=== PATIENT | female | born 1965 | race Caucasian/White ===

== ENCOUNTER 2019-09-07 15:30 | Outpatient (RCR) | payer BC, SELFPAY ==
--- NOTE | 2019-07-28 11:54 | PTOPEVAL ---
PHYSICAL THERAPY EVALUATION AND PLAN OF CARE Thank you for referring Bessie Snider to [facility]. I recommend Bessie participate in physical therapy 2x/week for 3-4 weeks. Please review, sign, date and return this plan of care RUY. I agree with and certify that the following plan of care is medically necessary. Referring Physician Date Attending Provider: Kalli Montana, MD Evaluation Outpatient Past Medical History Musculoskeletal History Hx Fibromyalgia Yes: diagnosed 1999 Hx Orthopedic Surgery Yes: cervical fusion C3-6 Evaluation Information Diagnosis right shoulder/neck pain Onset 6months Cause insidious Subjective Information Rand is here with chronic Query Text:As Reported By Patient/ right neck and shoulder pain Family that causes chronic right sided neck pain. Normally gets massages but is unable due to shutdown/stay at home. Reports numbness in 2nd and 3rd finger tips of right hand. has been trying to stretch without relief. Takes pain medication and muscle relaxor to 'get any relief to go to bed.' Right Shoulder Reported Pain Level 8/10 Pain Radiation Right Arm Pain Frequency Chronic,Continuous Lowest Pain Intensity 5 Greatest Pain Intensity 8 Other Pain Aggravating Factors working on computer Pain Behaviors Irritable Cervical ROM Cervical Flexion (0-60) 40 Query Text:Active in Degrees Cervical Extension (0-70) 15 Query Text:Active in Degrees Cervical Rotation Right (0-90) 35 Query Text:Active in Degrees Cervical Rotation Left (0-90) 40 Query Text:Active in Degrees Upper Extremity Range of Motion Scapular/ Shoulder Range of Motion Bilateral Shoulder Flexion - Active 140 Shoulder Abduction - Active 140 Shoulder Medial Rotation - Active T12 Query Text:Reach Behind the Back Shoulder Lateral Rotation - Active C7 Query Text:Reach Behind the Head Upper Extremity Muscle Strength Testing Scapular/Shoulder Bilateral Scapular Retraction - Middle Trapezius 3+ Fair + Scapular Retraction - Lower Trapezius 3+ Fair + Shoulder Flexion Strength 4 Good Shoulder Abduction Strength 4 Good Shoulder Medial Rotation Strength 4+ Good + Shoulder Lateral Rotation Strength 4+ Good + Muscle Length Testing Scalene Group Muscle Length (L) Moderate Tightness,(R) Query Text: Severe Tightness Scalenes Posterior Muscle Length (R) Moderate Tightness,(L) Query T
--- NOTE | 2019-08-04 10:49 | PCPTNOTE ---
Patient called & cancelled scheduled appointment this date due to having to work.
--- NOTE | 2019-08-12 08:07 | PCPTNOTE ---
Patient called & cancelled scheduled appointment this date due to being sick.
--- NOTE | 2019-08-17 08:21 | PCPTNOTE ---
Patient called & cancelled scheduled appointment this date due to no transportation.
--- NOTE | 2019-09-07 16:17 | PTOPEVAL ---
PHYSICAL THERAPY DISCHARGE NOTE Thank you for referring Bessie Snider to [facility]. Rand is confident and capable of HEP. I recommend discharge with follow-up with MD. I recommend further investigation of symptoms, possibly including and MRI of Cervical spine including at least T1-2. Please review, sign, date and return this plan of care RUY. I agree with and certify that the following plan of care is medically necessary. Referring Physician Date : Attending Provider: Kalli Montana, MD Discharge Outpatient Past Medical History Musculoskeletal History Hx Fibromyalgia Yes: diagnosed 1999 Hx Orthopedic Surgery Yes: cervical fusion C3-6 Diagnosis right shoulder/neck pain Onset 6months Cause insidious Subjective Information Rand reports that she Query Text:As Reported By Patient/ continues to have pain at base Family of right neck. She is not sure it will ever go away. She continues to have headaches regularly. She sleeps with the assist of Topamax, flexeril, tramadol, trazadone, but states that if she does not take one of them she does not sleep well. Rand continues to report pain starting at top of shoulder and running down middle deltoid with occasional symptoms down to middle finger Right Shoulder(s) Reported Pain Level 4 Pain Description Aching,Burning Pain Frequency Chronic,Continuous Other Pain Aggravating Factors working on computer Pain Behaviors Irritable Pain Score Pain Score 4: Self Report Additional Pain Score Comments massage scheduled on Saturday, headache ususally every night Cervical and Lumbar ROM Cervical ROM Cervical Flexion (0-60) 40 Query Text:Active in Degrees Cervical Extension (0-70) 20 Query Text:Active in Degrees Cervical Rotation Right (0-90) 45 Query Text:Active in Degrees Cervical Rotation Left (0-90) 45 Query Text:Active in Degrees Upper Extremity Range of Motion Scapular/ Shoulder Range of Motion Bilateral Shoulder Flexion - Active 145 Shoulder Abduction - Active 145 Shoulder Medial Rotation - Active T12 Query Text:Reach Behind the Back Shoulder Lateral Rotation - Active C7 Query Text:Reach Behind the Head Upper Extremity Muscle Strength Testing Scapular/Shoulder Bilateral Scapular Retraction - Middle Trapezius 4- Good - Scapular Retraction - Lower Trapezius
== END 2019-10-20 12:48 | disposition home or self-care (01) ==
LOC: ANHPT 15:30
PROVIDERS: PCP Family Medicine; Visit Provider Family Medicine
DX: M25.511 Pain in right shoulder (principal)
CPT/HCPCS: 97014; 97110; 97140; 97162; G0283

== ENCOUNTER 2019-12-16 22:22 | Emergency (ER) | payer BC, SELFPAY ==
[2019-12-16 22:23] VITALS: BP 153/91; PULSE 77; RESP 16; TEMP 36.2; O2SAT 100
[2019-12-16] MEDS: KETOROLAC 30 MG/ML VIAL (*BKC) IV PUSH (22:47)
[2019-12-16] MEDS: SODIUM CHLORIDE 0.9% IV 1,000 ML 1000 ML (22:47)
[2019-12-16] MEDS: fentaNYL CITRATE INJ (*CRX) 100 MCG/2 ML VIAL 50 MCG IV PUSH (23:56)
--- NOTE | 2019-12-17 00:19 | ED.HA ---
HPI - Headache General Chief Complaint: Headache Stated Complaint: Migraine Time Seen by Provider: 12/16/19 22:29 History of Present Illness HPI Narrative: Patient is a 54-year-old female who presents the ER with headache. Reports as a migraine. No relief with tramadol or Flexeril. Started in the posterior aspect of her head radiated forward on the right side. Worse with noise and lights. Endorses nausea and vomiting. No fevers or chills or sweats. Reports she is been under stress at work and this may have triggered it. Related Data Home Medications Medication Instructions Recorded Confirmed hydrochlorothiazide 12/16/19 lisinopril 12/16/19 Allergies Allergy/AdvReac Type Severity Reaction Status Date / Time prochlorperazine Allergy Severe ANAPHALAXIS Verified 12/16/19 22:37 HYDROMORPHONE HCL Allergy Severe Hives / Uncoded 12/16/19 22:37 Red Face IVP dye Allergy Unknown Unknown Uncoded 12/16/19 22:37 strawberries Allergy Unknown Unknown Uncoded 12/16/19 22:37 Contrast Media AdvReac Intermediate RASH Uncoded 12/16/19 22:37 Review of Systems Review of Systems: All systems reviewed & are unremarkable except as noted in HPI and below Eyes: Eyes: Denies change in vision and Reports photophobia ENT: Denies nasal congestion and Denies sore throat Neurologic: Denies dizziness, Reports headache(s), Denies focal weakness and Denies numbness PMFSH Past Medical History Medical History (Updated 12/17/19 @ 00:24 by Timothy Hsu MD) DVT (deep vein thrombosis) in Fibromyalgia Migraine Surgical History Surgical History (Updated 12/17/19 @ 00:22 by Timothy Hsu MD) H/O neck surgery History of appendectomy History of cholecystectomy History of hysterectomy Plate from C3-C6 Social History Social History Smoking status: Never smoker Alcohol intake: current Exam Narrative: Exam Narrative: GENERAL: Well-appearing, well-nourished, and in no acute distress. HEAD: Normocephalic, atraumatic. CHEST: Clear to auscultation. No respiratory distress. HEART: Regular rate and rhythm. Normal peripheral pulses. EXTREMITIES: Normal range of motion. No edema. SKIN: Warm, dry, no rash. NEURO: Alert and oriented x3. PSYCH: Normal mood and affect. Course Course Emergency Course: Headache resolved after IV fentanyl/Reglan/Toradol/Benadryl Vital Signs Vital signs: Vital Signs Temperature 97.2 F L 12/16/19 22:23 Pulse Rate 77 12/16/19 22:23 Respiratory Rate 16 12/16/19 22:23 Blood Pressure 153/91 H 12/16/19 22:23 Pulse Oximetry 100 12/16/19 22:23 Temperature 97.2 F L 12/16/19 22:23 Pulse Rate 77 12/16/19 22:23 Respiratory Rate 16 12/16/19 22:23 Blood Pressure 153/91 H 12/16/19 22:23 Pulse Oximetry 100 12/16/19 22:23 Discharge Plan Discharge Clinical Impression: Migraine Patient Disposition: Home, Self-Care Condition: Stable Instructions: Migraine Headache (ED) Additional Instructions: Return the ER if you have fever over 100.4 ?F, you have chest pain or shortness of breath, you lose consciousness, you have additional concerns. Prescriptions: No Action lisinopril 10 mg tablet RF: 0 hydrochlorothiazide 25 mg tablet RF: 0 Follow-up/Referrals: Rubén,Kalli Mack MD [Primary Care Provider] - 1 Week
[2019-12-17 00:34] VITALS: BP 136/86; PULSE 74; RESP 18; O2SAT 98
== END 2019-12-17 00:35 | disposition home or self-care (01) ==
PROVIDERS: Emergency Provider Emergency Medicine; PCP Family Medicine
DX: G43.909 Migraine, unspecified, not intractable, without status migrainosus (principal); Z86.718 Personal history of other venous thrombosis and embolism; M79.7 Fibromyalgia
CPT/HCPCS: 96361; 96374; 96375; 99284; J1885; J3010; J7030

== ENCOUNTER 2020-06-29 15:50 | Outpatient (CLI) | payer BC, SELFPAY | END 2020-06-29 15:51 | disposition home or self-care (01) | LOC: ANHCOVIDVC 15:50 | PROVIDERS: PCP Family Medicine | DX: Z23 Encounter for immunization (principal) | CPT/HCPCS: 0001A; 91300 ==

== ENCOUNTER 2020-07-20 16:01 | Outpatient (CLI) | payer BC, SELFPAY | END 2020-07-20 16:02 | disposition home or self-care (01) | LOC: ANHCOVIDVC 16:02 | DX: Z23 Encounter for immunization (principal) | CPT/HCPCS: 0002A; 91300 ==

== ENCOUNTER → 2020-08-12 15:25 | Outpatient (CLI) | payer BC, SELFPAY ==
--- NOTE | ~2020-08-12 | US_ITS ---
EXAMINATION: US thyroid DATE: 08/12/2020 16:15 INDICATION: Left neck mass, or loss and fatigue TECHNIQUE: Multiple ultrasound images of the thyroid were obtained. COMPARISON: None. FINDINGS: The right thyroid lobe measures 4.2 x 1.5 x 1.2 cm. The left thyroid lobe measures 4.5 x 1.0 x 1.1 c m. 9 mm wider than tall hypoechoic solid nodule with ill-defined margins and without echogenic foci (TI-RADS 4, moderately suspicious , FNA if >=1.5 cm, annual followup is >=1 cm). There is normal echo texture, echogenicity and vascular flow throughout the thyroid gland. At the region of the palpable a bnormality is a normal-sized left jugular chain lymph node measuring 1.8 x 0.8 x 1.2 cm with central echogenic fatty hilum. IMPRESSION: 1. 9 mm TI RADS 4 right thyroid nodule which does not meet size threshold for recommendation of eithe r biopsy or continued follow-up. Recommend clinical followup with repeat imaging if there are changes on physical exam. 2. Couple abnormality at the left side the neck corresponds to a normal-sized jugular chain lymph nod e measuring 8 mm in maximal short axis diameter. Reviewed, dictated and finalized at location A. IMPRESSION: 1. 9 mm TI RADS 4 right thyroid nodule which does not meet size threshold for r ecommendation of either biopsy or continued follow-up. Recommend clinical follo wup with repeat imaging if there are changes on physical exam. 2. Couple abnormality at the left side the neck corresponds to a normal-sized j ugular chain lymph node measuring 8 mm in maximal short axis diameter.
== END ==
PROVIDERS: PCP Family Medicine; Visit Provider Family Medicine
DX: R22.1 Localized swelling, mass and lump, neck (principal)
CPT/HCPCS: 76536

== ENCOUNTER → 2020-09-26 17:26 | Outpatient (CLI) | payer BC, SELFPAY ==
--- NOTE | ~2020-09-26 | MM_ITS ---
EXAMINATION: MM screening [facility] BI w jonathan HISTORY: Screening mammogram TECHNIQUE: Craniocaudal and mediolateral oblique 3-D tomosynthesis images were obtained and synthetic 2-D images were generated. CAD analysis was submitted and interpreted. COMPARISON: 09/26/2018, 09/24/2016, 05/19/2015 BREAST PARENCHYMAL COMPOSITION: There are scattered areas of fibroglandular density. FINDINGS: There is no evidence of suspicious mass, calcification, or architectural distortion to sugg est malignancy in either breast. There has been no suspicious interval change. IMPRESSION: 1. No mammographic evidence of malignancy. 2. Recommend routine screening mammography in one year. BI-RADS Category 1: Negative Reviewed, dictated and finalized at location A.
== END ==
PROVIDERS: PCP Family Medicine; Visit Provider Family Medicine
DX: Z12.31 Encounter for screening mammogram for malignant neoplasm of breast (principal)
CPT/HCPCS: 77063; 77067

== ENCOUNTER 2020-10-13 14:32 | Emergency (ER) | payer BC, SELFPAY ==
--- NOTE | ~2020-10-13 | CT_ITS ---
EXAMINATION: CT cervical spine wo con DATE: 10/13/2020 17:56 INDICATION: Neck pain TECHNIQUE: Computed tomography (CT) of the cervical spine was performed without intravenous contrast. The dose-length product (DLP) was 432.20 mGy-cm. Automated exposure control and iterative reconstruc tion technique were employed. COMPARISON: 02/14/2017 FINDINGS: There are changes of anterior fusion procedure from C3 through C6 with anterior plate and s crews and interbody bone graft. There is no fracture, dislocation, or subluxation. The odontoid is in tact. There is severe loss of intervertebral disc space height at C6-7. The prevertebral soft tissues are normal. IMPRESSION: 1. Unchanged severe loss of intervertebral disc space height at C6-7. 2. Changes of anterior fusion procedure from C3 through C6. Reviewed, dictated and finalized at location A.
--- NOTE | ~2020-10-13 | XR_ITS ---
EXAMINATION: XR chest 2V DATE: 10/13/2020 18:04 INDICATION: Left arm pain TECHNIQUE: AP and lateral views of the chest are obtained. COMPARISON: 12/08/2018 FINDINGS: There is mild atelectasis of the lung bases. There is no pleural effusion or pneumothorax. The cardiomediastinal silhouette is normal. There is moderate thoracic spondylosis. IMPRESSION: 1. No acute cardiopulmonary abnormality. Reviewed, dictated and finalized at location A.
--- NOTE | ~2020-10-13 | CT_ITS ---
EXAMINATION: CT brain wo con INDICATION: Headache and left arm weakness COMPARISON: 07/25/2018 TECHNIQUE: Standard unenhanced head CT. The dose-length product (DLP) was 605.33 mGy-cm. The mA was a djusted according to patient size. Iterative reconstruction technique was employed. FINDINGS: There is no intracranial hemorrhage, acute infarction, or abnormal mass lesion. The ventric les are normal. There is no abnormal mass effect or midline shift. The valiente-white matter differentiat ion is normal. The basal cisterns are patent. The orbits are normal. The paranasal sinuses, mastoids and calvarium are normal. IMPRESSION: 1. No acute intracranial abnormality. Reviewed, dictated and finalized at location A.
[2020-10-13 14:36] VITALS: BP 159/86; PULSE 99; RESP 16; TEMP 37.1; O2SAT 98
--- NOTE | 2020-10-13 17:35 | ECG_ITS ---
Measurements Intervals [place] Rate: 77 P: 42 PA: 180 QRS: 1 QRSD: 94 T: 30 QT: 396 QTc: 450 Interpretive Statements SINUS RHYTHM DELAYED PRECORDIAL R/S TRANSITION VOLTAGE CRITERIA FOR LVH BORDERLINE ECG Electronically Signed On 10-14-2020 6:45:38 CDT by Pete Sesay D.O.
--- NOTE | 2020-10-13 17:38 | ED.HA ---
HPI - Headache General Chief Complaint: Headache Stated Complaint: MARTÍNEZ, visual changes, L arm weakness x 2hours Time Seen by Provider: 10/13/20 17:22 Source: patient Mode of arrival: ambulatory Limitations: no limitations History of Present Illness HPI Narrative: This is a 55 year old female that presents to the ER for migraine headache today. Reports around 1pm she started to note some blurry vision. Reports soon after she noted a left sided headache that is stabbing in nature. Associated with nausea. Reports the pain radiates into her left arm. Also reports pain in her neck. She took her Imitrex and a dose of Ibuprofen without relief which prompted her to be seen. Associated with nausea and photophobia. Denies fever, stiff neck, vomiting, numbness or weakness. Related Data Home Medications Medication Instructions Recorded Confirmed hydrochlorothiazide 12/16/19 02/26/20 lisinopril 12/16/19 02/26/20 baclofen 10 mg tablet 10 mg PO DAILY 04/04/20 bupropion HCl 300 mg 24 hr tablet, 300 mg PO QAM 04/04/20 extended release fluoxetine 20 mg capsule 20 mg PO DAILY 04/04/20 sumatriptan succinate 100 mg tablet 100 mg PO ONCE 04/04/20 tramadol 50 mg tablet 50 mg PO Q6H PRN 04/04/20 trazodone 150 mg tablet 150 mg PO BID 04/04/20 Allergies Allergy/AdvReac Type Severity Reaction Status Date / Time prochlorperazine Allergy Severe ANAPHALAXIS Verified 10/13/20 17:38 HYDROMORPHONE HCL Allergy Severe Hives / Uncoded 10/13/20 17:38 Red Face IVP dye Allergy Unknown Unknown Uncoded 10/13/20 17:38 strawberries Allergy Unknown Unknown Uncoded 10/13/20 17:38 Contrast Media AdvReac Intermediate RASH Uncoded 10/13/20 17:38 Review of Systems Review of Systems: CONSTITUTIONAL: Denies fever EYES: Reports visual changes CARDIOVASCULAR: Denies chest pain RESPIRATORY: Denies dyspnea. GASTROINTESTINAL: Reports nausea. Denies vomiting MUSCULOSKELETAL: Reports joint pain, and myalgia. NEUROLOGIC: Reports headache. Denies numbness, or weakness. All systems reviewed & are unremarkable except as noted in HPI and below PMFSH Past Medical History Medical History (Updated 05/09/20 @ 09:50 by Suraj Nieves MD) DVT (deep vein thrombosis) in Fibromyalgia Left knee pain Migraine Right knee pain Surgical History Surgical History H/O neck surgery History of appendectomy History of cholecystectomy History of hysterectomy Plate from C3-C6 Family History Family History Father Family history of kidney disease Family history of heart disease in male family member before age 55 Mother Family history of chronic obstructive pulmonary disease Other Diabetes mellitus Family history of cardiovascular disease Family history of lung disease Family history of osteoarthritis Hypertension Social History Social History Smoking status: Never smoker Alcohol intake: current Exam Narrative: GENERAL: Well-appearing, well-nourished, and in no acute distress. HEAD: Normocephalic, atraumatic. EYES: PERRLA and EOMI. ENT: Nares clear, no rhinorrhea or epistaxis. Mucous membranes moist. Oropharynx without tonsillar hypertrophy exudate or other lesions. Bilateral TMs pearly valiente non-bulging NECK: Supple. No adenopathy or masses. No carotid bruits or JVD. Tender to palpation of the left trapezius musculature CHEST: Clear to auscultation. No respiratory distress. No wheezes rales or rhonchi HEART: Regular rate and rhythm. No murmur heard. Normal peripheral pulses. EXTREMITIES: Normal range of motion, except decreased active range of motion in left shoulder due to pain. No edema. Strength equal in bilateral upper and lower extremities (5/5) SKIN: Warm, dry, no rash. NEURO: No focal deficits. Alert and oriented x3. Cranial nerves II through XII grossly intact PSY
[2020-10-13] MEDS: SODIUM CHLORIDE 0.9% IV 1,000 ML 999 ML IV CONT (18:17)
--- NOTE | 2020-10-13 18:18 | ED.HA ---
HPI - Headache General Chief Complaint: Headache Stated Complaint: MARTÍNEZ, visual changes, L arm weakness x 2hours Time Seen by Provider: 10/13/20 17:22 Source: patient Mode of arrival: ambulatory Limitations: no limitations History of Present Illness HPI Narrative: This is a 55-year-old female that presents the emergency department for migraine headache present since this afternoon. Reports she first noted blurry vision. This was followed by a left-sided stabbing headache. Reports since she is started having pain in the left arm. Also reports neck pain. Reports history of migraines and fibromyalgia. She took a dose of Imitrex and ibuprofen with little relief. Denies fever, stiff neck, vomiting, numbness, or weakness. Related Data Home Medications Medication Instructions Recorded Confirmed hydrochlorothiazide 12/16/19 02/26/20 lisinopril 12/16/19 02/26/20 baclofen 10 mg tablet 10 mg PO DAILY 04/04/20 bupropion HCl 300 mg 24 hr tablet, 300 mg PO QAM 04/04/20 extended release fluoxetine 20 mg capsule 20 mg PO DAILY 04/04/20 sumatriptan succinate 100 mg tablet 100 mg PO ONCE 04/04/20 tramadol 50 mg tablet 50 mg PO Q6H PRN 04/04/20 trazodone 150 mg tablet 150 mg PO BID 04/04/20 Allergies Allergy/AdvReac Type Severity Reaction Status Date / Time prochlorperazine Allergy Severe ANAPHALAXIS Verified 10/13/20 17:38 HYDROMORPHONE HCL Allergy Severe Hives / Uncoded 10/13/20 17:38 Red Face IVP dye Allergy Unknown Unknown Uncoded 10/13/20 17:38 strawberries Allergy Unknown Unknown Uncoded 10/13/20 17:38 Contrast Media AdvReac Intermediate RASH Uncoded 10/13/20 17:38 Review of Systems Review of Systems: CONSTITUTIONAL: Denies fever EYES: Reports visual changes CARDIOVASCULAR: Denies chest pain RESPIRATORY: Denies dyspnea. GASTROINTESTINAL: Reports nausea. Denies vomiting MUSCULOSKELETAL: Reports joint pain, and myalgia. NEUROLOGIC: Reports headache. Denies numbness, or weakness. All systems reviewed & are unremarkable except as noted in HPI and below PMFSH Past Medical History Medical History (Updated 10/13/20 @ 20:42 by Juliana Wright PA-C) DVT (deep vein thrombosis) in Fibromyalgia Left knee pain Migraine Right knee pain Surgical History Surgical History H/O neck surgery History of appendectomy History of cholecystectomy History of hysterectomy Plate from C3-C6 Family History Family History Father Family history of kidney disease Family history of heart disease in male family member before age 55 Mother Family history of chronic obstructive pulmonary disease Other Diabetes mellitus Family history of cardiovascular disease Family history of lung disease Family history of osteoarthritis Hypertension Social History Social History Smoking status: Never smoker Alcohol intake: current Exam Narrative: GENERAL: Well-appearing, well-nourished, and in no acute distress. HEAD: Normocephalic, atraumatic. EYES: PERRLA and EOMI. ENT: Nares clear, no rhinorrhea or epistaxis. Mucous membranes moist. Oropharynx without tonsillar hypertrophy exudate or other lesions. Bilateral TMs pearly valiente non-bulging NECK: Supple. No adenopathy or masses. No carotid bruits or JVD. Tender to palpation of left trapezius musculature CHEST: Clear to auscultation. No respiratory distress. No wheezes rales or rhonchi HEART: Regular rate and rhythm. No murmur heard. Normal peripheral pulses. EXTREMITIES: Normal range of motion. No edema. Strength equal in bilateral upper and lower extremities (5/5) SKIN: Warm, dry, no rash. NEURO: No focal deficits. Alert and oriented x3. Cranial nerves II through XII grossly intact PSYCH: Normal mood and affect Course Vital Signs Vital signs: Vital Signs Temperature 98.8 F 10/13/20 14:36
[2020-10-13] MEDS: diphenhydrAMINE HCl INJ 50 MG/ML VIAL 25 MG IV PUSH (18:19)
[2020-10-13] MEDS: METOCLOPRAMIDE HCL INJ 10 MG/2 ML VIAL IV PUSH (18:21)
[2020-10-13 18:37] LABS: Basophils Percent Auto 0.5 % (0.2-1.2); Eosinophils Absolute Auto 0.1 K/mm3 (0-0.3); Eosinophils Percent Auto 1.7 % (0-4.4); Hematocrit 43.4 % (37.0-47.0); Hemoglobin 13.8 g/dL (12.0-15.0); Immature Granulocyte Absolute 0.02 K/mm3 (0.00-0.031); Immature Granulocyte Percent A 0.3 % (0-0.5); Lymphocytes Absolute Auto 2.64 K/mm3 (0.9-3.2); Lymphocytes Percent Auto 34.6 % (18.3-44.2); Mean Corpuscular HGB Conc 31.8 g/dl (32-36); Mean Corpuscular Hemoglobin 30.1 pg (26-34); Mean Corpuscular Volume 94.8 fl (80-100); Mean Platelet Volume 11.3 fl (7.4-10.4); Monocytes Absolute Auto 0.6 K/mm3 (0.1-0.6); Monocytes Percent Auto 8.4 % (2.6-8.5); Neutrophils Absolute Auto 4.2 K/mm3 (1.3-6.7); Neutrophils Percent Auto 54.5 % (45.5-73.1); Nucleated Red Blood Cells Perc 0.3 % (0.0-0.2); Platelet Count Result 278 k/mm3 (150-375); Red Blood Count 4.58 M/mm3 (4.2-5.4); Red Cell Distribution Width 14.6 % (11.5-14.5); White Blood Count 7.6 K/mm3 (4.5-10.0)
[2020-10-13 18:43] LABS: Anion Gap 11 mmol/L (8-16); Blood Urea Nitrogen 15 mg/dL (7-17); Carbon Dioxide 28 mmol/L (22-30); Chloride 105 mmol/L (98-107); Estimated CRCL calculation 94 ml/min; Estimated Glomerular Filt Rate > 60; Glucose 78 mg/dL (65-110); Potassium 4.4 mmol/L (3.4-5.0); Sodium 144 mmol/L (137-145)
[2020-10-13 18:48] LABS: INR 0.8
[2020-10-13] MEDS: KETOROLAC 30 MG/ML VIAL (*BKC) IV PUSH (20:22)
[2020-10-13 21:38] VITALS: BP 122/73; PULSE 82; RESP 20; O2SAT 98
== END 2020-10-13 21:40 | disposition home or self-care (01) ==
PROVIDERS: Physician Assistant; Emergency Provider Emergency Medicine; PCP Family Medicine
DX: G43.909 Migraine, unspecified, not intractable, without status migrainosus (principal); M54.2 Cervicalgia; R94.31 Abnormal electrocardiogram [ECG] [EKG]
CPT/HCPCS: 36415; 70450; 71046; 72125; 80048; 85025; 85610; 85730; 93005; 96361; 96374; 96375; 99284; J0131; J1200; J1885; J2765; J7030

== ENCOUNTER 2020-12-19 16:47 | Emergency (ER) | payer BC, SELFPAY ==
--- NOTE | ~2020-12-19 | XR_ITS ---
EXAMINATION: XR shoulder LT min 2V EXAM DATE: 12/19/2020 18:36 INDICATION: Pain, decreased range of motion. TECHNIQUE: The following left shoulder projections obtained: frontal projection with internal rotatio n, frontal projection with external rotation, Grashey, and scapular Y view (4+ views). There is no p rior study for comparison. FINDINGS: No evidence of left shoulder rotator cuff calcific tendinosis. There is mild to moderate glenohumeral joint, mild acromioclavicular joint primary osteoarthritis. Cervical fusion hardware. T here are no acute fractures or dislocations identified. There is no subcutaneous gas. The soft tiss ue is unremarkable. There are no radiopaque foreign bodies. IMPRESSION: Mild to moderate left glenohumeral, mild acromioclavicular osteoarthritis. Reviewed, dictated and finalized at location A. IMPRESSION: Mild to moderate left glenohumeral, mild acromioclavicular osteoart hritis.
--- NOTE | ~2020-12-19 | XR_ITS ---
EXAMINATION: XR chest 2V DATE: 12/19/2020 17:10 INDICATION: Left chest pain. Left arm pain. TECHNIQUE: Frontal and lateral views of the chest were obtained. COMPARISON: Chest 2 views 10/13/2020 FINDINGS: The chest demonstrates clear lungs without pneumonia, pleural effusion, or pneumothorax. Th e heart size is normal. There are changes of anterior fusion procedure in cervical spine. Surgical cl ips in the right upper quadrant are likely from cholecystectomy. IMPRESSION: 1. No acute cardiopulmonary disease. Reviewed, dictated and finalized at location A.
[2020-12-19 16:55] VITALS: BP 144/77; PULSE 77; RESP 16; TEMP 36.8; O2SAT 96
--- NOTE | 2020-12-19 16:55 | ECG_ITS ---
Measurements Intervals [place] Rate: 87 P: 39 [place]: 141 QRS: 15 QRSD: 79 T: 24 QT: 347 QTc: 419 Interpretive Statements SINUS RHYTHM VENTRICULAR PREMATURE COMPLEXES NONSPECIFIC ST & T-WAVE ABNORMALITY- INF/LAT LEADS BASELINE ARTIFACT- I, II, III, AVR, AVL, AVF BORDERLINE ECG Electronically Signed On 12-19-2020 19:14:14 CDT by Pete Sesay D.O.
[2020-12-19 17:09] LABS: Basophils Percent Auto 0.5 % (0.2-1.2); Eosinophils Absolute Auto 0.1 K/mm3 (0-0.3); Eosinophils Percent Auto 1.1 % (0-4.4); Hematocrit 40.4 % (37.0-47.0); Hemoglobin 13.3 g/dL (12.0-15.0); Immature Granulocyte Absolute 0.02 K/mm3 (0.00-0.031); Immature Granulocyte Percent A 0.3 % (0-0.5); Lymphocytes Percent Auto 27.9 % (18.3-44.2); Mean Corpuscular HGB Conc 32.9 g/dl (32-36); Mean Corpuscular Hemoglobin 30.4 pg (26-34); Mean Corpuscular Volume 92.2 fl (80-100); Monocytes Absolute Auto 0.5 K/mm3 (0.1-0.6); Neutrophils Absolute Auto 5.1 K/mm3 (1.3-6.7); Neutrophils Percent Auto 64.2 % (45.5-73.1); Platelet Count Result 293 k/mm3 (150-375); Red Blood Count 4.38 M/mm3 (4.2-5.4); Red Cell Distribution Width 13.7 % (11.5-14.5); White Blood Count 7.9 K/mm3 (4.5-10.0)
[2020-12-19 17:19] LABS: Anion Gap 10 mmol/L (8-16); Blood Urea Nitrogen 17 mg/dL (7-17); Calcium 9.4 mg/dL (8.4-10.2); Carbon Dioxide 22 mmol/L (22-30); Chloride 111 mmol/L (98-107); Estimated CRCL calculation 89 ml/min; Estimated Glomerular Filt Rate > 60; Glucose 112 mg/dL (65-110); Potassium 3.6 mmol/L (3.4-5.0); Sodium 143 mmol/L (137-145)
[2020-12-19 17:20] LABS: INR 0.9
[2020-12-19 17:21] LABS: Partial Thromboplastin Time 25.2 SECONDS (22.3-36.8)
[2020-12-19 17:32] LABS: Troponin I < 0.012 ng/mL (0.000-0.034)
[2020-12-19] MEDS: ASPIRIN 81 MG CHEWABLE TABLET 324 MG PO (17:51)
--- NOTE | 2020-12-19 18:59 | ED.EXTPRO ---
HPI - Extremity Problem General Chief complaint: Chest Pain Stated complaint: left chest pain 2 weeks Time Seen by Provider: 12/19/20 17:37 History of Present Illness HPI Narrative: Patient complains of 2 weeks of left anterior pectoral pain rating to left acromioclavicular joint. Pain is worse with shoulder abduction as well as extension. Pain is constant worse with movement improves somewhat with rest described as sharp. No known injury. No chest pain no shortness of breath no focal weakness, no neck pain currently. Has taken NSAIDS without relief. No other complaints. Related Data Home Medications Medication Instructions Recorded Confirmed baclofen 10 mg tablet 10 mg PO DAILY 04/04/20 11/14/20 bupropion HCl 300 mg 24 hr tablet, 300 mg PO QAM 04/04/20 11/14/20 extended release fluoxetine 20 mg capsule 20 mg PO DAILY 04/04/20 11/14/20 sumatriptan succinate 100 mg tablet 100 mg PO ONCE 04/04/20 11/14/20 tramadol 50 mg tablet 50 mg PO Q6H PRN 04/04/20 11/14/20 trazodone 150 mg tablet 150 mg PO BID 04/04/20 11/14/20 duloxetine [Cymbalta] 60 mg PO DAILY 12/19/20 Allergies Allergy/AdvReac Type Severity Reaction Status Date / Time prochlorperazine Allergy Severe ANAPHALAXIS Verified 12/19/20 17:47 HYDROMORPHONE HCL Allergy Severe Hives / Uncoded 11/14/20 11:44 Red Face IVP dye Allergy Unknown Unknown Uncoded 11/14/20 11:44 strawberries Allergy Unknown Unknown Uncoded 11/14/20 11:44 Contrast Media AdvReac Intermediate RASH Uncoded 11/14/20 11:44 Review of Systems Review of Systems: CONSTITUTIONAL: no fever, no weight loss, no confusion EYES: no vision changes, no eye pain ENT: no rhinorrhea, no sore throat, no difficulty swallowing CARDIOVASCULAR: no chest pain, no leg edema, no palpitations RESPIRATORY: no cough, no shortness of breath, no hemoptysis GASTROINTESTINAL: no abdominal pain, no nausea, no vomiting, no diarrhea GENITOURINARY: no flank pain, no dysuria, no hematuria SKIN: no rash, no jaundice MUSCULOSKELETAL: no back pain, no trauma, L shoulder pain NEUROLOGIC: No headache, no dizziness, no focal weakness, no paresthesia PSYCHIATRIC: No hallucinations, no suicidal ideation [facility] Past Medical History Medical History (Updated 12/19/20 @ 19:18 by Amy Dumont MD) DVT (deep vein thrombosis) in Fibromyalgia Left knee pain Migraine Right knee pain Surgical History Surgical History H/O neck surgery History of appendectomy History of cholecystectomy History of hysterectomy Plate from C3-C6 Family History Family History Father Family history of kidney disease Family history of heart disease in male family member before age 55 Mother Family history of chronic obstructive pulmonary disease Other Diabetes mellitus Family history of cardiovascular disease Family history of lung disease Family history of osteoarthritis Hypertension Social History Social History Alcohol intake: current Exam Narrative: General: alert, afebrile, answering all questions appropriately Head: normocephalic, atraumatic Eyes: EOMI bilaterally, anicteric, no injection ENT: moist mucous membranes, oropharynx patent, no rhinorrhea Neck: supple, trachea midline, no JVD Chest: equal chest rise bilaterally, no chest wall trauma noted CV: regular rate, no NANNETTE B, calf size equal bilaterally Back: no lumbar bony tenderness. paraspinal muscles without spasm EXT: L shoulder: skin intact, no deformity noted radial 2+ ulnar 2+ pain with abduction and extention; tender at acromioclavicular joint. No biceps tendon tenderness of deformity Skin: warm, dry, no pallor Neuro: alert, oriented x 3; CN 2-12 grossly intact, no dysarthria Psych: affect appropriate, though content normal Course Course Emergency Course: Patient with history of C3-C6 laminectomy in th
[2020-12-19] MEDS: KETOROLAC 30 MG/ML VIAL (*BKC) 15 MG IM (19:17)
[2020-12-19 20:04] VITALS: BP 142/73; PULSE 78; RESP 20
== END 2020-12-19 20:07 | disposition home or self-care (01) ==
PROVIDERS: Family Medicine; Emergency Provider Emergency Medicine; PCP Family Medicine
DX: M25.512 Pain in left shoulder (principal); M79.7 Fibromyalgia; Z86.718 Personal history of other venous thrombosis and embolism; M19.012 Primary osteoarthritis, left shoulder; I49.3 Ventricular premature depolarization
CPT/HCPCS: 36415; 71046; 73030; 80048; 84484; 85025; 85610; 85730; 93005; 96372; 99284; A9270; J1885

== ENCOUNTER 2021-10-26 08:12 | Emergency (ER) | payer BC, SELFPAY ==
--- NOTE | 2021-10-26 08:13 | ED.ABDPAIN ---
HPI - Abdominal Pain General Chief Complaint: Abdominal Pain Stated Complaint: Abdominal Pain Time Seen by Provider: 10/26/21 08:13 Source: patient Mode of arrival: ambulatory Limitations: no limitations History of Present Illness HPI narrative: Ms. Snider is a 56-year-old female patient presenting to the clinic today with complaints of abdominal pain. She reports she is being bullied at work and this has caused her to have generalized abdominal pain, nausea, and diarrhea. She reports that this is been going on for couple weeks. She denies any fever or chills. She denies any urinary symptoms. She reports that she has had 5 diarrheal stools this morning. Denies any blood in her stool. Reports that she has a history of the disease of Oddi so she has some sharp right upper quadrant pain. She has been taking Bentyl and Imodium with little relief. Related Data Home Medications Medication Instructions Recorded Confirmed bupropion HCl 300 mg 24 hr tablet, 300 mg PO QAM 04/04/20 10/05/21 extended release trazodone 150 mg tablet 150 mg PO BID 04/04/20 10/05/21 Allergies Allergy/AdvReac Type Severity Reaction Status Date / Time prochlorperazine Allergy Severe ANAPHALAXIS Verified 10/26/21 08:19 HYDROMORPHONE HCL Allergy Severe Hives / Uncoded 10/26/21 08:19 Red Face IVP dye Allergy Unknown Unknown Uncoded 10/26/21 08:19 strawberries Allergy Unknown Unknown Uncoded 10/26/21 08:19 Contrast Media AdvReac Intermediate RASH Uncoded 10/26/21 08:19 Review of Systems Review of Systems: Pertinent positives per HPI. Patient denies any fever, chills, rash, headache, visual changes, dizziness, cough, runny nose, sore throat, shortness of breath, chest pain, palpitations, vomiting, constipation, or any urinary issues. [facility] Past Medical History Medical History Acute recurrent maxillary sinusitis Aftercare following right knee joint replacement surgery Allergic reaction to food Arthralgia of temporomandibular joint, unspecified side Body mass index [BMI] 31.0-31.9, adult (12/30/17) Body mass index [BMI] 32.0-32.9, adult (02/17/15) Body mass index [BMI] 33.0-33.9, adult (07/09/16) Body mass index [BMI] 34.0-34.9, adult (01/26/15) Body mass index [BMI] 40.0-44.9, adult (06/09/15) Chronic fatigue and malaise Chronic pain of right knee Complex tear of medial meniscus of left knee DVT (deep vein thrombosis) in Fibromyalgia Fibromyalgia Left knee pain Left shoulder pain Major depressive disorder, single episode Migraine Moderate episode of recurrent major depressive disorder Obesity, unspecified (07/09/16) Occult blood in stools Other chronic pain Pes anserine bursitis Poison caro dermatitis Right knee pain Skin excoriation Sleep apnea in adult Traumatic gamekeeper's thumb of right hand Unilateral primary osteoarthritis, right knee Surgical History Surgical History H/O neck surgery History of appendectomy History of cholecystectomy History of hysterectomy Plate from C3-C6 Presence of right artificial knee joint Family History Family History Father Family history of kidney disease Family history of heart disease in male family member before age 55 Mother Family history of chronic obstructive pulmonary disease Other Diabetes mellitus Family history of cardiovascular disease Family history of lung disease Family history of osteoarthritis Hypertension Social History Social History Smoking status: Never smoker Alcohol intake: current Drinks per week: 3 Alcohol use details: wine Substance use: never 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
[2021-10-26 08:19] VITALS: BP 149/91; PULSE 93; RESP 18; TEMP 36.4; O2SAT 100
[2021-10-26 08:27] VITALS: BP 149/91; PULSE 93; RESP 18; TEMP 36.4; O2SAT 100
== END 2021-10-26 08:35 | disposition home or self-care (01) ==
PROVIDERS: Emergency Provider Nurse Practitioner Family; PCP Family Medicine
DX: R11.0 Nausea (principal); R10.84 Generalized abdominal pain; F41.9 Anxiety disorder, unspecified; F43.0 Acute stress reaction; R19.7 Diarrhea, unspecified; Z86.718 Personal history of other venous thrombosis and embolism; M79.7 Fibromyalgia; G47.30 Sleep apnea, unspecified; Z96.651 Presence of right artificial knee joint; F32.9 Major depressive disorder, single episode, unspecified
CPT/HCPCS: 99213; G0463

== ENCOUNTER → 2021-11-14 08:53 | Outpatient (CLI) | payer BC, SELFPAY ==
--- NOTE | ~2021-11-14 | US_ITS ---
EXAMINATION: US abdomen limited DATE: 11/14/2021 09:19 INDICATION: Right upper quadrant abdominal pain. TECHNIQUE: Multiple grayscale and Doppler ultrasound images of the abdomen were obtained. COMPARISON: CT abdomen and pelvis 12/26/2018 FINDINGS: The visualized portions of the head, body, and tail of the pancreas are normal. There is di ffuse hepatic steatosis. There is normal flow in main portal vein. There are changes of cholecystecto my. There is a 1.7 cm cyst in the gallbladder fossa correlating with residual gallbladder neck by CT. The common duct is normal and measures 6 mm. IMPRESSION: 1. Diffuse hepatic steatosis. Reviewed, dictated and finalized at location A.
== END ==
PROVIDERS: PCP Family Medicine; Visit Provider Family Medicine
DX: R10.11 Right upper quadrant pain (principal); K76.0 Fatty (change of) liver, not elsewhere classified
CPT/HCPCS: 76705

== ENCOUNTER 2021-11-16 10:01 | Outpatient (CLI) | payer BC, SELFPAY ==
--- NOTE | ~2021-11-16 | MR_ITS ---
EXAMINATION: MR orbits face neck wo/w con DATE: 11/16/2021 10:59 INDICATION: Headache. Right eye twitching. TECHNIQUE: Magnetic resonance imaging (MRI) of the orbits was performed without and with 20 mL MultiH ance intravenous contrast. COMPARISON: Head CT 10/13/2020 FINDINGS: There is no intracranial hemorrhage, acute infarction, or abnormal intracranial mass lesion . The ventricles are normal in size. The paranasal sinuses are clear. The mastoid air cells are benjamin l. The ocular globes are normal. The optic nerves and extraocular muscles are normal. IMPRESSION: 1. Normal orbits. Reviewed, dictated and finalized at location A. IMPRESSION: 1. Normal orbits.
== END 2021-11-16 10:02 ==
PROVIDERS: PCP Family Medicine; Visit Provider Psychiatry & Neurology Neurology
DX: R51.9 Headache, unspecified (principal)
CPT/HCPCS: 70543; A9577

== ENCOUNTER 2021-11-22 00:32 | Day surgery (SDC) | payer BC, SELFPAY ==
[2021-11-08 13:15] VITALS: BMI 32.5
--- NOTE | 2021-11-21 16:08 | PM.HPGS ---
History of Present Illness History of Present Illness Consent: Risks, benefits, and alternatives have been discussed and questions answered. Patient agrees to proceed with procedure. Chief complaint: diarrhea, RUQP, GERD, nausea Narrative: Bessie Snider is a 56 year old female who was seen in our office for c/o RUQ pain, nausea, vomiting, and diarrhea. reports symptoms have been going for the past 4 months or so. Reports RUQ pain is constant. She had cholecystectomy in 2008 for biliary dyskinesia, but no stones. She continued to have intermittent RUQ pain post cholecystectomy but not to this degree. She reports daily nausea with bouts of vomiting which is also worse after. At one pt, was told she SOD. This was at the [facility]. We do not know if they did a manometry. She she apparently did not have a sphincterotomy and has not been placed on any particular diet.She has 4-5 loose to watery stools daily with urgency but no night time symptoms or accidents. She also occasional very dark to black stools.She was started on omeprazole 20 mg daily, Zofran 4 mg PRN,? Dicyclomine 10 mg BID, and Imodium as needed with no relief in symptoms Review of Systems Review of Systems: All systems reviewed & are unremarkable except as noted in HPI and below PMFSH Past Medical History Medical History Acute recurrent maxillary sinusitis Aftercare following right knee joint replacement surgery Allergic reaction to food Arthralgia of temporomandibular joint, unspecified side Body mass index [BMI] 31.0-31.9, adult (12/30/17) Body mass index [BMI] 32.0-32.9, adult (02/17/15) Body mass index [BMI] 33.0-33.9, adult (07/09/16) Body mass index [BMI] 34.0-34.9, adult (01/26/15) Body mass index [BMI] 40.0-44.9, adult (06/09/15) Chronic fatigue and malaise Chronic pain of right knee Complex tear of medial meniscus of left knee Diarrhea DVT (deep vein thrombosis) in Fibromyalgia Fibromyalgia Left knee pain Left shoulder pain Major depressive disorder, single episode Migraine Moderate episode of recurrent major depressive disorder Nausea Obesity, unspecified (07/09/16) Occult blood in stools Other chronic pain Pes anserine bursitis Poison caro dermatitis Right knee pain Right upper quadrant abdominal pain Skin excoriation Sleep apnea in adult Traumatic gamekeeper's thumb of right hand Unilateral primary osteoarthritis, right knee Surgical History Surgical History H/O neck surgery History of appendectomy History of cholecystectomy History of hysterectomy Plate from C3-C6 Presence of right artificial knee joint Family History Family History Father Family history of kidney disease Family history of heart disease in male family member before age 55 Mother Family history of chronic obstructive pulmonary disease Other Diabetes mellitus Family history of cardiovascular disease Family history of lung disease Family history of osteoarthritis Hypertension Social History Social History Smoking status: Never smoker Alcohol intake: current Drinks per week: 3 Alcohol use details: on occasion Substance use: never Substance use type: does not use Living arrangements: with family 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
[2021-11-22 10:09] VITALS: BP 144/98; PULSE 80; RESP 18; TEMP 36.1; O2SAT 100; BMI 34.1
[2021-11-22] MEDS: LACTATED RINGERS 1,000 ML 150 ML IV CONT (10:18)
--- NOTE | 2021-11-22 10:48 | WPDANESEPPF ---
Anes - Initial Pre Proc Eval Procedure: Operation Date: 11/22/21 12:30 Proposed Procedures p Esophagogastroduodenoscopy & Colonoscopy - Vinicius Paniagua MD Date/Time: 11/22/21 10:48 Surgeon: Vinicius Paniagua MD Pre Op Diagnosis: diarrhea, RUQP, GERD, nausea Patient Data Age: 56 Gender: F Height: 1.75 m Weight: 104.9 kg Last Vital Signs Temp 97 F L 11/22/21 10:09 Pulse 80 11/22/21 10:09 Resp 18 11/22/21 10:09 BP 144/98 H 11/22/21 10:09 Pulse Ox 100 11/22/21 10:09 O2 Del Method Room Air 11/22/21 10:09 Allergies Allergy/AdvReac Type Severity Reaction Status Date / Time prochlorperazine Allergy Severe ANAPHALAXIS Verified 11/22/21 10:08 HYDROMORPHONE HCL Allergy Severe Hives / Uncoded 11/08/21 13:13 Red Face IVP dye Allergy Unknown Unknown Uncoded 11/08/21 13:13 strawberries Allergy Unknown Unknown Uncoded 11/08/21 13:13 Contrast Media AdvReac Intermediate RASH Uncoded 11/08/21 13:13 Home Medications Medication Instructions Recorded Confirmed Type trazodone 150 mg tablet 150 mg PO BID 04/04/20 11/08/21 History topiramate 50 mg tablet 50 mg PO BID #180 tabs 07/12/21 11/08/21 Rx baclofen 5 mg tablet 5 mg PO TID PRN muscle spasm #90 09/01/21 11/08/21 Rx tabs losartan 50 mg tablet 50 mg PO DAILY #90 tabs 09/14/21 11/08/21 Rx duloxetine 60 mg capsule,delayed 60 mg PO DAILY #30 caps 10/06/21 11/08/21 Rx release (Cymbalta) solifenacin 10 mg tablet 10 mg PO DAILY #30 tabs 10/06/21 11/08/21 Rx meloxicam 7.5 mg tablet 7.5 mg PO DAILY PRN pain 30 days 10/23/21 11/08/21 Rx #30 tabs ondansetron 4 mg disintegrating 4 mg PO Q6H PRN nausea and 08/11/22 08/24/22 Rx tablet vomiting 3 days #12 tabs lorazepam 0.5 mg tablet 0.5 mg PO DAILY PRN anxiety #20 10/27/21 11/08/21 Rx tabs cholestyramine (with sugar) 4 gram 4 g PO DAILY diarrhea #378 grams 11/02/21 11/08/21 Rx oral powder dicyclomine 20 mg tablet 20 mg PO TID 1 month #90 tabs 11/02/21 11/08/21 Rx omeprazole 40 mg capsule,delayed 40 mg PO DAILY 1 month #30 caps 11/02/21 11/08/21 Rx release omeprazole 20 mg capsule,delayed 20 mg PO DAILY #90 caps 11/14/21 11/22/21 Rx release Patient hx anesthesia problems: none Family hx anesthesia problems: none Results Review: All pre-operative results and documents have been reviewed as part of the pre-operative evaluation. [facility] Past Medical History Medical History (Updated 11/02/21 @ 16:10 by Tonie Rivera, RENU-C) Acute recurrent maxillary sinusitis Aftercare following right knee joint replacement surgery Allergic reaction to food Arthralgia of temporomandibular joint, unspecified side Body mass index [BMI] 31.0-31.9, adult (12/30/17) Body mass index [BMI] 32.0-32.9, adult (02/17/15) Body mass index [BMI] 33.0-33.9, adult (07/09/16) Body mass index [BMI] 34.0-34.9, adult (01/26/15) Body mass index [BMI] 40.0-44.9, adult (06/09/15) Chronic fatigue and malaise Chronic pain of right knee Complex tear of medial meniscus of left knee Diarrhea DVT (deep vein thrombosis) in Fibromyalgia Fibromyalgia Left knee pain Left shoulder pain Major depressive disorder, single episode Migraine Moderate episode of recurrent major depressive disorder Nausea Obesity, unspecified (07/09/16) Occult blood in stools Other chronic pain Pes anserine bursitis Poison caro dermatitis Right knee pain Right upper quadrant abdominal pain Skin excoriation Sleep apnea in adult Traumatic gamekeeper's thumb of right hand Unilateral primary osteoarthritis, right knee Surgical History Surgical History H/O neck surgery History of appendectomy History of cholecystectomy History of hysterectomy Plate from C3-C6 Presence of right artificial knee joint Family History Family History Father Family history of kidney disease Family history of heart disease in male family member befor
--- NOTE | 2021-11-22 11:35 | SUR.OPER ---
EGD END: 1130 COLONOSCOPY START 1137
[2021-11-22 11:53] VITALS: BP 118/67; PULSE 82; RESP 22; O2SAT 100
[2021-11-22 12:03] VITALS: BP 125/76; PULSE 81; RESP 24; O2SAT 100
[2021-11-22 12:13] VITALS: BP 140/79; PULSE 78; RESP 17; O2SAT 100
== END 2021-11-22 12:30 | disposition home or self-care (01) ==
PROVIDERS: PCP Family Medicine; Visit Provider Internal Medicine Gastroenterology
PROC: 0DJ08ZZ Inspection of Upper Intestinal Tract, Via Natural or Artificial Opening Endoscopic (ICD-10-PCS; CPT 43235; principal; 2021-11-22 12:30)
DX: K52.9 Noninfective gastroenteritis and colitis, unspecified (principal); K57.30 Diverticulosis of large intestine without perforation or abscess without bleeding; K21.9 Gastro-esophageal reflux disease without esophagitis; M79.7 Fibromyalgia; G47.30 Sleep apnea, unspecified; Z86.718 Personal history of other venous thrombosis and embolism; F32.9 Major depressive disorder, single episode, unspecified; Z90.49 Acquired absence of other specified parts of digestive tract; Z96.651 Presence of right artificial knee joint
CPT/HCPCS: 45380; 43239; 87081; 88305; J2704; J7120

== ENCOUNTER → 2022-01-13 11:14 | Outpatient (CLI) | payer BC, SELFPAY ==
--- NOTE | ~2022-01-13 | MM_ITS ---
EXAMINATION: MM screening joey BI w jonathan HISTORY: Screening TECHNIQUE: Craniocaudal and mediolateral oblique 3-D tomosynthesis images were obtained and synthetic 2-D images were generated. CAD analysis was submitted and interpreted. COMPARISON: Comparison to multiple prior studies sequentially, with oldest reviewed study dated 05/2015. BREAST PARENCHYMAL COMPOSITION: The breasts are almost entirely fatty. FINDINGS: There is no evidence of suspicious mass, calcification, or architectural distortion to sugg est malignancy in either breast. There has been no suspicious interval change. IMPRESSION: 1. No mammographic evidence of malignancy. 2. Recommend routine screening mammography in one year. BI-RADS Category 1: Negative Reviewed, dictated and finalized at location A.
== END ==
PROVIDERS: PCP Family Medicine; Visit Provider Family Medicine
DX: Z12.31 Encounter for screening mammogram for malignant neoplasm of breast (principal)
CPT/HCPCS: 77063; 77067

== ENCOUNTER 2022-01-15 07:45 | Outpatient (CLI) | payer BC, SELFPAY ==
--- NOTE | ~2022-01-15 | MR_ITS ---
EXAMINATION: MR MRCP wo/w con/w 3D wo ind DATE: 01/15/2022 09:12 INDICATION: Right upper quadrant abdominal pain. TECHNIQUE: Magnetic resonance imaging (MRI) of the abdomen was performed without and with 20 mL Multi Shad intravenous contrast. Sequences included coronal T2-weighted FS FSE, coronal T2-weighted FSE, a xial T1-weighted LAVA, coronal FS FIESTA, axial dual-echo T1-weighted SPGR, coronal lava-FLEX, sagitt al T2-weighted FSE, axial T2-weighted FSE, and axial DWI. Thick-slab T2-weighted FSE images were obta ined for magnetic resonance cholangiopancreatography (MRCP). Maximum intensity projection 3-D reconst ructions of the volumetric data were created by the technologist. Postcontrast sequences included cor onal LAVA-flex and time course of axial T1-weighted LAVA. COMPARISON: Abdomen ultrasound 11/14/2021, CT abdomen and pelvis 12/26/2018 FINDINGS: ABDOMEN MRI: There is diffuse hepatic steatosis. There are changes of cholecystectomy with residual g allbladder neck noted. The spleen, pancreas, adrenal glands, and left kidney are normal. There is a 7 mm cyst in right kidney. There are no dilated loops of bowel. There are no pathologically enlarged l ymph nodes. There is no free intraperitoneal fluid. ABDOMEN MRCP: The common duct is normal and measures 4 mm. No choledocholithiasis. IMPRESSION: 1. Diffuse hepatic steatosis. Reviewed, dictated and finalized at location A.
== END 2022-01-15 07:46 | disposition home or self-care (01) ==
PROVIDERS: PCP Family Medicine; Visit Provider Nurse Practitioner Family
DX: R93.89 Abnormal findings on diagnostic imaging of other specified body structures (principal); R10.11 Right upper quadrant pain; R11.0 Nausea; K76.0 Fatty (change of) liver, not elsewhere classified
CPT/HCPCS: 74183; 76376; A9577

== ENCOUNTER 2022-02-17 19:48 | Emergency (ER) | payer SELFPAY ==
[2022-02-17 19:54] VITALS: BP 146/94; PULSE 89; RESP 16; TEMP 36.6; O2SAT 98
--- NOTE | 2022-02-17 19:57 | ED.SKABFB ---
HPI - Skin/Abscess/Foreign Bdy General Chief complaint: Skin/Abscess/Foreign Body Stated complaint: rash Time Seen by Provider: 02/17/22 19:55 Source: patient and RN notes reviewed Mode of arrival: ambulatory Limitations: no limitations History of Present Illness HPI narrative: 56-year-old female presents to concern for shingles. She reports she noticed the pain on her abdomen this evening. Reports she just finished a round of the acyclovir for shingles several days ago. She denies any general malaise. MD complaint: rash Related Data Home Medications Medication Instructions Recorded Confirmed omeprazole 20 mg capsule,delayed 20 mg PO DAILY 02/17/22 02/17/22 release Allergies Allergy/AdvReac Type Severity Reaction Status Date / Time prochlorperazine Allergy Severe ANAPHALAXIS Verified 02/17/22 19:50 HYDROMORPHONE HCL Allergy Severe Hives / Uncoded 02/17/22 19:50 Red Face IVP dye Allergy Unknown Unknown Uncoded 02/17/22 19:50 strawberries Allergy Unknown Unknown Uncoded 02/17/22 19:50 Contrast Media AdvReac Intermediate RASH Uncoded 02/17/22 19:50 Review of Systems Review of Systems: CONSTITUTIONAL: Denies malaise, chills, sweats, or fever. EYES: Denies redness, or discharge. ENT: Denies rhinorrhea, congestion, swollen lips, swollen tongue CARDIOVASCULAR: Denies chest pain, palpitations, or edema. RESPIRATORY: Denies cough or dyspnea. GASTROINTESTINAL: Denies abdominal pain, nausea, vomiting SKIN: Reports rash on her abdomen MUSCULOSKELETAL: Denies joint pain or myalgia. NEUROLOGIC: Denies headache. All systems reviewed & are unremarkable except as noted in HPI and below PMFSH Past Medical History Medical History Abnormal finding on imaging Acute recurrent maxillary sinusitis Aftercare following right knee joint replacement surgery Allergic reaction to food Arthralgia of temporomandibular joint, unspecified side Body mass index [BMI] 31.0-31.9, adult (12/30/17) Body mass index [BMI] 32.0-32.9, adult (02/17/15) Body mass index [BMI] 33.0-33.9, adult (07/09/16) Body mass index [BMI] 34.0-34.9, adult (01/26/15) Body mass index [BMI] 40.0-44.9, adult (06/09/15) Chronic fatigue and malaise Chronic pain of right knee Complex tear of medial meniscus of left knee Diarrhea DVT (deep vein thrombosis) in Fibromyalgia Fibromyalgia Left knee pain Left shoulder pain Major depressive disorder, single episode Migraine Moderate episode of recurrent major depressive disorder Nausea Obesity, unspecified (07/09/16) Occult blood in stools Other chronic pain Pes anserine bursitis Poison caro dermatitis Right knee pain Right upper quadrant abdominal pain Skin excoriation Sleep apnea in adult Traumatic gamekeeper's thumb of right hand Unilateral primary osteoarthritis, right knee Surgical History Surgical History H/O neck surgery History of appendectomy History of cholecystectomy History of hysterectomy Plate from C3-C6 Presence of right artificial knee joint Family History Family History Father Family history of kidney disease Family history of heart disease in male family member before age 55 Mother Family history of chronic obstructive pulmonary disease Other Diabetes mellitus Family history of cardiovascular disease Family history of lung disease Family history of osteoarthritis Hypertension Social History Social History Smoking status: Never smoker Alcohol intake: current Drinks per week: 3 Alcohol use details: on occasion Substance use: never Substance use type: does not use 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
== END 2022-02-17 20:10 | disposition home or self-care (01) ==
PROVIDERS: Emergency Provider Nurse Practitioner; PCP Family Medicine
DX: R21 Rash and other nonspecific skin eruption (principal); M79.7 Fibromyalgia; E66.9 Obesity, unspecified; Z68.32 Body mass index [BMI] 32.0-32.9, adult; G47.30 Sleep apnea, unspecified; Z86.718 Personal history of other venous thrombosis and embolism; M17.11 Unilateral primary osteoarthritis, right knee; Z96.651 Presence of right artificial knee joint
CPT/HCPCS: 99213; G0463

== ENCOUNTER 2022-06-08 08:39 | Outpatient (CLI) | payer BC, SELFPAY ==
--- NOTE | 2022-06-08 09:09 | ECHO_ITS ---
Patient Info Name: Bessie Snider Age: 57 years : 1965 Gender: Female Ht: 69 in Wt: 220 lbs BSA: 2.24 m2 HR: 78 bpm BP: 142 / 95 mmHg Heart Rhythm: Sinus Rhythm Exam Date: 06/08/2022 9:17 AM Exam Location: [facility] Patient Status: Outpatient Admit Date: 06/08/2022 Staff Ordering Physician: Soren Wynne DO [employer] Person: Soren Davalos, NAYELI, RT Attending Provider: Soern Wynne DO Referring Physician: Ricci HEARD; Exam Type: CA echo doppler color flow Study Info Indications R07.9 - Chest pain, unspecified Complete two-dimensional, color flow and Doppler transthoracic echocardiogram is performed. Strain analysis performed. Summary 1. Complete two-dimensional, color flow and Doppler transthoracic echocardiogram is performed. 2. Small amount of mitral valve regurgitation. 3. Normal left ventricular systolic function with grade 1 diastolic noncompliance. Left Ventricle Left ventricular chamber dimension is normal. Left ventricular systolic function is normal, estimated at 50-55%. The left ventricular diastolic function is grade I diastolic dysfunction. Right Ventricle Right ventricular chamber dimension is normal. Left Atria Left atrial chamber dimension is normal. Right Atria Right atrial chamber dimension is normal. Aortic Valve The aortic valve is normal. Pulmonic Valve The pulmonic valve is normal. Mitral Valve The mitral valve has normal leaflets. There is trace mitral valve regurgitation. Tricuspid Valve The tricuspid valve leaflets are normal. Pericardium/Pleural The pericardium appears normal. Aorta The aortic root size at the sinus of Valsalva is normal. Left Ventricular Outflow Tract Name Value Normal LVOT 2D LVOT Diameter 2.1 cm LVOT Doppler LVOT Peak Gradient 3 mmHg LVOT Mean Gradient 2 mmHg LVOT VTI 18 cm LVOT VTI/AV VTI Ratio 0.8 LVOT Stroke Volume 64 ml LVOT CO 4.8 l/min LVOT CI 2.2 l/min/m2 Mitral Valve Name Value Normal MV Doppler MV Peak Gradient 1 mmHg MV Mean Gradient 0 mmHg MV Decel Yolo 408 cm/s2 MV PHT 54 ms MV Area (PHT) 4.1 cm2 4.0-5.0 MV Area (Cont Eq VTI) 7.0 cm2 MV Regurgitation Doppler MR Volume (Cont Eq) 3 ml MR Fraction (Cont Eq) 4 % MV Diastolic Function MV
--- NOTE | 2022-06-08 09:09 | EST_ITS ---
Patient Info Name: Bessie Snider Age: 57 years : 1965 Gender: Female Ht: 69 in Wt: 220 lbs BSA: 2.24 m2 HR: 76 bpm BP: 142 / 93 mmHg Heart Rhythm: Sinus Rhythm Exam Date: 06/08/2022 10:04 AM Exam Location: [facility] Patient Status: Outpatient Admit Date: 06/08/2022 Staff Ordering Physician: Soren Wynne DO Attending Provider: Soren Wynne DO Exercise Technologist: Ana M Pope CT Exercise Physician: Pete Sesay DO Exam Type: CA stress test treadmill Study Info Indications R07.9 - Chest pain, unspecified A treadmill exercise stress test was performed. Summary 1. 1. Abnormal Shree exercise stress test for ischemic ST changes by ECG criteria. 2. 2. Reduced functional capacity, achieving 7 METs of workload. 3. 3. Baseline hypertension with hypertensive response to exercise. 4. 4. Appropriate HR response to exercise. 5. 5. Appropriate HR recovery at 1 minute post exercise. 6. 6. No imaging with stress testing. 7. 7. Patient informed of the above results. Protocol: [facility] ECG Details Stage: REST Duration (min): 1 min : 6 sec Speed (mph): 0.0 Grade (%): 0 HR (bpm): 80 SBP (mmHg): 142 DBP (mmHg): 93 METS: --- Stage: REST Duration (min): 11 min : 2 sec Speed (mph): 0.0 Grade (%): 0 HR (bpm): 80 SBP (mmHg): 142 DBP (mmHg): 93 METS: --- Stage: STAGE 1 Duration (min): 1 min : 0 sec Speed (mph): 1.7 Grade (%): 10 HR (bpm): 107 SBP (mmHg): 142 DBP (mmHg): 93 METS: --- Stage: STAGE 1 Duration (min): 2 min : 0 sec Speed (mph): 1.7 Grade (%): 10 HR (bpm): 112 SBP (mmHg): 142 DBP (mmHg): 93 METS: --- Stage: STAGE 1 Duration (min): 3 min : 0 sec Speed (mph): 1.7 Grade (%): 10 HR (bpm): 116 SBP (mmHg): 168 DBP (mmHg): 82 METS: --- Stage: STAGE 2 Duration (min): 1 min : 0 sec Speed (mph): 2.5 Grade (%): 12 HR (bpm): 125 SBP (mmHg): 168 DBP (mmHg): 82 METS: --- Stage: STAGE 2 Duration (min): 2 min : 0 sec Speed (mph): 2.5 Grade (%): 12 HR (bpm): 135 SBP (mmHg): 185 DBP (mmHg): 83 METS: --- Stage: STAGE 2 Duration (min): 2 min : 59 sec Speed (mph): 3.4 Grade (%): 14 HR (bpm): 145 SBP (mmHg): 185 DBP (mmHg): 83 METS: --- Stage: RECOVERY Duration (min): 1 min : 0 sec Speed (mph): 0.0 Grade (%): 0 HR (bpm): 122 SBP (mmHg): 199 DBP (mmHg): 79 METS: --- Stage: RECOVERY Duration (min): 2 min : 0 sec Speed (mph): 0.0 Grade (%): 0 HR (bpm): 103 SBP (mmHg): 199 DBP (mmHg): 79 METS: --- Stage: RECOVERY Duration (min): 3 min : 0 sec Speed (mph): 0.0 Grade (%): 0 HR (bpm): 97 SBP (mmHg): 247 DBP (mmHg): 82 METS: --- Stage: RECOVERY Duration (min): 4 min : 0 sec Speed (mph): 0.0 Grade (%): 0 HR (bpm): 91 SBP (mmHg): 2
[2022-06-08 09:47] LABS: Basophils Absolute Auto 0.1 K/mm3 (0.0-0.1); Basophils Percent Auto 0.8 % (0.2-1.2); Eosinophils Absolute Auto 0.1 K/mm3 (0-0.3); Eosinophils Percent Auto 1.7 % (0-4.4); Hematocrit 40.3 % (37.0-47.0); Hemoglobin 13.1 g/dL (12.0-15.0); Immature Granulocyte Absolute 0.05 K/mm3 (0.00-0.031); Immature Granulocyte Percent A 0.8 % (0-0.5); Lymphocytes Absolute Auto 2.03 K/mm3 (0.9-3.2); Lymphocytes Percent Auto 31.3 % (18.3-44.2); Mean Corpuscular HGB Conc 32.5 g/dl (32-36); Mean Corpuscular Hemoglobin 30.1 pg (26-34); Mean Corpuscular Volume 92.6 fl (80-100); Mean Platelet Volume 11.6 fl (7.4-10.4); Monocytes Absolute Auto 0.6 K/mm3 (0.1-0.6); Monocytes Percent Auto 8.5 % (2.6-8.5); Neutrophils Absolute Auto 3.7 K/mm3 (1.3-6.7); Neutrophils Percent Auto 56.9 % (45.5-73.1); Platelet Count Result 309 k/mm3 (150-375); Red Blood Count 4.35 M/mm3 (4.2-5.4); Red Cell Distribution Width 14.5 % (11.5-14.5); White Blood Count 6.5 K/mm3 (4.5-10.0)
[2022-06-08 09:52] LABS: Alanine Aminotransferase 38 U/L (6-35); Albumin Level 4.5 g/dL (3.5-5.1); Alkaline Phosphatase 61 U/L (38-126); Anion Gap 9 mmol/L (8-16); Aspartate Amino Transferase 29 U/L (14-36); Bilirubin,Total 0.7 mg/dL (0.2-1.3); Blood Urea Nitrogen 14 mg/dL (7-17); Calcium 9.2 mg/dL (8.4-10.2); Carbon Dioxide 24 mmol/L (22-30); Chloride 110 mmol/L (98-107); Cholesterol 199 mg/dL (0-200); Estimated Glomerular Filt Rate 57; Glucose 96 mg/dL (65-110); HDL Direct 49 mg/dL; Potassium 3.9 mmol/L (3.4-5.0); Sodium 143 mmol/L (137-145); Triglycerides 106 mg/dL (<150)
[2022-06-08 10:03] LABS: LDL Cholesterol Direct 105 mg/dL
== END 2022-06-08 08:40 | disposition home or self-care (01) ==
LOC: ANHCARD 08:41
PROVIDERS: PCP Family Medicine; Visit Provider Family Medicine
DX: Z13.220 Encounter for screening for lipoid disorders (principal); I10 Essential (primary) hypertension; R53.83 Other fatigue; Z13.29 Encounter for screening for other suspected endocrine disorder; R07.9 Chest pain, unspecified
CPT/HCPCS: 36415; 80053; 80061; 84443; 85025; 93017; 93306

== ENCOUNTER 2022-08-01 00:36 | Day surgery (SDC) | payer BC, SELFPAY ==
[2022-07-31 15:29] VITALS: BMI 32.5
[2022-08-01] VITALS (9 sets, daily range): BP systolic 134–148; BP diastolic 79–95; PULSE 87–105; RESP 15–28; TEMP 36.9; O2SAT 92–97; BMI 31.6
[2022-08-01 10:14] LABS: Anion Gap 11 mmol/L (8-16); Basophils Percent Auto 0.1 % (0.2-1.2); Blood Urea Nitrogen 14 mg/dL (7-17); Carbon Dioxide 21 mmol/L (22-30); Chloride 108 mmol/L (98-107); Estimated CRCL calculation 95 ml/min; Estimated Glomerular Filt Rate > 60; Glucose 150 mg/dL (65-110); Hematocrit 43.7 % (37.0-47.0); Hemoglobin 14.2 g/dL (12.0-15.0); Immature Granulocyte Absolute 0.02 K/mm3 (0.00-0.031); Immature Granulocyte Percent A 0.3 % (0-0.5); Lymphocytes Absolute Auto 0.63 K/mm3 (0.9-3.2); Mean Corpuscular HGB Conc 32.5 g/dl (32-36); Mean Corpuscular Hemoglobin 30.1 pg (26-34); Mean Corpuscular Volume 92.8 fl (80-100); Mean Platelet Volume 12.3 fl (7.4-10.4); Monocytes Absolute Auto 0.1 K/mm3 (0.1-0.6); Monocytes Percent Auto 0.9 % (2.6-8.5); Neutrophils Absolute Auto 7.1 K/mm3 (1.3-6.7); Neutrophils Percent Auto 90.7 % (45.5-73.1); Platelet Count Result 205 k/mm3 (150-375); Potassium 3.9 mmol/L (3.4-5.0); Red Blood Count 4.71 M/mm3 (4.2-5.4); Red Cell Distribution Width 13.9 % (11.5-14.5); Sodium 140 mmol/L (137-145); White Blood Count 7.8 K/mm3 (4.5-10.0)
--- NOTE | 2022-08-01 13:17 | WPDHPUPDATE1 ---
History and Physical Update Update Date/Time: 08/01/22 13:17 History and Physical has been reviewed, including an updated exam of the patient. There are NO changes in the patient's condition. Risks, benefits, and alternatives have been discussed and questions answered. Patient agrees to proceed with procedure.
--- NOTE | 2022-08-01 13:17 | WPDMODSED ---
Moderate Sedation Note-Pt Data Patient Data Diagnosis: Abnormal stress test Present Complaint: Abnormal stress test Procedure to be performed/Plan: Coronary angiography, LHC, +/- PCI Allergies Allergy/AdvReac Type Severity Reaction Status Date / Time hydromorphone Allergy Severe Hives,Red Verified 08/01/22 09:46 Face prochlorperazine Allergy Severe ANAPHALAXIS Verified 08/01/22 09:46 IVP dye Allergy Severe Hives Uncoded 08/01/22 09:46 strawberries Allergy Severe Anaphylaxis Uncoded 08/01/22 09:46 Contrast Media Allergy Intermediate RASH Uncoded 08/01/22 09:46 Home Medications Medication Instructions Recorded Confirmed Type losartan 50 mg tablet 50 mg PO DAILY #90 tabs 09/14/21 08/01/22 Rx duloxetine 60 mg capsule,delayed 60 mg PO DAILY #30 caps 10/06/21 07/31/22 Rx release (Cymbalta) ondansetron 4 mg disintegrating 4 mg PO Q6H PRN nausea and 12/27/21 07/31/22 Rx tablet vomiting #30 tabs baclofen 5 mg tablet 5 mg PO TID PRN muscle spasm #90 02/02/22 07/31/22 Rx tabs lidocaine 5 % topical cream 1 applic topical TID PRN pain #30 02/17/22 07/31/22 Rx grams omeprazole 20 mg capsule,delayed 20 mg PO DAILY 02/17/22 07/31/22 History release solifenacin 10 mg tablet 10 mg PO DAILY #30 tabs 03/05/22 07/31/22 Rx cetirizine 10 mg tablet (Zyrtec) 10 mg PO DAILY #30 tabs 03/27/22 07/31/22 Rx topiramate 50 mg tablet 50 mg PO BID 03/27/22 07/31/22 History triamcinolone acetonide 0.1 % 1 applic topical BID #30 grams 03/27/22 07/31/22 Rx topical cream azelastine 137 mcg (0.1 %) nasal 1 spray intranasal Q12H #30 mL 06/07/22 07/31/22 Rx spray aerosol mupirocin 2 % topical ointment 1 applic topical BID #22 grams 06/07/22 07/31/22 Rx tramadol 50 mg tablet 25 mg PO Q6H PRN pain #30 tabs 07/02/22 07/31/22 Rx nystatin 100,000 unit/gram topical 1 applic topical BID #30 grams 07/10/22 07/31/22 Rx powder tirzepatide 10 mg/0.5 mL 10 mg (0.5 mL) subcut WEEKLY #2 mL 07/19/22 07/31/22 Rx subcutaneous pen injector aspirin 81 mg tablet 81 mg PO DAILY 07/31/22 08/01/22 History dicyclomine 10 mg capsule 10 mg PO BID PRN Abdominal 07/31/22 07/31/22 History Discomfort diphenhydramine HCl 50 mg capsule 50 mg PO ONCE 07/31/22 07/31/22 History (Banophen) melatonin 1 mg PO DAILY 07/31/22 07/31/22 History metoprolol tartrate 25 mg tablet 12.5 mg PO DAILY 07/31/22 07/31/22 History prednisone 50 mg tablet 50 mg PO ONCE 07/31/22 07/31/22 History sennosides 8.6 mg capsule (senna) 8.6 mg PO DAILY 07/31/22 07/31/22 History Current Medications: Active Medications Sodium Chloride (Normal Saline Iv) 500 mls @ 100 mls/hr IV CONT .Q5H GEMA Sodium Chloride (Normal Saline Iv) 1,000 mls @ 125 mls/hr IV CONT .Q8H ONE Stop: 08/01/22 21:15 Sedation/Anesthesia: No previous sedation/anesthesia problems (including family history). [facility] Past Medical History Medical History Abnormal finding on imaging Acute recurrent maxillary sinusitis Allergic reaction to food Arthralgia of temporomandibular joint, unspecified side Chronic fatigue and malaise Chronic pain of right knee Complex tear of medial meniscus of left knee DVT (deep vein thrombosis) in Fibromyalgia Left knee pain Left shoulder pain Migraine Moderate episode of recurrent major depressive disorder Occult blood in stools Other chronic pain Pes anserine bursitis Sleep apnea in adult Traumatic gamekeeper's thumb of right hand Unilateral primary osteoarthritis, right knee Surgical History Surgical History H/O neck surgery History of appendectomy History of cholecystectomy History of hysterectomy Plate from C3-C6 Presence of right artificial knee joint Family History Family History Father Family history of kidney disease Family history of heart disease in male family member before age 55 Mother
--- NOTE | 2022-08-01 13:19 | WPDCARDPROC ---
Cardiac Cath Procedure Note Date of procedure:: 08/01/22 Performing physician:: CATHETERIZATION LABORATORY REPORT Procedure Date: 08/01/2022 Family Law Attorney: Reynold Lovett M.D., [facility]? Referring Physician: Dr. Tahir Morgan M.D. ? Anesthesia: Versed and Fentanyl were ordered and given in my presence at 12:48, procedure ended at 13:08. Supervision of nurse monitored moderate sedation with Versed and Fentanyl was provided for 20 minutes. Total of Versed 3mg and Fentanyl 75mcg were administered by the [employer] Technical Architect RN Shreya Munoz. Pre-op Diagnosis: Coronary artery disease Post-op Diagnosis: Non-obstructive coronary arteries Elevated left ventricular end-diastolic pressure of 27mmHg Procedure(s): 1. Moderate sedation 2. Ultrasound-guided access of the right radial artery 3. Coronary angiography 4. Left heart cath Access Site: Right radial artery Brief History and Clinical Indications: Patient is a 57-year-old female who is referred for [facility] for abnormal stress test in the setting of anginal symptoms. All risks, benefits and alternatives to left heart catheterization with or without percutaneous coronary intervention was discussed at length with the patient. Risk of complications including but not limited to bleeding, infection, arrhythmia, stroke, worsening kidney function, blood loss, groin hematoma, limb loss, emergency coronary artery bypass grafting, and even were discussed with the patient and all questions were answered. The patient understood and wished to proceed. Time out called, patient name, date of , medical record number, allergies, procedure performed, identify Family Law Attorney, patient and staff member concurred with accurate data, procedure carried on. Findings: LEFT HEART CATHETERIZATION FINDINGS: 1. Left main: Large caliber vessel. The left main coronary artery is widely patent without any significant obstructive disease. 2. Left anterior descending: Large caliber vessel. The LAD and the diagonal branches have mild luminal irregularities without any significant obstructive angiographic disease. 3. Left circumflex: Large caliber vessel. The left circumflex artery and the main marginal branches have mild luminal irregularities without any significant obstructive angiographic disease. 4. Right coronary artery: Large caliber vessel. The RCA has mild luminal irregularities without any significant obstructive angiographic disease. The RCA is the dominant vessel. 5. Left ventricle: A. End-diastolic pressure 27mmHg. B. LV gram deferred. C. No significant gradient across aortic valve on catheter pullback. Description of Procedure: Informed consent signed and placed in the chart. Patient transferred to laboratory animal facility supervisor room. Prepped and draped in usual sterile fashion. 2% lidocaine injected subcutaneously in right wrist area. 22-gauge venipuncture catheter used to access the right radial artery with the Seldinger technique. 6-FR slender sheath placed in right radial artery. Nitroglycerine and Verapamil were given intraarterial through the sheath. Versacore wire advanced under fluoroscopy 5F Tig 4 diagnostic catheter engaged Left Main Coronary Artery. 5F Tig 4 diagnostic catheter engaged Right Coronary Artery Multiple orthogonal angiogram obtained and reviewed 5F Pigtail diagnostic catheter crossed aortic valve to obtain LVEDP, LV angiogram deferred. Hemostasis was achieved by application of TR band. ? Assessment: Non-obstructive coronary arteries Elevated left ventricular end-diastolic pressure of 27mmHg Post Operative Condition: Stable No significant blood loss Disposition: Home Plan: The patient will be monitored in the recovery area. The above findings were discussed with the referring physician. Continue aggressive medical therapy and risk factor modification. ? Reynold Lovett M.D. Interventional Cardiology
[2022-08-01] MEDS: traMADol HCL (*CRX) 25 MG TABLET PO (14:00)
[2022-08-01] MEDS: TOPIRAMATE 25 MG TABLET 50 MG PO (14:01)
[2022-08-01] MEDS: BACLOFEN 5 MG TABLET PO (14:01)
== END 2022-08-01 15:25 | disposition home or self-care (01) ==
PROVIDERS: PCP Family Medicine; Visit Provider Internal Medicine
PROC: 4A023N7 Measurement of Cardiac Sampling and Pressure, Left Heart, Percutaneous Approach (ICD-10-PCS; CPT 93452; principal; 2022-08-01 11:30)
DX: I25.10 Atherosclerotic heart disease of native coronary artery without angina pectoris (principal); R94.39 Abnormal result of other cardiovascular function study; R07.9 Chest pain, unspecified; I10 Essential (primary) hypertension; R06.09 Other forms of dyspnea
CPT/HCPCS: 36415; 80048; 85025; 93458; A9270; C1769; C1887; C1894; J1644; J2250; J3010; J7040

== ENCOUNTER 2022-08-05 13:59 | Emergency (ER) | payer BC, SELFPAY ==
--- NOTE | 2022-08-05 14:05 | ED.CHESTPAIN ---
HPI - Chest Pain General Chief Complaint: Chest Pain Stated Complaint: SOB/Chest Pain Time Seen by Provider: 08/05/22 14:03 Source: patient Mode of arrival: ambulatory Limitations: no limitations History of Present Illness HPI narrative: Ms. Snider is a 57-year-old female patient presenting to the clinic today with complaints of chest pain and shortness of breath x1 day. She just had a cardiac catheterization on August 01 that showed hypertrophy of the left ventricle but no sign of any coronary blockages. History of chest pain, shortness of breath, and fatigue with an abnormal stress test that prompted the cardiac catheterization. States she fell yesterday-unknown how she fell- and hit the right-sided of her head. Left sided chest pain developed after the fall. Denies any headache or neck pain currently. No known loss of consciousness after fall. States the pain is on the left side of her chest-constant ache/sharp with movement of the left arm. Pain score is 8/10 currently and is worse with moving. Related Data Home Medications Medication Instructions Recorded Confirmed omeprazole 20 mg capsule,delayed 20 mg PO DAILY 02/17/22 07/31/22 release topiramate 50 mg tablet 50 mg PO BID 03/27/22 07/31/22 aspirin 81 mg tablet 81 mg PO DAILY 07/31/22 08/01/22 dicyclomine 10 mg capsule 10 mg PO BID PRN Abdominal 07/31/22 07/31/22 Discomfort diphenhydramine HCl 50 mg capsule 50 mg PO ONCE 07/31/22 07/31/22 (Banophen) metoprolol tartrate 25 mg tablet 12.5 mg PO DAILY 07/31/22 07/31/22 sennosides 8.6 mg capsule (senna) 8.6 mg PO DAILY 07/31/22 07/31/22 Allergies Allergy/AdvReac Type Severity Reaction Status Date / Time hydromorphone Allergy Severe Hives,Red Verified 08/05/22 14:03 Face prochlorperazine Allergy Severe ANAPHALAXIS Verified 08/05/22 14:03 IVP dye Allergy Severe Hives Uncoded 08/05/22 14:03 strawberries Allergy Severe Anaphylaxis Uncoded 08/05/22 14:03 Contrast Media Allergy Intermediate RASH Uncoded 08/05/22 14:03 Review of Systems Review of Systems: Pertinent positives per HPI. Patient denies any fever, chills, rash, headache, visual changes, dizziness, cough, runny nose, sore throat, palpitations, nausea, vomiting, diarrhea, constipation, abdominal pain, or any urinary issues. [facility] Past Medical History Medical History Abnormal finding on imaging Acute recurrent maxillary sinusitis Allergic reaction to food Arthralgia of temporomandibular joint, unspecified side Chronic fatigue and malaise Chronic pain of right knee Complex tear of medial meniscus of left knee DVT (deep vein thrombosis) in Fibromyalgia Left knee pain Left shoulder pain Migraine Moderate episode of recurrent major depressive disorder Occult blood in stools Other chronic pain Pes anserine bursitis Sleep apnea in adult Traumatic gamekeeper's thumb of right hand Unilateral primary osteoarthritis, right knee Surgical History Surgical History H/O neck surgery History of appendectomy History of cholecystectomy History of hysterectomy Plate from C3-C6 Presence of right artificial knee joint Family History Family History Father Family history of kidney disease Family history of heart disease in male family member before age 55 Mother Family history of chronic obstructive pulmonary disease Other Diabetes mellitus Family history of cardiovascular disease Family history of lung disease Family history of osteoarthritis Hypertension Social History Social History Smoking status: Never smoker Alcohol intake: current Drinks per week: 3 Alcohol use details: chato Substance use: never Substance use type: does not use Lack of Transportation: No Lack of Food: Never True Current Housing: [place]
--- NOTE | 2022-08-05 14:12 | ECG_ITS ---
Measurements Intervals [place] Rate: 79 P: 22 [place]: 180 QRS: 12 QRSD: 74 T: 26 QT: 365 QTc: 419 Interpretive Statements SINUS RHYTHM VOLTAGE CRITERIA FOR LVH CANNOT RULE OUT SEPTAL INFARCT, AGE INDETERMINATE BASELINE ARTIFACT- I, II, III, AVR, AVL, AVF ABNORMAL ECG COMPARED TO ECG 12/19/2020 16:52:47 NO SIGNIFICANT CHANGES Electronically Signed On 08-05-2022 21:56:20 CDT by Pete Sesay D.O.
[2022-08-05 14:15] VITALS: BP 153/96; PULSE 96; RESP 20; TEMP 37.2; O2SAT 98
[2022-08-05 14:18] VITALS: BP 153/96; PULSE 96; RESP 20; TEMP 37.2; O2SAT 98
--- NOTE | 2022-08-05 14:27 | PC.NURSE ---
1427 provider to provider report given. 1423 corrugated sheet material sheeter went to pt car to get cell phone to call her son. 1424 corrugated sheet material sheeter spoke with pt and requested further eval. in erie er. currently calling son to decide if going by ems or private vehicle.
--- NOTE | 2022-08-05 14:30 | PC.NURSE ---
[facility] called for transport
== END 2022-08-05 14:40 | disposition short-term general hospital (02) ==
PROVIDERS: Emergency Provider Nurse Practitioner Family; PCP Family Medicine
DX: R07.89 Other chest pain (principal); W19.XXXA Unspecified fall, initial encounter; R06.02 Shortness of breath; Z79.82 Long term (current) use of aspirin; M79.7 Fibromyalgia; Z86.718 Personal history of other venous thrombosis and embolism; Z96.651 Presence of right artificial knee joint; R94.31 Abnormal electrocardiogram [ECG] [EKG]
CPT/HCPCS: 93005; 99215; G0463

== ENCOUNTER 2022-08-05 15:05 | Emergency (ER) | payer BC, SELFPAY ==
[2022-08-05] VITALS (35 sets, daily range): BP systolic 113–155; BP diastolic 66–89; PULSE 78–100; RESP 13–25; TEMP 36.2; O2SAT 91–100
--- NOTE | ~2022-08-05 | CT_ITS ---
EXAMINATION: CT diagnostic chest wo con DATE: 08/05/2022 17:20 INDICATION: chest trauma, pain TECHNIQUE: Computed tomography (CT) of the chest was performed with 100 mL Omnipaque-350 intravenous contrast. Automated exposure control and iterative reconstruction technique were employed. The dose-l ength product was 266.34 mGy-cm. COMPARISON: None. FINDINGS: CHEST: Thoracic aorta: No significant dilation or calcification. Lung parenchyma and airways: Calcified right lower lobe granuloma. Dependent atelectasis/scar.. Thoracic inlet, axillae and chest wall: No thyroid or soft tissue mass. No axillary lymphadenopathy. Partially visualized ACDF hardware. Mediastinum: No mass or lymphadenopathy. Heart and pericardium: Normal heart size. No pericardial effusion. Coronary artery calcifications: . Pleura: No effusion or mass. Upper abdomen: No significant finding. Cholecystomy clips. Thoracic bones: No acute osseous finding in the chest. IMPRESSION: No acute thoracic process detected. Reviewed, dictated and finalized at location K.
--- NOTE | ~2022-08-05 | XR_ITS ---
EXAMINATION: XR chest 2V Exam Date/Time: 08/05/2022 16:20 CDT HISTORY: chest pain RECENT CARDIAC CATH HERE Comparison: 12/19/2020. RESULT: Lines, tubes, and devices: ACDF hardware. Cholecystectomy clips.. Lungs and pleura: Clear. Cardiomediastinal silhouette: Stable. Other: No acute osseous or upper abdominal finding. IMPRESSION: No acute cardiopulmonary process. Reviewed, dictated and finalized at location K.
--- NOTE | 2022-08-05 15:13 | ECG_ITS ---
Measurements Intervals [place] Rate: 80 P: 18 [place]: 158 QRS: 8 QRSD: 84 T: 25 QT: 369 QTc: 427 Interpretive Statements SINUS RHYTHM VENTRICULAR PREMATURE COMPLEXES VOLTAGE CRITERIA FOR LVH CANNOT RULE OUT SEPTAL INFARCT, AGE INDETERMINATE BASELINE ARTIFACT- II, III, AVF ABNORMAL ECG COMPARED TO ECG 08/05/2022 14:15:49 NO SIGNIFICANT CHANGES Electronically Signed On 08-05-2022 21:58:16 CDT by Pete Sesay D.O.
[2022-08-05] MEDS: ASPIRIN 81 MG CHEWABLE TABLET 324 MG PO (15:22)
[2022-08-05 15:34] LABS: Basophils Absolute Auto 0.1 K/mm3 (0.0-0.1); Basophils Percent Auto 0.5 % (0.2-1.2); Eosinophils Absolute Auto 0.1 K/mm3 (0-0.3); Hematocrit 42.1 % (37.0-47.0); Hemoglobin 13.8 g/dL (12.0-15.0); Immature Granulocyte Absolute 0.03 K/mm3 (0.00-0.031); Immature Granulocyte Percent A 0.3 % (0-0.5); Lymphocytes Absolute Auto 2.47 K/mm3 (0.9-3.2); Lymphocytes Percent Auto 26.4 % (18.3-44.2); Mean Corpuscular HGB Conc 32.8 g/dl (32-36); Mean Corpuscular Hemoglobin 30.2 pg (26-34); Mean Corpuscular Volume 92.1 fl (80-100); Mean Platelet Volume 10.8 fl (7.4-10.4); Monocytes Absolute Auto 0.7 K/mm3 (0.1-0.6); Monocytes Percent Auto 7.1 % (2.6-8.5); Neutrophils Absolute Auto 6.1 K/mm3 (1.3-6.7); Neutrophils Percent Auto 64.7 % (45.5-73.1); Platelet Count Result 291 k/mm3 (150-375); Red Blood Count 4.57 M/mm3 (4.2-5.4); Red Cell Distribution Width 14.3 % (11.5-14.5); White Blood Count 9.4 K/mm3 (4.5-10.0)
[2022-08-05 15:45] LABS: Prothrombin Time 13.2 Seconds (11.1-14.7)
[2022-08-05 15:46] LABS: Partial Thromboplastin Time 26.6 SECONDS (22.3-36.8)
[2022-08-05 15:47] LABS: Alanine Aminotransferase 30 U/L (6-35); Albumin Level 4.4 g/dL (3.5-5.1); Alkaline Phosphatase 55 U/L (38-126); Anion Gap 6 mmol/L (8-16); Aspartate Amino Transferase 25 U/L (14-36); Bilirubin,Total 0.6 mg/dL (0.2-1.3); Blood Urea Nitrogen 15 mg/dL (7-17); Calcium 8.9 mg/dL (8.4-10.2); Carbon Dioxide 29 mmol/L (22-30); Chloride 105 mmol/L (98-107); Estimated CRCL calculation 83 ml/min; Estimated Glomerular Filt Rate > 60; Glucose 96 mg/dL (65-110); Lipase 178 U/L (23-300); Potassium 4.1 mmol/L (3.4-5.0); Sodium 140 mmol/L (137-145)
[2022-08-05 15:57] LABS: Troponin I < 0.012 ng/mL (0.000-0.034)
--- NOTE | 2022-08-05 17:06 | ED.CHESTPAIN ---
HPI - Chest Pain General Chief Complaint: Chest Pain <Migdalia Stone MD - Last Filed: 08/05/22 21:41> Stated Complaint: chest pain <Migdalia Stone MD - Last Filed: 08/05/22 21:41> Time Seen by Provider: 08/05/22 15:29 <Migdalia Stone MD - Last Filed: 08/05/22 21:41> Source: patient, EMS, RN notes reviewed and old records reviewed <Migdalia Stone MD - Last Filed: 08/05/22 21:41> Mode of arrival: EMS <Migdalia Stone MD - Last Filed: 08/05/22 21:41> Limitations: no limitations <Migdalia Stone MD - Last Filed: 08/05/22 21:41> History of Present Illness HPI narrative: This is a 57 year old female with history of chronic chest pain who presents for evaluation of chest pain. Patient states that she had cardiac catheterization on Saturday and she was told it was negative for disease. Patient states yesterday she fell onto her left chest. She has been having chest pain constantly since that fall. Her pain is worse with palpation and movement. She reports shortness of breath when she has sharp pain. She has been taking muscle relaxer and tramadol for her pain. She states her pain was not improving so [facility] She states she hit her head but denies LOC. She has not been having vomiting. <Migdalia Stone MD - Last Filed: 08/05/22 21:41> Related Data Home Medications: Home Medications Medication Instructions Recorded Confirmed omeprazole 20 mg capsule,delayed 20 mg PO DAILY 02/17/22 07/31/22 release topiramate 50 mg tablet 50 mg PO BID 03/27/22 07/31/22 aspirin 81 mg tablet 81 mg PO DAILY 07/31/22 08/01/22 dicyclomine 10 mg capsule 10 mg PO BID PRN Abdominal 07/31/22 07/31/22 Discomfort diphenhydramine HCl 50 mg capsule 50 mg PO ONCE 07/31/22 07/31/22 (Banophen) metoprolol tartrate 25 mg tablet 12.5 mg PO DAILY 07/31/22 07/31/22 sennosides 8.6 mg capsule (senna) 8.6 mg PO DAILY 07/31/22 07/31/22 <Migdalia Stone MD - Last Filed: 08/05/22 21:41> Allergies/Adverse Reactions: Allergies Allergy/AdvReac Type Severity Reaction Status Date / Time hydromorphone Allergy Severe Hives,Red Verified 08/05/22 14:03 Face prochlorperazine Allergy Severe ANAPHALAXIS Verified 08/05/22 14:03 IVP dye Allergy Severe Hives Uncoded 08/05/22 14:03 strawberries Allergy Severe Anaphylaxis Uncoded 08/05/22 14:03 Contrast Media Allergy Intermediate RASH Uncoded 08/05/22 14:03 <Migdalia Stone MD - Last Filed: 08/05/22 21:41> Review of Systems Constitutional: Constitutional: Denies weakness <Migdalia Stone MD - Last Filed: 08/05/22 21:41> Cardiovascular: Cardiovascular: Reports chest pain, Denies syncope, Denies rapid heart rate, Denies irregular heart rhythm, Denies leg edema and Reports dyspnea <Migdalia Stone MD - Last Filed: 08/05/22 21:41> Respiratory: Respiratory: Denies chest congestion, Denies hemoptysis, Denies excessive phlegm production and Reports dyspnea <Migdalia Stone MD - Last Filed: 08/05/22 21:41> Gastrointestinal: Gastrointestinal: Denies abdominal pain, Denies hematochezia, Denies diarrhea and Denies vomiting <Migdalia Stone MD - Last Filed: 08/05/22 21:41> Genitourinary: Genitourinary: Denies hematuria and Denies dysuria <Migdalia Stone MD - Last Filed: 08/05/22 21:41> Musculoskeletal: Musculoskeletal: Denies joint swelling, Denies loss of height and Denies muscle weakness <Migdalia Stone MD - Last Filed: 08/05/22 21:41> Neurologic: Denies syncope, Denies focal weakness and Denies weakness <Migdalia Stone MD - Last Filed: 08/05/22 21:41> PMFSH Past Medical History Medical History: Medical History Abnormal finding on imaging Acute recurrent maxillary sinusitis Allergic reaction to food Arthralgia of temporomandibular joint, unspecified side Chronic fatigue and malaise Chronic pain of right knee Complex tear of medial me
[2022-08-05] MEDS: MORPHINE SULFATE (*CRX) 4 MG/ML INJ 6 MG IV PUSH (18:45)
[2022-08-05] MEDS: ONDANSETRON INJ 4 MG/2 ML VIAL IV PUSH (18:45)
[2022-08-05 19:54] LABS: Troponin I < 0.012 ng/mL (0.000-0.034)
== END 2022-08-05 21:10 | disposition home or self-care (01) ==
PROVIDERS: Emergency Medicine; Emergency Provider General Practice; PCP Family Medicine
DX: S20.212A Contusion of left front wall of thorax, initial encounter (principal); M79.7 Fibromyalgia; G47.30 Sleep apnea, unspecified; M17.11 Unilateral primary osteoarthritis, right knee; Z96.651 Presence of right artificial knee joint; Z90.49 Acquired absence of other specified parts of digestive tract; Z90.710 Acquired absence of both cervix and uterus; Z86.718 Personal history of other venous thrombosis and embolism; Z79.82 Long term (current) use of aspirin; W19.XXXA Unspecified fall, initial encounter
CPT/HCPCS: 36415; 71046; 71250; 80053; 83690; 84484; 85025; 85610; 85730; 93005; 96374; 96375; 99284; A9270; J2270; J2405

== ENCOUNTER 2023-02-25 11:48 | Emergency (ER) | payer BC, SELFPAY ==
--- NOTE | ~2023-02-25 | XR_ITS ---
EXAMINATION: XR chest 2V DATE: 02/25/2023 13:02 INDICATION: Productive cough TECHNIQUE: PA and lateral views of the chest are obtained. COMPARISON: 08/05/2022 FINDINGS: The lungs are free of acute opacities. No pleural effusion or pneumothorax. The cardiomedia stinal silhouette is normal. There is moderate thoracic spondylosis. A calcified nodule of the right lower lobe is consistent with old granulomatous disease. There are partially imaged changes of anteri or fusion procedure in the lower cervical spine. IMPRESSION: 1. No acute cardiopulmonary abnormality. Reviewed, dictated and finalized at location B. CIPAL DEVELOPER
--- NOTE | 2023-02-25 11:57 | ED.URI ---
HPI - URI/Sore Throat General Chief Complaint: Upper Respiratory Infection Stated Complaint: COVID EXPOSURE,cough,brething difficult Time Seen by Provider: 02/25/23 12:38 Source: patient and RN notes reviewed Mode of arrival: ambulatory Limitations: no limitations History of Present Illness HPI Narrative: 57-year-old female presents concern for exposure to COVID, cough that is worsening, it is situational dyspnea. Reports she has taken [id number] cough medicine without relief. MD elicited complaint: cough Related Data Home Medications Medication Instructions Recorded Confirmed omeprazole 20 mg capsule,delayed 20 mg PO DAILY 02/17/22 02/25/23 release topiramate 50 mg tablet 50 mg PO BID 03/27/22 02/25/23 aspirin 81 mg tablet 81 mg PO DAILY 07/31/22 02/25/23 dicyclomine 10 mg capsule 10 mg PO BID PRN Abdominal 07/31/22 02/25/23 Discomfort diphenhydramine HCl 50 mg capsule 50 mg PO ONCE 07/31/22 02/25/23 (Banophen) metoprolol tartrate 25 mg tablet 12.5 mg PO DAILY 07/31/22 02/25/23 sennosides 8.6 mg capsule (senna) 8.6 mg PO DAILY 07/31/22 02/25/23 Allergies Allergy/AdvReac Type Severity Reaction Status Date / Time hydromorphone Allergy Severe Hives,Red Verified 02/25/23 12:39 Face prochlorperazine Allergy Severe ANAPHALAXIS Verified 02/25/23 12:39 IVP dye Allergy Severe Hives Uncoded 02/25/23 12:39 strawberries Allergy Severe Anaphylaxis Uncoded 02/25/23 12:39 Contrast Media Allergy Intermediate RASH Uncoded 02/25/23 12:39 Review of Systems Review of Systems: CONSTITUTIONAL: Reports malaise EYES: Denies visual changes, redness, or discharge. ENT: Reports rhinorrhea, congestion. Denies sinus pain, otalgia and sore throat. CARDIOVASCULAR: Denies chest pain, palpitations, or edema. RESPIRATORY: Reports cough, dyspnea. GASTROINTESTINAL: Denies abdominal pain, nausea, vomiting, diarrhea SKIN: Denies rash or itching. MUSCULOSKELETAL: Reports myalgia. NEUROLOGIC: Denies headache. All systems reviewed & are unremarkable except as noted in HPI and below PMFSH Past Medical History Medical History Abnormal finding on imaging Acute recurrent maxillary sinusitis Allergic reaction to food Arthralgia of temporomandibular joint, unspecified side Chronic fatigue and malaise Chronic pain of right knee Complex tear of medial meniscus of left knee DVT (deep vein thrombosis) in Fibromyalgia Left knee pain Left shoulder pain Migraine Moderate episode of recurrent major depressive disorder Occult blood in stools Other chronic pain Pes anserine bursitis Sleep apnea in adult Traumatic gamekeeper's thumb of right hand Unilateral primary osteoarthritis, right knee Surgical History Surgical History H/O neck surgery History of appendectomy History of cholecystectomy History of hysterectomy Plate from C3-C6 Presence of right artificial knee joint Family History Family History Father Family history of kidney disease Family history of heart disease in male family member before age 55 Mother Family history of chronic obstructive pulmonary disease Other Diabetes mellitus Family history of cardiovascular disease Family history of lung disease Family history of osteoarthritis Hypertension Social History Social History Smoking status: Never smoker Alcohol intake: current Drinks per week: 3 Alcohol use details: chato Substance use: never Substance use type: does not use Lack of Transportation: No Lack of Food: Never True Current Housing: I Have Housing Concerned About Future Housing: No Difficulty Paying Gas/Electric Bills: No Difficulty Paying for Meds: No Currently Unemployed: No Education: Master's Degree or Higher Difficulty w/ Childcare or F
[2023-02-25 12:01] VITALS: BP 161/81; PULSE 95; RESP 16; TEMP 37.2; O2SAT 99
== END 2023-02-25 13:31 | disposition home or self-care (01) ==
PROVIDERS: Emergency Provider Nurse Practitioner; PCP Family Medicine
DX: U07.1 COVID-19 (principal); M79.7 Fibromyalgia; Z96.651 Presence of right artificial knee joint; Z86.718 Personal history of other venous thrombosis and embolism; Z79.82 Long term (current) use of aspirin
CPT/HCPCS: 71046; 87081; 87426; 87804; 87880; 99213; C9803; G0463

== ENCOUNTER 2023-05-10 13:30 | Outpatient (RCR) | payer BC, SELFPAY ==
--- NOTE | 2023-04-19 13:36 | OTOPEVAL1 ---
Assessment and note entered by Vel Jordan, JESSICA/Bridgett, CHT Evaluation Information Diagnosis Pain in right arm Subjective Information Patient reports about 5 weeks ago she was picking up her dog when she felt a sudden pain in her right shoulder. The pain has not let up. Reports pain with all shoulder motion and even with just sitting at a computer to type. She is right handed. Reported Pain Level Pain Score (R) shoulder 8/10 Assessment OT Clinical Summary Patient referred to OT with dx of right arm pain x5 weeks. She presents with proximal arm pain that is exacerbated with shoulder internal rotation, abduction, and flexion. This has been restricting her ability to complete ADLs and work tasks without pain. Skilled OT indicated for HEP instruction, therapeutic exercises, modalities, and manual therapy to restore functional kinematics of the shoulder and rotator cuff to facilitate pain-free function. Plan of Care Interventions Therapeutic Exercise,Manual Therapy,Neuro Re- education,Therapeutic Activities,Hot Pack/Cold Pack,Electrical Stimulation OT Services Indicated Yes Treatment Frequency and 1x/week for 5 visits Duration These treatments will address the objective and functional deficits as defined above. The patient will be advanced safely and appropriately in order for the patient to progress towards his/her prior level of function. Additional exercises will be introduced and as well as a comprehensive home exercise program upon discharge, if needed, ?to ensure carryover of functional gains achieved in the clinic. This treatment plan has been reviewed and agreement upon by the patient.
--- NOTE | 2023-05-28 11:36 | OTOPDC ---
Assessment and note entered by Vel Jordan, OTR/L, CHT OT D/C Notification OT Clinical Summary Patient called to cancel remaining appointments due to being referred to orthopedics for her shoulder for a possible rotator cuff tear. Discharging OT at this time.
== END 2023-05-28 16:19 | disposition home or self-care (01) ==
LOC: ANHOT 13:30
PROVIDERS: PCP Family Medicine; Visit Provider Family Medicine
DX: M79.601 Pain in right arm (principal)
CPT/HCPCS: 97110; 97165

== ENCOUNTER 2023-05-24 14:45 | Outpatient (CLI) | payer BC, SELFPAY ==
--- NOTE | ~2023-05-24 | MM_ITS ---
EXAMINATION: MM screening joey BI w jonathan HISTORY: Screening mammogram TECHNIQUE: Craniocaudal and mediolateral oblique 3-D tomosynthesis images were obtained and synthetic 2-D images were generated. CAD analysis was submitted and interpreted. COMPARISON: 01/13/2022, 09/26/2020 bilateral screening mammogram examinations BREAST PARENCHYMAL COMPOSITION: The breasts are almost entirely fatty. FINDINGS: There is no evidence of suspicious mass, calcification, or architectural distortion to sugg est malignancy in either breast. There has been no suspicious interval change. IMPRESSION: 1. No mammographic evidence of malignancy. 2. Recommend routine screening mammography in one year. BI-RADS Category 1: Negative Reviewed, dictated and finalized at location A. RAM ATTENDANT
== END 2023-05-24 14:46 ==
PROVIDERS: PCP Family Medicine; Visit Provider Family Medicine
DX: Z12.31 Encounter for screening mammogram for malignant neoplasm of breast (principal)
CPT/HCPCS: 77063; 77067

== ENCOUNTER 2023-05-27 14:26 | Outpatient (CLI) | payer BC, SELFPAY ==
--- NOTE | ~2023-05-27 | XR_ITS ---
EXAMINATION: XR shoulder RT min 2V DATE: 05/27/2023 14:37 INDICATION: Right shoulder pain. TECHNIQUE: 4 views of right shoulder were obtained. COMPARISON: None. FINDINGS: Bone alignment is normal. No fracture. There is mild osteoarthritis of glenohumeral joint a nd acromioclavicular joint. There are changes of anterior fusion procedure in cervical spine. IMPRESSION: 1. Mild polyarticular osteoarthritis. Reviewed, dictated and finalized at location A.
== END 2023-05-27 14:27 ==
PROVIDERS: PCP Orthopaedic Surgery; Visit Provider Family Medicine
DX: M19.011 Primary osteoarthritis, right shoulder (principal); W19.XXXD Unspecified fall, subsequent encounter
CPT/HCPCS: 73030

== ENCOUNTER 2023-06-01 13:28 | Outpatient (CLI) | payer BC, SELFPAY ==
--- NOTE | ~2023-06-01 | MR_ITS ---
MRI of the right shoulder Technique: Axial proton-density fat-sat images, coronal proton density fat-sat and T2 fat-sat images, and sagittal T1-weighted and T2 fat-sat images were acquired. Clinical History: Joint derangement Findings: There is mild AC joint degenerative change with mild bony productive change about the joint , projecting superiorly. Coracoclavicular, coracoacromial, and coracohumeral ligaments are probably i ntact. There is mild tendinosis of the supraspinatus and infraspinatus tendons, without partial or full-thic kness tear. Subscapularis tendon is intact, with moderate tendinosis. Tendon of the long head of the biceps is intact. No labral tear identified. Inferior glenohumeral ligament is intact. There is moderate glenohumeral joint effusion. There is mil d to moderate chondral malacia the humeral head, with minimal inferior medial humeral head osteophyte . There is mild fluid distention of the subacromial/subdeltoid bursa. No muscle atrophy or edema evid ent. Impression: [id number] glenohumeral joint degenerative change with moderate glenohumeral joint effusion. Subacromial/subdeltoid bursitis. Mild rotator cuff tendinosis. No rotator cuff tear or labral tear seen. Reviewed, dictated and finalized at [facility]. Impression: [id number] glenohumeral joint degenerative change with moderate glenohume ral joint effusion. Subacromial/subdeltoid bursitis. Mild rotator cuff tendinosis. No rotator cuff tear or labral tear seen.
== END 2023-06-01 13:29 | disposition home or self-care (01) ==
LOC: ANHIMG 13:36
PROVIDERS: PCP Family Medicine; Visit Provider Family Medicine
DX: M19.011 Primary osteoarthritis, right shoulder (principal); M25.411 Effusion, right shoulder; M75.51 Bursitis of right shoulder; M75.31 Calcific tendinitis of right shoulder; M24.811 Other specific joint derangements of right shoulder, not elsewhere classified
CPT/HCPCS: 73221

== ENCOUNTER 2023-08-30 09:31 | Emergency (ER) | payer BC, SELFPAY ==
[2023-08-30 09:43] VITALS: BP 142/108; PULSE 111; RESP 20; TEMP 37; O2SAT 97
--- NOTE | 2023-08-30 10:25 | ED.NAVMDI ---
HPI - Nausea/Vomiting/Diarrhea General Chief complaint: Nausea/Vomiting/Diarrhea Stated complaint: severe stomach cramps,chills,diarrhea Time Seen by Provider: 08/30/23 10:17 Source: patient and RN notes reviewed Mode of arrival: ambulatory Limitations: no limitations History of Present Illness HPI Narrative: Patient presents today complaining of severe abdominal cramping and diarrhea that started at 1:00 a.m. this morning, followed by a 3 episodes of vomiting and chills that started at 3:00 a.m. this morning. Patient states she has had numerous episodes of diarrhea, too many to count. She took some Zofran she had at home, 3 doses so far. They did marginally help with her vomiting and she has been able to keep down small amounts of fluid. She took 1 dose of dicyclomine, which did help with her abdominal cramping, but she is out and is requesting a refill. She chews has taken 3 doses of Imodium for her diarrhea, which has helped slightly. She rates her abdominal cramping 8/10. Denies fever. 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 Denies suspicious food intake or recent travel. Related Data Home Medications Medication Instructions Recorded Confirmed omeprazole 20 mg capsule,delayed 20 mg PO DAILY 02/17/22 08/30/23 release topiramate 50 mg tablet 50 mg PO BID 03/27/22 08/30/23 aspirin 81 mg tablet 81 mg PO DAILY 07/31/22 08/30/23 dicyclomine 10 mg capsule 10 mg PO BID PRN Abdominal 07/31/22 08/30/23 Discomfort diphenhydramine HCl 50 mg capsule 50 mg PO ONCE 07/31/22 08/30/23 (Banophen) metoprolol tartrate 25 mg tablet 12.5 mg PO DAILY 07/31/22 08/30/23 sennosides 8.6 mg capsule (senna) 8.6 mg PO DAILY 07/31/22 08/30/23 Allergies Allergy/AdvReac Type Severity Reaction Status Date / Time hydromorphone Allergy Severe Hives,Red Verified 08/30/23 09:57 Face prochlorperazine Allergy Severe ANAPHALAXIS Verified 08/30/23 09:57 IVP dye Allergy Severe Hives Uncoded 08/30/23 09:57 strawberries Allergy Severe Anaphylaxis Uncoded 08/30/23 09:57 Contrast Media Allergy Intermediate RASH Uncoded 08/30/23 09:57 Review of Systems Review of Systems: CONSTITUTIONAL: Denies body aches, fever, or sweats.+ chills EYES: Denies visual changes, redness, or discharge. ENT: Denies rhinorrhea, congestion, sore throat, or otalgia. CARDIOVASCULAR: Denies chest pain, palpitations, or edema. RESPIRATORY: Denies cough or dyspnea. GASTROINTESTINAL: + abdominal cramping, nausea, vomiting, diarrhea GENITOURINARY: Denies dysuria or hematuria. SKIN: Denies rash, itching, or wounds. MUSCULOSKELETAL: Denies back pain, joint pain, or myalgia. NEUROLOGIC: Denies headache, numbness, tingling, or weakness. PSYCH: Denies depression or anxiety. [facility] Past Medical History Medical History Abnormal finding on imaging Acute recurrent maxillary sinusitis Allergic reaction to food Arthralgia of temporomandibular joint, unspecified side Chronic fatigue and malaise Chronic pain of right knee Complex tear of medial meniscus of left knee DVT (deep vein thrombosis) in Fibromyalgia Left knee pain Left shoulder pain Migraine Moderate episode of recurrent major depressive disorder Occult blood in stools Other chronic pain Pes anserine bursitis Sleep apnea in adult Traumatic gamekeeper's thumb of right hand Unilateral primary osteoarthritis, right knee Surgical History Surgical History H/O neck surgery History of appendectomy History of cholecystectomy History of hysterectomy Plate from C3-C6 Presence of right artificial knee joint Family History Family History Father Family history of kidney disease Family history of heart disease in male family member before age 55 Mother Family history of chronic obstructive pulmonary disease Other Diabetes mellitus Family history
== END 2023-08-30 10:38 | disposition home or self-care (01) ==
PROVIDERS: Emergency Provider Nurse Practitioner; PCP Family Medicine
DX: R10.9 Unspecified abdominal pain (principal); R11.2 Nausea with vomiting, unspecified; R19.7 Diarrhea, unspecified; M79.7 Fibromyalgia; Z86.718 Personal history of other venous thrombosis and embolism; Z96.651 Presence of right artificial knee joint; Z79.82 Long term (current) use of aspirin
CPT/HCPCS: 99213; G0463

== ENCOUNTER 2023-12-17 09:10 | Outpatient (CLI) | payer BC, SELFPAY ==
[2023-12-17 14:39] LABS: Alanine Aminotransferase 27 U/L (6-35); Albumin Level 4.3 g/dL (3.5-5.1); Alkaline Phosphatase 67 U/L (38-126); Anion Gap 10 mmol/L (4-12); Aspartate Amino Transferase 39 U/L (14-36); Bilirubin,Total 0.5 mg/dL (0.2-1.3); Blood Urea Nitrogen 8 mg/dL (7-17); Calcium 9.1 mg/dL (8.4-10.2); Carbon Dioxide 27 mmol/L (22-30); Chloride 103 mmol/L (98-107); Cholesterol 202 mg/dL (0-200); Estimated Glomerular Filt Rate > 60; Glucose 81 mg/dL (65-110); HDL Direct 56 mg/dL; Potassium 3.7 mmol/L (3.4-5.0); Sodium 140 mmol/L (137-145); Triglycerides 148 mg/dL (<150)
[2023-12-17 14:51] LABS: LDL Cholesterol Direct 100 mg/dL
== END 2023-12-17 09:11 | disposition home or self-care (01) ==
LOC: ANHGOSHLAB 09:11
PROVIDERS: PCP Family Medicine; Visit Provider Family Medicine
DX: Z13.220 Encounter for screening for lipoid disorders (principal); Z13.228 Encounter for screening for other metabolic disorders
CPT/HCPCS: 36415; 80053; 80061

== ENCOUNTER 2024-02-03 14:49 | Emergency (ER) | payer BC, SELFPAY ==
[2024-02-03 14:59] VITALS: BP 138/81; PULSE 108; RESP 16; TEMP 37.4; O2SAT 98
--- NOTE | 2024-02-03 15:35 | ED_ITS ---
HPI - General Adult General Chief complaint: Skin/Abscess/Foreign Body Stated complaint: Nose Irritation Time Seen by Provider: 02/03/24 15:37 Source: patient, RN notes reviewed and old records reviewed Mode of arrival: ambulatory Limitations: no limitations History of Present Illness HPI narrative: 58-year-old female presents to the [facility] with complaints of a sore to the right nostril. Patient reports a get swollen, drains purulent drainage, gets better for couple of days and then returns. Redness, inflammation noted. Areas scabbed over. Scant amount of purulent drainage is noted. Collected and sent for culture Related Data Home Medications Medication Instructions Recorded Confirmed omeprazole 20 mg capsule,delayed 20 mg PO DAILY 02/17/22 02/03/24 release Allergies Allergy/AdvReac Type Severity Reaction Status Date / Time hydromorphone Allergy Severe Hives,Red Verified 02/03/24 13:40 Face prochlorperazine Allergy Severe ANAPHALAXIS Verified 02/03/24 13:40 IVP dye Allergy Severe Hives Uncoded 02/03/24 13:40 strawberries Allergy Severe Anaphylaxis Uncoded 02/03/24 13:40 Contrast Media Allergy Intermediate RASH Uncoded 02/03/24 13:40 Review of Systems Review of Systems: All systems reviewed & are unremarkable except as noted in HPI and below Constitutional: Constitutional: Reports no additional constitutional complaints ENT: Reports as per HPI Cardiovascular: Cardiovascular: Reports no additional cardiovascular complaints, Denies chest pain and Denies dyspnea Respiratory: Respiratory: Reports no additional respiratory complaints, Denies chest congestion, Denies cough and Denies dyspnea Gastrointestinal: Gastrointestinal: Reports no additional gastrointestinal complaints, Denies abdominal pain, Denies nausea and Denies vomiting Musculoskeletal: Musculoskeletal: Reports no additional musculoskeletal complaints Integumentary/Breasts: Skin/Breast: Reports system reviewed and no additional complaints, except as docu PMFSH Past Medical History Medical History Abnormal finding on imaging Acute recurrent maxillary sinusitis Allergic reaction to food Arthralgia of temporomandibular joint, unspecified side Chronic fatigue and malaise Chronic pain of right knee Complex tear of medial meniscus of left knee DVT (deep vein thrombosis) in Fibromyalgia Left knee pain Left shoulder pain Migraine Moderate episode of recurrent major depressive disorder Occult blood in stools Other chronic pain Pes anserine bursitis Pes anserinus bursitis of right knee Sleep apnea in adult Traumatic gamekeeper's thumb of right hand Unilateral primary osteoarthritis, right knee Surgical History Surgical History H/O neck surgery History of appendectomy History of cholecystectomy History of hysterectomy Plate from C3-C6 Presence of right artificial knee joint Family History Family History Father Family history of kidney disease Family history of heart disease in male family member before age 55 Mother Family history of chronic obstructive pulmonary disease Other Diabetes mellitus Family history of cardiovascular disease Family history of lung disease Family history of osteoarthritis Hypertension Social History Social History Smoking status: Never smoker Alcohol intake: current Drinks per week: 3 Alcohol use details: chato Substance use: never Substance use type: does not use Lack of Transportation: No Lack of Food: Never True Current Housing: I Have Housing Concerned About Future Housing: No Difficulty Paying Gas/Electric Bills: No Difficulty Paying for Meds: No Currently Unemployed: No Education: Master's Degree or Higher Difficulty w/ Childcare or Family Care: No Living arrangements: with family Occupation/Education: occupation 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 There is no relevant family history pertinent to the patient complaint. Exam Const: General: cooperative, healthy appearing, comfortable, no acute distress, well developed, alert and well nourished Nutritional Appearance: well nourished Orientation/consciousness: patient oriented x3 Limitations: no limitations HENMT: Head: normal to inspection Ears: hearing grossly normal bilaterally and external ears normal Face/Nose/Sinus: Normal external nose present, normal facial exam, face symmetric, erythema (Outer right Villatoro, scabbed over. Scant amount of purulent drainage. ) and No laceration Face and sinus: normal facial exam and face symmetric Mouth: Yes Normal oral and palatal mucosa present, Yes lip normal and Yes tongue normal Eyes: General: appearance normal, both eyes and all related structures Alignment and Position: alignment normal Periorbital: periorbital findings normal Neck: Neck: normal visual inspection, full ROM, no lymphadenopathy and no meningeal signs Chest: Chest palpation & inspection: normal inspection of the chest Resp: Effort & Inspection: normal respiratory effort and able to speak in complete sentences Cardio: Rate: regular rate Skin: General skin exam: normal color and no rashes or lesions noted Lesions: no lesions Rashes: no rashes Wounds: no wounds Neuro: General: patient oriented x3, gait normal, tone normal, moves all extremities and no meningeal signs Cognition (Neuro): normal cognition Speech: normal speech Gait exam (Neuro): Normal gait present Extrem: General: normal to inspection, full ROM, capillary refill normal and normal gait Psych: Appearance: grossly normal and well kempt Mental Status: mental status grossly normal Speech and movement: Normal speech and movement present and Clear speech present Affect: normal affect Attitude: cooperative Course Course Level of Care: Express Care Visit Vital Signs Vital signs: Vital Signs Temperature 99.3 F 02/03/24 14:59 Pulse Rate 108 H 02/03/24 14:59 Respiratory Rate 16 02/03/24 14:59 Blood Pressure 138/81 02/03/24 14:59 Pulse Oximetry 98 02/03/24 14:59 Oxygen Delivery Room Air 02/03/24 14:59 Temperature 99.3 F 02/03/24 14:59 Pulse Rate 108 H 02/03/24 14:59 Respiratory Rate 16 02/03/24 14:59 Blood Pressure 138/81 02/03/24 14:59 Pulse Oximetry 98 02/03/24 14:59 Oxygen Delivery Room Air 02/03/24 14:59 Reviewed Medical Decision Making MDM Narrative Medical decision making narrative: Patient sitting comfortably in exam room. Nontoxic, vitals stable. Patient in no acute distress Patient presents for and nonhealing wound, concern for abscess to the area at the outside of the Villatoro right nostril. Wound 1 by 0.5 cm. Scabbed area. Culture sent for evaluation Patient appropriate for outpatient treatment with antibiotics both topical and oral Discharge instructions reviewed with patient, as well as provided in writing per nursing staff. The instructions also include specific and strict return/GO TO THE ER as well as f/u information. All questions have been answered, and the patient deny any further questions with discharge and discharge plan. Some parts of this dictation were generated by voice recognition software and may contain typographical and/or grammatical inaccuracies. Differential Diagnosis Differential Diagnosis: Impetigo, abscess Medical Records Medical records reviewed: Yes I reviewed the external patient's medical records. Vital Signs Vital Signs: Vital Signs Temperature 99.3 F 02/03/24 14:59 Pulse Rate 108 H 02/03/24 14:59 Respiratory Rate 16 02/03/24 14:59 Blood Pressure 138/81 02/03/24 14:59 Pulse Oximetry 98 02/03/24 14:59 Oxygen Delivery Room Air 02/03/24 14:59 Temperature 99.3 F 02/03/24 14:59 Pulse Rate 108 H 02/03/24 14:59 Respiratory Rate 16 02/03/24 14:59 Blood Pressure 138/81 02/03/24 14:59 Pulse Oximetry 98 02/03/24 14:59 Oxygen Delivery Room Air 02/03/24 14:59 Reviewed Lab Data Lab results reviewed: Yes I reviewed the patient's lab results. Labs: Reviewed Critical Care Time Critical Care Time Critical Care Time: No Discharge Plan Discharge Clinical Impression: Lesion of nostril Patient Disposition: Home, Self-Care Condition: Stable Instructions: Antibiotic Form, Impetigo (ED) Additional Instructions: Take antibiotic as prescribed Apply Bactroban with a clean Q-tip 3 times a day for 7 days Follow-up with primary care provider If symptoms get worse please go directly to the emergency room Patient Language: Welsh Prescriptions: New sulfamethoxazole-trimethoprim [Bactrim DS] 800-160 mg tablet 1 tablet PO Q12H Qty: 14 0RF mupirocin 2 % ointment 1 applic topical TID Qty: 15 0RF No Action omeprazole 20 mg capsule,delayed release(DR/EC) 20 mg PO DAILY ondansetron 8 mg tablet,disintegrating 8 mg PO Q4-6H PRN (Reason: nausea and vomiting) Qty: 20 0RF tramadol 50 mg tablet 25 mg PO Q6H PRN (Reason: pain) Qty: 30 0RF cyclobenzaprine 10 mg tablet 10 mg PO TID PRN (Reason: muscle spasm) Qty: 30 0RF Qulipta 60 mg tablet 60 mg PO DAILY Qty: 30 3RF losartan 50 mg tablet 50 mg PO DAILY Qty: 90 2RF dicyclomine 20 mg tablet 20 mg PO QID PRN (Reason: abdominal pain) 30 Days Qty: 120 5RF colestipol 1 gram tablet 1 g PO BID 30 Days Qty: 60 5RF cetirizine [Zyrtec] 10 mg tablet 10 mg PO DAILY Qty: 30 0RF triamcinolone acetonide 0.1 % cream 1 applic topical BID Qty: 30 0RF nystatin 100,000 unit/gram powder 1 applic topical BID Qty: 30 0RF meloxicam 7.5 mg tablet 7.5 mg PO DAILY PRN (Reason: pain) 30 Days Qty: 30 1RF semaglutide (weight loss) 1 mg/0.5 mL pen injector 1 mg subcut Q7D Qty: 2 0RF losartan-hydrochlorothiazide 50-12.5 mg tablet 1 tablet PO DAILY Qty: 30 1RF Wegovy 1.7 mg/0.75 mL pen injector 1.7 mg subcut WEEKLY Qty: 3 0RF Rx Instructions: administer weeks 13 through 16 of therapy Follow-up/Referrals: Soren Wynne DO [Primary Care Provider] - 1 Week (EXPRESSCARE FOLLOW-UP, LESION RIGHT NOSTRIL) Time of Disposition: 15:53
== END 2024-02-03 16:01 | disposition home or self-care (01) ==
PROVIDERS: Emergency Provider Nurse Practitioner; PCP Family Medicine
DX: J34.89 Other specified disorders of nose and nasal sinuses (principal); M79.7 Fibromyalgia; M17.11 Unilateral primary osteoarthritis, right knee; Z86.718 Personal history of other venous thrombosis and embolism
CPT/HCPCS: 87070; 87075; 87205; 99213; G0463

== ENCOUNTER 2024-06-10 09:39 | Outpatient (CLI) | payer BC, SELFPAY ==
--- OUTSIDE RECORDS SUMMARY | 2024-06-10 10:33 | XMS_ITS | Clinical Summary ---
Author Organization [facility] Address [address] [place] [address] Care Team Providers Care Full Stack Web Developer Name Role Phone Aideeerik Soren WATKINS Primary Care Provider [phone] Source Comments [facility],non-owned Affiliates and Associated Physician Practices is amultiple site organization consisting of ambulatory clinics and hospital sitesin [place], [place], [place] and [place]. This disclosure is being madepursuant to the Care Everywhere program and may not contain all information available regarding this patient. Last updated 17.[facility] [employer] Social History Tobacco Use Types Packs/Day Years Used Date Smoking Tobacco: Never Assessed Sex and Gender Information Value Date Recorded Sex Assigned at Not on file Gender Identity Not on file Sexual Orientation Not on file Plan of Treatment Health Maintenance Due Date Last Done Comments COLOGUARD (AGES 45-75) - COL ON CA SCREENING 1965 COLON MONITORING 1965 COLONOSCOPY - COLON CA SCREENING 1965 CT COLONOGRAPHY - COLON CA SCREENING 1965 Colorectal Cancer Screening 1965 FIT - COLON CA SCREENING 1965 FLEX SIG - COLON CA SCREENING 1965 LIPID TESTING 1965 MAMMOGRAM 1965 PAP SMEAR 1965 HIV SCREENING 1980 HEPATITIS C SCREENING 04/16/1983 DTAP/TDAP/TD VACCINES (1 - Tdap) 1984 HEPATITIS B VACCINE (1 of 3 - 19+ 3-dose series) 1984 PNEUMOCOCCAL VACCINE 50+ (1 of 1 - PCV) 2015 ZOSTER VACCINE (1 of 2) 2015 COVID-19 VACCINE (2023-2 5 season) 2023 INFLUENZA VACCINE (#1) 2023 DEPRESSION SCREENING 03/18/2024 HIB VACCINE Aged Out No longer eligi ble based on patient's age to complete this topic HPV VACCINE Aged Out No longer eligi ble based on patient's age to complete this topic MENINGOCOCCAL (Group B) VACC INE SHARED DECISION-MAKING Aged Out No longer eligibl e based on patient's age to complete this topic MENINGOCOCCAL GROUPS A/C/Y/W VACCINE Aged Out No longer eligible b ased on patient's age to complete this topic PNEUMOCOCCAL VACCINE Aged Out No long er eligible based on patient's age to complete this topic Care Teams Full Stack Web Developer Relationship Specialty Start Date End Date Soren Wynne DO [address] [place] [id number] PCP - General 11/23/21
--- OUTSIDE RECORDS SUMMARY | 2024-06-10 10:33 | XMS_ITS | Data Portability ---
Author Organization [facility] CHADAlexa Storm Ronnie Address [address] [facility] [place] [address] Care Team Providers [employer] Name Role Phone KALLI AMK Primary Care Provider [phone] ANUP KERN Urologist Assessment Encounter Date Assessment Date Assessment LastModified by Organization Details LastModified Time 06/12/2019 06/12/2019 nonproductive cough, myalgias, tired but can't sleep Flu test negative. No conjunctivitis or vomiting. no measured fever. Has been isolating and working from home; her mother is in isolation and will stay there. Patient may have mild coronavirus or another viral respiratory infection. Sick for 6 days. 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 [email or web address] Not available 06/12/2019 10:36:35 Plan of Treatment Reminders Order Date Submit Date Provider Last Modified By Organization Details Last Modified Time Details Appointments None recorded. Lab rapid flu (A+B) 2019 020 [facility] In-Office Order, Internal Use Only DO Not Attach Compendium DO Not Attach Compendium, Do Not Delete/merge, [id number] 0 10:23:58 Referral urologist referral 2019 020 [email or web address] [facility], [address] [place], [address], 0 12:31:36 electromyo gram/nerve conduction referral 2019 [email or web address] [place] [address] (Cardiology & Emg), [address] [facility] [address], [place], [address], 0 23:25:52 Procedures None recorded. Surgeries None recorded. Imaging CT, sinuses, w/o contrast 2020 021 [email or web address] [facility], [address], [place], [address], 1 11:33:59 CT, cervical spine, w/o contrast 2019 020 [facility] (Imaging), [address] [facility] [address], [place], [address], 0 16:05:44 XR, cervical spine, 2 or 3 view 2019 [facility] (Imaging), [facility] [address], [place], [address], 0 16:00:27 Medication Orders cefuroxime axetil 250 mg tablet 2020 021 [facility] [address], [address] [facility], [place], [address], 1 11:01:34 baclofen 10 mg tablet 2019 [email or web address] [place] [address] 2425, [address] [facility], [place], [address], 0 18:38:25 sumatripta n 100 mg tablet 2019 020 INTERFACE [facility] 2425, [address] [facility], [place], [address], 0 13:13:38 bupropion HCl XL 300 mg 24 hr tablet, extended release [address] [facility] 24[address], [address] [facility], [place], [address], 0 16:23:56 fluoxetine 20 mg capsule 2019 020 INTERFACE [facility] [address], [address] , [place], [address], 0 16:23:55 trazodone 150 mg tablet 2019 020 INTERFACE [facility] [address], [address] , [place], [address], 0 16:23:54 thiamine HCl (vitamin B1) 250 mg tablet 2019 020 INTERFACE [facility] [address], [address] , [place], [address], 0 16:23:53 Patient TargetsNo targets recorded. Patient Instructions Encounter Date Encounter Id Patient Instructions Last Modified By Organization Details Last Modified Time 06/12/2019 [id number] carpal tunnel syndrome: care instructions [email or web address] Not available 06/13/2019 19:06:54 carpal tunnel syndrome: exercises [email or web address] Not available 06/13/2019 19:06:54 12/22/2019 [id number] due to insurance limitations, baclofen was decreased to three times rather than 4 times a day. Not available 12/27/2019 18:46:48 02/12/2020 [id number] Stress Incontinence: Care Instructions [email or web address] Not available 02/12/2020 14:40:10 Reason for Referral Electromyogram/nerve Conduct ion Referral for Carpal tunnel syndrome Referring Physician: Kalli Mak, Family Medicine, Encounter Date: 06/12/2019 Urologist Referral for Urina ry incontinence constant wetness post repair Referring Physician: Jose Juan Richardson, Urology, Encounter Date: 02/12/2020 Results Created Date Observation Date Name Description Value Unit Range Abnormal Flag Note LastModifiedBy Organization Detail LastModifiedTime 06/12/19 20 06/12/2019 rapid flu (A+B) Flu A negati ve Not Available In-Office Order Internal Use Only DO Not Attach Compendium DO Not Attach Compendium, Do Not Delete/merge, [id number] 06/12/2019 10:04:40 06/12/19 20 06/12/2019 rapid flu (A+B) Flu B negati ve Not Available In-Office Order Internal Use Only DO Not Attach Compendium DO Not Attach Compendium, Do Not Delete/merge, [id number] 06/12/2019 10:04:40 09/11/19 21 09/11/2020 TSH+T 4F+T3 FREE+ TPO TSH 2.210 uIU/m L 0.450- 4.500 Not Available [facility] ([facility]) [address] [facility], [place], [address], 09/11/2020 06:40:52 09/11/1909/11/2020 TSH+T 4F+T3 FREE+ TPO triiodothyro nine (T3), free 2.9 pg/mL 2.0-4. 4 Not Available [facility] ([facility]) [address] [place], [address], 09/11/2020 06:40:52 09/11/19 21 09/11/2020 TSH+T 4F+T3 FREE+ TPO T4,free(dire ct) 1.24 NG/dL 0.82-1 .77 Not Available [facility] ([facility]) [address] [facility], [place], [address], 09/11/2020 06:40:52 09/11/1909/11/2020 TSH+T 4F+T3 FREE+ TPO thyroid peroxidase (tpo) Ab <9 IU/mL 0-34 Not Available [facility] ([facility]) [address] [place], [address], 09/11/2020 06:40:52 08/13/1908/12/2020 US, thyro id No observ ation record ed. [email or web address] [facility] [address], [place], [address], 08/30/2020 10:02:16 09/28/19 21 09/26/2020 MAMMO , scree shana, bilat eral No observ ation record ed. [facility] [address], [place], [address], 10/06/2020 16:46:46 10/14/19 21 10/13/2020 CT, head, w/o contr ast No observ ation record ed. [address], [place], [address], 10/25/2020 16:36:17 10/14/19 21 10/13/2020 CT, neck, soft tissu e, w/ contr ast No observ ation record ed. [address], [place], [address], 10/25/2020 16:36:18 10/14/19 21 10/13/2020 XR, chest No observ ation record ed. [address], [place], [address], 11/29/2020 14:46:49 12/20/1912/19/2020 XR, chest No observ ation record ed. [address], [place], [address], 12/22/2020 12:48:28 12/20/1912/19/2020 XR, shoul curly No observ ation record ed. [address], [place], [address], 12/22/2020 12:49:03 Result Notes None recorded. Problems Name Problem SNOMED Code Status Onset Date Resolution Date Notes Provider Name and Address Organization Details Recorded Time Fibromyalgia 651331380 Active 2018 SKYE BARAJAS Attn: Martha g,[address] [facility], [place], [address], [facility] 9 16:17:41 Osteoarthritis 343280622 Active 2018 SKYE BARAJAS Attn: Martha back,[address] [facility], [place], [address], [facility] 9 16:17:51 Loss of hair 612982262 Active 2018 SKYE BARAJAS Attn: Martha back,[address] [facility], [place], [address], [facility] 9 16:18:20 Bladder muscle dysfunction - overactive Active 2018 SKYE BARAJAS Attn: Martha g,[address] [facility], [place], [address], [facility] 9 16:25:54 Headache 20084961 Active 2019 Shanell Black MA null, [place] - [facility] 0 10:14:10 Problem Notes None recorded. Procedures Surgical History Date Name Laterality Status Provider Name and Address Organization Details Recorded Time 03/18/18 92 Total hysterectomy completed Shanell Black MA [facility] 06/12/2019 10:15:27 Back Surgery completed Lynn Cisse MA [facility] 04/03/2017 10:18:15 Knee Surgery completed Lynn Cisse MA [facility] 04/03/2017 10:18:20 Tonsillectomy completed Lynn Cisse MA [facility] 04/03/2017 10:18:26 procedure on urinary bladder completed Shanell Black MA [facility] 09/08/2019 16:01:33 Imaging Results Imaging Date Name Status LastModified by Organiz ation Details LastModified Time 08/12/2020 US, thyroid completed [email or web address] [facility] [address], [place], [address], 08/30/2020 10:02:16 09/26/2020 MAMMO, screening, bilateral completed [email or web address] [facility] [address], [place], [address], 10/06/2020 16:46:46 10/13/2020 CT, head, w/o contrast completed [address] [place] [address], [address], 10/25/2020 16:36:17 10/13/2020 CT, neck, soft tissue, w/ contrast completed [address], [address], 10/25/2020 16:36:18 10/13/2020 [facility] [address] [place] [address], [address], 11/29/2020 14:46:49 12/19/2020 XR, chest completed [address], [address], 12/22/2020 12:48:28 12/19/2020 [facility] [address] [place] [address] [place] [address], [address], 12/22/2020 12:49:03 Procedure Notes None recorded. Medical Equipment None Reported. Allergies Allergen ID Allergen Name Allergen Category Reaction Reaction Severity Criticality Documentation Date Start Date Code Code System Note Provider Name and Address Organization Details Recorded Time 486081 Compazine medicatio n anaphylax is Not available Not available 04/03/2017 92329 6 RxNorm Not Available Not Available Not Available 744813 Iodinated contrast media (substanc e) medicatio n rash Not available Not available 04/03/2017 62149 2004 SNOMED Not Available Not Available Not Available 889659 Dilaudid medicatio n rash Not available Not available 04/03/2017 71387 3 RxNorm Not Available Not Available Not Available 172929 strawberr y allergeni c extract food Not available Not available Not available 02/12/2020 69139 4 RxNorm Not Available Not Available Not Available Medications Name Sig Start Date Stop Date Status Note LastModified by Organization Details LastModified Time cyclobenzap rine 10 mg tablet TAKE 1 TABLET BY MOUTH THREE TIMES DAILY 02/11 completed Not Available Not Available Not Available metformin 500 mg tablet Take 1 tablet every day by oral route. 06/11 completed Not Available Not Available Not Available neomycin-po lymyxin-hyd rocort 3.5 mg/mL-10,00 0 unit/mL-1 % ear solution 06/11 completed Not Available Not Available Not Available prednisone 10 mg tablet Take 4 tablets x 3 days, 3 tablets x 3 days, 2 tablets x 3 days and 1 tablet x 3 days. 06/11 completed Not Available Not Available Not Available oxybutynin chloride ER 15 mg tablet,exte nded release 24 hr 06/11 completed Not Available Not Available Not Available cefuroxime axetil 250 mg tablet TAKE 1 TABLET BY MOUTH EVERY 12 HOURS active Not Available Not Available No t Available oxybutynin chloride ER 10 mg tablet,exte nded release 24 hr 04/16 completed Not Available Not Available Not Available fluconazole 150 mg tablet 04/16 completed Not Available Not Available Not Available valacyclovi r 1 gram tablet take one every day as prophylax is against herpes outbreaks . 02/11 completed Not Available Not Available Not Available sumatriptan 100 mg tablet TAKE 1 TABLET BY MOUTH NEEDED active Not Available Not Available No t Available tolterodine ER 4 mg capsule,ext ended release 24 hr one by mouth daily 06/11 completed Not Available Not Available Not Available hydrocodone 5 mg-acetamin ophen 325 mg tablet 04/16 completed Not Available Not Available Not Available naltrexone 50 mg tablet TAKE ONE TABLET BY MOUTH ONCE DAILY 06/11 completed Not Available Not Available Not Available phenazopyri dine 200 mg tablet Take 1 tablet 3 times a day by oral route as needed. 06/11 completed Not Available Not Available Not Available spironolact one 100 mg tablet 02/11 completed Not Available Not Available Not Available gabapentin 400 mg capsule 04/16 completed Not Available Not Available Not Available topiramate 25 mg tablet TAKE 1 TABLET BY MOUTH ONCE DAILY active Not Available Not Available No t Available phentermine 37.5 mg tablet 02/11 completed Not Available Not Available Not Available acetaminoph en 300 mg-codeine 30 mg tablet PRN active Not Available Not Available Not Available thiamine HCl (vitamin B1) 250 mg tablet Take 1 tablet every day by oral route. 2019 active Not Available Not Available Not Avai lable acyclovir 400 mg tablet Take 1 tablet every 8 hours by oral route. active Not Available Not Available No t Available valacyclovi r 500 mg tablet Take 1 tablet twice a day by oral route. 04/16 completed Not Available Not Available Not Available hydrocodone 10 mg-acetamin ophen 325 mg tablet PRN 02/11 completed Not Available Not Available Not Available terbinafine HCl 250 mg tablet Take 1 tablet every day by oral route. 04/16 completed Not Available Not Available Not Available trazodone 100 mg tablet TAKE 1 TABLET BY MOUTH AT BEDTIME active Not Available Not Available No t Available meclizine 25 mg tablet Take 1 tablet twice a day by oral route for 30 days. 2018 active PRN Not Available Not Available Not Avai lable baclofen 10 mg tablet active Not Available Not Available No t Available trazodone 150 mg tablet Take 1 tablet by mouth twice daily active Not Available Not Available No t Available lisinopril 10 mg tablet Take 1 tablet every day by oral route. active Not Available Not Available No t Available acyclovir 200 mg capsule Take 1 capsule every 4 hours by oral route. 2018 active Not Available Not Available Not Avai lable hydrochloro thiazide 25 mg tablet TAKE 1 TABLET BY MOUTH ONCE DAILY 02/11 completed Not Available Not Available Not Available nystatin 100,000 unit/gram topical powder APPLY TO THE AFFECTED AREA(S) BY TOPICAL ROUTE 2 TIMES PER DAY 04/16 completed Not Available Not Available Not Available cefuroxime axetil 500 mg tablet TAKE 1 TABLET BY MOUTH TWICE DAILY FOR 3 WEEKS 10/18 completed Not Available Not Available Not Available levofloxaci n 500 mg tablet 06/11 completed Not Available Not Available Not Available clobetasol 0.05 % scalp solution massage into scalp once daily x 1 month then decrease to every other day. 2017 active Not Available Not Available Not Avai lable ondansetron 4 mg disintegrat ing tablet PRN active Not Available Not Available N ot Available fluoxetine 20 mg capsule take 1 capsule by mouth daily 2019 active Not Available Not Available Not Avai lable betamethaso ne dipropionat e 0.05 % lotion Apply to scalp daily x 1 month then decrease to every other day. 06/11 completed Not Available Not Available Not Available diazepam 5 mg tablet 06/11 completed Not Available Not Available Not Available amoxicillin 875 mg-potassiu m clavulanate 125 mg tablet TAKE 1 TABLET BY MOUTH EVERY 12 HOURS 10/18 completed Not Available Not Available Not Available Pneumovax-2 3 25 mcg/0.5 mL injection syringe Inject 0.5 mLs via IM route 2020 active Not Available Not Available Not Avai lable bupropion HCl XL 300 mg 24 hr tablet, extended release Take 1 tablet by mouth once daily 2019 active Not Available Not Available Not Avai lable nitrofurant oin monohydrate /macrocryst als 100 mg capsule 06/11 completed Not Available Not Available Not Available duloxetine 60 mg capsule,del ayed release Take 1 capsule by mouth once daily active Not Available Not Available No t Available lactulose 10 gram/15 mL oral solution TAKE 15 ML BY MOUTH EVERY DAY 02/11 completed Not Available Not Available Not Available Vesicare 5 mg tablet Take 1 tablet twice a day by oral route for 30 days. 06/11 completed Not Available Not Available Not Available Vesicare 10 mg tablet Take 1 tablet every day by oral route. 07/10 completed Not Available Not Available Not Available Prevnar 13 (PF) 0.5 mL intramuscul ar syringe INJECT 1 2 (ONE HALF) ML INTRAMUSC ULARLY ONCE active Not Available Not Available No t Available Myrbetriq 50 mg tablet,exte nded release Take 1 tablet every day by oral route. active Not Available Not Available No t Available Linzess 290 mcg capsule 06/11 completed Not Available Not Available Not Available Flublok Quad (PF) 180 mcg (45 mcg x 4)/0.5 mL IM syringe PHARMACIS T ADMINISTE RED IMMUNIZAT ION ADMINISTE RED AT TIME OF DISPENSIN G 02/11 completed Not Available Not Available Not Available Vitals Date Recorded Body height Body mass index (BMI) Body weight Oxygen saturation Oxygen saturation in Arterial blood by Pulse oximetry Heart rate Systolic blood pressure Diastolic blood pressure Provider Name and Address Organization Details Last Updated DateTime 0 172.72 cm 30.4 kg/m2 07722.1 7 g 98 % 98 % 79 /min 142 mm[Hg] 98 mm[Hg] Shanell Black MA [facility] 0 10:17:10 Date Recorded Body height Pain severity - 0-10 verbal numeric rating [Score] - Reported Body temperature Body mass index (BMI) Body weight Heart rate Systolic blood pressure Diastolic blood pressure Provider Name and Address Organization Details Last Updated DateTime 0 172.72 cm 8 97.1 [degF] 32 kg/m2 06270.1 2 g 91 /min 135 mm[Hg] 78 mm[Hg] Jessica Lambert [facility] 0 14:21:30 Date Recorded Body height Pain severity - 0-10 verbal numeric rating [Score] - Reported Respiratory rate Body temperature Body mass index (BMI) Body weight Heart rate Systolic blood pressure Diastolic blood pressure Provider Name and Address Organization Details Last Updated DateTime 1 172.72 cm 4 18 /min 97.5 [degF] 34.5 kg/m2 573439. 39 g 85 /min 171 mm[Hg] 92 mm[Hg] Jessicasalena Verdin [facility] 1 10:44:44 Social History Question Answer Notes LastModified by Organizat ion Details LastModified Time Tobacco Smoking Status Never Smoker Lynn Cisse MA [facility], [facility] 04/03/2017 10:20:06 What Is Your Level Of Alcohol Consumption? Moderate Information not available 06/12/2019 Are You Blind Or Do You Have Difficulty Seeing? No Information not available 04/03/2017 What Is Your Level Of Caffeine Consumption? Moderate Information not available 04/03/2017 How Much Tobacco Do You Chew? None Information not available 04/03/2017 Are You Currently Employed? Yes Information not available 04/03/2017 Are You Deaf Or Do You Have Serious Difficulty Hearing? No Information not available 04/03/2017 What Type Of Diet Are You Following? REGULAR Information not available 04/03/2017 Which Illicit Or Recreational Drugs Have You Used? None Information not available 04/03/2017 Do You Or Have You Ever Used E-cigarettes Or Vape? Never Used Electronic Cigarettes Information not available 06/12/2019 Hard Of Hearing Or Deaf In One Or Both Ears? No Information not available 04/03/2017 Legally Blind In One Or Both Eyes? No Information no t available 04/03/2017 Live Alone Or With Others? With Others Information not available 04/03/2017 What Was The Date Of Your Most Recent Tobacco Screening? 09/08/2019 Information not available 09/08/2019 Seat Belts Used Routinely Yes Information not available 04/03/2017 Are You Sexually Active? No Information not available 04/03/2017 Smoke Alarm In Home Yes Information not available 04/03/2017 Are You Passively Exposed To Smoke? No Information no t available 04/03/2017 Do You Or Have You Ever Used Smokeless Tobacco? Never Used Smokeless Tobacco Information not available 06/12/2019 How Much Tobacco Do You Smoke? No Information not available 04/03/2017 General Stress Level Medium Information not available 04/03/2017 Do You Use Sunscreen Routinely? Yes Information not available 04/03/2017 On What Date Was Tobacco Cessation Counseling Provided? 09/08/2019 Information not available 09/08/2019 How Many Years Have You Smoked Tobacco? 0 Information not available 06/12/2019 Sex: Unknown Functional Status Question Answer Note LastModified by Organizat ion Details LastModified Time Do you have difficulty walking or climbing stairs? No Information not available 04/03/2017 Do you have difficulty doing errands alone? No Information not available 04/03/2017 Are you able to care for yourself? Yes Information not available 04/03/2017 Do you have difficulty dressing or bathing? No Information not available 04/03/2017 What is your exercise level? Occasional Information not available 04/03/2017 Mental Status Question Answer Note LastModified by Organization D etails LastModified Time Do you have difficulty concentrating, remembering or making decisions? No Information no t available 04/03/2017 Family History Relationship Description Onset Age of this Age Resolved Age Notes LastModified by Organization Details LastModified Time Mother Asthma Not available 04/03/2017 10:39:06 Mother Depressive disorder Not available 2017 10:39:15 Mother Diabetes mellitus Not available 2017 10:39:37 Mother Heart disease Not available 2017 10:39:50 Mother Hypertensive disorder Not available 2017 10:40:01 Father Heart disease Not available 2017 10:39:50 Medical History Condition Response Coronary Artery Disease N Other N High Blood Pressure N Atrial Fibrillation N Thyroid Problems N Kidney or Bladder Problems Y GI Problems N Depression Y COPD N Blood Clots N Skin Problems N Eating Disorder N Anemia N Heart Attack ([place]) N Anxiety Disorder N Diabetes N Muscle, Joint, or Bone Problems Y Seizures/Epilepsy N Acid Reflux (GERD) N Cancer N Stroke N Asthma N Allergies Y ADHD N Substance Abuse N High Cholesterol N Hepatitis N Liver Disease N Schizophrenia N Headaches Y Heart Failure N Osteoporosis N Gynecological HistoryNo gynecological history recorded. Obstetrics History GPAL:G 0 P 0 0 0 0 Immunizations Vaccine Type Date Status Note Provider Nam e and Address Organization Details Recorded Time influenza, unspecified formulation 0 completed Shanell Black [place] null, [place] [facility] 01/11/2020 11:11:06 COVID-19, mRNA, LNP-S, PF, 30 mcg/0.3 mL dose 1 completed Kristina Hilario [place], [place] [facility] 09/16/2020 12:18:19 COVID-19, mRNA, LNP-S, PF, 30 mcg/0.3 mL dose 1 completed Kristina Hilario [place], [place] [facility] 09/16/2020 12:18:48 COVID-19, mRNA, LNP-S, bivalent, PF, 50 mcg/0.5 mL or 25mcg/0.25 mL dose 2 completed Nita Espino RN null, [place] [facility] 01/04/2022 10:18:47 Tdap 3 completed Lynn Cisse MA null, APRIL - [facility] 04/03/2017 10:21:21 influenza, unspecified formulation 8 completed Lynn Cisse [place], [place] [facility] 04/03/2017 10:33:43 influenza, intradermal, quadrivalent, preservative free 8 completed [facility] Available [facility] 02:11:47 Past Encounters Encounter ID Performer Location Encounter Start Date Encounter Closed Date Diagnosis/Indication Diagnosis SNOMED-CT Code Diagnosis ICD10 Code Diagnosis Note [id number] Kalli Mak MD [facility] [address] [place] [address] 04/03/2017 09:59:43 04/03/2017 12:30:46 Tinea corporis 80259635 B35.4 Obesity 513111302 E66.9 Osteoarthr itis of knee 031420434 M17.11 has knee replacemen t scheduled for July by Dr. Ireland Screening for malignant neoplasm of colon 165892563 Z12.11 [id number] Kalli Mak MD [facility] [address] [place] [address] 04/30/2017 15:14:33 05/01/2017 11:00:30 Increased frequency of urination 246200595 R35.0 microscopi c hematuria but no signs of infection- -probably kidney stone. Increase fluid intake and follow up with urologist. Microscopic hematuria 19 8878767 R31.21 Pruritic rash 02532605 L 28.2 terbinafin e does not seem to be helping. Moderate r ecurrent major depression 75460848 F33.1 pt denies homicidal or suicidal ideation, but has job stress and worries about her ailing mother and her own health problems. Counseling 089073546 Z71 .9 pt wants help planning switch to a less stressful job and dealing with family health stress. [id number] Michelle Tyler FP ([address]) [address] [facility] [place] [address] 11/12/2017 09:09:37 11/12/2017 11:13:17 Non-scarring alopecia 062027865 L65.9 [id number] Kalli Mak MD [facility] [address] [place] [address] 01/09/2018 16:41:31 01/09/2018 17:51:11 Moderate recurrent major depression 79696384 F33.1 pt denies homicidal or suicidal ideation, but has job stress and worries about her ailing mother and her own health problems. Alopecia 14669381 L65.9 [id number] Kalli Mak MD [facility] [address] [place] [address] 05/23/2018 10:36:25 05/30/2018 08:13:57 Screening colonoscopy [id number] Z12.11 Bladder mu scle dysfunction - overactive [id number] N32.81 Herpes labialis 5518143 B00.1 Screening mammography 24 974497 Z12.31 Moderate r ecurrent major depression 47995527 F33.1 pt denies homicidal or suicidal ideation, but has job stress and worries about her ailing mother and her own health problems. Upper resp iratory infection [id number] J06.9 Patient appears to have a resolving viral respirator y infection; increase rest and fluids, call if symptoms do not resolve over the next 3 days. [id number] SAPNA BOLANOS, DEGREASING SOLUTION RECLAIMER-C [facility] [address] [place] [address] 07/10/2018 15:15:26 07/11/2018 08:07:57 Screening for malignant neoplasm of breast [id number] Z12.31 -Pt requesting order as she had not completed previous Dizziness [id number] R42 -Pt presents with dizziness (see HPI for detail)-Ne gative [employer]ike Maneuver-D izziness is constant and not connected to injury-His torical dizziness treated with meclizine, yet secondary to accident-R eports weakness of BLE at timesCT to rule out central lesions due to H/A, intermitte nt weakness and constant dizziness. Pt unable to tolerate work. Bladder mu scle dysfunction - overactive [id number] N32.81 -Pt reports that her OAB has not improved. Continues with urge frequency- Reports that visit with PCP included discussion to increase Vesicare to BID at max dose of 10mg. Requests med goes to pharmacy on file with 340B tonya bhatt. [id number] Kalli Mak MD [facility] [address] [place] [address] 08/21/2018 16:45:55 09/01/2018 09:00:52 Mixed urinary incontinence 628098742 N39.46 Memory impairment 692479 006 R41.3 Occipital headache 99865 7 R51 [id number] Kalli Mak MD [facility] [address] [facility] [place] [address] 12/26/2018 16:37:40 12/29/2018 12:15:58 Constipation 03553691 K59.00 Lung mass 023965962 R91. 8 X ray indicated patient had a single nodule in the right lower lobe; will check results of CT scan of chest, but radiologis t indicated it was probably a granuloma. [id number] Kalli Mak MD [facility] [address] [place] [address] 06/12/2019 09:58:57 06/15/2019 12:58:01 Influenza-like symptoms 950109327 R68.89 Chicken soup, orange juice, popsicles, snow cones, slurpees, ice cream, tea with honey and lemon, hot lemonade, gatorade, and yogurt may make you feel better. Use tylenol not ibuprofen for fever. Carpal lexis cristina syndrome 69286058 G56.01 [id number] Kalli Mak MD [facility] [address] [place] [address] 09/08/2019 10:03:11 09/09/2019 12:51:22 Cervical radiculopathy 43505576 M54.12 Patient will continue to do home exercises for her shoulder. Moderate r ecurrent major depression 70532882 F33.1 pt denies homicidal or suicidal ideation, but has job stress and worries about her ailing mother and her own health problems. She was advised that the alcohol is probably making her depression worse and was encouraged to slow down and stop. She also was prescribed thiamine for brain protection . [id number] Kalli Mak MD [facility] [address] [place] [address] 12/22/2019 13:00:16 12/28/2019 09:40:21 Migraine 24038746 G43.911 avoid dehydratio n and triggers for migraine Primary fi bromyalgia syndrome 00479343 M79.7 [id number] Jose Juan Richardson MD [facility] [address] [place] [address] 02/12/2020 14:10:04 02/12/2020 14:40:18 Urinary incontinence 325382334 R32 constant drip [id number] [facility] [address] [place] [address] 10/18/2020 10:31:09 10/18/2020 11:16:52 Chronic sinusitis 04210206 J32.9 Cervical lymphadenopathy 858853536 R59.0 Thyroid nodule 162745785 E04.1 repeat ultrasound a year Health Concerns Section Related Observation LastModified by Organization Detai ls LastModified Time None Recorded Concern Status LastModified by Organization Details LastModified Time None Recorded Advance Directives Directive None Recorded Payers Encounter Date Sequence Insurance Name Policy Number Policy Williamson Covered Member ID Williamson Member ID Guarantor Name 06/12/2019 2 [employer] (POS) [id number] Bessie Snider [id number] Bessie Snider 06/12/2019 1 [place] Bessie Snider [id number] Bessie Snider 09/08/2019 2 [employer] (POS) [id number] Bessie Snider [id number] Bessie Snider 09/08/2019 1 [place] [id number] Bessie Snider [id number] Bessie Snider 12/22/2019 2 [employer] (POS) [id number] Bessie Snider [id number] Bessie Snider 12/22/2019 1 [place] [id number] Bessie Snider [id number] Bessie Snider 02/12/2020 1 [place] [id number] Bessie Snider [id number] Bessie Sandovalt 02/12/2020 2 [employer]ET[employer] (POS) [id number] Bessie Snider [id number] Bessie Sandovalt 10/18/2020 1 [place] [id number] Bessie Snider [id number] Bessie Snider Notes Date Note Type Note Provider Name and Address Organization Details Recorded Time 0 text/html Peripheral NeuropathyReported bypatient.Hand Dominance:right Location:numbness;tinglin g;weak limbs Quality:cramping Severity:moderate Onset/Timing:gradual onset Context:no change in mood; no change in sleep Associated Symptoms:loss of muscle mass;drops items; right arm and hand have numbness, tingling and weakness going to the thumb, index, and middle fingers. Kalli Mak MD Attn: Accounting,[address] [place], [address], [facility] 06/13/2019 19:07:24 0 text/html Neck PainReported bypatient.Trauma:pinched nerve in neck Neurological Complaints:numbness of the arms;tingling of the arms;pain in the arms Pain:sharp;worse with movement;worse with activity Treatment:PT/OT; tylenol with codeine Kalli Mak MD Attn: [employer]ing,[address] [place], [address], [facility] 09/08/2019 23:29:39 0 text/html FibromyalgiaReported bypatient.Frequencyinterm ittent Timing:worse in the PM Durationyears Location:diffuse Severity:moderate Pain in Joints or Muscles:pain of joints or muscles Alleviating factors:rest; heat; cold; muscle relaxers; NSAIDS; antidepressants Aggravating factors:emotional stress;exercise Associated Symptoms:fatigue;irritabl e bowel syndrome (IBS);sleep disorders;chronic headaches;jaw pain;memory impairment;morning stiffness;muscle spasms;numbness/tingling in the extremities;dizziness;lig htheadedness;abnormal skin sensitivityHeadacheReport ed bypatient.Location:unilat eral; including neck Quality:similar to previous headaches;throbbing;tight ness;pain Severity:moderate Duration:intermittent Onset/Timing:worse; gradual; happen several times a month. Context:occurs with exertion; occurs in a cyclical pattern; occurs with menstrual cycle; triggered by life events; stress at work; poor sleep; food; positional; triggered by alcohol; triggered by caffeine Aggravating factors:loud noise; emotional stress, bright flashing lights Alleviating factors:laying in a dark room; sleep; rest Associated Symptoms:nausea;rhinorrhe a;photophobia;blind spots;tearing/watery eyes;confusion;slurred speech;with preceeding aura; hyperacusis Kalli Mak MD Attn: Accounting,[address] [place], [address], [facility] 12/27/2019 18:47:15 0 text/html Bladder suspension with possible revision two years ago. was dry for very short time and has been wet since. 4-5 pads/dry change with iincontinence in bed (constant drip) refractory to oral meds. Does not smoke or drink. Jose Juan Richardson MD [address] [place], [address], [facility] 02/12/2020 14:40:16 1 text/html patient is complaining of swelling and tenderness of her neck. She gets swelling in her left neck that seems to come and go over the last 6 months. She has had scans and ultrasounds which shows a normal lymph node in her left neck as well as a small thyroid nodule. She also complains of nasal congestion and drainage has been on antibiotics without relief is on antihistamine And Flonase Sukhi Bishop MD [address] [place], [address], [facility] 10/18/2020 11:01:41 OBGyn Episode No OBEpisode recorded.
--- OUTSIDE RECORDS SUMMARY | 2024-06-10 10:33 | XMS_ITS | Continuity of Care Document ---
Author Organization [facility] Address [address] [place] [address] Phone Care Team Providers Care Capper Machine Operator Name Role Phone Rakesh Ramirez MD Unavailable [...] Date Provider Providers Copied on Encounter [facility], [address] [place] [address], [place], [place], [id number], [place] tel:[phone] [facility] No Information 0 Ashley Cameron. [address] [place] [address], [facility] [place] [address], [place], [place], [id number] , [place]. tel: [phone] [facility], [address] [place] [address], [id number], [place] tel:[phone] [facility] No Information 0 Ashley Cameron. [address] [place] [address], [address], [place], [place], [id number] , [place]. tel: [phone] Referring Provider: Rakesh Martinez, [address] [place] [address], [place], [address] . tel:[phone] [facility], [address] [place] [address], [id number], [place] tel:[phone] [facility] No Information 0 Ashley Cameron. [address] [place] [address], [facility], [place] [address], [place], [place], [id number] , [place]. tel:[phone] Referring Provider: Rakesh Martinez, [address] [place] [address] [address], [place], [address] . tel:[phone], [id number], [place] tel:[phone] [facility] No Information Mar-1 2-201 0 Ashley Cameron. [address] [place] [address], [address], [place], [place], [id number] , [place]. tel: [phone] Referring Provider: Rakesh Martinez, [address] [place] [address] [address], [place], [address] . tel:[phone] [facility] [place] [address], [place], [place], [id number], tel:[phone] [facility] No Information Mar-0 5-201 0 Ashley Cameron. [address] [place] [address], [address], [place], [place], [id number] , [place]. tel: [phone] Referring Provider: Rakesh Martinez, [address] [place] [address] [address], [place], [address] . tel:[phone] [facility] [place] [address], [place], [place], [id number], tel:[phone] [facility] No Information Mar-0 2-201 0 Shai Lima. [address] [place] [address], [facility], [place] [address], [place], [place], [id number] , [place]. tel: [phone] Referring Provider: Rakesh Martinez, [address] [place] [address] Suite [facility], [place], [address] . tel:[phone] [facility] [place] [address], [place], [place], [id number], [place] tel:[phone] [facility] No Information Mar-0 2-201 0 Ashley Cameron. [address] [place] [address], [address], [place], [place], [address] , [place]. tel:[phone] [facility] [place] [address], [place], [place], [address], tel:[phone] [facility] No Information Mar-0 1-201 0 Ashley Cameron. [address] [place] [address], [address], [place], [place], [address] , [place]. tel: [phone] Referring Provider: Rakesh Martinez, [address] [place] [address] [address], [place], [address] . tel:[phone] [facility], [address] [place] [address], [place], [place], [id number], [place] tel:[phone] [facility] No Information 0 Ashley Cameron. [address] [place] [address], [address], [facility], [place], [address] , [place]. tel: [phone] Referring Provider: Rakesh Martinez, [address] [place] [address] [address], [place], [address] . tel:[phone] [facility], [address] [place] [address], [place], [place], [address], [place] tel:[phone] [facility] No Information 0 Ashley Cameron. [address] [place] [address], [address], [place], [place], [id number] , [place]. tel: [phone] Referring Provider: Rakesh Martinez, [address] [place] [address] [address], [place], [address] . tel:[phone] Est. Patient Level 4 [facility], [address] [place] [address], [place], [place], [id number], [place] tel:[phone] [facility] No Information 0 Ashley Cameron. [address] [place] [address], [address], [facility], [place], [address] , [place]. tel: [phone] Referring Provider: Rakesh Martinez, [address] [place] [address] [address], [place], [address] . tel:[phone] [facility], [address] [place] [address], [place], [place], [address], [place] tel:[phone] [facility] No Information 0 Ashley Cameron. [address] [place] [address], [address], [facility] [place] [id number] , [place]. tel: [phone] Referring Provider: Rakesh Martinez, [address] [place] [address] [address], [place], [address] . tel:[phone] [facility], [address] [place] [address], [place], [place], [id number], [place] tel:[phone] [facility] No Information 0 Ashley Cameron. [address] [place] [address], [address], [place], [address] , [place]. tel: [phone] [facility], [address] [place] [address], [place], [place], [address], [place] tel:[phone] [facility] No Information 0 Ashley Cameron. [address] [place] [address], [address], [facility] [place], [address] , [place]. tel: [phone] Referring Provider: Rakesh Martinez, [address] [place] [address] [address], [place], [address] . tel:[phone] [facility], [address] [place] [address], [place], [place], [address], [place] tel:[phone] [facility] No Information 9 Ashley Cameron. [address] [place] [address], [address], [facility] [place], [address] , [place]. tel: [phone] Referring Provider: Rakesh Martinez, [address] [place] [address] [address], [place], [address] . tel:[phone] [facility] [place] [address], [place], [place], [address], [place] tel:[phone] [facility] No Information 9 Shai Lima. [address] [place] [address], [address], [facility] [place], [address] , [place]. tel: [phone] Referring Provider: Rakesh Martinez, [address] [place] [address], [place], [address] . tel:[phone] [facility] [place] [address], [place], [place], [address], [place] tel:[phone] [facility] No Information Dec-1 4200 9 Ashley Cameron. [address] [place] [address], [place] [address], [place], [place], [id number] , [place]. tel: [phone] Referring Provider: Rakesh Martinez, [address] [place] [address], [place], [address] . tel:[phone] [facility] [place] [address], [place], [place], [address], [place] tel:[phone] [facility] No Information Dec-0 8200 9 Ashley Cameron. [address] [place] [address], [place], [place], [address] , [place]. tel: [phone] Referring Provider: Rakesh Martinez, [address] [place] [address], [place], [address] . tel:[phone] [place] [address], [place], [place], [address], [place] tel:[phone] [facility] No Information Dec-0 3200 9 Ashley Cameron. [address] [place] [address], [place] [address], [place], [place], [id number] , [place]. tel: [phone] Referring Provider: Rakesh Martinez, [address] [place] [address], [place], [address] . tel:[phone] Est. Patient Level 4 [facility] [place] [address], [place], [place], [address], [place] tel:[phone] [facility] No Information Jan-2 3200 9 Ashley Cameron. [address] [place] [address], [place], [place], [id number] , [place]. tel:[phone] Referring Provider: Rakesh Martinez, [address] [place] [address], [place], [address] . tel:[phone] [facility], [address] [place] [address], [place], [place], [address], tel:[phone] [facility] No Information 9 Ashley Cameron. [address] [place] [address], [facility] [place] [address], [place], [place], [address] , [place]. tel:[phone] Referring Provider: Rakesh Martinez, [address] [place] [address], [place], [address] [place] [address] . tel:[phone] Est. Patient Level 4 [facility], [address] [place] [address], [place], [place], [id number], tel:[phone] [facility] No Information 9 Ashley Cameron. [address] [place] [address], [place] [address], [place], [place], [address] , [place]. tel:[phone] Referring Provider: Rakesh Martinez, [address] [place] [address], [place], [address] [place] [address] . tel:[phone] New Patient Ov Level 4 [facility], [address] [place] [address], [place], [place], [address], tel:[phone] [facility] No Information 8 Ashley Cameron. [address] [place] [address], [place] [address], [place], [place], [address] , [place]. tel:[phone] Referring Provider: Rakesh Martinez, [address] [place] [address], [place], [place], [address] [place] [address] . tel:[phone] Family History Family Member Type Diagnosis Age [...] Status Future Order: Lab Order XL-KNEE RT-AP/LAT ([id number]), Appointment on: , Sent on: Sent Future Order: Lab Order MRI Lowe r Extremity Joint No Contrast ([id number]), Appointment on: , Sent on: Sent Future Order: Lab Order XL-KNEE RT-AP/LAT ([id number]), Appointment on: , Sent on: Sent Future Order: Lab Order Chest Ep a Lateral ([id number]), Appointment on: , Sent on: Sent Future Order: Lab Order MRI Lowe r Extremity Joint No Contrast ([id number]), Appointment on: , Sent on: Sent Future Order: Lab Order Dimitris/Rt Lat/Rex HS ([id number]), Appointment on: , Sent on: Sent Future Order: Lab Order Dimitris/Rt Lat/Rex HS ([id number]), Appointment on: , Sent on: Sent History Of Present Illness Encounter Date Complaint History Of Prese nt Illness No Information Functional Status Date Functional Assessmen t No Information Instructions Date Instruction Additional Infor mation No Information Assessments Type Assessment Date No Information Patient Care Teams Name Effective Dates (start - stop) Status Members No Information
--- OUTSIDE RECORDS SUMMARY | 2024-06-10 10:34 | XMS_ITS | Data Portability ---
Author Organization [facility] [employer], Main Office Address [address] [place] [address] Care Team Providers Care Ordnance Mechanic Name Role Phone ANDREA ANDINO Primary Care Provider ANDREA ANDINO Referring Provider [phone] Assessment Encounter Date Assessment Date Assessment LastModified by Organization Details LastModified Time 06/28/2023 06/28/2023 58-year-old patient presents today with right shoulder pain that has been going on for about 3 months. She states that she picked up her dog when he jumped out of her arms, she tried to catch him and felt a pull in the right shoulder with immediate pain. Since then she has had pain with daily activities, especially lifting the arm above her head and reaching behind. 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 She presented to her primary care doctor who sent her to an occupational therapist. They also tried muscle relaxers, tramadol, anti-inflammator ies and a cortisone injection 2 weeks ago. She states that none of these treatments have helped. She rates her pain 9/10. Review of systems per patient questionnaire Imaging: X-rays reviewed show no acute bony abnormality or fracture. There is mild degenerative changes throughout the shoulder. Physical exam: Pain with palpitation around the shoulder. Range of motion 130/20/ back pocket. 5/5 rotator cuff strength. Positive Wendy's, Neer, Alcala. Sensation intact. At this time she is tried many conservative measures such as therapy, anti-inflammator ies, and cortisone injection. She is still experiencing severe pain with movement. I recommend that she continue with therapy exercises and anti-inflammator ies. We will have her come back to see Dr. Duran for further MRI review and treatment possibilities. She is in agreement with this plan. [email or web address] Not available 06/28/2023 14:10:05 07/10/2023 07/10/2023 58-year-old female, history of fibromyalgia, presents for evaluation of her right shoulder. She reports pain for about a month, which began when she was her dog. She was initially treated with a course of physical therapy, anti-inflammator ies, and cortisone injection. She reports similar to worse pain, with no other changes. She reports her pain as 9/10, radiating down the anterior, lateral, and posterior aspects of the shoulder. She has also been using ice, heat, Flexeril, patches, and massages. Physical exam: She has tenderness palpation over the biceps anteriorly, also over the lateral and posterior shoulder. Tenderness over the AC joint. Range of motion 130/30/back pocket. Good rotator cuff strength, negative belly press. Positive Wendy. Positive Neer and Alcala, positive speed and Yergason's. Negative Spurling's. MRI was reviewed, demonstrating signal within the rotator cuff tendon, fraying of the biceps She reports the main site of her pain is over the anterior biceps. We discussed a cortisone injection to this area. She seems eager to proceed with surgery. She has tried all these conservative measures although the duration has only been a month or 2, so even though she has done all these I would like to see a longer course of conservative management 1st to see if she has any further improvement. It is also concerning that the cortisone injection did not help her symptoms at all, we discussed that any intra-articular symptoms should have at least been temporarily helped by the injection. We would want to make sure the pain is not coming from her fibromyalgia or any other causes. We will try the biceps injection to see how that works for her. We will see her back in 6 weeks for recheck. Not available 07/10/2023 16:56:51 08/21/2023 08/21/2023 58-year-old female, presents for follow-up of her right shoulder. She had biceps tendinosis for which we did a cortisone injection into the groove last time. She reports that it had significant improvement for about 2 weeks, but is wearing off. She is still doing home exercises and taking anti-inflammator ies. She still has some tenderness over the biceps groove, improved from previously. Range of motion 140/30/lower lumbar. She still reports some pain in the back and inferior aspects of the shoulder She had improvement after the cortisone injection wants to get another 1. We discussed that it is too soon to repeat a cortisone injection, and we tried not to do too many shots for soft tissue inflammation. We also discussed surgical treatment for biceps tenodesis versus tenotomy, and she wants to hold off and continue conservative management for now. We can see her back in a couple of months, if she is still having symptoms. We would discuss a repeat injection versus surgery at that point. She is in agreement with the plan Not available 08/21/2023 17:05:47 Plan of Treatment Reminders Order Date Submit Date Provider Last Modified By Organization Details Last Modified Time Details Appointments None recorded. Lab None recorded. Referral None recorded. Procedures injection/a spiration joint/bursa (PROC) 2023 024 [email or web address] 3 In-Office Order, Internal Use Only DO Not Attach Compendium DO Not Attach Compendium, Do Not Delete/merge, [id number] 16:17:20 Surgeries None recorded. Imaging XR, shoulder, 2 or more view 2023 024 [email or web address] [facility] [place], [address], [place], [address], 13:59:34 Medication Orders bupivacaine HCl 0.5 % (5 mg/mL) injection solution 2023 024 [email or web address] [facility] [address] [place], [address], 17:15:03 Kenalog 10 mg/mL suspension for injection 2023 024 [email or web address] [facility] [address], [address] [facility], [place], [address], 17:15:03 Patient TargetsNo targets recorded. Patient InstructionsNo instructions recorded. Reason for Referral None Reported. Results Created Date Observation Date Name Description Value Unit Range Abnormal Flag Note LastModifiedBy Organization Detail LastModifiedTime 06/19/19 24 05/27/2023 XR, shoul curly, 2 or more view No observ ation record ed. [email or web address] Not Available 05/2023 16:51:57 06/28/19 24 XR, shoul curly, 2 or more view No observ ation record ed. [email or web address] [facility] [place] [address], [place], [address], 06/28/2023 13:59:33 07/04/19 24 MRI, shoul curly, w/o contr ast No observ ation record ed. Not Available 2023 08:40:28 Result Notes None recorded. Problems Name Problem SNOMED Code Status Onset Date Resolution Date Notes Provider Name and Address Organization Details Recorded Time Hyperchole sterolemia 68532701 Active 2018 Not Available [facility] 3 20:58:59 Constipati on 14372335 Active 2018 Not Available [facility] 3 20:59:00 Asthma 132722834 Active 2018 Not Available [facility] 3 20:59:00 Depressive disorder 95381231 Active 2018 Not Available [facility] 3 20:59:00 Hypertensi ve disorder 05240581 Active 2018 Not Available [facility] 3 20:59:00 Diabetes mellitus 13878604 Active 2018 Not Available [facility] 3 20:59:00 Pain of right shoulder joint 6879275453071 9100 Active 2023 Hunog Znuiga, RMA null, [employer] [facility] [employer] 4 09:11:08 Biceps tendinitis 000966777 Active 2023 Rakesh Duran MD [address] [place] [address], [address] , [facility] [employer] [facility] [employer] 4 16:56:08 Problem Notes None recorded. Procedures Surgical History Date Name Laterality Status Provider Name and Address Organization Details Recorded Time 07/10/19 24 Ortho - Cortisone Injection completed Rakesh Duran MD [address] [facility], [place], [address], [facility] 07/10/2023 16:55:53 Laminectomy completed Huong Zuniga [facility] 06/28/2023 09:09:08 Microdiscectomy completed Huong Zuniga [facility] 06/28/2023 09:09:47 Knee Surgery completed Huong Zuniga [facility] 06/28/2023 09:10:26 Imaging Results Imaging Date Name Status LastModified by Organiz ation Details LastModified Time 05/27/2023 XR, shoulder, 2 or more view completed [email or web address] Information not available 06/19/2023 16:51:57 06/28/2023 XR, shoulder, 2 or more view completed [email or web address] [facility] [place] [address], [place], [address], 06/28/2023 13:59:33 07/04/2023 MRI, shoulder, w/o contrast completed [email or web address] Information not available 07/04/2023 08:40:28 Procedure Notes None recorded. Medical Equipment None Reported. Allergies Allergen ID Allergen Name Allergen Category Reaction Reaction Severity Criticality Documentation Date Start Date Code Code System Note Provider Name and Address Organization Details Recorded Time 23046 Iodinated contrast media (substanc e) medicatio n rash Not available Not available 05/16/2022 37203 2004 SNOMED Not Available [facility] 3 20:59:40 94558 Dilaudid medicatio n rash Not available Not available 05/16/2022 69559 3 RxNorm Not Available [facility] 3 20:59:40 96471 Compazine medicatio n Not available Not available Not available 05/16/202291065 6 RxNorm Not Available [facility] 3 20:59:40 Medications Name Sig Start Date Stop Date Status Note LastModified by Organization Details LastModified Time cyclobenzap rine 10 mg tablet TAKE 1 TABLET BY MOUTH THREE TIMES DAILY active Not Available Not Available No t Available metformin 500 mg tablet TAKE 1 TABLET BY MOUTH ONCE DAILY 06/02 completed Not Available Not Available Not Available valacyclovi r 1 gram tablet 06/02 completed Not Available Not Available Not Available clarithromy josef 500 mg tablet Take 1 tablet every 12 hours by oral route. 06/02 completed Not Available Not Available Not Available tolterodine ER 4 mg capsule,ext ended release 24 hr 06/02 completed Not Available Not Available Not Available bupivacaine HCl 0.5 % (5 mg/mL) injection solution in office 2023 active Not Available Not Available Not Avai lable spironolact one 100 mg tablet TAKE 1 TABLET BY MOUTH ONCE DAILY 06/02 completed Not Available Not Available Not Available hydrocodone 10 mg-acetamin ophen 325 mg tablet TAKE 1 TABLET BY MOUTH EVERY 4 HOURS NO MORE THAN 5 TABLETS PER DAY 06/02 completed Not Available Not Available Not Available tramadol 50 mg tablet TAKE 1/2 (ONE-HALF ) TABLET BY MOUTH EVERY 6 HOURS NEEDED FOR PAIN active Not Available Not Available No t Available meloxicam 7.5 mg tablet active Not Available Not Available Not Available oxycodone-a cetaminophe n 5 mg-325 mg tablet TAKE 1 TABLET BY MOUTH EVERY 6 HOURS NEEDED FOR PAIN 06/27 completed Not Available Not Available Not Available ceftriaxone 1 gram solution for injection Take 1 g by injection route. 06/02 completed Not Available Not Available Not Available trazodone 100 mg tablet TAKE 1 TABLET BY MOUTH AT BEDTIME 06/02 completed Not Available Not Available Not Available Kenalog 10 mg/mL suspension for injection in office 2023 active [facility]: [phone] Not Available Not Available Not Available phenazopyri dine 100 mg tablet TAKE 1 TABLET BY MOUTH THREE TIMES DAILY active Not Available Not Available No t Available nystatin 100,000 unit/gram topical cream APPLY CREAM TOPICALLY TO AFFECTED AREA ONCE DAILY active Not Available Not Available No t Available clotrimazol e-betametha sone 1 %-0.05 % topical cream APPLY CREAM TOPICALLY TWICE DAILY 06/27 completed Not Available Not Available Not Available prednisone 50 mg tablet TAKE 1 TABLET BY MOUTH 13 HOURS, 7 HOURS, AND 1 HOUR PRIOR TO PROCEDURE 06/27 completed Not Available Not Available Not Available fluorometho lone 0.1 % eye drops,suspe nsion INSTILL 1 DROP INTO RIGHT EYE THREE TIMES DAILY active Not Available Not Available No t Available Levaquin 500 mg tablet Take 1 tablet every 24 hours by oral route. 06/02 completed Not Available Not Available Not Available nystatin 100,000 unit/gram topical powder APPLY TOPICALLY TWICE A DAY active Not Available Not Available No t Available Tylenol-Cod eine #3 300 mg-30 mg tablet Take 1 tablet every 6 hours by oral route. 06/02 completed Not Available Not Available Not Available gentamicin 40 mg/mL injection solution Take 80 mg by injection route. 06/02 completed Not Available Not Available Not Available methylpredn isolone 4 mg tablets in a dose pack TAKE BY MOUTH DIRECTED ON INSIDE OF PACKAGE 06/27 completed Not Available Not Available Not Available ondansetron 4 mg disintegrat ing tablet DISSOLVE 1 TABLET IN MOUTH EVERY 6 HOURS NEEDED FOR NAUSEA AND VOMITING 06/02 completed Not Available Not Available Not Available fluoxetine 20 mg capsule TAKE 1 CAPSULE BY MOUTH ONCE DAILY 06/02 completed Not Available Not Available Not Available diazepam 5 mg tablet active Not Available Not Available No t Available bupropion HCl XL 300 mg 24 hr tablet, extended release TAKE 1 TABLET BY MOUTH ONCE DAILY 06/02 completed Not Available Not Available Not Available metoprolol tartrate 25 mg tablet TAKE 1 TABLET BY MOUTH TWICE DAILY active Not Available Not Available No t Available duloxetine 60 mg capsule,del ayed release TAKE 1 CAPSULE BY MOUTH ONCE DAILY 06/02 completed Not Available Not Available Not Available lactulose 10 gram/15 mL oral solution TAKE 15 ML BY MOUTH EVERY DAY 06/02 completed Not Available Not Available Not Available Vesicare 5 mg tablet 06/02 completed Not Available Not Available Not Available Banophen 50 mg capsule TAKE 1 CAPSULE BY MOUTH ONE HOUR PRIOR TO PROCEDURE 06/27 completed Not Available Not Available Not Available Myrbetriq 50 mg tablet,exte nded release 06/02 completed Not Available Not Available Not Available Linzess 290 mcg capsule 06/02 completed Not Available Not Available Not Available Contrave 8 mg-90 mg tablet,exte nded release TAKE 2 TABLETS BY MOUTH TWICE DAILY active Not Available Not Available No t Available Flublok Quad (PF) 180 mcg (45 mcg x 4)/0.5 mL IM syringe PHARMACIS T ADMINISTE RED IMMUNIZAT ION ADMINISTE RED AT TIME OF DISPENSIN G 06/02 completed Not Available Not Available Not Available Mounjaro 10 mg/0.5 mL subcutaneou s pen injector INJECT 10 MG SUBCUTANE OUSLY WEEKLY 06/27 completed Not Available Not Available Not Available Mounjaro 12.5 mg/0.5 mL subcutaneou s pen injector INJECT 0.5 ML SUBCUTANE OUSLY ONCE A WEEK 06/27 completed Not Available Not Available Not Available Vitals Date Recorded Body height Body mass index (BMI) Body weight Pain severity - 0-10 verbal numeric rating [Score] - Reported Provider Name and Address Organization Details Last Updated DateTime 06/28/2023 175.26 cm 31 kg/m2 40213.4 g 9 PEDRO Echevarria [employer] [facility] [employer] 06/28/2023 09:06:27 Date Recorded Body height Body mass index (BMI) Body weight Provider Name and Address Organization Details Last Updated DateTime 07/10/2023 175.26 cm 31 kg/m2 29526.4 g Saira Lazcano CNA [employer] [facility] [employer] 07/10/2023 15:44:45 Date Recorded Body height Body mass index (BMI) Body weight Pain severity - 0-10 verbal numeric rating [Score] - Reported Provider Name and Address Organization Details Last Updated DateTime 08/21/2023 175.26 cm 32.5 kg/m2 98379.32 g 3 PEDRO Echevarria [employer] [facility] [employer] 08/21/2023 15:50:09 Social History Question Answer Notes LastModified by Organizat ion Details LastModified Time Tobacco Smoking Status Unknown If Ever Smoked PEDRO Echevarria [employer] [facility] [employer] 06/28/2023 09:08:41 What Is Your Level Of Alcohol Consumption? Occasional Information not available 06/28/2023 What Was The Date Of Your Most Recent Tobacco Screening? 06/28/2023 Information not available 06/28/2023 Sex: Unknown Functional Status None recorded. Mental Status None recorded. Family History Relationship Description Onset Age of this Age Resolved Age Notes LastModified by Organization Details LastModified Time Mother Heart disease [email or web address] Not available 2023 09:08:01 Mother Family history of malignant neoplasm [email or web address] Not available 2023 09:08:08 Mother Hypertensive disorder [email or web address] Not available 2023 09:08:18 Mother Diabetes mellitus [email or web address] Not available 2023 09:08:26 Medical History Condition Response URINARY/BLADDER/KIDNEY PROBLEMS Y Gynecological HistoryNo gynecological history recorded. Obstetrics History GPAL:G 0 P 0 0 0 0 Past Encounters Encounter ID Performer Location Encounter Start Date Encounter Closed Date Diagnosis/Indication Diagnosis SNOMED-CT Code Diagnosis ICD10 Code Diagnosis Note [id number] Coleen Han NP [facility] [place] [address] [place] [address] 06/28/2023 08:50:33 06/28/2023 09:39:56 Pain of right shoulder joint 2787194393 7790605 M25.531 [id number] Rakesh Duran MD [facility] [place] [address] [place] [address] 07/10/2023 15:36:26 07/10/2023 16:15:56 Pain of right shoulder joint 4941230261 1168689 M25.511 Biceps tendinitis 769833 007 M75.21 [id number] Rakesh Duran MD [facility] [place] [address] [place] [address] 08/21/2023 15:43:43 08/21/2023 16:24:23 Pain of right shoulder joint 3876772848 0157034 M25.511 Health Concerns Section Related Observation LastModified by Organization Detai ls LastModified Time None Recorded Concern Status LastModified by Organization Details LastModified Time None Recorded Advance Directives Directive None Recorded Payers Encounter Date Sequence Insurance Name Policy Number Policy Williamson Covered Member ID Williamson Member ID Guarantor Name 06/28/2023 1 [place] [id number] Bessie Snider [id number] Bessie Snider 07/10/2023 1 [place] [id number] Bessie Toribio Snider [id number] Bessie Rooney Snider 08/21/2023 1 [place] [id number] Bessie Rooney Snider [id number] Bessie Rooney Snider OBGyn Episode No OBEpisode recorded.
--- OUTSIDE RECORDS SUMMARY | 2024-06-10 10:34 | XMS_ITS | Continuity of Care Document ---
Author Organization [facility] Address [address] [place] [address] Phone Care Team Providers Care Adult Ministries Director Name Role Phone Lynnette Melendez Unavailable Unavailable Advance Directives Directive Yes / No Effective Date File Name No Information Encounters Encounter Description Practice Location Reason(s) For Visit Diagnoses Date Provider Providers Copied on Encounter [facility], [address], [place], [place], [id number], [place] tel:[phone] [facility] No Information Apr- [address]. [address] , [address], [place], [address], [place]. tel:[phone] Family History Family Member Type Diagnosis Age At Onset No Information Payers Payer name Insurance type Covered green party ID Authoriza tion(s) No Information Social [...]
--- OUTSIDE RECORDS SUMMARY | 2024-06-10 10:34 | XMS_ITS | Clinical Summary ---
Author Organization [facility] Address [address] [place] [address] Phone Care Team Providers Care Financial Analyst Intern Name Role Phone Unavailable Primary Care Provider Unavailabl e Allergies Active Allergy Reactions Criticality Noted Date Comments Prochlorperazine Anaphylaxis High Hydromorphone Hcl Hives,Itching Medium 08/06/2019 Iodinated Contrast Media Rash Low 08/06/2019 Medications traZODone (DESYREL) 100 MG Tablet TAKE 1 TABLET BY MOUTH AT BEDTIME 07/12/2019 Active FLUoxetine (PROZAC) 20 MG Capsule TAKE 1 CAPSULE BY MOUTH ONCE DAILY 07/12/2019 Active spironolactone (ALDACTONE) 100 MG Tablet TAKE 1 TABLET BY MOUTH ONCE DAILY 07/12/2019 Active DULoxetine (CYMBALTA) [address] Particles TAKE 1 CAPSULE BY MOUTH ONCE DAILY 04/22/2019 Active buPROPion (WELLBUTRIN) 300 MG TABLET SR 24 HR XL tablet TAKE 1 TABLET BY MOUTH ONCE DAILY 07/12/2019 Active cyclobenzaprine (FLEXERIL) 10 MG Tablet TAKE 1 TABLET BY MOUTH THREE TIMES DAILY 07/12/2019 Active valACYclovir (VALTREX) 1 GM Tablet 04/28/2019 Active HYDROcodone-baljinder taminophen (NORCO) 5-325 MG Tablet Take 1 Tab by mouth every 6 hours as needed. Active traMADol (ULTRAM) 50 MG Tablet Take 50 mg by mouth every 6 hours as needed. Active Pumpkin Seed-Soy Germ (AZO BLADDER CONTROL/GO-LESS PO) Take by mouth. Active Saw Ogden 450 MG Capsule Take by mouth. Active glucosamine-cho ndroitin 500-400 MG Capsule Take 1 Cap by mouth 3 times daily. Active Turmeric Curcumin 500 MG Capsule Take by mouth. Active Magnesium Oxide 400 MG Capsule Take by mouth. Active lactulose (CHRONULAC) 10 GM/15ML Solution Take 30 mL by mouth 4 times daily. Active Family History Medical History Relation Name Comments Kidney Stones Son Relation Name Status Comments Son Social History Tobacco Use Types Packs/Day Years Used Date Smoking Tobacco: Never Smokeless Tobacco: Never Alcohol Use Standard Drinks/Week Comments Yes 2 (1 standard drink = 0.6 oz pur e alcohol) Sexually Active Control Partners Comments Not Currently Male Comments Unknown Sex and Gender Information Value Date Recorded Sex Assigned at Not on file Legal Sex Female 9:48 PM CDT Gender Identity Not on file Sexual Orientation Not on file Plan of Treatment Health Maintenance Due Date Last Done Comments Hepatitis C Virus (HCV) Screening 1965 Hepatitis B Immunization (1 of 3 - 19+ 3-dose series) 1984 Colonoscopy 2010 Colorectal Cancer Screening 2010 Cologuard 2015 Immunochemical Fecal Occult Blood 2015 Mammogram 2015 Pneumococcal Immunization (50+ years) (1 of 1 - PCV) 2015 Zoster Immunization (1 of 2) 2015 Influenza Immunization (#1) 11/17/20230 09/2018, 12/01/2017, 04/01/2017, Additional history exists SARS-COV-2 Immunization ( season) 2023 02/04/2021, 07/20/2020, 06/29/2020 Respiratory Syncytial Virus (RSV) Immunization (Adult) (1 - 1-dose 75+ series) 2040 DTaP/Tdap/Td Immunization Discontinued 2015, 12/02/2013, 08/30/2012 TdaP Immunization Completed 07/29/2015, , 08/30/2012 Meningococcal Immunization (ACWY) Aged Out No longer eligible based on patient's age to complete this topic Pneumococcal Immunization Combined Aged Out No longer eligible based on patient's age to complete this topic Rotavirus Immunization Aged Out No lo nger eligible based on patient's age to complete this topic Insurance
--- OUTSIDE RECORDS SUMMARY | 2024-06-10 10:34 | XMS_ITS | Clinical Summary ---
Author Organization [facility] Address [address] [place] [address] Care Team Providers Care Post Tensioning Ironworker Name Role Phone Unavailable Primary Care Provider Unavailabl e Allergies Active Allergy Reactions Criticality Noted Date Comments Hydromorphone Itching,Rash Low 12/04/2010 Iodinated Contrast Media Hives High 08/06/2019 Prochlorperazine Anaphylaxis High 05/07/2022 Medications diazePAM (VALIUM) 5 mg tablet Take 5 mg by mouth 3 times daily as needed. Active traMADoL (ULTRAM) 50 mg tablet Take 50 mg by mouth. 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 Gender Identity Not on file Sexual Orientation Not on file Last Filed Vital Signs Vital Sign Reading Time Taken Comments Blood Pressure 138/91 05/07/2022 12:43 PM FREIGHT DELIVERY DRIVER Pulse 93 05/07/2022 12:43 PM FREIGHT DELIVERY DRIVER Temperature 36.3 C (97.3 F) 05/07/2022 12:43 PM FREIGHT DELIVERY DRIVER Respiratory Rate 16 05/07/2022 12:43 PM FREIGHT DELIVERY DRIVER Oxygen Saturation 98% 05/07/2022 12:43 PM FREIGHT DELIVERY DRIVER Inhaled Oxygen Concentration - - Weight 99.8 kg (220 lb) 05/07/2022 12:43 PM FREIGHT DELIVERY DRIVER Height 175.3 cm (5' 9 ) 05/07/2022 12:43 PM FREIGHT DELIVERY DRIVER Body Mass Index 32.49 05/07/2022 12:43 PM FREIGHT DELIVERY DRIVER Plan of Treatment Health Maintenance Due Date Last Done Comments DIABETES ANNUAL FOOT EXAM 1983 DIABETES ANNUAL RETINAL EXAM 1983 DIABETES HBA1C Q 6 MONTHS 1983 DIABETES MICROALBUMIN ANNUAL SCREEN 1983 LDL CHOLESTEROL ANNUAL 1983 HEPATITIS B VACCINES (1 of 3 - 19+ 3-dose series) 05/1984 PAP SMEAR 1986 CERVICAL CANCER SCREENING 1995 HPV/Cotest 1995 PAP SMEAR 1995 BREAST CANCER SCREENING 2005 COLORECTAL SCREENING 2010 Colorectal Cancer Screening 2010 FIT-DNA Q 3 years 2010 FIT/FOBT Q 1 year 2010 Flex Sig/CT Colonography Q 5 years 2010 ZOSTER VACCINE (1 of 2) 2015 DTAP/TDAP/TD VACCINES (2 - Td or Tdap) 03/18/2016 INFLUENZA VACCINE (#1) 2023
--- OUTSIDE RECORDS SUMMARY | 2024-06-10 10:34 | XMS_ITS | Continuity of Care Document ---
Author Name [facility] Organization [facility] Care Team Providers Care Pelt Grader Name Role Phone [facility] Unavailable Unavailable Problems Combined list of problems from Department of Defense and [facility] Affairs facilities. It does not include entries that were removed or entered in error. Problem Status Onset Date Problem Type Date of Resolution Comments Source Osteoarthritis Active 8 Condition Jul 07, 2010 Entered By: GABBY MCLEAN Comment: Right Knee [facility] Chronic cholecystitis Active 6 Condition [facility] Chronic Low Back Pain Active 5 Condition [facility] Depressive Disorder NOS Active 1 Condition [facility] Insomnia Active 1 Condition [facility] Environmental Allergies Active 0 Condition [facility] Fibromyalgia Active 0 Condition [facility] Herpes Zoster Active 0 Condition [facility] Migraine, unspecified, without mention of Intractable Migraine without mention o Active 4 Condition [facility] Abdominal Pain of the Right Upper Quadrant (ICD-9-CM 789.01) Active Condition [facility] Abnormal findings on diagnostic imaging of lung Active Condition [facility] Chronic Back Pain (ICD-9-CM 724.5) Active Condition [facility] DISC DIS NEC/NOS-CERV Active Condition [facility] Dysthymic Disorder Active Condition [facility] Fibromyalgia * (ICD-9-CM 729.1) Active Condition [facility] Menopause * (ICD-9-CM 627.2) Active Condition [facility] Migraine, unspecified, without mention of Intractable Migraine without mention o Active Condition [facility] Nausea with Vomiting (ICD-9-CM 787.01) Active Condition [facility] Obesity * (ICD-9-CM 278.00) Active Condition [facility] Osteoarthritis * (ICD-9-CM 715.90) Active [facility] Pain Disorder associated with both Psychological Factors and a General Medical C Active Condition [facility] TEMPOPORMAND JOINT DIS NOS Active Condition [facility] Vaginal pain Active Condition Feb 01, 2012 Entered By: MARYELLEN ROCHA CHI Comment: d/t vaginal tear [facility] Vitamin D deficiency Active Condition [facility] Medications Combined list of outpatient medications from Department of Defense and [facility] Affairs facilities.Medications provided include 1) outpatient medications from the last 15 months, and 2) patient-reported medications. Medication Details Route Status Patient Instructions Prescription Expires Prescription Number Last Dispense Date Ordering Provider Order Date Order Qty Source CETIRIZINE HCL 10MG TAB TAKE ONE TABLET BY MOUTH EVERY DAY NEEDED ORAL ACTIVE WILLIAM 2010 [facility] CYCLOBENZAP RINE HCL 10MG TAB TAKE ONE TABLET BY MOUTH THREE TIMES A DAY ORAL ACTIVE ALI,ZARME NIMESH 2010 [facility] DICYCLOMINE HCL 20MG TAB TAKE ONE TABLET BY MOUTH THREE TIMES A DAY ORAL ACTIVE ALI,ZARME NIMESH 2010 [facility] ONDANSETRON HCL 8MG TAB TAKE ONE-HALF TABLET BY MOUTH THREE TIMES A DAY NEEDED ORAL ACTIVE ALI,ZARME NIMESH 2010 [facility] OTHER NON-VA MED/HERBAL/ OTC CAP/TAB TAKE MUCINEX MOUTH PRN ORAL ACTIVE WILLIAM 2010 [facility] TOPIRAMATE 25MG TAB TAKE ONE TABLET BY MOUTH AT BEDTIME ORAL ACTIVE ALI,ZARME NIMESH 2010 [facility] TRAZODONE HCL 100MG TAB TAKE ONE-HALF TABLET BY MOUTH AT BEDTIME ORAL ACTIVE ALI,ZARME NIMESH 2010 [facility] ZZHYDROCODO NE 5/ACETAMINO PHEN 500MG TAB TAKE ONE TABLET BY MOUTH EVERY 6 HOURS NEEDED ORAL ACTIVE [place] MONTERROSO NIMESH 2010 [facility] Allergies, Adverse Reactions, Alerts Combined list of allergies from [facility] and [facility] facilities. It does not include entries that were removed or entered in error. Substance Category Reaction Severity Reaction type Status Date Reported Comments Source COMPAZINE Propensity to adverse reactions to drug (finding) SHOCK active 8 [facility] COMPAZINE Propensity to adverse reactions to drug (finding) Dyspnea, Shock active 1 [facility] CONTRAST MEDIA Propensity to adverse reactions to drug (finding) Eruption active 1 [facility] DILAUDID Propensity to adverse reactions to drug (finding) Itching active 1 [facility] DILAUDID INJECTION 1 MG/ML Propensity to adverse reactions to drug (finding) Itching MILD active 8 [facility] INTRAVASCULA R CONTRAST MEDIA Propensity to adverse reactions to drug (finding) Urticaria active 1 [facility] Immunizations Combined list of available immunizations from the [facility] and [facility] facilities. 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 Location Location Details Encounter Type Encounter Number Reason For Visit Attending Provider ADM Date DC Date Status Disposition Source [facility] Outpatient Encounter [id number] 1 09/04 [facility] Social History Combined list of available smoking, tobacco, and other social history from Department of Defense and Veterans Affairs facilities. Social History Type Response Date Comment Sourc e Tobacco smoking status NHIS LIFETIME NON-USER OF TOBACCO 12/04/2010 [facility] History of tobacco use TOBACCO COUNSELING 08/23/2010 [facility] History of tobacco use LIFETIME NON-USER OF TOBACCO 05/30/2010 [facility] Advance Directives List of completed, amended, or rescinded Advance Directives on record at Department of [facility] facilities. An actual copy of the Directive is not included. Date Advance Directive Provider Source 11/08/2010 ADVANCE DIRECTIVE DISCUSSION Brendan BANGURA [facility] 08/24/2010 ADVANCE DIRECTIVE DISCUSSION JEN ANDERSON [facility] 07/11/2010 ADVANCE DIRECTIVE DISCUSSION ANA MISHRA [facility]
[2024-06-10 15:50] LABS: Kit Draw Collected
== END 2024-06-10 09:40 | disposition home or self-care (01) ==
LOC: ANHGOSHLAB 09:40
PROVIDERS: PCP Family Medicine; Visit Provider Family Medicine
DX: Z79.899 Other long term (current) drug therapy (principal); E66.09 Other obesity due to excess calories; I10 Essential (primary) hypertension; Z68.35 Body mass index [BMI] 35.0-35.9, adult
CPT/HCPCS: 36415

== ENCOUNTER 2024-06-10 09:55 | Outpatient (CLI) | payer BC, SELFPAY ==
--- NOTE | ~2024-06-10 | XR_ITS ---
EXAMINATION: XR chest 2V 06/10/2024 10:21 INDICATION: Cough PROCEDURE: 2 view chest COMPARISON: Comparison to multiple prior studies sequentially, with oldest reviewed study dated 10/13. FINDINGS: The lungs are clear. The cardiomediastinal silhouette is within normal limits. There are no pleural effusions. There is no pneumothorax suspected. There is a calcified granuloma of the rig ht lower lobe. There are cholecystectomy clips. IMPRESSION: 1: NO ACUTE CARDIOPULMONARY DISEASE. Reviewed, dictated and finalized at location A.
== END 2024-06-10 09:56 | disposition home or self-care (01) ==
LOC: GOSHIMG 09:55
PROVIDERS: PCP Family Medicine; Visit Provider Family Medicine
DX: R05.9 Cough, unspecified (principal); Z83.2 Family history of diseases of the blood and blood-forming organs and certain disorders involving the immune mechanism
CPT/HCPCS: 71046

== ENCOUNTER 2024-08-12 13:53 | Outpatient (CLI) | payer BC, SELFPAY ==
--- NOTE | ~2024-08-12 | US_ITS ---
EXAMINATION: US carotid duplex BI DATE: 08/12/2024 14:11 INDICATION: Dizziness giddiness TECHNIQUE: Grayscale, color Doppler, and pulsed Doppler images of the cervical carotid arteries were obtained. The degree of vessel stenosis is placed in one of the following categories: normal, <50%, 5 0-69%, >=70% but less than near-occlusion, near-occlusion, or total occlusion. Note that percent sten osis relative to normal distal artery lumen diameter is indirectly measured from velocity measurement s as described by Pedro, et al. Radiology 2003; 229:340-346. Notes: Normal: Peak systolic velocity <125 centimeters/sec and no plaque <50%. Peak systolic velocity <125 ( EDV <40; ICA/CCA PSV ratio <2.0; used these factors only a tandem lesions or low cardiac output or co ntralateral disease) 50-69 %: PSV 125-230 (EDV 40-100; ratio 2-4) >= 70% but less than near occlusion: PSV greater than 230 (EDV > 100; ratio> 4.0) Near Occlusion: PSV that is variable; markedly narrowed lumen Occlusion: Absent flow on color/spectral Doppler and no lumen on valiente scale. COMPARISON: None. FINDINGS: RIGHT: The right common carotid artery (CCA) peak systolic velocity (PSV) is 61 cm/s. The right internal car otid artery (ICA) PSV is 92 cm/s. The right ICA end-diastolic velocity (EDV) is 43 cm/s. The right IC A/CCA PSV ratio is 1.5. The external carotid artery (ECA) PSV is 129 cm/s. There is antegrade flow in the right vertebral artery. LEFT: The left CCA PSV is 69 cm/s. The left ICA PSV is 79 cm/s. The left ICA EDV is 35 cm/s. The left ICA/C CA PSV ratio is 1.1. The ECA PSV is 144 cm/s. There is antegrade flow in the left vertebral artery. IMPRESSION: 1. Less than 50% stenosis in the right internal carotid artery by sonographic criteria. 2. Less than 50% stenosis in the left internal carotid artery by sonographic criteria. Reviewed, dictated and finalized at location A. IMPRESSION: 1. Less than 50% stenosis in the right internal carotid artery by sonographic graciela davalos. 2. Less than 50% stenosis in the left internal carotid artery by sonographic vik styles.
--- NOTE | ~2024-08-12 | CT_ITS ---
EXAMINATION: CT brain & sinus wo con DATE: 08/12/2024 14:25 INDICATION: Migraine headaches. Chronic sinusitis. Dizziness. TECHNIQUE: Computed tomography (CT) of the brain and sinuses was performed without intravenous contra st. The dose-length product was 726.40 mGy-cm. Automated exposure control and iterative reconstructio n technique were employed. COMPARISON: CT dated 10/13/2020 FINDINGS: Brain: Normal brain parenchymal volume. No ventriculomegaly or midline shift. Normal valiente-white diffe rentiation. No acute infarction, hemorrhage, mass or mass effect. No depressed skull fractures. Sinuses: No significant mucosal thickening. No air-fluid levels. Rightward nasal septal deviation. Os tiomeatal units are patent. No mucoperiosteal reaction. IMPRESSION: 1. No acute intracranial abnormality. No significant sinus disease. Reviewed, dictated and finalized at location A.
== END 2024-08-12 13:54 | disposition home or self-care (01) ==
PROVIDERS: PCP Otolaryngology; Visit Provider Family Medicine
DX: I65.23 Occlusion and stenosis of bilateral carotid arteries (principal)
CPT/HCPCS: 70450; 70486; 93880

== ENCOUNTER 2024-08-18 13:19 | Emergency (ER) | payer BC, SELFPAY ==
[2024-08-18] VITALS (17 sets, daily range): BP systolic 91–135; BP diastolic 51–119; PULSE 68–96; RESP 13–20; TEMP 36.4–36.7; O2SAT 95–100
--- NOTE | ~2024-08-18 | XR_ITS ---
EXAMINATION: XR chest 2V 08/18/2024 14:03 INDICATION: Chest pain PROCEDURE: 2 view chest COMPARISON: Comparison to multiple prior studies sequentially, with oldest reviewed study dated 08/05. FINDINGS: The lungs are clear. The cardiomediastinal silhouette is within normal limits. There are no pleural effusions. There is no pneumothorax suspected. There is calcified granuloma of the right lower lobe. IMPRESSION: 1: NO ACUTE CARDIOPULMONARY DISEASE. Reviewed, dictated and finalized at location A.
--- NOTE | 2024-08-18 13:20 | ECG_ITS ---
Test Date: 2024-08-18 13:31:08 Measurements Intervals [place] Rate: 96 P: 57 NC: 159 QRS: 8 QRSD: 79 T: 44 QT: 345 QTc: 437 Interpretive Statements SINUS RHYTHM CANNOT R/O SEPTAL INFARCT, AGE INDETERMINATE BASELINE ARTIFACT- I, II, III, AVR, AVL, AVF, V1, V4-V6 ABNORMAL ECG No previous ECG available for comparison Electronically Signed On 08-18-2024 13:54:30 CDT by Pete Sesay D.O.
--- OUTSIDE RECORDS SUMMARY | 2024-08-18 13:32 | XMS_ITS | Clinical Summary ---
Author Organization [facility] Address [address] [place] [address] Care Team Providers Care Video Control Operator Name Role Phone Ricci Soren WATKINS Primary Care Provider [phone] Source Comments [facility],non-owned Affiliates and Associated Physician Practices is amultiple site organization consisting of ambulatory clinics and hospital sitesin [place], [place], [place] and [place]. This disclosure is being madepursuant to the Care Everywhere program and may not contain all information available regarding this patient. 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 Gender Identity Not on file Sexual Orientation [...] SCREENING 1965 LIPID TESTING 1965 MAMMOGRAM 1965 HIV SCREENING 1980 HEPATITIS C SCREENING 04/16/1983 DTAP/TDAP/TD VACCINES (1 - Tdap) 1984 HEPATITIS B VACCINE (1 of 3 - 19+ 3-dose series) 1984 PNEUMOCOCCAL VACCINE 50+ (1 of 1 - PCV) 2015 ZOSTER VACCINE (1 of 2) 2015 COVID-19 VACCINE (2023-2 5 season) 2023 DEPRESSION SCREENING 03/18/2024 INFLUENZA VACCINE (Season Ended) 2024 HIB VACCINE Aged Out No longer eligi [...] age to complete this topic Care Teams Video Control Operator Relationship Specialty Start Date End Date Soren Wynne DO [address] [place] [address] [id number] PCP - General 11/23/21
--- OUTSIDE RECORDS SUMMARY | 2024-08-18 13:32 | XMS_ITS | Data Portability ---
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 [email or web address] Not available 06/12/2019 10:36:35 Plan of Treatment Reminders Order Date Submit Date Provider Last Modified By Organization Details Last Modified Time Details Appointments None recorded. Lab rapid flu (A+B) 2019 020 MILVIA In-Office Order, Internal Use Only DO Not Attach Compendium DO Not Attach Compendium, Do Not Delete/merge, [id number] 0 10:23:58 Referral urologist referral 2019 020 delfino [facility], [address] [place], [address], 0 12:31:36 electromyo gram/nerve conduction referral 2019 [email or web address] [place] [address] (Cardiology & Emg), [address] [facility] [address], [place], [address], 0 23:25:52 Procedures None recorded. Surgeries None recorded. Imaging CT, sinuses, w/o contrast 2020 021 [email or web address] [facility], [address], [place], [address], 1 11:33:59 CT, cervical spine, w/o contrast 2019 020 [facility] (Imaging), [address] [facility] [address], [place], [address], 0 16:05:44 XR, cervical spine, 2 or 3 view 2019 [facility] (Imaging), [facility] [facility] [address], [place], [address], 0 16:00:27 Medication Orders cefuroxime axetil 250 mg tablet 2020 021 [facility] [address], [address] [facility], [place], [address], 1 11:01:34 baclofen 10 mg tablet 2019 [email or web address] [place] [address] 2425, [address] [facility], [place], [address], 0 18:38:25 sumatripta n 100 mg tablet 2019 020 INTERFACE [facility] [address]25, [address] [facility], [place], [address], 0 13:13:38 bupropion HCl XL 300 mg 24 hr tablet, extended release 2019 020 [facility] [address], [address] [facility], [place], [address], 0 16:23:56 fluoxetine 20 mg capsule 2019 020 INTERFACE [facility] [address], [address] , [place], [address], 0 16:23:55 trazodone 150 mg tablet 2019 020 INTERFACE [facility] [address], [address] , [place], [address], 0 16:23:54 thiamine HCl (vitamin B1) 250 mg tablet 2019 020 INTERFACE [facility] [address], [address] , [place], [address], 0 16:23:53 Patient TargetsNo targets recorded. Patient Instructions Encounter Date Encounter Id Patient Instructions Last Modified By Organization Details Last Modified Time 06/12/2019 [id number] carpal tunnel syndrome: care instructions [email or web address] Not available 06/13/2019 19:06:54 carpal tunnel syndrome: exercises [email or web address] Not available 06/13/2019 19:06:54 12/22/2019 [id number] due to insurance limitations, baclofen was decreased to three times rather than 4 times a day. [email or web address] Not available 12/27/2019 18:46:48 02/12/2020 [id number] Stress Incontinence: Care Instructions [email or web address] Not available [...] DO Not Attach Compendium, Do Not Delete/merge, [id number] 06/12/2019 10:04:40 06/12/19 20 06/12/2019 rapid flu (A+B) Flu B negati ve Not Available In-Office Order Internal Use Only DO Not Attach Compendium DO Not Attach Compendium, Do Not Delete/merge, [id number] 06/12/2019 10:04:40 09/11/19 21 09/11/2020 TSH+T 4F+T3 FREE+ TPO TSH 2.210 uIU/m L 0.450- 4.500 Not Available [facility] ([facility]) [address] [facility], [place], [address], 09/11/2020 06:40:52 09/11/1909/11/2020 TSH+T 4F+T3 FREE+ TPO triiodothyro nine (T3), free 2.9 pg/mL 2.0-4. 4 Not Available [facility] ([facility]) [address] [place], [address], 09/11/2020 06:40:52 09/11/19 21 09/11/2020 TSH+T 4F+T3 FREE+ TPO T4,free(dire ct) 1.24 NG/dL 0.82-1 .77 Not Available [facility] ([facility]) [address] [facility], [place], [address], 09/11/2020 06:40:52 09/11/1909/11/2020 TSH+T 4F+T3 FREE+ TPO thyroid peroxidase (tpo) Ab <9 IU/mL 0-34 Not Available [facility] ([facility]) [address] [place], [address], 09/11/2020 06:40:52 08/13/1908/12/2020 US, thyro id No observ ation record ed. [email or web address] [facility] [address], [place], [address], 08/30/2020 10:02:16 09/28/19 21 09/26/2020 MAMMO , scree shana, bilat eral No observ ation record ed. [email or web address] [address], [place], [address], 10/06/2020 16:46:46 10/14/19 21 10/13/2020 CT, head, w/o contr ast No observ ation record ed. [address], [place], [address], 10/25/2020 16:36:17 10/14/19 21 10/13/2020 CT, neck, soft tissu e, w/ contr ast No observ ation record ed. [address], [place], [address], 10/25/2020 16:36:18 10/14/19 21 10/13/2020 XR, chest No observ ation record ed. [address], [place], [address], 11/29/2020 14:46:49 12/20/1912/19/2020 XR, chest No observ ation record ed. [address], [place], [address], 12/22/2020 12:48:28 12/20/1912/19/2020 XR, shoul curly No observ ation record ed. [address], [place], [address], 12/22/2020 12:49:03 Result Notes None recorded. Problems Name Problem SNOMED Code Status Onset Date Resolution Date Notes Provider Name and Address Organization Details Recorded Time Fibromyalgia 665452558 Active 2018 SKYE BARAJAS Attn: Martha g,[address] [facility], [place], [address], [facility] 9 16:17:41 Osteoarthritis 893319178 Active 2018 SKYE BARAJAS Attn: Martha back,[address] [facility], [place], [address], [facility] 9 16:17:51 Loss of hair 427589184 Active 2018 MOO BARAJASC Attn: Martha back,[address] [facility], [place], [address], [facility] 9 16:18:20 Bladder muscle dysfunction - overactive Active 2018 SKYE BARAJAS Attn: Martha g,[address] [facility], [place], [address], [facility] 9 16:25:54 Headache 34910987 Active 2019 NAOMI Coker, [facility] 0 10:14:10 Problem Notes None recorded. Procedures Surgical History Date Name Laterality Status Provider Name and Address Organization Details Recorded Time 03/18/18 92 Total hysterectomy completed Shanell Black MA [facility] 06/12/2019 10:15:27 Back Surgery completed Lynn Cisse MA [facility] 04/03/2017 10:18:15 Knee Surgery completed Lynn Cisse MA [facility] 04/03/2017 10:18:20 Tonsillectomy completed Lynn Cisse MA [facility] 04/03/2017 10:18:26 procedure on urinary bladder completed Shanell Black MA [facility] 09/08/2019 16:01:33 Imaging Results None recorded. Procedure Notes None recorded. Medical Equipment None Reported. Allergies Allergen ID Allergen Name Allergen Category Reaction Reaction Severity Criticality Documentation Date Start Date Code Code System Note Provider Name and Address Organization Details Recorded Time 667046 Compazine medicatio n anaphylax is Not available Not available 04/03/2017 14416 6 RxNorm NAOMI Moore, [place] - [facility] 8 10:16:48 382238 Iodinated contrast media (substanc e) medicatio n rash Not available Not available 04/03/2017 98396 2004 SNOMED Lynn Cisse NAOMI null, [place] [facility] 8 10:17:18 115407 Dilaudid medicatio n rash Not available Not available 04/03/2017 24541 3 RxNorm NAOMI Moore, [place] - [facility] 8 10:17:45 976195 strawberr y allergeni c extract food Not available Not available Not available 02/12/2020 51573 4 RxNorm Jessica Verdin null, [place] [facility] 0 14:20:07 Medications Name Sig Start Date Stop Date [...] Updated DateTime 0 172.72 cm 30.4 kg/m2 29911.1 7 g 98 % 98 % 79 /min 142 mm[Hg] 98 mm[Hg] Shanell Black MA [facility] 0 10:17:10 Date Recorded Body height Respiratory rate Body temperature Body mass index (BMI) Body weight Heart rate Systolic blood pressure Diastolic blood pressure Provider Name and Address Organization Details Last Updated DateTime 1 172.72 cm 18 /min 97.5 [degF] 34.5 kg/m2 916957. 39 g 85 /min 171 mm[Hg] 92 mm[Hg] Jessica Verdin [facility] 1 10:44:44 Date Recorded Body height Body temperature Body mass index (BMI) Body weight Heart rate Systolic blood pressure Diastolic blood pressure Provider Name and Address Organization Details Last Updated DateTime 0 172.72 cm 97.1 [degF] 32 kg/m2 41650.1 2 g 91 /min 135 mm[Hg] 78 mm[Hg] Jessica Verdin [facility] 0 14:21:30 Social History Question Answer Notes LastModified by Organizat ion Details LastModified Time Tobacco Smoking Status Never Smoker Lynn Cisse MA [facility], [facility] 04/03/2017 10:20:06 Are You Blind Or Do You Have Difficulty Seeing? No Information not available 04/03/2017 What Is Your Level Of Caffeine Consumption? Moderate Information not available 04/03/2017 How Much Tobacco Do You Chew? None Information not available 04/03/2017 Are You Deaf Or Do You Have Serious Difficulty Hearing? No Information not available 04/03/2017 What Type Of Diet Are You Following? REGULAR Information not available 04/03/2017 Which Illicit Or Recreational Drugs Have You Used? None Information not available 04/03/2017 Hard Of Hearing Or Deaf In One [...] Smoke? No Information no t available 04/03/2017 How Much Tobacco Do You Smoke? No Information not available 04/03/2017 General Stress Level Medium Information not available 04/03/2017 Do You Use Sunscreen Routinely? Yes Information not available 04/03/2017 On What Date Was Tobacco Cessation Counseling Provided? 09/08/2019 Information not available 09/08/2019 How Many Years Have You Smoked Tobacco? 0 Information not available 06/12/2019 Do You Have Difficulty Walking Or Climbing Stairs? No Information not available 04/03/2017 Sex: Unknown Functional Status Question Answer Note LastModified by Organizat ion Details LastModified Time What is your level of alcohol consumption? Moderate Information not available 06/12/2019 Do you or have you ever used smokeless tobacco? Never used smokeless tobacco Information not available 06/12/2019 Are you currently employed? Yes Information not available 04/03/2017 Do you have difficulty doing errands alone? No Information not available 04/03/2017 Are you able to care for yourself? Yes Information not available 04/03/2017 Do you have difficulty dressing or bathing? No Information not available 04/03/2017 Do you or have you ever used e-cigarettes or vape? Never used electronic cigarettes Information not available 06/12/2019 What is your exercise level? Occasional Information [...] Eating Disorder N Anemia N Heart Attack ([place]) N Anxiety Disorder N Diabetes N Muscle, [...] Vaccine Type Date Status Note Provider Nam promise and Address Organization Details Recorded Time influenza, [...] Tdap 3 completed Lynn Cisse [place], [place] [facility] 04/03/2017 10:21:21 influenza, unspecified formulation 8 completed Lynn Cisse [place], [place] [facility] 04/03/2017 10:33:43 influenza, intradermal, quadrivalent, preservative free 8 completed Not Available [facility] 04/18/2019 02:11:47 Past Encounters Encounter ID Performer Location Encounter Start Date Encounter Closed Date Diagnosis/Indication Diagnosis SNOMED-CT Code Diagnosis ICD10 Code Diagnosis Note [id number] Kalli Mak MD [facility] [address] [place] [address] 04/03/2017 09:59:43 04/03/2017 12:30:46 Tinea corporis 77508571 B35.4 Obesity 241473920 E66.9 Osteoarthr itis of knee 222978160 M17.11 has knee replacemen t scheduled for July by Dr. Ireland Screening for malignant neoplasm of colon 284983559 Z12.11 [id number] Kalli Mak MD [facility] [address] [facility] [place] [address] 04/30/2017 15:14:33 05/01/2017 11:00:30 Increased frequency of urination 299540084 R35.0 microscopi c hematuria but no signs of infection- -probably kidney stone. Increase fluid intake and follow up with urologist. Microscopic hematuria 19 8362868 R31.21 Pruritic rash 37213553 L 28.2 terbinafin e does not seem to be helping. Moderate r ecurrent major depression 60418718 F33.1 pt denies homicidal or suicidal ideation, but has job stress and worries about her ailing mother and her own health problems. Counseling 825380653 Z71 .9 pt wants help planning switch to a less stressful job and dealing with family health stress. [id number] Duane Mitchell MD [facility] ([address]) [address] [place] [address] 11/12/2017 09:09:37 11/12/2017 11:13:17 Non-scarring alopecia 440065101 L65.9 [id number] Kalli Mak MD [facility] [address] [place] [address] 01/09/2018 16:41:31 01/09/2018 17:51:11 Moderate recurrent major depression 84901362 F33.1 pt denies homicidal or suicidal ideation, but has job stress and worries about her ailing mother and her own health problems. Alopecia 16663744 L65.9 [id number] Kalli Mak MD [facility] [address] [place] [address] 05/23/2018 10:36:25 05/30/2018 08:13:57 Screening colonoscopy 223414144 Z12.11 Bladder mu scle dysfunction - overactive 794475124 N32.81 Herpes labialis 3448716 B00.1 Screening mammography 24 581821 Z12.31 Moderate r ecurrent major depression 08408917 F33.1 pt denies homicidal or suicidal ideation, but has job stress and worries about her ailing mother and her own health problems. Upper resp iratory infection 93002799 J06.9 Patient appears to have a resolving viral respirator y infection; increase rest and fluids, call if symptoms do not resolve over the next 3 days. [id number] Jodi Ramos MD [facility] [address] [place] [address] 07/10/2018 15:15:26 07/11/2018 08:07:57 Screening for malignant neoplasm of breast 027486340 Z12.31 -Pt requesting order as she had not completed previous Dizziness 421348114 R42 -Pt presents with dizziness (see HPI for detail)-Ne gative HallPike Maneuver-D izziness is constant and not connected to injury-His torical dizziness treated with meclizine, yet secondary to accident-R eports weakness of BLE at timesCT to rule out central lesions due to H/A, intermitte nt weakness and constant dizziness. Pt unable to tolerate work. Bladder mu scle dysfunction - overactive 580836098 N32.81 -Pt reports that her OAB has not improved. Continues with urge frequency- Reports that visit with PCP included discussion to increase Vesicare to BID at max dose of 10mg. Requests med goes to pharmacy on file with [facility] ion. [id number] Kalli Mak MD [facility] [address] [place] [address] 08/21/2018 16:45:55 09/01/2018 09:00:52 Mixed urinary incontinence 703033019 N39.46 Memory impairment 712236 006 R41.3 Occipital headache 27952 7 R51 [id number] Kalli Mak MD [facility] [address] [place] [address] 12/26/2018 16:37:40 12/29/2018 12:15:58 Constipation 75051207 K59.00 Lung mass 191217504 R91. 8 X ray indicated patient had a single nodule in the right lower lobe; will check results of CT scan of chest, but radiologis t indicated it was probably a granuloma. [id number] Kalli Mak MD [facility] [address] [place] [address] 06/12/2019 09:58:57 06/15/2019 12:58:01 Influenza-like symptoms 199137370 R68.89 Chicken soup, orange juice, popsicles, snow cones, slurpees, ice cream, tea with honey and lemon, hot lemonade, gatorade, and yogurt may make you feel better. Use tylenol not ibuprofen for fever. Carpal lexis cristina syndrome 85704090 G56.01 [id number] Kalli Mak MD [facility] [address] [place] [address] 09/08/2019 10:03:11 09/09/2019 12:51:22 Cervical radiculopathy 08720948 M54.12 Patient will continue to do home exercises for her shoulder. Moderate r ecurrent major depression 74860245 F33.1 pt denies homicidal or suicidal ideation, but has job stress and worries about her ailing mother and her own health problems. She was advised that the alcohol is probably making her depression worse and was encouraged to slow down and stop. She also was prescribed thiamine for brain protection . [id number] Kalli Mak MD [facility] [address] [place] [address] 12/22/2019 13:00:16 12/28/2019 09:40:21 Migraine 23051491 G43.911 avoid dehydratio n and triggers for migraine Primary fi bromyalgia syndrome 88887008 M79.7 [id number] Jose Juan Richardson [facility] [address] [place] [address] 02/12/2020 14:10:04 02/12/2020 14:40:18 Urinary incontinence 570089343 R32 constant drip [id number] [facility] [address] [place] [address] 10/18/2020 10:31:09 10/18/2020 11:16:52 Chronic sinusitis 75721292 J32.9 Cervical lymphadenopathy 447950468 R59.0 Thyroid nodule 264077407 E04.1 repeat ultrasound a year Health Concerns Section Related Observation LastModified by Organization Detai ls LastModified Time None Recorded Concern Status LastModified by Organization Details LastModified Time None Recorded Advance Directives Directive None Recorded Payers Encounter Date Sequence Insurance Name Policy Number Policy Williamson Covered Member ID Williamson Member ID Guarantor Name 06/12/2019 2 [employer] (POS) [id number] Bessie Snider [id number] Bessie Snider 06/12/2019 1 [place] [id number] Bessie Snider [id number] Bessie Snider 09/08/2019 2 [employer] (POS) [id number] Bessei Snider [id number] Bessie Snider 09/08/2019 1 [place] [id number] Bessie Snider [id number] Bessie Snider 12/22/2019 2 [employer] (POS) [id number] Bessie Snider [id number] Bessie Snider 12/22/2019 1 [place] [id number] Bessie Snider [id number] Bessie Snider 02/12/2020 1 [place] [id number] Bessie Snider [id number] Bessie Snider 02/12/2020 2 [employer] (POS) [id number] Bessie Snider [id number] Bessie Snider 10/18/2020 1 [place] [id number] Bessie Snider [id number] Bessie Snider Notes Date Note Type [...] fingers. Kalli Mak MD Attn: Accounting,[address] [place], [address], [facility] 06/13/2019 19:07:24 0 text/html Neck PainReported bypatient.Trauma:pinched nerve in neck Neurological Complaints:numbness of the arms;tingling of the arms;pain in the arms Pain:sharp;worse with movement;worse with activity Treatment:PT/OT; tylenol with codeine Kalli Mak MD Attn: Accounting,[address] [place], [address], [facility] [place] 09/08/2019 23:29:39 0 text/html FibromyalgiaReported bypatient.Frequencyinterm ittent [...] hyperacusis Kalli Mak MD Attn: Accounting[address] [place], [address], [facility] [place] 12/27/2019 18:47:15 0 text/html Bladder suspension with possible revision two years ago. was dry for very short time and has been wet since. 4-5 pads/dry change with iincontinence in bed (constant drip) refractory to oral meds. Does not smoke or drink. Jose Juan Richardson MD [address] [place], [address], [facility] 02/12/2020 14:40:16 1 text/html patient is complaining [...] on antihistamine And Flonase Sukhi Bishop MD [address] [place], [address], [facility] 10/18/2020 11:01:41 OBGyn Episode No OBEpisode recorded.
--- OUTSIDE RECORDS SUMMARY | 2024-08-18 13:33 | XMS_ITS | Patient Health Record ---
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 Bupropion material was published, [place] material was printed, Bupropion material was printed Assessment and plan reviewed with patient Call for problems with medication, side effects or need for dosage change Compliance issues reviewed Discussed the risks/benefits of this medication Discussed medication side effects Return if symptoms worsen Treatment options reviewed. discussed that it can take weeks to see full therapeutic effects of psychotropic medications. discussed when to seek emergency services. discussed crisis prevention hotline 988. 1. Major Depressive Disorder -BDI: 46 - Plan: Start Wellbutrin (bupropion) for depression, to be taken in the morning. Avoid SSRIs due to patient's concern about weight gain. Encourage patient to contact [facility] ([phone] if feeling a danger to self or others. Schedule follow-up appointment with ALISSA, CLIF Pascual next week. encouraged initiation of therapy. 2. Suicidal Ideation - Patient reports SI with plan to OD on medication without intent. - Plan: Consider low-dose lithium (150 mg) for acute suicidal thoughts, with patient staying hydrated to avoid side effects. Encourage patient to discuss medication management with son. Provide work note for today's visit and assist with paperwork for patient's claim. Address patient's strong desire to and waking up angry for being alive. suicide crisis plan in place. provided a magnet and card with [facility] number '[phone]'. discussed the benefit of inpatient hospitalization . encouraged initiation of therapy. 3. Anxiety and Panic Attacks - ARNULFO-7: 21 - Plan: Continue PRN lorazepam (0.25 mg) as needed for anxiety. Encourage patient to attend therapy sessions with Juliana once or twice a week. Monitor for chest pains and panic attacks, with blood pressure often running high at home. 4. Fibromyalgia - Plan: patient Discontinue Cymbalta due to lack of efficacy for fibromyalgia pain and depression. - discussed other treatment options. - continue to monitor. 5. Insomnia - Plan: Continue PRN Benadryl at night as needed for sleep. - encouraged sleep hygiene. - encouraged relaxation techniques. 6. Job-related stress - Plan: Encourage patient to seek new employment opportunities and consider taking time off work for mental health stabilization. Address patient's report of working 14-hour days in a toxic work environment with bullying and discrimination. Assist with paperwork for patient's claim and coordinate with [facility] for initiation of the claim. 7. Family history of mental illness - Plan: Monitor patient's mental health status and adjust treatment plan as needed based on family history of depression, anxiety, and Alzheimer's disease. 8. Education and support - Plan: Encourage patient to educate son on the importance of mental health and involve him in the treatment plan. Provide patient with resources and support for managing mental health symptoms and navigating the healthcare system. Follow-up: - Schedule follow-up appointment with CLIF MAXWELL next week. - Patient to attend therapy sessions with Juliana once or twice a week. 05/21/2024 Other 1. Anxiety Disorder - ARNULFO-7: 9 - Patient reports milder but more frequent anxiety attacks. - Currently using breathing exercises and Taoism music for management. - Plan: a. Continue propranolol as prescribed. b. Encourage consistent use of propranolol. c. Monitor anxiety levels and adjust treatment as needed. D. encouraged patient to initiate therapy with Juliana. 2. Sleep Disturbance - Patient reports irregular sleep patterns, sleeping from 4 PM to 9 PM and then again from 10 PM to 3 AM. - Not on extended-releas e medication due to cost concerns. - Plan: a. Encourage patient to check insurance coverage for extended-releas e medication options. b. Monitor sleep patterns. c. Consider alternative sleep aids if necessary. d. discussed good rx. e. encouraged sleep hygiene. 3. Short-term Disability and Return to Work - Patient currently on short-term disability with concerns about extension process. - Plan: a. Continue seeing the patient. b. Coordinate with HR for appropriate [id number]-bx-hirt accommodations. c. Consider modifications such as shift change and reduced hours. 4. Mood Disorder - Patient reports improvement in mood and overall mental health. - Plan: a. Continue quetiapine as prescribed. b. Monitor mood changes. 5. Therapy and Psychiatry - Patient exploring therapy and psychiatry simultaneously. - Plan: a. Encourage patient to continue seeking therapy support before returning to work. 05/28/2024 Other SPRAVATO is contraindicated in patients with: Aneurysmal vascular disease (including thoracic and abdominal aorta, intracranial and peripheral arterial vessels) or arteriovenous malformation No History of intracerebral hemorrhage No Hypersensitivity to Esketamine, ketamine, or any of the ingredients No UNCONTROLLED HYPERTENSION No Hypertension is not an absolute contraindication 1. Major Depressive Disorder - Patient reports recent episodes of severe depression. - PHQ-9 score: 11 (moderate depression) - Patient denies current suicidal ideation or self-harm thoughts. - Plan: a. Discontinue lithium. b. Increase bupropion to 300 mg daily. c. Discussed potential use of Spravato (esketamine) nasal spray for treatment-resis tant depression. D. Monitor for return of depressive symptoms or suicidal ideation. E. Follow up in 1 weeks to assess response to medication changes. 2. Medication Management - Patient is currently taking multiple medications for various conditions. - Plan: A. Discontinue lithium. B. Increase bupropion to 300 mg daily. C. Educate patient on potential side effects and benefits of medication changes. D Advised patient to report any new side effects or return of depressive symptoms. 3. Anxiety ARNULFO-7: 11 - PLAN: a. continue current medications b. continue therapy. Patient had reduction in suicidal ideation and/or behavior upon follow-up assessment within 120 days of index assessment ([id number]) 08/06/2024 Other Aripiprazole Injection material was published Major Depressive Disorder with Irritability Assessment: Patient reports significant improvement in depressive symptoms, with Nino Depression Inventory score decreasing from 46 at initial visit in April to 15 currently. However, persistent irritability, anger, and feeling on edge remain primary concerns. Patient discontinued Auvelity and started fluoxetine, which has helped with overall mood but has not fully addressed irritability. No current suicidal ideation, homicidal ideation, hallucinations, or paranoia reported. Patient has a history of work-related stress, which has been addressed by leaving her job. Plan: - Continue fluoxetine (Prozac) 20 mg daily - Add aripiprazole (Abilify) 2 mg PO daily - Low dose to target residual irritability and anger - Informed patient of potential benefits for anxiety and anger management - Discussed potential side effects. - Recommend psychotherapy for additional support - Follow-up in 2 weeks to assess response to medication changes Anxiety Assessment: Patient reports ongoing anxiety symptoms, which are intertwined with irritability and anger. Plan: - Continue current anxiety management strategies - Monitor anxiety symptoms with addition of low-dose aripiprazole - Encourage engagement in stress-reductio n techniques - encourage initiation of psychotherapy - follow-up in 2 weeks. The note is transcribed using speech recognition software. It is a reflection of a visit with the patient. It might have some inaccuracy, including medication names and transcribing errors, though efforts have been made to correct them. Plan Of Treatment Next Appt Details Provider Name:Rene Vicki Pascual, 08/20/2024 04:00:00 PM, [address], [facility], [place], [address], Insurance Providers Payer Name Payer Address Payer Phone Subscriber Number Group Number Insured Name Patient Relationship to Insured Coverage Start Date Coverage End Date [facility] [address] [place] [address] [id number] BESSIE LOTT Self - patient is the insured Medical (General) History Medical History History ICD Code Problems: Body dysmorphic disorder Generalized anxiety disorder Primary insomnia Recurrent major depressive episodes, mod erate Sleep apnea Fibromyalgia Migraine fibromyalgia migraine headaches hypertension Surgical History Surgery Date(Month/Year) discectomy galbladder removal appendectomy laminectomy right total knee replacement
--- OUTSIDE RECORDS SUMMARY | 2024-08-18 13:33 | XMS_ITS | Continuity of Care Document ---
Author Organization [facility] Address [address] [place] [address] Phone Care Team Providers Care Staffing Rn Name Role Phone Lynnette Melendez Unavailable Unavailable Advance Directives Directive Yes / No Effective Date File Name No Information Encounters Encounter Description Practice Location Reason(s) For Visit Diagnoses Date Provider Providers Copied on Encounter Merged with [facility], [address], [place], [place], [id number], [place] tel:[phone] [facility] No Information Apr- [address]. [address] , [address], [place], [address], [place]. tel:[phone] Family History Family Member Type Diagnosis Age [...]
--- OUTSIDE RECORDS SUMMARY | 2024-08-18 13:33 | XMS_ITS | Data Portability ---
Author Organization [place] - [facility], Main Office Address [address] [place] [address] Care Team Providers Care Skid Machine Operator Name Role Phone ANDREA ANDINO Primary Care Provider ANDREA ANDINO Referring Provider [phone] Assessment Encounter Date Assessment Date Assessment LastModified [...] DO Not Attach Compendium, Do Not Delete/merge, [address] 16:17:20 Surgeries None recorded. Imaging XR, shoulder, 2 or more view 2023 024 [email or web address] [facility], [address], [place], [address], 13:59:34 Medication Orders bupivacaine HCl 0.5 % (5 mg/mL) injection solution 2023 024 [email or web address] [facility] [address], [address] [place], [address], 17:15:03 Kenalog 10 mg/mL suspension for injection 2023 024 dz7 [facility] [address], [address] [facility], [place], [address], 17:15:03 Patient TargetsNo targets recorded. Patient InstructionsNo [...] observ ation record ed. [email or web address] [facility] [address], [place], [address], 06/28/2023 13:59:33 07/04/19 24 MRI, shoul curly, w/o contr ast No observ ation record ed. [email or web address] Not Available 2023 08:40:28 Result Notes None recorded. Problems Name Problem SNOMED Code Status Onset Date Resolution Date Notes Provider Name and Address Organization Details Recorded Time Hyperchole sterolemia 19737412 Active 2018 Not Available [facility] 3 20:58:59 Constipati on 80690857 Active 2018 Not Available [facility] 3 20:59:00 Asthma 622548860 Active 2018 Not Available [facility] 3 20:59:00 Depressive disorder 94363963 Active 2018 Not Available [facility] 3 20:59:00 Hypertensi ve disorder 60643215 Active 2018 Not Available [facility] 3 20:59:00 Diabetes mellitus 43860890 Active 2018 Not Available [facility] 3 20:59:00 Pain of right shoulder joint 3872587218336 9100 Active 2023 Huong Zuniga, RMA null, [place] [facility] 4 09:11:08 Biceps tendinitis 315634527 Active 2023 Rakesh Duran MD [address] [place] [address], [address] , [facility] [address] [facility] 4 16:56:08 Problem Notes None recorded. Procedures Surgical History Date Name Laterality Status Provider Name and Address Organization Details Recorded Time 07/10/19 24 Ortho - Cortisone Injection completed Rakesh Duran MD [address] [address], [address], [place], [address], [facility] 07/10/2023 16:55:53 Laminectomy completed Huong Zuniga [facility] 06/28/2023 09:09:08 Microdiscectomy completed Huong Zuniga [facility] 06/28/2023 09:09:47 Knee Surgery completed Huong Zuniga [facility] 06/28/2023 09:10:26 Imaging Results None recorded. Procedure Notes None recorded. Medical Equipment None Reported. Allergies Allergen ID Allergen Name Allergen Category Reaction Reaction Severity Criticality Documentation Date Start Date Code Code System Note Provider Name and Address Organization Details Recorded Time 11968 Iodinated contrast media (substanc e) medicatio n rash Not available Not available 05/16/2022 07435 2004 SNOMED Not Available [facility] 3 20:59:40 91439 Dilaudid medicatio n rash Not available Not available 05/16/2022 72818 3 RxNorm Not Available [facility] 3 20:59:40 12047 Compazine medicatio n Not available Not available Not available 05/16/2022 47094 6 RxNorm Not Available [facility] 3 20:59:40 Medications Name Sig Start Date [...] suspension for injection in office 2023 active [facility]: 0003- 0494- 20 Not Available Not Available [...] Updated DateTime 06/28/2023 175.26 cm 31 kg/m2 42951.4 g PEDRO Echevarria [facility] 06/28/2023 09:06:21 Date Recorded Body height Body mass index (BMI) Body weight Provider Name and Address Organization Details Last Updated DateTime 07/10/2023 175.26 cm 31 kg/m2 18206.4 nazanin Lazcano [employer] [facility] 07/10/2023 15:44:45 Date Recorded Body height Body mass index (BMI) Body weight Provider Name and Address Organization Details Last Updated DateTime 08/21/2023 175.26 cm 32.5 kg/m2 64380.32 PEDRO Thompson [facility] 08/21/2023 15:50:01 Social History Question Answer Notes LastModified by ARX Details LastModified Time Tobacco Smoking Status Unknown If Ever Smoked Huong Batresmichelle PEDRO kira [facility] 06/28/2023 09:08:41 What Was The Date Of Your Most Recent Tobacco Screening? 06/28/2023 [email or web address] Information not available 06/28/2023 Sex: Unknown Functional Status Question Answer Note LastModified by ARX Details LastModified Time What is your level of alcohol consumption? Occasional [email or web address] Information not available 06/28/2023 Mental Status None recorded. Family History Relationship Description Onset Age of this Age Resolved Age Notes LastModified by Organization Details LastModified Time Mother Heart disease [email or web address] Not available 2023 09:08:01 Mother Family history of malignant neoplasm Not available 2023 09:08:08 Mother Hypertensive disorder [email or web address] Not available 2023 09:08:18 Mother Diabetes mellitus [email or web address] Not available 2023 09:08:26 Medical History Condition Response URINARY/BLADDER/KIDNEY PROBLEMS Y Gynecological HistoryNo gynecological history recorded. Obstetrics History GPAL:G 0 P 0 0 0 0 Past Encounters Encounter ID Performer Location Encounter Start Date Encounter Closed Date Diagnosis/Indication Diagnosis SNOMED-CT Code Diagnosis ICD10 Code Diagnosis Note [id number] Rakesh Duran MD [facility] [address] [place] [address] 06/28/2023 08:50:33 06/28/2023 09:39:56 Pain of right shoulder joint 2182078099 9492518 M25.291 [id number] Rakesh Duran MD [facility] [address] [place] [address] 07/10/2023 15:36:26 07/10/2023 16:15:56 Pain of right shoulder joint 0397920288 4866647 M25.511 Biceps tendinitis 734707 007 M75.21 [id number] Rakesh Duran MD [facility] [address] [place] [address] 08/21/2023 15:43:43 08/21/2023 16:24:23 Pain of right shoulder joint 2148042797 6969180 M25.511 Health Concerns Section Related Observation LastModified by Organization Detai ls LastModified Time None Recorded Concern Status LastModified by Organization Details LastModified Time None Recorded Advance Directives Directive None Recorded Payers Encounter Date Sequence Insurance Name Policy Number Policy Williamson Covered Member ID Williamson Member ID Guarantor Name 06/28/2023 1 [employer] [id number] Bessie Toribio Snider [id number] Bessie M Snider 07/10/2023 1 [employer] [id number] Bessie M Snider [id number] Bessie M Snider 08/21/2023 1 [place] [id number] Bessie M Snider [id number] Bessie M Snider OBGyn Episode No OBEpisode recorded.
--- OUTSIDE RECORDS SUMMARY | 2024-08-18 13:33 | XMS_ITS | Continuity of Care Document ---
Author Organization [facility] Address [address] [place] [address] Phone Care Team Providers Care Button Buttonhole Marker Name Role Phone Rakesh Ramirez MD Unavailable [...] Date Provider Providers Copied on Encounter [facility], [address] [place] [address], [id number], [phone] 1 [facility] [place] No Information 0 Ashley Cameron. [address] [place] [address], [place] [address], [place], [place], [id number] , [place]. tel: [phone] [facility], [address] [place] [address], [id number], tel:[phone] 1 [facility] [place] No Information 0 Ashley Cameron. [address] [place] [address], [place], [place], [id number] , [place]. tel: [phone] Referring Provider: Rakesh Martinez, [address] [place] [address], [place], [address] . tel:[phone] [facility], [address] [place] [address], [id number], [place] tel:[phone] 1 [facility] [place] No Information 0 Ashley Cameron. [address] [place] [address] 100, [place], [place], [id number] , [place]. tel:[phone] Referring Provider: Rakesh Martinez, [address] [place] [address], [place], [address] . tel:[phone] [place], [id number], [place] tel:[phone] 1 [facility] [place] No Information Mar-1 -201 0 Ashley Cameron. [address] [place] [address], [address], [place], [place], [id number] , [place]. tel: [phone] Referring Provider: Rakesh Martinez, [address] [place] [address] [address], [place], [address] . tel:[phone] [facility], [address] [place] [address], [place], [place], [id number], [place] tel:[phone] 1 [facility] [place] No Information Mar-0 5-201 0 Ashley Cameron. [address] [place] [address], [address], [place], [place], [id number] , [place]. tel: [phone] Referring Provider: Rakesh Martinez, [address] [place] [address] Suite [facility], [place], [address] . tel:[phone] [facility], [address] [place] [address], [place], [place], [id number], [place] tel:[phone] 1 [facility] [place] No Information Mar-0 2- 0 Shai Lima. [address] [place] [address], [address], [place], [place], [id number] , [place]. tel: [phone] Referring Provider: Rakesh Martinez, [address] [place] [address] [address], [place], [address] . tel:[phone] [facility], [address] [place] [address], [place], [place], [id number], [place] tel:[phone] 1 [facility] [place] No Information Mar-0 2-201 0 Ashley Cameron. [address] [place] [address], [address], [place], [place], [id number] , [place]. tel: [phone] [facility], [address] [place] [address], [place], [place], [id number], [place] tel:[phone] 1 [facility] [place] No Information 0 Ashley Cameron. [address] [place] [address], [address], [place], [place], [id number] , [place]. tel: [phone] Referring Provider: Rakesh Martinez, [address] [place] [address] [address], [place], [address] . tel:[phone] [facility], [address] [place] [address], [place], [place], [id number], [place] tel:[phone] 1 [facility] [place] No Information 0 Ashley Cameron. [address] [place] [address], [address], [place], [place], [id number] , [place]. tel: [phone] Referring Provider: Rakesh Martinez, [address] [place] [address] Suite [facility], [place], [address] . tel:[phone] [facility], [address] [place] [address], [place], [place], [id number], [place] tel:[phone] 1 [facility] [place] No Information 0 Ashley Cameron. [address] [place] [address], [address], [place], [place], [id number] , [place]. tel: [phone] Referring Provider: Rakesh Martinez, [address] [place] [address] Suite [facility], [place], [place], [address] [place] [address] . tel:[phone] Est. Patient Level [address] [facility], [address] [place] [address], [place], [place], [id number], [place] tel:[phone] 1 [facility] [place] No Information 0 Ashley Cameron. [address] [place] [address], [address], [place], [place], [id number] , [place]. tel: [phone] Referring Provider: Rakesh Martinez, [address] [place] [address] [address], [place], [address] . tel:[phone] [facility], [address] [place] [address], [place], [id number], [place] tel:[phone] 1 [facility] [place] No Information 0 Ashley Cameron. [address] [facility], [address], [facility], [place], [id number] , [place]. tel: [phone] Referring Provider: Rakesh Martinez, [address] [place] [address] [address], [place], [address] . tel:[phone] [facility], [address] [place] [address], [place], [id number], [place] tel:[phone] 1 [facility] [place] No Information 0 Ashley Cameron. [address] [place] [address], [address], [facility], [place], [id number] , [place]. tel: [phone] [facility], [address] [place] [address], [place], [id number], [place] tel:[phone] 1 [facility] [place] No Information 0 Ashley Cameron. [address] [place] [address], [address], [facility], [place], [id number] , [place]. tel: [phone] Referring Provider: Rakesh Martinez, [address] [facility] [address], [place], [address] . tel:[phone] [facility], [address] [place] [address], [place], [id number], [place] tel:[phone] 1 [facility] [place] No Information 9 Ashley Cameron. [address] [place] [address], [address], [facility], [place], [id number] , [place]. tel: [phone] Referring Provider: Rakesh Martinez, [address] [facility] [address], [place], [address] . tel:[phone] [facility], [address] [place] [address], [place], [id number], [place] tel:[phone] 1 [facility] [place] No Information Feb-200 9 Shai Lima. [address] [facility], [address], [place], [id number] , [place]. tel: [phone] Referring Provider: Rakesh Martinez, [address] [facility] [address], [place], [address] . tel:[phone] [facility], [address], [place], [place], [id number], [place] tel:[phone] 1 [facility] [place] No Information Feb- 9 Ashley Cameron. [address] [facility], [address], [place], [id number] , [place]. tel: [phone] Referring Provider: Rakesh Martinez, [address] [facility] [address], [place], [address] . tel:[phone] [facility], [address], [place], [id number], [place] tel:[phone] 1 [facility] [place] No Information Dec-0 9 Ashley Cameron. [address] [place] [address], [address], [facility], [id number] , [place]. tel: [phone] Referring Provider: Rakesh Martinez, [address] [facility] [address], [place], [address] . tel:[phone] [facility], [address], [place], [place], [id number], [place] tel:[phone] 1 [facility] [place] No Information Dec-0 200 9 Ashley Cameron. [address] [facility], [address], [place], [id number] , [place]. tel: [phone] Referring Provider: Rakesh Martinez, [address] [facility] [address], [place], [address] . tel:[phone] Est. Patient Level [address] [facility], [address] [place] [address], [place], [place], [id number], [place] tel:[phone] 1 [facility] [place] No Information 9 Ashley Cameron. [address] [place] [address], [address], [place], [place], [id number] , [place]. tel:[phone] Referring Provider: Rakesh Martinez, [address] [facility] [address], [place], [address] . tel:[phone] [facility], [address] [place] [address], [place], [place], [id number], [place] tel:[phone] 1 [facility] [place] No Information 9 Ashley Cameron. [address] [place] [address], [address], [place], [place], [id number] , [place]. tel:[phone] Referring Provider: Rakesh Martinez, [address] [facility] [address], [place], [address] . tel:[phone] Est. Patient Level [address] [facility], [address] [place] [address], [place], [place], [id number], [place] tel:[phone] 1 [facility] [place] No Information 9 Ashley Cameron. [address] [place] [address], [address], [facility], [place], [id number] , [place]. tel:[phone] Referring Provider: Rakesh Martinez, [address] [facility] [address], [place], [address] . tel:[phone] New Patient Ov Level 4 [facility], [address] [place] [address], [place], [place], [id number], [place] tel:[phone] 1 [facility] [place] No Information 8 Ashley Cameron. [address] [facility], [address], [facility], [place], [id number] , [place]. tel: [phone] Referring Provider: Rakesh Martinez, [address] [place] [address], [place], [address] . tel:[phone] Family History Family Member Type Diagnosis Age [...] Status Future Order: Lab Order XL-KNEE RT-AP/LAT ([id number]), Appointment on: , Sent on: Sent Future Order: Lab Order MRI Lowe r Extremity Joint No Contrast ([id number]), Appointment on: , Sent on: Sent Future Order: Lab Order XL-KNEE RT-AP/LAT ([id number]), Appointment on: , Sent on: Sent Future Order: Lab Order Chest Ep a Lateral ([id number]), Appointment on: , Sent on: Sent Future Order: Lab Order MRI Lowe r Extremity Joint No Contrast ([id number]), Appointment on: , Sent on: Sent Future Order: Lab Order Dimitris/Rt Lat/Rex HS ([id number]), Appointment on: , Sent on: Sent Future Order: Lab Order Dimitris/Rt Lat/Rex HS ([id number]), Appointment on: , Sent on: Sent History Of Present Illness Encounter Date Complaint History Of Prese nt Illness No Information Functional Status Date Functional Assessmen t No Information Instructions Date Instruction Additional Infor mation No Information Assessments Type Assessment Date No Information Patient Care Teams Name Effective Dates (start - stop) Status Members No Information
--- OUTSIDE RECORDS SUMMARY | 2024-08-18 13:33 | XMS_ITS | Clinical Summary ---
Author Organization [facility] Address [address] [place] [address] Care Team Providers Care Retail Shift Leader Name Role Phone Unavailable Primary Care Provider [...] on file Legal Sex Female 11:41 AM HOG BUYER Gender Identity Not on file Sexual Orientation Not on file Last Filed Vital Signs Vital Sign Reading Time Taken Comments Blood Pressure 138/91 05/07/2022 12:43 PM HOG BUYER Pulse 93 05/07/2022 12:43 PM HOG BUYER Temperature 36.3 C (97.3 F) 05/07/2022 12:43 PM HOG BUYER Respiratory Rate 16 05/07/2022 12:43 PM HOG BUYER Oxygen Saturation 98% 05/07/2022 12:43 PM HOG BUYER Inhaled Oxygen Concentration - - Weight 99.8 kg (220 lb) 05/07/2022 12:43 PM HOG BUYER Height 175.3 cm (5' 9) 05/07/2022 12:43 PM HOG BUYER Body Mass Index 32.49 05/07/2022 12:43 PM HOG BUYER Plan of Treatment Health Maintenance Due Date Last Done Comments DIABETES ANNUAL FOOT EXAM 1983 DIABETES ANNUAL RETINAL EXAM 1983 DIABETES HBA1C Q 6 MONTHS 1983 DIABETES MICROALBUMIN ANNUAL SCREEN 1983 LDL CHOLESTEROL ANNUAL 1983 HEPATITIS B VACCINES (1 of 3 - 19+ 3-dose series) 05/1984 HPV/Cotest (21-29) 1986 CERVICAL CANCER SCREENING 1995 HPV/Cotest (30-65) 1995 PAP SMEAR 1995 BREAST CANCER SCREENING 2005 COLORECTAL SCREENING 2010 Colorectal Cancer Screening 2010 FIT-DNA Q 3 years 2010 FIT/FOBT Q 1 year 2010 Flex Sig/CT Colonography Q 5 years 2010 ZOSTER VACCINE (1 of 2) 2015 DTAP/TDAP/TD VACCINES (2 - Td or Tdap) 03/18/2016 INFLUENZA VACCINE (#1) 2023
--- OUTSIDE RECORDS SUMMARY | 2024-08-18 13:33 | XMS_ITS | Clinical Summary ---
Author Organization [facility] Address [address] [place] [address] Phone Care Team Providers Care Freight [place] Name Role Phone Unavailable Primary Care Provider [...] CONTROL/GO-LESS PO) Take by mouth. Active Saw Brighton 450 MG Capsule Take by mouth. Active [...]
--- OUTSIDE RECORDS SUMMARY | 2024-08-18 13:33 | XMS_ITS | Continuity of Care Document ---
Author Name [facility] Organization [facility] Care Team Providers Care Refrigerator Assembler Name Role Phone [facility] Unavailable Unavailable Problems Combined list of problems from Department of Defense and [facility] Affairs facilities. It does not include entries that were removed or entered in error. Problem Status Onset Date Problem Type Date of Resolution Comments Source Osteoarthritis Active 8 Condition Jul 07, 2010 Entered By: GABBY MCLEAN Comment: Right Knee [facility] Chronic cholecystitis Active [address] [facility] Chronic Low Back Pain Active [address] [facility] Depressive Disorder NOS Active [address] [facility] Insomnia Active [address] [facility] Environmental Allergies Active [address] [facility] Fibromyalgia Active [address] [facility] Herpes Zoster Active [address] [facility] Migraine, unspecified, without mention of Intractable Migraine without mention o Active [address] [facility] Abdominal Pain of the Right Upper Quadrant (ICD-9-CM 789.01) Active Condition [facility] Abnormal findings on diagnostic imaging of lung Active Condition [facility] Chronic Back Pain (ICD-9-CM 724.5) Active Condition [facility] DISC DIS NEC/NOS-CERV Active Condition [facility] Dysthymic Disorder Active Condition [facility] Fibromyalgia * (ICD-9-CM 729.1) Active Condition [facility] Menopause * (ICD-9-CM 627.2) Active Condition [facility] Migraine, unspecified, without mention of Intractable Migraine without mention o Active Condition [facility] Nausea with Vomiting (ICD-9-CM 787.01) Active Condition [facility] Obesity * (ICD-9-CM 278.00) Active Condition [facility] Osteoarthritis * (ICD-9-CM 715.90) Active Condition [facility] Pain Disorder associated with both Psychological Factors and a General Medical C Active Condition [facility] TEMPOPORMAND JOINT DIS NOS Active Condition [facility] Vaginal pain Active Condition Feb 01, 2012 Entered By: MARYELLEN ROCHA CHI Comment: d/t vaginal tear [facility] Vitamin D deficiency Active Condition [facility] visit for: pre-employment physical Active Condition [facility] Medications Combined list of outpatient medications from Department of Defense and [facility] Affairs facilities.Medications provided include 1) outpatient medications from the last 15 months, and 2) patient-reported medications. Medication Details Route Status Patient Instructions Prescription Expires Prescription Number Last Dispense Date Ordering Provider Order Date Order Qty Source CETIRIZINE HCL 10MG TAB TAKE ONE TABLET BY MOUTH EVERY DAY NEEDED ORAL ACTIVE WILLIAM 2010 [facility] CYCLOBENZAP RINE HCL 10MG TAB TAKE ONE TABLET BY MOUTH THREE TIMES A DAY ORAL ACTIVE ALI,ZARME NIMESH 2010 [facility] DICYCLOMINE HCL 20MG TAB TAKE ONE TABLET BY MOUTH THREE TIMES A DAY ORAL ACTIVE ALI,ZARME NIMESH 2010 [facility] ONDANSETRON HCL 8MG TAB TAKE ONE-HALF TABLET BY MOUTH THREE TIMES A DAY NEEDED ORAL ACTIVE ALI,ZARME NIMESH 2010 [facility] OTHER NON-VA MED/HERBAL/ OTC CAP/TAB TAKE MUCINEX MOUTH PRN ORAL ACTIVE WILLIAM 2010 [facility] TOPIRAMATE 25MG TAB TAKE ONE TABLET BY MOUTH AT BEDTIME ORAL ACTIVE ALI,ZARME NIMESH 2010 [facility] TRAZODONE HCL 100MG TAB TAKE ONE-HALF TABLET BY MOUTH AT BEDTIME ORAL ACTIVE ALI,ZARME NIMESH 2010 [facility] ZZHYDROCODO NE 5/ACETAMINO PHEN 500MG TAB TAKE ONE TABLET BY MOUTH EVERY 6 HOURS NEEDED ORAL ACTIVE GARLAND MONTERROSO NIMESH 2010 [facility] Allergies, Adverse Reactions, Alerts Combined list of allergies from Department of Defense and Veterans Affairs facilities. It does not include entries that were removed or entered in error. Substance Category Reaction Severity Reaction type Status Date Reported Comments Source COMPAZINE Propensity to adverse reactions to drug (finding) SHOCK active 8 [facility] COMPAZINE Propensity to adverse reactions to drug (finding) Dyspnea, Shock active 1 [facility] CONTRAST MEDIA Propensity to adverse reactions to drug (finding) Eruption active 1 [facility] DILAUDID Propensity to adverse reactions to drug (finding) Itching active 1 [facility] DILAUDID INJECTION 1 MG/ML Propensity to adverse reactions to drug (finding) Itching MILD active 8 [facility] INTRAVASCULA R CONTRAST MEDIA Propensity to adverse reactions to drug (finding) Urticaria active 1 [facility] No Known Allergies Drug allergy (disorder) active [address] [place] [address] Marvel CO[employer] ([facility] Immunizations Combined list of available immunizations from the Department of Defense and Veterans Affairs facilities. Immunization Series Date Given Administered By Site Reaction Lot Number CVX Code Drug Heritage Consultant Status Comments Source INFLUENZA, UNSPECIFIED FORMULATION 2011 88 complet ed [facility] INFLUENZA, UNSPECIFIED FORMULATION 2010 88 complet ed [facility] TDAP 2006 115 complet ed [facility] Encounters Combined list of: 1) Encounters from Department of Veterans Affairs facilities going backup to the last 18 months, not all VA inpatient encounters are included; 2) Encounters from the Department of Defense facilities going backup to 280 months. Location Location Details Encounter Type Encounter Number Reason For Visit Attending Provider ADM Date DC Date Status Disposition Source [address] [place] [address] [employer] ([facility])(Sco tt Flight Medicine ) OUTPATIENT [id number] pre-emp loyment physica l [id number] [facility] 06/09 Released w/o Limitations [facility] Marvel [employer]LEMAN ([facility])(S cott Flight Medicin e Tm) [facility] Outpatient Encounter [id number] 1 09/04 [facility] Social History Combined list of available smoking, tobacco, and other social history from Department of Defense and Veterans Affairs facilities. Social History Type Response Date Comment Sourc e Tobacco smoking status NHIS LIFETIME NON-USER OF TOBACCO 12/04/2010 [facility] History of tobacco use TOBACCO COUNSELING 08/23/2010 [facility] History of tobacco use LIFETIME NON-USER OF TOBACCO 05/30/2010 [facility] This section is an empty social history section. DoD Advance Directives List of completed, amended, or rescinded Advance Directives on record at Department of Veterans Affairs facilities. An actual copy of the Directive is not included. Date Advance Directive Provider Source 11/08/2010 ADVANCE DIRECTIVE DISCUSSION Brendan BANGURA [facility] 08/24/2010 ADVANCE DIRECTIVE DISCUSSION JEN ANDERSON [facility] 07/11/2010 ADVANCE DIRECTIVE DISCUSSION ANA MISHRA [facility]
[2024-08-18 13:46] LABS: Basophils Percent Auto 0.4 % (0.2-1.2); Eosinophils Absolute Auto 0.1 K/mm3 (0-0.3); Eosinophils Percent Auto 0.7 % (0-4.4); Hematocrit 41.5 % (37.0-47.0); Hemoglobin 13.4 g/dL (12.0-15.0); Immature Granulocyte Absolute 0.02 K/mm3 (0.00-0.031); Immature Granulocyte Percent A 0.2 % (0-0.5); Lymphocytes Absolute Auto 1.95 K/mm3 (0.9-3.2); Lymphocytes Percent Auto 23.7 % (18.3-44.2); Mean Corpuscular HGB Conc 32.3 g/dl (32-36); Mean Corpuscular Hemoglobin 30.2 pg (26-34); Mean Corpuscular Volume 93.7 fl (80-100); Mean Platelet Volume 12.4 fl (7.4-10.4); Monocytes Absolute Auto 0.5 K/mm3 (0.1-0.6); Monocytes Percent Auto 6.3 % (2.6-8.5); Neutrophils Absolute Auto 5.6 K/mm3 (1.3-6.7); Neutrophils Percent Auto 68.7 % (45.5-73.1); Platelet Count Result 176 k/mm3 (150-375); Red Blood Count 4.43 M/mm3 (4.2-5.4); Red Cell Distribution Width 13.8 % (11.5-14.5); White Blood Count 8.2 K/mm3 (4.5-10.0)
[2024-08-18] MEDS: ASPIRIN 81 MG CHEWABLE TABLET 324 MG PO (13:47)
[2024-08-18 13:58] LABS: Alanine Aminotransferase 34 U/L (6-35); Albumin Level 4.6 g/dL (3.5-5.1); Alkaline Phosphatase 60 U/L (38-126); Anion Gap 10 mmol/L (4-12); Aspartate Amino Transferase 33 U/L (14-36); Bilirubin,Total 0.6 mg/dL (0.2-1.3); Blood Urea Nitrogen 16 mg/dL (7-17); Calcium 9.5 mg/dL (8.4-10.2); Carbon Dioxide 26 mmol/L (22-30); Chloride 99 mmol/L (98-107); Estimated CRCL calculation 71 ml/min; Estimated Glomerular Filt Rate > 60; Glucose 104 mg/dL (65-110); Lipase 119 U/L (23-300); Potassium 3.9 mmol/L (3.4-5.0); Sodium 135 mmol/L (137-145); Total Protein 8.6 g/dL (6.3-8.2)
[2024-08-18 13:59] LABS: Prothrombin Time 13.3 Seconds (11.1-14.7)
[2024-08-18 14:01] LABS: Partial Thromboplastin Time 26.7 Seconds (22.3-36.8)
[2024-08-18 14:10] LABS: Troponin I < 0.012 ng/mL (0.000-0.034)
[2024-08-18] MEDS: diphenhydrAMINE HCl INJ 50 MG/ML VIAL 25 MG IV PUSH ×2 (14:27→21:48)
[2024-08-18] MEDS: METOCLOPRAMIDE HCL INJ 10 MG/2 ML VIAL IV PUSH (14:27)
[2024-08-18] MEDS: KETOROLAC 15 MG/ML VIAL (*BKC) IV PUSH (14:27)
--- OUTSIDE RECORDS SUMMARY | 2024-08-18 14:33 | XMS_ITS | Clinical Summary ---
Author Organization [facility] Address [address] [facility] [address] [place] [address] Care Team Providers Care Metal Mover Name Role Phone Unavailable Primary Care Provider [...] on file Legal Sex Female 11:41 AM HAM MARKER Gender Identity Not on file Sexual Orientation Not on file Last Filed Vital Signs Vital Sign Reading Time Taken Comments Blood Pressure 138/91 05/07/2022 12:43 PM HAM MARKER Pulse 93 05/07/2022 12:43 PM HAM MARKER Temperature 36.3 C (97.3 F) 05/07/2022 12:43 PM HAM MARKER Respiratory Rate 16 05/07/2022 12:43 PM HAM MARKER Oxygen Saturation 98% 05/07/2022 12:43 PM HAM MARKER Inhaled Oxygen Concentration - - Weight 99.8 kg (220 lb) 05/07/2022 12:43 PM HAM MARKER Height 175.3 cm (5' 9) 05/07/2022 12:43 PM HAM MARKER Body Mass Index 32.49 05/07/2022 12:43 PM HAM MARKER Plan of Treatment Health Maintenance Due Date [...]
--- OUTSIDE RECORDS SUMMARY | 2024-08-18 14:33 | XMS_ITS | Clinical Summary ---
Author Organization [facility] Address [address] [place] [address] Care Team Providers Care Machine Sole Leveler Name Role Phone Ricci Soren WATKINS Primary Care Provider [phone] Source Comments [facility],non-owned Affiliates and Associated Physician Practices is amultiple site organization consisting of ambulatory clinics and hospital sitesin [place], [place], [place] and [place]. This disclosure is being madepursuant to the Care Everywhere program and may not contain all information available regarding this patient. Last updated 17.[facility] Social History Tobacco Use Types Packs/Day Years Used Date Smoking Tobacco: Never Assessed Comments Unknown Sex and Gender Information Value Date Recorded Sex Assigned at Not on file Legal Sex Female 6:16 AM DIRECTOR OF PUBLIC HEALTH Gender Identity Not on file Sexual Orientation [...] age to complete this topic Care Teams Machine Sole Leveler Relationship Specialty Start Date End Date Soren Wynne DO [address] [place] [id number] PCP - General 11/23/21
--- OUTSIDE RECORDS SUMMARY | 2024-08-18 14:34 | XMS_ITS | Continuity of Care Document ---
Author Name [facility] Organization [facility] Care Team Providers Care Business Solutions Consultant Name Role Phone [facility] Unavailable Unavailable Problems Combined list of problems from Department of Defense and [facility] Affairs facilities. It does not include entries that were removed or entered in error. Problem Status Onset Date Problem Type Date of Resolution Comments Source Osteoarthritis Active 8 Condition Jul 07, 2010 Entered By: GABBY MCLEAN Comment: Right Knee [facility] Chronic cholecystitis Active 6 Condition [facility] Chronic Low Back Pain Active 5 Condition [facility] Depressive Disorder NOS Active 1 Condition [facility] Insomnia Active 1 Condition [facility] Environmental Allergies Active 0 Condition [facility] Fibromyalgia Active 0 Condition [facility] Herpes Zoster Active 0 Condition [facility] Migraine, unspecified, without mention of Intractable Migraine without mention o Active 4 Condition [facility] visit for: pre-employment physical Active Condition [facility] Abdominal Pain of the Right Upper Quadrant (ICD-9-CM 789.01) Active Condition [facility] Abnormal findings on diagnostic imaging of lung Active Condition [facility] Chronic Back Pain (ICD-9-CM 724.5) Active Condition [facility] DISC DIS NEC/NOS-CERV Active Condition [facility] Dysthymic Disorder Active Condition [facility] Fibromyalgia * (ICD-9-CM 729.1) Active Condition [facility] Menopause * (ICD-9-CM 627.2) Active Condition [facility] Migraine, unspecified, without mention of Intractable Migraine without mention o Active Condition [facility] Nausea with Vomiting (ICD-9-CM 787.01) Active Condition [facility] Obesity * (ICD-9-CM 278.00) Active Condition [facility] Osteoarthritis * (ICD-9-CM 715.90) Active Condition [facility] Pain Disorder associated with both Psychological Factors and a General Medical C Active Condition [facility] TEMPOPORMAND JOINT DIS NOS Active Condition [facility] Vaginal pain Active Condition Feb 01, 2012 Entered By: MARYELLEN ROCHA CHI Comment: d/t vaginal tear [facility] Vitamin D deficiency Active Condition [facility] Medications Combined list of outpatient medications from Department of Defense and [facility] Affairs facilities.Medications provided include 1) outpatient medications from the last 15 months, and 2) patient-reported medications. Medication Details Route Status Patient Instructions Prescription Expires Prescription Number Last Dispense Date Ordering Provider Order Date Order Qty Source CETIRIZINE HCL 10MG TAB TAKE ONE TABLET BY MOUTH EVERY DAY NEEDED ORAL ACTIVE WILLIAM 2010 [facility] CYCLOBENZAP RINE HCL 10MG TAB TAKE ONE TABLET BY MOUTH THREE TIMES A DAY ORAL ACTIVE ALI,ZARME NIMESH 2010 [facility] DICYCLOMINE HCL 20MG TAB TAKE ONE TABLET BY MOUTH THREE TIMES A DAY ORAL ACTIVE ALI,ZARME NIMESH 2010 [facility] ONDANSETRON HCL 8MG TAB TAKE ONE-HALF TABLET BY MOUTH THREE TIMES A DAY NEEDED ORAL ACTIVE ALI,ZARME NIMESH 2010 [facility] OTHER NON-VA MED/HERBAL/ OTC CAP/TAB TAKE MUCINEX MOUTH PRN ORAL ACTIVE WILLIAM 2010 [facility] TOPIRAMATE 25MG TAB TAKE ONE TABLET BY MOUTH AT BEDTIME ORAL ACTIVE ALI,ZARME NIMESH 2010 [facility] TRAZODONE HCL 100MG TAB TAKE ONE-HALF TABLET BY MOUTH AT BEDTIME ORAL ACTIVE ALI,ZARME NIMESH 2010 [facility] ZZHYDROCODO NE 5/ACETAMINO PHEN 500MG TAB TAKE ONE TABLET BY MOUTH EVERY 6 HOURS NEEDED ORAL ACTIVE GARLAND MONTERROSO NIMESH 2010 [facility] Allergies, Adverse Reactions, Alerts Combined list of allergies from Department of Defense and Veterans Affairs facilities. It does not include entries that were removed or entered in error. Substance Category Reaction Severity Reaction type Status Date Reported Comments Source COMPAZINE Propensity to adverse reactions to drug (finding) SHOCK active 8 [facility] COMPAZINE Propensity to adverse reactions to drug (finding) Dyspnea, Shock active 1 [facility] CONTRAST MEDIA Propensity to adverse reactions to drug (finding) Eruption active 1 [facility] DILAUDID Propensity to adverse reactions to drug (finding) Itching active 1 [facility] DILAUDID INJECTION 1 MG/ML Propensity to adverse reactions to drug (finding) Itching MILD active 8 [facility] INTRAVASCULA R CONTRAST MEDIA Propensity to adverse reactions to drug (finding) Urticaria active 1 [facility] No Known Allergies Drug allergy (disorder) active [address] [place] [address] [facility] ([facility] Immunizations Combined list of available immunizations from the Department of Defense and Veterans Affairs facilities. Immunization Series Date Given Administered By Site Reaction Lot Number CVX Code Drug Cutting Table Operator First Status Comments Source INFLUENZA, UNSPECIFIED FORMULATION 2011 88 complet ed [facility] INFLUENZA, UNSPECIFIED FORMULATION 2010 88 complet ed [facility] TDAP 2006 115 complet ed [facility] Encounters Combined list of: 1) Encounters from Department of Veterans Affairs facilities going backup to the last 18 months, not all VA inpatient encounters are included; 2) Encounters from the Department of Defense facilities going backup to 280 months. Location Location Details Encounter Type Encounter Number Reason For Visit Attending Provider ADM Date DC Date Status Disposition Source [address] [place] [address] [employer] ([facility] ) OUTPATIENT [id number] pre-emp loyment physica l [id number] ROSA RIVERS 06/09 Released w/o Limitations [facility] [employer] ([facility]S cott Flight Medicin e Tm) [facility] Outpatient Encounter [id number] 1 09/04 [facility] Social History Combined list of available smoking, tobacco, and other social history from Department of Defense and Veterans Affairs facilities. Social History Type Response Date Comment Sourc e Tobacco smoking status NHIS LIFETIME NON-USER OF TOBACCO 12/04/2010 [facility] History of tobacco use TOBACCO COUNSELING 08/23/2010 [facility] History of tobacco use LIFETIME NON-USER OF TOBACCO 05/30/2010 [facility] This section is an empty social history section. DoD Advance Directives List of completed, amended, or rescinded Advance Directives on record at Department of Veterans Affairs facilities. An actual copy of the Directive is not included. Date Advance Directive Provider Source 11/08/2010 ADVANCE DIRECTIVE DISCUSSION Brendan BANGURA [facility] 08/24/2010 ADVANCE DIRECTIVE DISCUSSION JEN ANDERSON [facility] 07/11/2010 ADVANCE DIRECTIVE DISCUSSION ANA MISHRA [facility]
--- OUTSIDE RECORDS SUMMARY | 2024-08-18 14:34 | XMS_ITS | Clinical Summary ---
Author Organization [facility] Address [address] [place] [address] Phone Care Team Providers Care Mailhouse Operator Name Role Phone Unavailable Primary Care Provider [...] CONTROL/GO-LESS PO) Take by mouth. Active Saw Juliaetta 450 MG Capsule Take by mouth. Active [...]
--- NOTE | 2024-08-18 14:58 | ED.GENADULT ---
HPI - General Adult General Chief complaint: Chest Pain <Reyna Shipman MD - Last Filed: 08/18/24 18:02> Stated complaint: chest pain <Reyna Shipman MD - Last Filed: 08/18/24 18:02> Time Seen by Provider: 08/18/24 13:30 <Reyna Shipman MD - Last Filed: 08/18/24 18:02> History of Present Illness HPI narrative: Patient history of migraines, anxiety, hypertension, presents here after having headache earlier, take her blood pressure and realizing it was slightly high, taking her losartan, rechecking her blood pressures seem that it was still high which point she started having chest tightness, shortness of breath, felt like she was going to pass out and felt nauseous, and came into the hospital. Try taking meclizine at. She does have dizziness ongoing for a while that she is getting workup for from her doctor. <Reyna Shipman MD - Last Filed: 08/18/24 18:02> Related Data Home medications: Home Medications ?Medication ?Instructions ?Recorded ?Confirmed ?Last Taken ?Type spironolactone 50 mg tablet 50 mg PO DAILY 03/17/24 05/18/24 Unknown History mupirocin 2 % topical ointment 1 applic topical TID PRN 05/18/24 05/18/24 Unknown History nystatin 100,000 unit/gram topical 1 applic topical BID PRN 05/18/24 05/18/24 Unknown History powder triamcinolone acetonide 0.1 % 1 applic topical BID PRN 05/18/24 05/18/24 Unknown History topical cream lithium carbonate 150 mg capsule 150 mg PO QID 05/22/24 Unknown History albuterol sulfate 90 mcg/actuation 2 puff inhalation Q4H PRN 08/06/24 Unknown History aerosol inhaler (Ventolin HFA) fluoxetine 10 mg capsule 10 mg PO DAILY 08/06/24 Unknown History <Reyna Shipman MD - Last Filed: 08/18/24 18:02> Allergies/adverse reactions: Allergies Allergy/AdvReac Type Severity Reaction Status Date / Time hydromorphone Allergy Severe Hives,Red Verified 08/13/24 13:43 Face prochlorperazine Allergy Severe ANAPHALAXIS Verified 08/13/24 13:43 shellfish derived Allergy Intermediate Hives Verified 08/13/24 13:43 IVP dye Allergy Severe Hives Uncoded 08/13/24 13:43 strawberries Allergy Severe Anaphylaxis Uncoded 08/13/24 13:43 Contrast Media Allergy Intermediate RASH Uncoded 08/13/24 13:43 <Reyna Shipman MD - Last Filed: 08/18/24 18:02> Review of Systems Review of Systems: All systems reviewed & are unremarkable except as noted in HPI and below <Reyna Shipman MD - Last Filed: 08/18/24 18:02> PMFSH Past Medical History Medical History: Medical History Chronic tonsillitis Abnormal finding on imaging Acute recurrent maxillary sinusitis Allergic reaction to food Arthralgia of temporomandibular joint, unspecified side Chronic fatigue and malaise Chronic pain of right knee Complex tear of medial meniscus of left knee Moderate episode of recurrent major depressive disorder Occult blood in stools Other chronic pain Pes anserine bursitis Sleep apnea in adult Traumatic gamekeeper's thumb of right hand Unilateral primary osteoarthritis, right knee Left shoulder pain Pes anserinus bursitis of right knee Left knee pain Fibromyalgia DVT (deep vein thrombosis) in Migraine <Reyna Shipman MD - Last Filed: 08/18/24 18:02> Surgical History Surgical History: Surgical History Presence of right artificial knee joint H/O neck surgery History of hysterectomy Plate from C3-C6 History of cholecystectomy History of appendectomy <Reyna Shipman MD - Last Filed: 08/18/24 18:02> Family History Family History: Family History Father Family history of kidney disease Family history of heart disease in male family member before age 55 Mother Family history of chronic obstructive pulmonary disease Other Diabetes mellitus Family history of cardiovascular disease Family history of lung disease Family history of osteoarthritis Hypertension <Reyna Shipman MD - Last Filed: 08/18/24 18:02> Social History Social History: Social History Social History: Caffeine-daily Smoking status: Never smoker Alcohol intake: current Drinks per week: 3 Alcohol use details: maria luisaalbert Substance use: never Substance use type: does not use Do You Feel Safe in your Home?: Yes Lack of Transportation: No Lack of Food: Never True Current Housing: I Have Housing Concerned About Future Housing: No Difficulty Paying Gas/Electric Bills: No Difficulty Paying for Meds: No Currently Unemployed: No Education: Master's Degree or Higher Difficulty w/ Childcare or Family Care: No Living arrangements: with family Occupation/Education: occupation 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 EYES: EOMI, conjunctiva normal ENT: Hearing grossly intact LUNGS: Nonlabored breathing. HEART: [Regular rate and rhythm] ABD: [Soft], [nontender to palpation] EXT: Normal range of motion SKIN: [No rashes or lesions.] NEURO: [Alert and oriented x 3. No gross focal sensory or strength deficits.] Symmetric face, normal gait, clear speech PSYCH: Slightly anxious affect <Reyna Shipman MD - Last Filed: 08/18/24 18:02> Course Course Emergency Course: Patient signed out to me pending 6 hour troponin which does result as normal and decreased from the 3 hour 1 which had also been normal but had shown a slight delta. Patient is reassessed at bedside but she states that migraine is coming back intensely. Patient given Tylenol, IV fluids, diphenhydramine, and magnesium given that she lists an allergy to prochlorperazine as had already received Toradol and multiple other medications. She is also given a 1 time dose of dexamethasone as this has been shown to reduce the recurrence of bounce-back/rebound headache. She is re-evaluated approximately 10:20 p.m. states that her headache is improving. Patient discharged in stable condition. She is set to follow up with [facility] soon. She is reestablishing with this practice after her previous analysis specialist Dr Garcia left. <Valery Mathias MD - Last Filed: 08/18/24 22:25> Vital Signs Vital signs: Vital Signs Temperature 98.0 F 08/18/24 13:28 Pulse Rate 96 08/18/24 13:28 Respiratory Rate 20 08/18/24 13:28 Blood Pressure 123/73 08/18/24 13:28 Pulse Oximetry 95 08/18/24 13:28 Oxygen Delivery Room Air 08/18/24 13:28 Temperature 97.8 F 08/18/24 18:34 Pulse Rate 87 08/18/24 18:34 Respiratory Rate 18 08/18/24 18:34 Blood Pressure 101/64 08/18/24 18:34 Pulse Oximetry 100 08/18/24 18:34 Oxygen Delivery Room Air 08/18/24 13:41 <Reyna Shipman MD - Last Filed: 08/18/24 18:02> Vital Signs Temperature 98.0 F 08/18/24 13:28 Pulse Rate 96 08/18/24 13:28 Respiratory Rate 20 08/18/24 13:28 Blood Pressure 123/73 08/18/24 13:28 Pulse Oximetry 95 08/18/24 13:28 Oxygen Delivery Room Air 08/18/24 13:28 Temperature 97.8 F 08/18/24 18:34 Pulse Rate 87 08/18/24 18:34 Respiratory Rate 18 08/18/24 18:34 Blood Pressure 101/64 08/18/24 18:34 Pulse Oximetry 100 08/18/24 18:34 Oxygen Delivery Room Air 08/18/24 13:41 <Valery Mathias MD - Last Filed: 08/18/24 22:25> Medical Decision Making MDM Narrative Medical decision making narrative: Patient presenting here with headache and chest pain and concern for high blood pressure. She does appear anxious here however she has no neurologic deficits, vital signs completely normal including normal blood pressure. Chest x-ray on my independent interpretation does not show any obvious pneumothorax or consolidation EKG on my independent interpretation shows sinus rhythm rate 96, W[place] 159, QRS 79, QTC 437, no ST elevations or depressions signs of acute ischemia or arrhythmia. She does have a history migraine so I did order migraine cocktail, with Reglan, Toradol, Benadryl, on re-evaluation there is no change in her symptoms so I did give a dose of droperidol. On re-evaluation patient now resting very comfortably, symptoms have now completely resolved. 3 hour repeat troponin is still within normal limits however is slightly higher from her prior. I did re-evaluate the patient, she is now resting very comfortably, her symptoms had completely resolved, I did let her know this and with shared decision making is agreeable to staying for 6 hour troponin to make sure distal negative. Sign out to the oncoming ER physician but likely plan for discharge with outpatient management patient is agreeable to that plan. <Reyna Shipman MD - Last Filed: 08/18/24 18:02> Vital Signs Vital Signs: Vital Signs Temperature 98.0 F 08/18/24 13:28 Pulse Rate 96 08/18/24 13:28 Respiratory Rate 20 08/18/24 13:28 Blood Pressure 123/73 08/18/24 13:28 Pulse Oximetry 95 08/18/24 13:28 Oxygen Delivery Room Air 08/18/24 13:28 Temperature 97.8 F 08/18/24 18:34 Pulse Rate 87 08/18/24 18:34 Respiratory Rate 18 08/18/24 18:34 Blood Pressure 101/64 08/18/24 18:34 Pulse Oximetry 100 08/18/24 18:34 Oxygen Delivery Room Air 08/18/24 13:41 <Reyna Shipman MD - Last Filed: 08/18/24 18:02> Vital Signs Temperature 98.0 F 08/18/24 13:28 Pulse Rate 96 08/18/24 13:28 Respiratory Rate 20 08/18/24 13:28 Blood Pressure 123/73 08/18/24 13:28 Pulse Oximetry 95 08/18/24 13:28 Oxygen Delivery Room Air 08/18/24 13:28 Temperature 97.8 F 08/18/24 18:34 Pulse Rate 87 08/18/24 18:34 Respiratory Rate 18 08/18/24 18:34 Blood Pressure 101/64 08/18/24 18:34 Pulse Oximetry 100 08/18/24 18:34 Oxygen Delivery Room Air 08/18/24 13:41 <Valery Mathias MD - Last Filed: 08/18/24 22:25> Lab Data Result diagrams: 08/18/24 13:41 08/18/24 13:41 <Reyna Shipman MD - Last Filed: 08/18/24 18:02> Labs: Lab Results 08/18/24 08/18/24 08/18/24 Range/Units 13:41 16:48 19:45 WBC 8.2 (4.5-10.0) K/mm3 RBC 4.43 (4.2-5.4) M/mm3 Hgb 13.4 (12.0-15.0) g/dL Hct 41.5 (37.0-47.0) % MCV 93.7 (80-100) fl MCH 30.2 (26-34) pg MCHC 32.3 (32-36) g/dl RDW 13.8 (11.5-14.5) % Plt Count 176 (150-375) k/mm3 MPV 12.4 H (7.4-10.4) fl Immature Gran % (Auto) 0.2 (0-0.5) % Neut % (Auto) 68.7 (45.5-73.1) % Lymph % (Auto) 23.7 (18.3-44.2) % [place] % (Auto) 6.3 (2.6-8.5) % Eos % (Auto) 0.7 (0-4.4) % Baso % (Auto) 0.4 (0.2-1.2) % Lymph # (Auto) 1.95 (0.9-3.2) K/mm3 [place] # (Auto) 0.5 (0.1-0.6) K/mm3 Eos # (Auto) 0.1 (0-0.3) K/mm3 Baso # (Auto) 0.0 (0.0-0.1) K/mm3 Abs Immat Gran (auto) 0.02 (0.00-0.031) K/mm3 Absolute Neuts (auto) 5.6 (1.3-6.7) K/mm3 Absolute Nucleated RBC 0.000 (0.0-0.012) K/mm3 Nucleated RBC % 0.0 (0.0-0.2) % PT 13.3 (11.1-14.7) Seconds INR 1.0 APTT 26.7 (22.3-36.8) Seconds Sodium 135 L (137-145) mmol/L Potassium 3.9 (3.4-5.0) mmol/L Chloride 99 (98-107) mmol/L Carbon Dioxide 26 (22-30) mmol/L Anion Gap 10 (4-12) mmol/L BUN 16 (7-17) mg/dL Creatinine 0.89 (0.7-1.0) mg/dL Estim Creat Clear Calc 71 ml/min Estimated GFR > 60 (59 - ) Glucose 104 (65-110) mg/dL Calcium 9.5 (8.4-10.2) mg/dL Total Bilirubin 0.6 (0.2-1.3) mg/dL AST 33 (14-36) U/L ALT 34 (6-35) U/L Alkaline Phosphatase 60 (38-126) U/L Troponin I < 0.012 0.024 D < 0.012 D (0.000-0.034) ng/mL Total Protein 8.6 H (6.3-8.2) g/dL Albumin 4.6 (3.5-5.1) g/dL Lipase 119 (23-300) U/L <Reyna Shipman MD - Last Filed: 08/18/24 18:02> Lab Results 08/18/24 08/18/24 08/18/24 Range/Units 13:41 16:48 19:45 WBC 8.2 (4.5-10.0) K/mm3 RBC 4.43 (4.2-5.4) M/mm3 Hgb 13.4 (12.0-15.0) g/dL Hct 41.5 (37.0-47.0) % MCV 93.7 (80-100) fl MCH 30.2 (26-34) pg MCHC 32.3 (32-36) g/dl RDW 13.8 (11.5-14.5) % Plt Count 176 (150-375) k/mm3 MPV 12.4 H (7.4-10.4) fl Immature Gran % (Auto) 0.2 (0-0.5) % Neut % (Auto) 68.7 (45.5-73.1) % Lymph % (Auto) 23.7 (18.3-44.2) % [place] % (Auto) 6.3 (2.6-8.5) % Eos % (Auto) 0.7 (0-4.4) % Baso % (Auto) 0.4 (0.2-1.2) % Lymph # (Auto) 1.95 (0.9-3.2) K/mm3 [place] # (Auto) 0.5 (0.1-0.6) K/mm3 Eos # (Auto) 0.1 (0-0.3) K/mm3 Baso # (Auto) 0.0 (0.0-0.1) K/mm3 Abs Immat Gran (auto) 0.02 (0.00-0.031) K/mm3 Absolute Neuts (auto) 5.6 (1.3-6.7) K/mm3 Absolute Nucleated RBC 0.000 (0.0-0.012) K/mm3 Nucleated RBC % 0.0 (0.0-0.2) % PT 13.3 (11.1-14.7) Seconds INR 1.0 APTT 26.7 (22.3-36.8) Seconds Sodium 135 L (137-145) mmol/L Potassium 3.9 (3.4-5.0) mmol/L Chloride 99 (98-107) mmol/L Carbon Dioxide 26 (22-30) mmol/L Anion Gap 10 (4-12) mmol/L BUN 16 (7-17) mg/dL Creatinine 0.89 (0.7-1.0) mg/dL Estim Creat Clear Calc 71 ml/min Estimated GFR > 60 (59 - ) Glucose 104 (65-110) mg/dL Calcium 9.5 (8.4-10.2) mg/dL Total Bilirubin 0.6 (0.2-1.3) mg/dL AST 33 (14-36) U/L ALT 34 (6-35) U/L Alkaline Phosphatase 60 (38-126) U/L Troponin I < 0.012 0.024 D < 0.012 D (0.000-0.034) ng/mL Total Protein 8.6 H (6.3-8.2) g/dL Albumin 4.6 (3.5-5.1) g/dL Lipase 119 (23-300) U/L <Valery Mathias MD - Last Filed: 08/18/24 22:25> Discharge Plan Discharge Clinical Impression: Migraine, Chest pain <Reyna Shipman MD - Last Filed: 08/18/24 18:02> Patient Disposition: Home <Reyna Shipman MD - Last Filed: 08/18/24 18:02> Condition: Stable <Reyna Shipman MD - Last Filed: 08/18/24 18:02> Instructions: Chest Pain (ED), Migraine Headache (ED) <Reyna Shipman MD - Last Filed: 08/18/24 18:02> Additional Instructions: Please follow up with your doctor; you can always return for any further issues. Keep your upcoming cardiology follow up appointment. <Reyna Shipman MD - Last Filed: 08/18/24 18:02> Patient Language: Arabic <Reyna Shipman MD - Last Filed: 08/18/24 18:02> Prescriptions: No Action tramadol 50 mg tablet 25 mg PO Q6H PRN (Reason: pain) Qty: 30 0RF dicyclomine 20 mg tablet 20 mg PO QID PRN (Reason: abdominal pain) 30 Days Qty: 120 5RF colestipol 1 gram tablet 1 g PO BID 30 Days Qty: 60 5RF spironolactone 50 mg tablet 50 mg PO DAILY albuterol sulfate [Ventolin HFA] 90 mcg/actuation HFA aerosol inhaler 2 puff inhalation Q4H PRN fluoxetine 10 mg capsule 10 mg PO DAILY cetirizine [Zyrtec] 10 mg tablet 10 mg PO DAILY Qty: 30 0RF methylprednisolone acetate 80 mg/mL suspension 80 mg intrabursal ONCE Qty: 1 0RF methylprednisolone acetate 80 mg/mL suspension 80 mg intra-articular ONCE Qty: 1 0RF mupirocin 2 % ointment 1 applic topical TID PRN nystatin 100,000 unit/gram powder 1 applic topical BID PRN triamcinolone acetonide 0.1 % cream 1 applic topical BID PRN epinephrine [EpiPen 2-Barrera] 0.3 mg/0.3 mL auto-injector 0.3 mg IM ONCE Qty: 2 0RF Rx Instructions: as a single dose; may repeat once omeprazole 20 mg capsule,delayed release(DR/EC) 20 mg PO DAILY Qty: 90 1RF losartan-hydrochlorothiazide 50-12.5 mg tablet 1 tablet PO DAILY Qty: 30 4RF cyclobenzaprine 10 mg tablet 10 mg PO TID PRN (Reason: muscle spasm) Qty: 30 1RF lithium carbonate 150 mg capsule 150 mg PO QID ondansetron 4 mg tablet,disintegrating See Rx Instructions .ROUTE .COMPLEX PRN (Reason: nausea and vomiting) Qty: 60 0RF Dose Instruction: DISSOLVE 1 TABLET IN MOUTH EVERY 6 HOURS NEEDED FOR NAUSEA AND VOMITING Rx Instructions: DISSOLVE 1 TABLET IN MOUTH EVERY 6 HOURS NEEDED FOR NAUSEA AND VOMITING PRN; meloxicam 7.5 mg tablet 7.5 mg PO DAILY PRN (Reason: pain) 30 Days Qty: 30 1RF Zepbound 7.5 mg/0.5 mL pen injector 7.5 mg subcut WEEKLY Qty: 2 1RF phenazopyridine 200 mg tablet 200 mg PO TID Qty: 6 0RF Qulipta 60 mg tablet 60 mg PO DAILY Qty: 30 1RF <Reyna Shipman MD - Last Filed: 08/18/24 18:02> Follow-up/Referrals: Nasreen Bear DO [Primary Care Provider] - 2 Days <Reyna Shipman MD - Last Filed: 08/18/24 18:02> Stand Alone Forms: Work/School Release IP <Reyna Shipman MD - Last Filed: 08/18/24 18:02> Time of Disposition: 22:21 <Reyna Shipman MD - Last Filed: 08/18/24 18:02> 22:21 <Valery Mathias MD - Last Filed: 08/18/24 22:25>
[2024-08-18] MEDS: droPERidol 5 MG/2 ML VIAL IV PUSH (15:16)
[2024-08-18 17:19] LABS: Troponin I 0.024 ng/mL (0.000-0.034)
[2024-08-18 20:45] LABS: Troponin I < 0.012 ng/mL (0.000-0.034)
--- NOTE | 2024-08-18 20:46 | ECG_ITS ---
Test Date: 2024-08-18 20:04:41 Measurements Intervals [employer] Rate: 83 P: 7 [place]: 169 QRS: 1 QRSD: 85 T: 28 QT: 376 QTc: 443 Interpretive Statements SINUS RHYTHM CANNOT R/O SEPTAL INFARCT, AGE INDETERMINATE BASELINE ARTIFACT- I, II, III, AVR, AVL, AVF ABNORMAL ECG Compared to ECG 08/18/2024 13:31:08 No significant changes Electronically Signed On 08-19-2024 06:31:48 CDT by Pete Sesay D.O.
[2024-08-18] MEDS: MAGNESIUM OXIDE 400 MG TABLET PO (21:47)
[2024-08-18] MEDS: ACETAMINOPHEN 500 MG TABLET 1000 MG PO (21:47)
[2024-08-18] MEDS: dexAMETHasone SOD PHOS INJ 10 MG/ML 1 ML VIAL IV PUSH (21:49)
[2024-08-18] MEDS: SODIUM CHLORIDE 0.9% IV 1,000 ML 999 ML IV CONT (21:50)
== END 2024-08-18 22:44 | disposition home or self-care (01) ==
PROVIDERS: Emergency Medicine; Emergency Provider Emergency Medicine; PCP Family Medicine
DX: G43.909 Migraine, unspecified, not intractable, without status migrainosus (principal); R07.9 Chest pain, unspecified
CPT/HCPCS: 36415; 71046; 80053; 83690; 84484; 85025; 85610; 85730; 93005; 96361; 96374; 96375; 99284; A9270; J1100; J1200; J1790; J1885; J2765; J7030

== ENCOUNTER 2024-11-28 13:27 | Emergency (ER) | payer BC, SELFPAY ==
--- NOTE | ~2024-11-28 | XR_ITS ---
EXAMINATION: XR chest 2V, 11/28/2024 14:06 CDT HISTORY: SOB tightness yesterday nonsmoker hx bronchitis, pneumonia COMPARISON: No comparisons available. Technique: 2 views obtained. Findings: The lungs are clear, no effusion. No pneumothorax. Heart is normal size. Mediastinal and hilar contours are within normal limits. Bony thorax no acute abnormality. Impression: No acute cardiopulmonary abnormality. Reviewed, dictated and finalized at location A. Impression: No acute cardiopulmonary abnormality.
[2024-11-28 13:43] VITALS: BP 108/75; PULSE 113; RESP 20; TEMP 36.8; O2SAT 96
--- NOTE | 2024-11-28 13:49 | ED.SOB ---
HPI - SOB/Dyspnea General Chief Complaint: Shortness of Breath/Dyspnea Stated Complaint: SOB/Chest Wall Pain patient presents to the [facility] with complaints of 2 days of worsening headache, nasal congestion, shortness of breath on exertion and chest tightness / pressure. Patient does note that she has been working on chronic sinusitis/ upper respiratory symptoms/ shortness of breath with primary care and ENT. Has been referred to meteorology teacher. Noted she is using her Breo inhaler daily as directed but also using the albuterol inhaler which previously was working but over the last 2 days not working well for symptoms. Patient does also take daily allergy medications. Denies fever, chills, body aches, sore throat, dizziness, nausea, vomiting, diarrhea. Related Data Home Medications ?Medication ?Instructions ?Recorded ?Confirmed ?Last Taken ?Type spironolactone 50 mg tablet 50 mg PO DAILY 03/17/24 09/25/24 Unknown History albuterol sulfate 90 mcg/actuation 2 puff inhalation Q4H PRN 08/06/24 09/25/24 Unknown History aerosol inhaler (Ventolin HFA) fluoxetine 10 mg capsule 10 mg PO DAILY 08/06/24 09/25/24 Unknown History colestipol 1 gram tablet 1 g PO BID PRN 09/10/24 09/25/24 Unknown History tirzepatide (weight loss) 7.5 2.2 mg subcut WEEKLY 09/10/24 09/25/24 Unknown History mg/0.5 mL subcutaneous pen injector (Zepbound) vibegron 75 mg tablet (Gemtesa) mg PO 09/10/24 09/25/24 Unknown History Allergies Allergy/AdvReac Type Severity Reaction Status Date / Time hydromorphone Allergy Severe Hives,Red Verified 11/28/24 13:35 Face prochlorperazine Allergy Severe ANAPHALAXIS Verified 11/28/24 13:35 shellfish derived Allergy Intermediate Hives Verified 11/28/24 13:35 IVP dye Allergy Severe Hives Uncoded 09/25/24 09:35 strawberries Allergy Severe Anaphylaxis Uncoded 09/25/24 09:35 Contrast Media Allergy Intermediate RASH Uncoded 09/25/24 09:35 Review of Systems Constitutional: Constitutional: Reports as per HPI, Denies chills, Denies fatigue, Denies fever(s) and Denies weakness Eyes: Eyes: Reports no additional eye complaints ENT: Reports as per HPI, Denies vertigo, Denies dizziness, Reports nasal congestion and Denies sore throat Cardiovascular: Cardiovascular: Reports as per HPI Respiratory: Respiratory: Reports as per HPI, Reports chest congestion, Reports cough, Reports dyspnea and Denies wheezing Gastrointestinal: Gastrointestinal: Reports no additional gastrointestinal complaints Genitourinary: Genitourinary: Reports no additional female genitourinary complaints Musculoskeletal: Musculoskeletal: Reports as per HPI, Denies back pain, Denies myalgias and Denies arthralgias Integumentary/Breasts: Skin/Breast: Reports as per HPI, Denies pruritus, Denies erythema and Denies rash Neurologic: Reports as per HPI, Denies vertigo, Denies dizziness, Reports headache(s) and Denies weakness Psychiatric: Psychiatric: Reports no additional psychiatric complaints Endocrine: Endocrine: Reports no additional endocrine complaints Hematologic/Lymphatic: Hematologic/Lymphatic: Reports no additional hematologic/lymphatic complaints Allergic/Immunologic: Allergic/Immunologic: Reports as per HPI Comments: Chronic sinusitis, allergies PMFSH Past Medical History Medical History Chronic tonsillitis Abnormal finding on imaging Acute recurrent maxillary sinusitis Allergic reaction to food Arthralgia of temporomandibular joint, unspecified side Chronic fatigue and malaise Chronic pain of right knee Complex tear of medial meniscus of left knee Moderate episode of recurrent major depressive disorder Occult blood in stools Other chronic pain Pes anserine bursitis Sleep apnea in adult Traumatic gamekeeper's thumb of right hand Unilateral primary osteoarthritis, right knee Left shoulder pain Pes anserinus bursitis of right knee Left knee pain Fibromyalgia DVT (deep vein thrombosis) in Migraine Surgical History Surgical History Presence of right artificial knee joint H/O neck surgery History of hysterectomy Plate from C3-C6 History of cholecystectomy History of appendectomy Family History Family History Father Family history of kidney disease Family history of heart disease in male family member before age 55 Mother Family history of chronic obstructive pulmonary disease Other Diabetes mellitus Family history of cardiovascular disease Family history of lung disease Family history of osteoarthritis Hypertension Social History Social History Social History: Caffeine-daily Smoking status: Never smoker Alcohol intake: current Drinks per week: 3 Alcohol use details: chato Substance use: never Substance use type: does not use Do You Feel Safe in your Home?: Yes Lack of Transportation: No Lack of Food: Never True Current Housing: I Have Housing Concerned About Future Housing: No Difficulty Paying Gas/Electric Bills: No Difficulty Paying for Meds: No Currently Unemployed: No Education: Master's Degree or Higher Difficulty w/ Childcare or Family Care: No Living arrangements: with family Occupation/Education: occupation 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 Gender identity (if verbalized by the patient): Female Spiritual care concerns: No Agree to blood products: Yes Exam Const: General: healthy appearing and no acute distress Nutritional Appearance: well nourished Orientation/consciousness: patient oriented x3 Limitations: no limitations HENMT: Head: normal to inspection Ears: external ears normal and TM's normal bilaterally Face/Nose/Sinus: Normal external nose present and Normal nares present Face and sinus: normal facial exam and sinuses nontender Mouth: Yes Normal oral and palatal mucosa present, Yes lip normal and Yes moist mucous membranes Throat: posterior oropharynx normal Neck: Neck: normal visual inspection and no lymphadenopathy Chest: Chest palpation & inspection: normal inspection of the chest, no tenderness and No Pacemaker present Resp: Effort & Inspection: normal respiratory effort Auscultation: no crackles, no rales, no rhonchi, no wheezes, breath sounds present and diminished lung sounds on the right throughout and on the left in the upper lung wood Other: nno Cardio: Rate: tachycardic Rhythm: regular rhythm Skin: General skin exam: normal color Rashes: no rashes Wounds: no wounds Neuro: General: patient oriented x3 Speech: normal speech Gait exam (Neuro): Normal gait present Psych: Mental Status: mental status grossly normal Affect: normal affect Attitude: cooperative Course Course Level of Care: Express Care Visit Vital Signs Vital signs: Vital Signs Temperature 98.3 F 11/28/24 13:43 Pulse Rate 113 H 11/28/24 13:43 Respiratory Rate 20 11/28/24 13:43 Blood Pressure 108/75 11/28/24 13:43 Pulse Oximetry 96 11/28/24 13:43 Oxygen Delivery Room Air 11/28/24 13:43 Temperature 98.3 F 11/28/24 13:43 Pulse Rate 113 H 11/28/24 13:43 Respiratory Rate 20 11/28/24 13:43 Blood Pressure 108/75 11/28/24 13:43 Pulse Oximetry 96 11/28/24 13:43 Oxygen Delivery Room Air 11/28/24 13:43 MDM - SOB/Dyspnea MDM Narrative Medical decision making narrative: COVID testing her chest x-ray ordered while in clinic today The patient was evaluated by myself in the [facility] care. History is obtained from patient who is an independent historian and physical exam was performed. Available medical records were reviewed at this time. Exam findings show no acute concerns or changes; patient is non-toxic appearing and is in no distress. Patient is appropriate for outpatient treatment and follow-up. I have evaluated and discussed social determinants of health with the patient that could potentially impact subsequent diagnosis and treatment plans. Differential diagnosis and treatment plan were discussed with the patient. Patient agrees with discussion and after shared medical decision making agrees with plan of care. All questions were answered to the patient's satisfaction. Differential Diagnosis Differential diagnosis: Likely acute exacerbation of chronic obstructive airways disease, congestive heart failure, community acquired pneumonia, asthma with exacerbation and pulmonary embolism Medical Records Attestation: I reviewed the patient's medical records. Lab Data Attestation: I reviewed the patient's lab results. Labs: Lab Results 11/28/24 Range/Units 14:05 POC SARS CoV-2 Ag Negative (Negative) Imaging Data Radiologist's impression: Impression: No acute cardiopulmonary abnormality. Reviewed, dictated and finalized at location A. Discharge Plan Discharge Clinical Impression: Sinusitis, Exertional shortness of breath Patient Disposition: Home Condition: Stable Instructions: Antibiotic Form, Sinusitis (ED), Warm Compress or Soak (ED) Additional Instructions: Take the antibiotics as directed for the entire course. Do not miss any doses. What you are taking antibiotics and is recommended to take a probiotic or have yogurt daily to return the good gut bacteria to your system. This can also help with acute diarrhea while taking antibiotics. A can take 24-48 hours for the antibiotics the cake in to relieve your symptoms continue to take these medications to help with various symptoms: Tylenol or Motrin for pain, headache, or fever Flonase/fluticasone or Nasacort/triamcinolone nasal spray- helps with congestion and nasal drainage. Sudafed/pseudoephedrine helps with sinus pain and congestion. Caution with high blood pressure. Use a humidifier or vaporizer at night. Drink plenty of water. 8-10 glasses per day. Mucinex/guaifenesinas directed and be sure to take with 8oz of water. Warm compresses over the forehead and cheeks to promote sinus drainage. Return to urgent care or go to the ER for new or worsening symptoms. Follow up with Primary provider if not improved after 1 week. Patient Language: Indian Prescriptions: New doxycycline monohydrate 100 mg capsule 100 mg PO BID Qty: 20 0RF methylprednisolone [Medrol (Barrera)] 4 mg tablets,dose pack See Rx Instructions .ROUTE .COMPLEX Qty: 21 0RF Rx Instructions: for 6 days No Action tramadol 50 mg tablet 25 mg PO Q6H PRN (Reason: pain) Qty: 30 0RF spironolactone 50 mg tablet 50 mg PO DAILY colestipol 1 gram tablet 1 g PO BID PRN Zepbound 7.5 mg/0.5 mL pen injector 2.2 mg subcut WEEKLY Gemtesa 75 mg tablet PO meloxicam 15 mg tablet 15 mg PO DAILY Qty: 90 0RF albuterol sulfate [Ventolin HFA] 90 mcg/actuation HFA aerosol inhaler 2 puff inhalation Q4H PRN fluoxetine 10 mg capsule 10 mg PO DAILY cetirizine [Zyrtec] 10 mg tablet 10 mg PO DAILY Qty: 30 0RF epinephrine [EpiPen 2-Barrera] 0.3 mg/0.3 mL auto-injector 0.3 mg IM ONCE Qty: 2 0RF Rx Instructions: as a single dose; may repeat once losartan-hydrochlorothiazide 50-12.5 mg tablet See Rx Instructions .ROUTE .COMPLEX Qty: 90 1RF Dose Instruction: Take 1 tablet by mouth once daily Rx Instructions: Take 1 tablet by mouth once daily Qulipta 60 mg tablet 60 mg PO DAILY Qty: 30 1RF ondansetron 4 mg tablet,disintegrating See Rx Instructions .ROUTE .COMPLEX PRN (Reason: nausea and vomiting) Qty: 60 1RF Dose Instruction: DISSOLVE 1 TABLET IN MOUTH EVERY 6 HOURS NEEDED FOR NAUSEA AND VOMITING Rx Instructions: DISSOLVE 1 TABLET IN MOUTH EVERY 6 HOURS NEEDED FOR NAUSEA AND VOMITING PRN; omeprazole 20 mg capsule,delayed release(DR/EC) 20 mg PO DAILY Qty: 90 1RF Follow-up/Referrals: Nasreen Bear DO [Primary Care Provider, [facility]] Time of Disposition: 14:30
[2024-11-28 14:26] LABS: EDCOVIDSCREEN Negative (Negative)
== END 2024-11-28 14:40 | disposition home or self-care (01) ==
PROVIDERS: Emergency Provider Nurse Practitioner Family; PCP Family Medicine
DX: J32.9 Chronic sinusitis, unspecified (principal); R06.09 Other forms of dyspnea; Z20.822 Contact with and (suspected) exposure to COVID-19; M79.7 Fibromyalgia; Z86.718 Personal history of other venous thrombosis and embolism
CPT/HCPCS: 71046; 87426; 99213; G0463

== ENCOUNTER 2024-12-10 13:04 | Observation (INO) | payer BC, SELFPAY ==
--- OUTSIDE RECORDS SUMMARY | 2002-05-12 09:30 | XMS_ITS | Continuity of Care Document ---
Author Organization [facility] Address [address] [facility] [address] [place] [address] Phone Care Team Providers Care Lay Out Maker Name Role Phone Lynnette Melendez Unavailable Unavailable Advance Directives Directive Yes / No Effective Date File Name No Information Encounters Encounter Description Practice Location Reason(s) For Visit Diagnoses Date Provider Providers Copied on Encounter [facility], [address], [place], [place], [id number], [place] tel:[phone] [facility] No Information [address] Nora Church. [address] [facility] , [address], [place], [address], [place]. tel:[phone] Family History Family Member Type Diagnosis Age At Onset No Information Payers Payer name Insurance type Covered constitution party ID Authoriza tion(s) No Information Social History Type Description Quantity Date Captured Comments Sex Female Smoking Status No Information Chief Complaint And Reason For Visit No Information Reason For Referral Reason For Referral No Information History Of Present Illness Encounter Date Complaint History Of Prese nt Illness No Information Functional Status Date Functional Assessmen t No Information Instructions Date Instruction Additional Infor mation No Information Assessments Type Assessment Date No Information Patient Care Teams Name Effective Dates (start - stop) Status Members No Information
--- OUTSIDE RECORDS SUMMARY | 2009-07-13 06:45 | XMS_ITS | Continuity of Care Document ---
Author Organization [facility] Address [address] [place] [address] Phone Care Team Providers Care Battery Assembler Plastic Name Role Phone Rakesh Ramirez MD Unavailable Unavailable Medications Medication Instructions Dosage Effective Dates (start - stop) Status Comments Lortab 7.5 mg-500 mg Tab 1T PO Q4-6H - Active Soma 350 mg Tab Take one tablet by mouth every six hours - Active INDOCIN SR 75 MGCAPSULE ER Take one tablet by mouth two times per day - Active Vistaril 50 mg Cap - Active Flexeril 10 mg Tab Take one tablet twic e daily. - Active Procedures Procedure Date Post-op Inj Methylprednisolone Acetate 40mg Post-op Knee Ap & Lat (2 Views) Post-op Post-op Knee arthroscopy/debridement Arthro Synovectomy Med Or Lat 0 Arthroscopic Chondroplasty Post-op MRI Lower Extremity Joint No Contrast Fe MRI Lower Extremity Joint No Contrast Est. Patient Level 4 Post-op Post-op Knee Ap & Lat (2 Views) Post-op Maximiliano Bandage Knee arthscpy mnsctmy medial or lat Arthroscopy, unlisted procedure 009 Arthroscopic Menisectomy Unlisted Procedure,arthroscopy 09 Chest Epa Lateral Med record copy admin Est. Patient Level 4 MRI Lower Extremity Joint No Contrast No MRI Lower Extremity Joint No Contrast No Est. Patient Level 4 Knee 3 Views New Patient Ov Level 4 Knee 3 Views Advance Directives Directive Yes / No Effective Date File Name No Information Encounters Encounter Description Practice Location Reason(s) For Visit Diagnoses Date Provider Providers Copied on Encounter [facility], [address] [place] [address], [id number], [phone] [facility] [place] No Information 0 Ashley Cameron. [address] [place] [address], [place] [address], [place], [place], [id number] , [place]. tel: [phone] [facility], [address] [place] [address], [id number], tel:[phone] 1 [facility] [place] No Information 0 Ashley Cameron. [address] [place] [address], [place], [place], [id number] , [place]. tel: [phone] Referring Provider: Rakesh Martinez, [address] [place] [address], [place], [address] . tel:[phone] [facility], [address] [place] [address], [id number], [place] tel:[phone] 1 [facility] [place] No Information 0 Ashley Cameron. [address] [place] [address] [address], [place], [place], [id number] , [place]. tel:[phone] Referring Provider: Rakesh Martinez, [address] [place] [address], [place], [address] . tel:[phone] [place], [id number], [place] tel:[phone] 1 [facility] [place] No Information Mar-1 -201 0 Ashley Cameron. [address] [place] [address], [address], [place], [place], [id number] , [place]. tel: [phone] Referring Provider: Rakesh Martinez, [address] [place] [address] [address], [place], [address] . tel:[phone] [facility], [address] [place] [address], [place], [place], [id number], [place] tel:[phone] 1 [facility] [place] No Information Mar-0 5-201 0 Ashley Cameron. [address] [place] [address], [address], [place], [place], [id number] , [place]. tel: [phone] Referring Provider: Rakesh Martinez, [address] [place] [address] Suite [facility] [place], [place], [address] . tel:[phone] [facility], [address] [place] [address], [place], [place], [id number], [place] tel:[phone] 1 [facility] [place] No Information Mar-0 2- 0 Shai Lima. [address] [place] [address], [address], [place], [place], [id number] , [place]. tel: [phone] Referring Provider: Rakesh Martinez, [address] [place] [address] [address], [place], [address] . tel:[phone] [facility], [address] [place] [address], [place], [place], [id number], [place] tel:[phone] 1 [facility] [place] No Information Mar-0 2-201 0 Ashley Cameron. [address] [place] [address], [address], [place], [place], [id number] , [place]. tel: [phone] [facility], [address] [place] [address], [place], [place], [id number], [place] tel:[phone] 1 [facility] [place] No Information 0 Ashley Cameron. [address] [place] [address], [address], [place], [place], [address] , [place]. tel: [phone] Referring Provider: Rakesh Martinez, [address] [place] [address] [address], [place], [address] . tel:[phone] [facility], [address] [place] [address], [place], [place], [id number], [place] tel:[phone] 1 [facility] [place] No Information 0 Ashley Cameron. [address] [place] [address], [address], [place], [place], [id number] , [place]. tel: [phone] Referring Provider: Rakesh Martinez, [address] [place] [address] Suite [facility] [place], [place], [address] . tel:[phone] [facility], [address] [place] [address], [place], [place], [id number], [place] tel:[phone] 1 [facility] [place] No Information 0 Ashley Cameron. [address] [place] [address], [address], [place], [place], [address] , [place]. tel: [phone] Referring Provider: Rakesh Martinez, [address] [place] [address] Suite [facility] [place], [place], [place], [address] [place] [address] . tel:[phone] Est. Patient Level 4 [facility], [address] [place] [address], [place], [place], [id number], [place] tel:[phone] 1 [facility] [place] No Information 0 Ashley Cameron. [address] [place] [address], [address], [place], [place], [address] , [place]. tel: [phone] Referring Provider: Rakesh Martinez, [address] [place] [address] [address], [place], [address] . tel:[phone] [facility], [address] [place] [address], [place], [place], [id number], [place] tel:[phone] 1 [facility] [place] No Information 0 Ashley Cameron. [address] [facility], [address], [facility], [place], [id number] , [place]. tel: [phone] Referring Provider: Rakesh Martinez, [address] [place] [address] [address], [place], [address] . tel:[phone] [facility], [address] [place] [address], [place], [place], [id number], [place] tel:[phone] 1 [facility] [place] No Information 0 Ashley Cameron. [address] [place] [address], [address], [facility], [id number] , [place]. tel: [phone] [facility], [address] [place] [address], [place], [place], [id number], [place] tel:[phone] 1 [facility] [place] No Information 0 Ashley Cameron. [address] [place] [address], [address], [facility], [place], [id number] , [place]. tel: [phone] Referring Provider: Rakesh Martinez, [address] [facility] [address], [place], [address] . tel:[phone] [facility], [address] [place] [address], [place], [place], [id number], [place] tel:[phone] 1 [facility] [place] No Information 9 Ashley Cameron. [address] [place] [address], [address], [facility], [place], [id number] , [place]. tel: [phone] Referring Provider: Rakesh Martinez, [address] [facility] [address], [place], [address] . tel:[phone] [facility], [address] [place] [address], [place], [place], [id number], [place] tel:[phone] 1 [facility] [place] No Information Feb-200 9 Shai Lima. [address] [facility], [address], [place], [id number] , [place]. tel: [phone] Referring Provider: Rakesh Martinez, [address] [facility] [address], [place], [address] . tel:[phone] [facility], [address], [place], [place], [id number], [place] tel:[phone] 1 [facility] [place] No Information Feb- 9 Ashley Cameron. [address] [facility], [address], [place], [address] , [place]. tel: [phone] Referring Provider: Rakesh Martinez, [address] [facility] [address], [place], [address] . tel:[phone] [facility], [address], [place], [place], [address], [place] tel:[phone] 1 [facility] [place] No Information Dec-0 9 Ashley Cameron. [address] [place] [address], [address], [facility] [place], [id number] , [place]. tel: [phone] Referring Provider: Rakesh Martinez, [address] [facility] [address], [place], [address] . tel:[phone] [facility], [address], [place], [place], [address], [place] tel:[phone] 1 [facility] [place] No Information Dec-0 200 9 Ashley Cameron. [address] [facility], [address], [place], [address] , [place]. tel: [phone] Referring Provider: Rakesh Martinez, [address] [facility] [address], [place], [address] . tel:[phone] Est. Patient Level 4 [facility], [address] [place] [address], [place], [place], [id number], [place] tel:[phone] 1 [facility] [place] No Information 9 Ashley Cameron. [address] [place] [address], [address], [place], [place], [address] , [place]. tel:[phone] Referring Provider: Rakesh Martinez, [address] [facility] [address], [place], [address] . tel:[phone] [facility], [address] [place] [address], [place], [place], [id number], [place] tel:[phone] 1 [facility] [place] No Information 9 Ashley Cameron. [address] [place] [address], [address], [place], [place], [address] , [place]. tel:[phone] Referring Provider: Rakesh Martinez, [address] [facility] [address], [place], [address] . tel:[phone] Est. Patient Level 4 [facility], [address] [place] [address], [place], [place], [id number], [place] tel:[phone] 1 [facility] [place] No Information 9 Ashley Cameron. [address] [place] [address], [address], [facility], [place], [address] , [place]. tel:[phone] Referring Provider: Rakesh Martinez, [address] [facility] [address], [place], [address] . tel:[phone] New Patient Ov Level 4 [facility], [address] [place] [address], [place], [place], [id number], [place] tel:[phone] 1 [facility] [place] No Information 8 Ashley Cameron. [address] [facility], [address], [facility], [place], [address] , [place]. tel: [phone] Referring Provider: Rakesh Martinez, [address] [place] [address], [place], [address] . tel:[phone] Family History Family Member Type Diagnosis Age At Onset No Information Payers Payer name Insurance type Covered democrat ID Authoriza tion(s) No Information Social History Type Description Quantity Date Captured Comments Sex Female Smoking Status No Information Chief Complaint And Reason For Visit No Information Reason For Referral Reason For Referral No Information Plan Of Treatment Date Type Action Status Future Order: Lab Order [id number] RT-AP/LAT ([id number]), Appointment on: , Sent on: Sent Future Order: Lab Order MRI Lowe r Extremity Joint No Contrast ([id number]), Appointment on: , Sent on: Sent Future Order: Lab Order [id number] RT-AP/LAT ([id number]), Appointment on: , Sent on: Sent Future Order: Lab Order Chest Ep a Lateral ([id number]), Appointment on: , Sent on: Sent Future Order: Lab Order MRI Lowe r Extremity Joint No Contrast ([id number]), Appointment on: , Sent on: Sent Future Order: Lab Order Dimitris/Rt Lat/Rex HS ([id number]), Appointment on: , Sent on: Sent Future Order: Lab Order Dimitris/Rt Lat/Rex HS ([id number]), Appointment on: , Sent on: Sent History Of Present Illness Encounter Date Complaint History Of Prese nt Illness No Information Functional Status Date Functional Assessmen t No Information Instructions Date Instruction Additional Infor mation No Information Assessments Type Assessment Date No Information Patient Care Teams Name Effective Dates (start - stop) Status Members No Information
--- OUTSIDE RECORDS SUMMARY | 2024-06-12 09:00 | XMS_ITS ---
Author Organization [facility] Address [facility] [facility] [address] [place] [address] Care Team Providers Care Beer Cooler Name Role Phone Soren Wynne DO Primary Care Provider Unavailab Rene Cervantes Unavailable [phone] Juliana Curry Unavailable [phone] REASON FOR VISIT Therapy Visit Social History Sex Assigned At : Social History Observation Description Sex Assigned At Female Encounters Encounter Location Date Provider Diagnosis [facility] [address] [facility] [address] [place] [address] 06/12/2024 Juliana Curry Plan Of Treatment No Information Progress Notes * DARLIN LOTT MDOB: 6 (59 yo F)Acc No.[id number]:06/12/2024 Patient: Ronnie CASILLAS DARLIN Toribio Provider: Aissatou Curry :1965 A ge:59 Y S ex:Female Date:06/12/2024 Address:[address] [place] [facility] Pcp:Soren Wynne DO Data: * Chief Complaints: * T herapy Visit Billing Information: * Procedure Codes: * Electronic signature of Alexandro Curry LCPC on 12/10/2024 at 03:50 PM CDT Sign off status: Pending Signatures: No Ad Hoc Signature Added * Provider: Aissatou Curry Date: 0 06/12/2024 Generated for Ignacio flores/Kylie/eTransmitting on: 0 12/10/2024 03:50 PM CDT
--- OUTSIDE RECORDS SUMMARY | 2024-12-02 06:44 | XMS_ITS | Continuity of Care Document ---
Author Organization [facility] Address [address] [place] [address] Phone Care Team Providers Care Bus Washer Name Role Phone No Information Unavailable Unavailable Advance Directives Directive Yes / No Effective Date File Name No Information Encounters Encounter Description Practice Location Reason(s) For Visit Diagnoses Date Provider Providers Copied on Encounter [facility], [address], [place], [place], [id number], [place] tel:[phone] No Information No Information Family History Family Member Type Diagnosis Age [...]
[2024-12-10] VITALS (14 sets, daily range): BP systolic 102–121; BP diastolic 59–81; PULSE 76–98; RESP 15–27; TEMP 36.6; O2SAT 96–100; BMI 29.0
--- NOTE | ~2024-12-10 | NM_ITS ---
NM lung vent and perfusion INDICATION: Intermittent chest pain. TECHNIQUE: The patient inhaled aerosolized 17 mCi xenon-133. Following ventilation scan, 5.1 mCi Tc 99m MAA was injected intravenously for perfusion images. Multiple images were then acquired. COMPARISON: Chest x-ray dated 12/10/2024 FINDINGS: The comparison chest radiograph demonstrates no pulmonary infiltrates or pleural fluid. The perfusion scan is normal. The aerosol in images show uniform deposition throughout the lungs. IMPRESSION: 1: Normal ventilation and perfusion images. Reviewed, dictated and finalized at location O.
--- NOTE | ~2024-12-10 | XR_ITS ---
EXAMINATION: XR chest 2V 12/10/2024 13:22 INDICATION: Chest pain. PROCEDURE: 2 view chest COMPARISON: 11/29/2019 FINDINGS: The lungs are clear. The cardiomediastinal silhouette is within normal limits. There are no pleural effusions. There is no pneumothorax suspected. There are a few scattered calcified granulomas of the lungs. There are cholecystectomy clips. IMPRESSION: 1: NO ACUTE CARDIOPULMONARY DISEASE. Reviewed, dictated and finalized at location O.
--- NOTE | 2024-12-10 13:05 | ECG_ITS ---
Test Date: 2024-12-10 13:12:00 Measurements Intervals Wann Rate: 97 P: 46 IN: 147 QRS: 3 QRSD: 88 T: 34 QT: 353 QTc: 449 Interpretive Statements SINUS RHYTHM MINIMAL VOLTAGE CRITERIA FOR LVH, CONSIDER NORMAL VARIANT [MEETS CRITERIA IN ONE OF: R(aVL), S(V1), R(V5), R(V5/V6)+S(V1)] ANTEROSEPTAL MYOCARDIAL INFARCTION , PROBABLY OLD [40+ ms Q WAVE IN V1-V4] Compared to ECG 08/18/2024 20:04:41 No significant changes Electronically Signed On 12-10-2024 15:24:13 CDT by Salome Ramirez M.D.
[2024-12-10 14:28] LABS: Hematocrit 42.0 % (37.0-47.0); Hemoglobin 13.7 g/dL (12.0-15.0); Immature Granulocyte Percent A 0.4 % (0-0.5); Lymphocytes Absolute Auto 2.42 K/mm3 (0.9-3.2); Mean Corpuscular HGB Conc 32.6 g/dl (32-36); Mean Corpuscular Hemoglobin 29.9 pg (26-34); Mean Corpuscular Volume 91.7 fl (80-100); Nucleated Red Blood Cells Absolute Auto 0.000 K/mm3 (0.0-0.012); Nucleated Red Blood Cells Perc 0.0 % (0.0-0.2); Platelet Count Result 215 k/mm3 (150-375); Red Blood Count 4.58 M/mm3 (4.2-5.4); White Blood Count 14.1 K/mm3 (4.5-10.0)
[2024-12-10 14:40] LABS: Alanine Aminotransferase 23 U/L (6-35); Albumin Level 4.4 g/dL (3.5-5.1); Alkaline Phosphatase 68 U/L (38-126); Anion Gap 10 mmol/L (4-12); Aspartate Amino Transferase 24 U/L (14-36); Bilirubin,Total 0.6 mg/dL (0.2-1.3); Blood Urea Nitrogen 14 mg/dL (7-17); Calcium 9.6 mg/dL (8.4-10.2); Carbon Dioxide 25 mmol/L (22-30); Chloride 97 mmol/L (98-107); Estimated CRCL calculation 72 ml/min; Estimated Glomerular Filt Rate > 60; Glucose 93 mg/dL (65-110); Lipase 120 U/L (23-300); Potassium 3.9 mmol/L (3.4-5.0); Sodium 132 mmol/L (137-145); Total Protein 8.0 g/dL (6.3-8.2)
[2024-12-10 14:42] LABS: INR 1.0; Prothrombin Time 13.1 Seconds (11.1-14.7)
[2024-12-10 14:43] LABS: Partial Thromboplastin Time 25.1 Seconds (22.3-36.8)
[2024-12-10 14:52] LABS: Troponin I < 0.012 ng/mL (0.000-0.034)
--- NOTE | 2024-12-10 15:50 | ED.GENADULT ---
HPI - General Adult General Chief complaint: Chest Pain Stated complaint: CP/ SOB Time Seen by Provider: 12/10/24 14:42 History of Present Illness HPI narrative: Bessie Snider is a 59 year female with past medical history of hypertension, COPD who presents with reports of having a couple months of increased shortness of breath on exertion she states that she went to her primary care office in the room and do pulmonary function testing and changed her inhaler thinking it was related to her COPD. She states that these inhaler changes has not helped her shortness of breath at all. She states that today at around 11:00 a.m. she started to have midsternal chest pain rating 8/9 out of 10. She denies history of myocardial infarction no previous cardiac surgeries. She states that she did have a failed stress test a few years ago and had a negative cath. Related Data Home Medications ?Medication ?Instructions ?Recorded ?Confirmed ?Last Taken ?Type spironolactone 50 mg tablet 50 mg PO DAILY 03/17/24 09/25/24 Unknown History albuterol sulfate 90 mcg/actuation 2 puff inhalation Q4H PRN 08/06/24 09/25/24 Unknown History aerosol inhaler (Ventolin HFA) fluoxetine 10 mg capsule 10 mg PO DAILY 08/06/24 09/25/24 Unknown History colestipol 1 gram tablet 1 g PO BID PRN 09/10/24 09/25/24 Unknown History tirzepatide (weight loss) 7.5 2.2 mg subcut WEEKLY 09/10/24 09/25/24 Unknown History mg/0.5 mL subcutaneous pen injector (Zepbound) vibegron 75 mg tablet (Gemtesa) mg PO 09/10/24 09/25/24 Unknown History Allergies Allergy/AdvReac Type Severity Reaction Status Date / Time hydromorphone Allergy Severe Hives,Red Verified 12/10/24 14:50 Face prochlorperazine Allergy Severe ANAPHALAXIS Verified 12/10/24 14:50 shellfish derived Allergy Intermediate Hives Verified 12/10/24 14:50 IVP dye Allergy Severe Hives Uncoded 09/25/24 09:35 strawberries Allergy Severe Anaphylaxis Uncoded 09/25/24 09:35 Contrast Media Allergy Intermediate RASH Uncoded 09/25/24 09:35 Review of Systems Review of Systems: All systems reviewed & are unremarkable except as noted in HPI and below PMFSH Past Medical History Medical History Chronic tonsillitis Abnormal finding on imaging Acute recurrent maxillary sinusitis Allergic reaction to food Arthralgia of temporomandibular joint, unspecified side Chronic fatigue and malaise Chronic pain of right knee Complex tear of medial meniscus of left knee Moderate episode of recurrent major depressive disorder Occult blood in stools Other chronic pain Pes anserine bursitis Sleep apnea in adult Traumatic gamekeeper's thumb of right hand Unilateral primary osteoarthritis, right knee Left shoulder pain Pes anserinus bursitis of right knee Left knee pain Fibromyalgia DVT (deep vein thrombosis) in Migraine Surgical History Surgical History Presence of right artificial knee joint H/O neck surgery History of hysterectomy Plate from C3-C6 History of cholecystectomy History of appendectomy Family History Family History Father Family history of kidney disease Family history of heart disease in male family member before age 55 Mother Family history of chronic obstructive pulmonary disease Other Diabetes mellitus Family history of cardiovascular disease Family history of lung disease Family history of osteoarthritis Hypertension Social History Social History Social History: Caffeine-daily Smoking status: Never smoker Alcohol intake: current Drinks per week: 3 Alcohol use details: chato Substance use: never Substance use type: does not use Do You Feel Safe in your Home?: Yes Lack of Transportation: No Lack of Food: Never True Current Housing: I Have Housing Concerned About Future Housing: No Difficulty Paying Gas/Electric Bills: No Difficulty Paying for Meds: No Currently Unemployed: No Education: Master's Degree or Higher Difficulty w/ Childcare or Family Care: No Living arrangements: with family Occupation/Education: occupation 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 HEAD: Normocephalic, atraumatic. EYES: PERRLA and EOMI. ENT: Nares clear, no rhinorrhea or epistaxis. Mucous membranes moist. Oropharynx without tonsillar hypertrophy exudate or other lesions. NECK: Supple. No adenopathy or masses. No carotid bruits or JVD CHEST: Clear to auscultation. No respiratory distress. No wheezes rales or rhonchi HEART: Regular rate and rhythm. No murmur heard. Normal peripheral pulses. ABDOMEN: Soft, nontender, nondistended, normal active bowel sounds. EXTREMITIES: Normal range of motion. No edema. SKIN: Warm, dry, no rash. NEURO: No focal deficits. Alert and oriented x3. PSYCH: Normal mood and affect. Course Vital Signs Vital signs: Vital Signs Temperature 36.6 C 12/10/24 13:16 Pulse Rate 97 12/10/24 13:16 Respiratory Rate 16 12/10/24 13:16 Blood Pressure 118/75 12/10/24 13:16 Pulse Oximetry 100 12/10/24 13:16 Oxygen Delivery Room Air 12/10/24 13:16 Temperature 36.6 C 12/10/24 13:16 Pulse Rate 80 12/10/24 19:11 Respiratory Rate 20 12/10/24 19:11 Blood Pressure 110/70 12/10/24 19:11 Pulse Oximetry 100 12/10/24 19:11 Oxygen Delivery Room Air 12/10/24 14:54 Medical Decision Making MDM Narrative Medical decision making narrative: 59-year-old female who presents with having chest pain midsternal chest does not radiate anywhere stays right there rating at 8 or 9/10, she has also had increased shortness of breath with exertion over the past couple months that her primary care and adjusting her inhalers for her COPD for which she says has not been helping. concern for : cardiac ischemia, pulmonary embolism, pneumonia, CHF, EKG shows sinus rhythm with frequent PVCs Heart score 4, she has continued chest pain headache and nausea CBC shows leukocytosis of 14.1 hemodynamically stable CMP shows sodium 132, 1st and 2nd troponin are negative, chest x-ray clear, bNP is negative, she is allergic to contrast dyes or able to get a V/Q scan which is negative for pulmonary embolism While in patient's room she is noted to be symptomatic with her PVCs on the monitor clutching her chest feeling another PVC each time. With her blood pressure being semi-soft and allergic to morphine and she has continued to complain of some nausea, treated pt with a dose of reglan that has worked for her in the past with IV fluids and a dose of Fentanyl Discussed with patient that everything was coming back normal she still feels frustrated because she has the pain has not been feeling well for few months. I discussed case with the hospitalist who accepts her to admission for a cardiac rule out Patient is releived to have longer monitoring and evaluation of symptoms. Medical Records Medical records reviewed: Yes I reviewed the external patient's medical records. Vital Signs Vital Signs: Vital Signs Temperature 36.6 C 12/10/24 13:16 Pulse Rate 97 12/10/24 13:16 Respiratory Rate 16 12/10/24 13:16 Blood Pressure 118/75 12/10/24 13:16 Pulse Oximetry 100 12/10/24 13:16 Oxygen Delivery Room Air 12/10/24 13:16 Temperature 36.6 C 12/10/24 13:16 Pulse Rate 80 12/10/24 19:11 Respiratory Rate 20 12/10/24 19:11 Blood Pressure 110/70 12/10/24 19:11 Pulse Oximetry 100 12/10/24 19:11 Oxygen Delivery Room Air 12/10/24 14:54 Lab Data Lab results reviewed: Yes I reviewed the patient's lab results. 12/10/24 14:18 12/10/24 14:18 Labs: Lab Results 12/10/24 12/10/24 Range/Units 14:18 17:21 WBC 14.1 H (4.5-10.0) K/mm3 RBC 4.58 (4.2-5.4) M/mm3 Hgb 13.7 (12.0-15.0) g/dL Hct 42.0 (37.0-47.0) % MCV 91.7 (80-100) fl MCH 29.9 (26-34) pg MCHC 32.6 (32-36) g/dl RDW 13.6 (11.5-14.5) % Plt Count 215 (150-375) k/mm3 MPV 11.4 H (7.4-10.4) fl Immature Gran % (Auto) 0.4 (0-0.5) % Neut % (Auto) 75.3 H (45.5-73.1) % Lymph % (Auto) 17.2 L (18.3-44.2) % [place] % (Auto) 6.4 (2.6-8.5) % Eos % (Auto) 0.4 (0-4.4) % Baso % (Auto) 0.3 (0.2-1.2) % Lymph # (Auto) 2.42 (0.9-3.2) K/mm3 [place] # (Auto) 0.9 H (0.1-0.6) K/mm3 Eos # (Auto) 0.1 (0-0.3) K/mm3 Baso # (Auto) 0.0 (0.0-0.1) K/mm3 Abs Immat Gran (auto) 0.05 H (0.00-0.031) K/mm3 Absolute Neuts (auto) 10.6 H (1.3-6.7) K/mm3 Absolute Nucleated RBC 0.000 (0.0-0.012) K/mm3 Nucleated RBC % 0.0 (0.0-0.2) % PT 13.1 (11.1-14.7) Seconds INR 1.0 APTT 25.1 (22.3-36.8) Seconds Sodium 132 L (137-145) mmol/L Potassium 3.9 (3.4-5.0) mmol/L Chloride 97 L (98-107) mmol/L Carbon Dioxide 25 (22-30) mmol/L Anion Gap 10 (4-12) mmol/L BUN 14 (7-17) mg/dL Creatinine 0.90 (0.7-1.0) mg/dL Estim Creat Clear Calc 72 ml/min Estimated GFR > 60 (59 - ) Glucose 93 (65-110) mg/dL Calcium 9.6 (8.4-10.2) mg/dL Total Bilirubin 0.6 (0.2-1.3) mg/dL AST 24 (14-36) U/L ALT 23 (6-35) U/L Alkaline Phosphatase 68 (38-126) U/L Troponin I < 0.012 < 0.012 (0.000-0.034) ng/mL NT-Pro-B Natriuret Pep 20 (19.9-100) pg/mL Total Protein 8.0 (6.3-8.2) g/dL Albumin 4.4 (3.5-5.1) g/dL Lipase 120 (23-300) U/L Imaging Data Radiologist's impression: Impressions Chest X-Ray 12/10/24 13:24 IMPRESSION: 1: NO ACUTE CARDIOPULMONARY DISEASE. Pulmonary Perfusion Imaging 12/10/24 17:32 IMPRESSION: 1: Normal ventilation and perfusion images. ECG Data EKG #1: ECG completion date: 12/10/24 ECG completion time: 13:12 Prior ECG tracings: available for review Interpretation: DX Tech DF I II III aVR aVL aVF V1 V2 V3 V4 V5 V6 II Rate 97 MT 147 QRSd 88 QT 353 QTc 449 --[place]-- P 46 QRS 3 T 34 SINUS RHYTHM MINIMAL VOLTAGE CRITERIA FOR LVH, CONSIDER NORMAL VARIANT [MEETS CRITERIA IN ONE OF: R(aVL), S(V1), R(V5), R(V5/V6)+S(V1)] ANTEROSEPTAL MYOCARDIAL INFARCTION , PROBABLY OLD [40+ ms Q WAVE IN V1-V4] Compared to ECG 08/18/2024 20:04:41 No significant changes Electronically Signed On 12-10-2024 15:24:13 CDT by Salome Ramirez M.D. EKG #2: ECG completion date: 12/10/24 ECG completion time: 17:24 Interpretation: Rate 81 MT 172 QRSd 80 QT 367 QTc 427 --[place]-- P 15 QRS 10 T 30 SINUS RHYTHM WITH OCCASIONAL VENTRICULAR PREMATURE COMPLEXES MINIMAL VOLTAGE CRITERIA FOR LVH, CONSIDER NORMAL VARIANT [MEET Discharge Plan Discharge Clinical Impression: Chest pain in adult, Breathlessness on exertion Patient Disposition: Still a Patient Condition: Stable Quality HEART score for chest pain patients History: moderately suspicious ECG: non specific repolarization disturbance/LBTB/PM Age: > 45 and < 65 years Risk factors: 1 or 2 risk factors Troponin: < or = to 1x normal limit Heart score: 4
--- OUTSIDE RECORDS SUMMARY | 2024-12-10 15:50 | XMS_ITS | Clinical Summary ---
Author Organization [facility] Address [address] [place] [address] Care Team Providers Care Product Manager Medical Device Name Role Phone Ricci Soren WATKINS Primary Care Provider [phone] Source Comments [facility],non-owned Affiliates and Associated Physician Practices is amultiple site organization consisting of ambulatory clinics and hospital sitesin [place], [place], [place] and [place]. This disclosure is being madepursuant to the Care Everywhere program and may not contain all information available regarding this patient. 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
--- OUTSIDE RECORDS SUMMARY | 2024-12-10 15:51 | XMS_ITS | Patient Health Record ---
Author Organization [facility] As [employer] [facility] Address [address] [place] [address] Care Team Providers Care Helper Animal Laboratory Name Role Phone Soren Wynne DO Primary Care Provider Unavailab Rene Cervantes Unavailable [phone] Juliana Curry Unavailable [phone] Reny Rice Unavailable [phone] Allergies Allergen (clinical drug ingredient) Drug/Non Drug [...] Allergy Active Results Component Value Reference Range Flag Notes Methadone Reviewed date:05/26/2024 05:01:44 PM Interpretation: Performing Lab: Notes/Report: Methadone NEGATIVE 50.0 ng/mL Not Medicated Consistent Fentanyl Reviewed date:05/26/2024 05:01:44 PM Interpretation: Performing Lab: Notes/Report: Fentanyl NEGATIVE 2.0 ng/mL Not Medicated Consistent Buprenorphine Reviewed date:05/26/2024 04:12:11 PM Interpretation: Performing Lab: Notes/Report: Buprenorphine NEGATIVE 10.0 ng/mL Not Medicat ed Consistent Opiates Reviewed date:05/26/2024 04:12:11 PM Interpretation: Performing Lab: Notes/Report: Noroxycodone NEGATIVE 50.0 ng/mL Not Medicate d Consistent Norhydrocodone NEGATIVE 50.0 ng/mL Not Medica colin Consistent Oxycodone NEGATIVE 50.0 ng/mL Not Medicated Consistent Hydromorphone NEGATIVE 50.0 ng/mL Not Medicat ed Consistent Hydrocodone NEGATIVE 50.0 ng/mL Not Medicated Consistent Morphine NEGATIVE 50.0 ng/mL Not Medicated Consistent Oxymorphone NEGATIVE 50.0 ng/mL Not Medicated Consistent Codeine NEGATIVE 50.0 ng/mL Not Medicated Consistent Illicits Reviewed date:05/26/2024 05:01:44 PM Interpretation: Performing Lab: Notes/Report: THCCOOH NEGATIVE 15.0 ng/mL Not Medicated Consistent PCP NEGATIVE 20.0 ng/mL Not Medicated Consistent MDMA NEGATIVE 50.0 ng/mL Not Medicated Consistent MDEA NEGATIVE 50.0 ng/mL Not Medicated Consistent MDA NEGATIVE 50.0 ng/mL Not Medicated Consistent Cocaine Metabolite NEGATIVE 20.0 ng/mL Not Me dicated Consistent 6-OVI NEGATIVE 10.0 ng/mL Not Medicated Consistent Stimulants Reviewed date:05/26/2024 04:12:11 PM Interpretation: Performing Lab: Notes/Report: Phentermine >4000 100.0 POSITIVE Medicated Consistent Methylphenidate NEGATIVE 50.0 ng/mL Not Medic ated Consistent Methamphetamine NEGATIVE 100.0 ng/mL Not Medi cated Consistent Amphetamine NEGATIVE 100.0 ng/mL Not Medicate d Consistent Naltrexone Reviewed date:05/26/2024 05:01:44 PM Interpretation: Performing Lab: Notes/Report: Not Medicated Consistent Naltrexone NEGATIVE 50.0 ng/mL Benzodiazepines Reviewed date:05/26/2024 05:01:43 PM Interpretation: Performing Lab:[address] [place] [address], [address] [place] [address], Director - [id number] Notes/Report: An exception occurred while processing this report and so it has incomplete data. Please contact [employer] for assistance. Not Medicated Consistent Not [...] ng/mL Alprazolam NEGATIVE 20.0 ng/mL PDF Report CE_OUT_RAW_CO [id number]_ORU UDT Reviewed date:05/14/2024 10:49:29 AM Interpretation: Performing Lab: Notes/Report: THC N 0 - 50 ng/ml Cocaine N 0 - 300 ng/ml Amphetamine P 0 - 1000 ng/ml Buprenorphine (BUP) N 0 - 10 ng/ml Secobarbital (Bar) N 0 - 300 ng/ml Oxazepam (BZO) N 0 - 300 ng/ml 9-luruuckgao-6,2-wnlqfkuh-8, 3-diph enylpyrrolidine (EDDP) N 0 - 300 ng/ml Methamphetamine (MET) N 0 - 1000 ng/ml Methylenedioxymethamphetamin e (MDMA) N 0 - 500 ng/ml Morphine (MOP 300/RLV6789) N 0 - 300 ng/ml Methadone (MTD) N 0 - 300 ng/ml Phencyclidine (PCP) N 0 - 25 ng/ml Nortriptyline (TCA) N 0 - 1000 ng/ml Oxycodone N 0 - 300 ng/ml Reason For Referral No Information Medications Medication SIG (Take, Route, Frequency, Duration) Notes Start Date End Date Status Zepbound 5 MG/0.5ML Solution Auto-injector INJECT 5 MG SUBCUTANEOUSLY ONCE A WEEK Subcutaneous; Duration: 28 Days Active Claritin 10 MG Tablet 1 tablet Orally Once a day Active Omeprazole 20 MG Capsule Delayed Release TAKE 1 CAPSULE BY MOUTH ONCE DAILY Oral; Duration: 30 Days Active ARIPiprazole 2 MG Tablet 1 tablet Orally Once a day; Duration: 90 days 08/06/2024 Active Qulipta 60 MG Tablet TAKE 1 TABLET BY [facility] ONCE DAILY Oral; Duration: 30 Days Active FLUoxetine HCl 20 MG Capsule 1 tablet Orally Once a day; Duration: 90 days 07/31/2024 Active Spironolactone 100 MG Tablet TAKE 1 TABLET BY MOUTH ONCE DAILY Oral; Duration: 30 Days Active Losartan Potassium-HCTZ 50-12.5 MG Tablet TAKE 1 TABLET BY MOUTH ONCE DAILY Oral; Duration: 30 Days Active Benadryl Allergy 25 MG Tablet 1 tablet at bedtime as needed Orally Once a day Active Melatonin 5 MG Tablet Oral Active Albuterol Sulfate HFA 108 (90 Base) MCG/ACT Aerosol Solution Inhalation; Duration: 17 Days Active Social History Tobacco Use: Social History Observation Description Date Details (start date - stop date) Never Smoker NA - NA Sex Assigned At : Social History Observation Description Sex Assigned At Female Social History Miscellaneous: Social Info Question Answer Notes Safety issues: Do you feel safe at home? Yes Are there any firearms in the house? Yes Household: Social Info Question Answer Notes Household Number of adults in household: 2 Level of education: professional schools/Masters /PhD Drug/Alcohol: Social Info Question Answer Notes Drugs Have you used drugs other than those for medical reasons in the past 12 months? No AUDIT-C (Standard) Did you have a drink containing alcohol in the past year? Yes How often did you have a drink containing alcohol in the past year? Daily or almost daily (4 points) How many drinks did you have on a typical day when you were drinking in the past year? 1 or 2 drinks (0 point) How often did you have six or more drinks on one occasion in the past year? Never (0 point) Points 4 Interpretation Positive Tobacco Use: Social Info Question Answer Notes Tobacco Control (Standard) Tobacco use: Nonsmoker Additional Details Category Social Info Options Details Drug/Alcohol: Do you smoke marijuana? Den ies Do you drink alcohol? Occasional ly Problems Problem Type SNOMED Code ICD Code Onset Dates Problem Status W/U Status Risk Notes Problem Depression Screening (011147942) Encounter for screening for depression (Z13.31) Active confirmed Problem Severe recurrent major depression without psychotic features (70860000) Severe episode of recurrent major depressive disorder, without psychotic features (F33.2) Active confirmed Problem Mild recurrent major depression (87788554) MDD (major depressive disorder), recurrent episode, mild (F33.0) Active confirmed Problem Irritability (90941760) Irritability (R45.4) Active confirmed Problem Anxiety (71445454) Situational anxiety (F41.8) Active confirmed Vital Signs Heart Rate 119 /min 06/05/2024 Height-cm 175.31 cm 06/05/2024 Blood pressure diastolic 87 mm Hg 06/05/2024 Weight-kg 94.17 kg 06/05/2024 Height 69.02 in 06/05/2024 Blood pressure systolic 115 mm Hg 06/05/2024 Weight 207.6 lbs 06/05/2024 BMI 30.64 kg/m2 06/05/2024 Encounters Encounter Location Date Provider Diagnosis [employer] [employer] [address] [place] [address] 05/14/2024 Rene Clubb Severe episode of recurrent major depressive disorder, without psychotic features F33.2 and Suicidal thoughts R45.851 [employer] [employer] [address] [place] [address] 05/14/2024 Juliana Hinderliter Severe episode of recurrent major depressive disorder, without psychotic features F33.2 ; Suicidal thoughts R45.851 and Situational anxiety F41.8 [employer] [employer] [address] [place] [address] 05/21/2024 Rene Clubb Severe episode of recurrent major depressive disorder, without psychotic features F33.2 ; Suicidal thoughts R45.851 and Situational anxiety F41.8 [employer] [address] [place] [address] 05/28/2024 Juliana Hinderliter Severe episode of recurrent major depressive disorder, without psychotic features F33.2 ; Situational anxiety F41.8 and Encounter for screening for depression Z13.31 [employer] [place] [address] 05/28/2024 Rene Clubb Severe episode of recurrent major depressive disorder, without psychotic features F33.2 ; Situational anxiety F41.8 and Encounter for screening for depression Z13.31 [employer], [employer] [address] [place] [address] 06/05/2024 Rene Clubb Encounter for screening for depression Z13.31 and Severe episode of recurrent major depressive disorder, without psychotic features F33.2 [employer] [address] [place] [address] 06/05/2024 Juliana Hinderliter Severe episode of recurrent major depressive disorder, without psychotic features F33.2 ; Situational anxiety F41.8 and Encounter for screening for depression Z13.31 [employer], [employer] [place] [address] 06/19/2024 Juliana Curry [facility] [address] [place] [address] 06/19/2024 Rene Clubb [facility] [address] [place] [address] 08/06/2024 Rene Clubb MDD (major depressive disorder), recurrent episode, mild F33.0 ; Irritability R45.4 and Encounter for screening for depression Z13.31 [facility], [facility] [address] [place] [address] 05/15/2024 Reny Rice [facility], [facility] [address] [place] [address] 09/21/2024 Rene Clubb [facility] [address] [place] [address] 10/21/2024 Rene Clubb [facility], [facility] [address] [place] [address] 05/14/2024 Reny Rice [facility], [facility] [address] [place] [address] 05/15/2024 Reny Rice [facility], [facility] [address] [place] [address] 05/21/2024 Reny Rice [facility], [facility] [address] [place] [address] 05/22/2024 Rene Clubb [facility], [facility] [address] [place] [address] 06/09/2024 Rene Clubb [facility], [facility] [address] [place] [address] 06/13/2024 Rene Clubb [facility], [facility] [address] [place] [address] 06/15/2024 Rene Clubb [facility], [facility] [address] [place] [address] 06/18/2024 Rene Clubb [facility], [facility] [address] [place] [address] 06/19/2024 Rene Clubb [facility], [facility] [address] [place] [address] 06/19/2024 Rene Clubb Severe episode of recurrent major depressive disorder, without psychotic features F33.2 [facility], [facility] [address] [place] [address] 06/19/2024 Rene Clubb [facility], [facility] [address] [place] [address] 07/02/2024 Rene Clubb [facility], [facility] [address] [place] [address] 07/02/2024 Rene Clubb [facility], [facility] [address] [place] [address] 07/03/2024 Rene Clubb [facility], [facility] [address] [place] [address] 07/03/2024 Rene Clubb [facility], [facility] [address] [place] [address] 07/03/2024 Rene Clubb [facility], [facility] [address] [place] [address] 07/03/2024 Rene Clubb [facility], [facility] [address] [place] [address] 07/03/2024 Rene Clubb [facility], [facility] [address] [place] [address] 07/03/2024 Rene Clubb [facility], [facility] [address] [place] [address] 07/06/2024 Rene Clubb [facility], [facility] [address] [place] [address] 07/07/2024 Rene Clubb [facility], [facility] [address] [place] [address] 07/24/2024 Rene Clubb [facility], [facility] [address] [place] [address] 07/24/2024 Rene Clubb [facility], [facility] [address] [place] [address] 07/27/2024 Rene Clubb [facility], [facility] [address] [place] [address] 07/30/2024 Rene Clubb Severe episode of recurrent major depressive disorder, without psychotic features F33.2 [facility], [facility] [address] [place] [address] 07/31/2024 Rene Clubb Severe episode of recurrent major depressive disorder, without psychotic features F33.2 [facility], [facility] [address] [place] [address] 08/19/2024 Rene Clubb [facility], [facility] [address] [place] [address] 08/21/2024 Rene Clubb [facility], [facility] [address] [place] [address] 08/21/2024 Rene Clubb [facility], [facility] [address] [place] [address] 08/21/2024 Rene Clubb [facility], [facility] [address] [place] [address] 08/25/2024 Rene Clubb [facility], [facility] [address] [place] [address] 08/26/2024 Rene Clubb MDD (major depressive disorder), recurrent episode, mild F33.0 [facility], [facility] [address] [place] [address] 08/27/2024 Rene Clubb [facility], [facility] [address] [place] [address] 09/23/2024 Rene Clubb MDD (major depressive disorder), recurrent episode, mild F33.0 [facility], [facility] [address] [place] [address] 11/04/2024 Rene Clubb [facility], [facility] [address] [place] [address] 11/05/2024 Rene Clubb MDD (major depressive disorder), recurrent episode, mild F33.0 [facility], [facility] [address] [place] [address] 11/05/2024 Rene Clubb [facility], [facility] [address] [place] [address] 11/05/2024 Rene Clubb Assessments Encounter Date Diagnosis (ICD Code) Assessment [...] of treatment with your doctor and caregivers. Bellmead has been associated with an increased risk of Ebstein's anomaly, a heart valve defect. Even though data suggest that the risk of Ebstein's anomaly from first trimester use of lithium is very low, an ultrasound of the heart is recommended at 16 to 20 weeks of gestation. Bellmead levels should be monitored monthly in early [...] usual. Are There Any Risks For Taking Bellmead For Long Periods Of Time? Hypothyroidism (low levels of thyroid hormone) may occur with long-term lithium use. Rare kidney problems have been associated with long-term use of lithium. The risk increases with high levels of lithium. Your doctor will monitor your kidney function at routine check-ups to ensure this does not occur. 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 Bellmead has been associated with an increased risk of Ebstein's anomaly, a heart valve defect. Even though data suggest that the risk of Ebstein's anomaly from first trimester use of lithium is very low, an ultrasound of the heart is recommended at 16 to 20 weeks of gestation. Bellmead levels should be monitored monthly in early [...] usual. Are There Any Risks For Taking Bellmead For Long Periods Of Time? Hypothyroidism (low levels of thyroid hormone) may occur with long-term lithium use. Rare kidney problems have been associated with long-term use of lithium. The risk increases with high levels of lithium. Your doctor will monitor your kidney function at routine check-ups to ensure this does not occur. 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 Encourage patient to contact the crisis prevention hotline (968) if feeling a danger to self or others. Schedule follow-up appointment with DNP, CLIF Pascual next week. encouraged initiation of [...] place. provided a magnet and card with crisis prevention hotline number '328'. discussed the benefit of inpatient hospitalization . [...] paperwork for patient's claim and coordinate with [facility] for initiation of the claim. 7. [...] attacks. - Currently using breathing exercises and Tenriism music for management. - Plan: a. Continue [...] patient. b. Coordinate with HR for appropriate gtduop-df-hbzr accommodations. c. Consider modifications such as shift [...] made to correct them. Plan Of Treatment No Information Insurance Providers Payer Name Payer Address Payer Phone Subscriber Number Group Number Insured Name Patient Relationship to Insured Coverage Start Date Coverage End Date [facility] [address] [place] [address] [id number] BESSIE LOTT Self - patient is the insured Medical (General) History Medical History History ICD Code Problems: Body dysmorphic disorder Generalized anxiety disorder Primary insomnia Recurrent major depressive episodes, mod erate Sleep apnea Fibromyalgia Migraine fibromyalgia migraine headaches hypertension Surgical History Surgery Date(Month/Year) discectomy galbladder removal appendectomy laminectomy right total knee replacement
--- OUTSIDE RECORDS SUMMARY | 2024-12-10 15:51 | XMS_ITS | Clinical Summary ---
Author Organization [facility] Address [address] [facility] [place] [address] Care Team Providers Care Rug Layer Name Role Phone Unavailable Primary Care Provider [...] on file Legal Sex Female 11:41 AM CAMP COORDINATOR Gender Identity Not on file Sexual Orientation Not on file Last Filed Vital Signs Vital Sign Reading Time Taken Comments Blood Pressure 138/91 05/07/2022 12:43 PM CAMP COORDINATOR Pulse 93 05/07/2022 12:43 PM CAMP COORDINATOR Temperature 36.3 C (97.3 F) 05/07/2022 12:43 PM CAMP COORDINATOR Respiratory Rate 16 05/07/2022 12:43 PM CAMP COORDINATOR Oxygen Saturation 98% 05/07/2022 12:43 PM CAMP COORDINATOR Inhaled Oxygen Concentration - - Weight 99.8 kg (220 lb) 05/07/2022 12:43 PM CAMP COORDINATOR Height 175.3 cm (5' 9) 05/07/2022 12:43 PM CAMP COORDINATOR Body Mass Index 32.49 05/07/2022 12:43 PM CAMP COORDINATOR Plan of Treatment Health Maintenance Due Date [...] Td or Tdap) 03/18/2016 INFLUENZA VACCINE (#1) 2024
--- OUTSIDE RECORDS SUMMARY | 2024-12-10 15:51 | XMS_ITS | Data Portability ---
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 [email or web address] Not available 06/12/2019 10:36:35 Plan of Treatment Reminders Order Date Submit Date Provider Last Modified By Organization Details Last Modified Time Details Appointments None recorded. Lab rapid flu (A+B) 2019 020 MILVIA In-Office Order, Internal Use Only DO Not Attach Compendium DO Not Attach Compendium, Do Not Delete/merge, [id number] 0 10:23:58 Referral urologist referral 2019 020 [email or web address] [facility], [address] [place], [address], 0 12:31:36 electromyo gram/nerve conduction referral 2019 [email or web address] [place] [address] (Cardiology & Emg), [address] [facility] [address], [place], [address], 0 23:25:52 Procedures None recorded. Surgeries None recorded. Imaging CT, sinuses, w/o contrast 2020 021 [email or web address] [facility], [address], [place], [address], 1 11:33:59 CT, cervical spine, w/o contrast 2019 020 [facility] (Imaging), [address] [facility] [address], [place], [address], 0 16:05:44 XR, cervical spine, 2 or 3 view 2019 020 [facility] (Imaging), [facility] [address], [place], [address], 0 16:00:27 Medication Orders cefuroxime axetil 250 mg tablet 2020 021 [facility] [address]25, [address] [facility], [facility], [place], [address], 1 11:01:34 baclofen 10 mg tablet 2019 [email or web address] [place] [address] 2425, [address] [facility], [place], [address], 0 18:38:25 sumatripta n 100 mg tablet 2019 020 [facility] 2425, [address] [facility], [place], [address], 0 13:13:38 bupropion HCl XL 300 mg 24 hr tablet, extended release 2019 020 [facility] [address]25, [address] [facility], [place], [address], 0 16:23:56 fluoxetine 20 mg capsule 2019 020 INTERFACE [facility] [address]25, [address] [facility], [place], [address], 0 16:23:55 trazodone 150 mg tablet 2019 020 INTERFACE [facility] [address]25, [address] [facility], [place], [address], 0 16:23:54 thiamine HCl (vitamin B1) 250 mg tablet 2019 020 INTERFACE [facility] [address]25, [address] [facility], [place], [address], 0 16:23:53 Patient TargetsNo targets recorded. Patient Instructions Encounter Date Encounter Id Patient Instructions Last Modified By Organization Details Last Modified Time 06/12/2019 [id number] carpal tunnel syndrome: care instructions [email or web address] Not available 06/13/2019 19:06:54 carpal tunnel syndrome: exercises [email or web address] Not available 06/13/2019 19:06:54 12/22/2019 [id number] due to insurance limitations, baclofen was decreased to three times rather than 4 times a day. [email or web address] Not available 12/27/2019 18:46:48 02/12/2020 [id number] Stress Incontinence: Care Instructions [email or web address] Not available [...] DO Not Attach Compendium, Do Not Delete/merge, [id number] 06/12/2019 10:04:40 06/12/19 20 06/12/2019 rapid flu (A+B) Flu B negati ve Not Available In-Office Order Internal Use Only DO Not Attach Compendium DO Not Attach Compendium, Do Not Delete/merge, [id number] 06/12/2019 10:04:40 09/11/19 21 09/11/2020 TSH+T 4F+T3 FREE+ TPO TSH 2.210 uIU/m L 0.450- 4.500 Not Available [facility] ([facility]) [address] [place], [address], 09/11/2020 06:40:52 09/11/1909/11/2020 TSH+T 4F+T3 FREE+ TPO triiodothyro nine (T3), free 2.9 pg/mL 2.0-4. 4 Not Available [facility] ([facility]) [address] [place], [address], 09/11/2020 06:40:52 09/11/19 21 09/11/2020 TSH+T 4F+T3 FREE+ TPO T4,free(dire ct) 1.24 NG/dL 0.82-1 .77 Not Available [facility] ([facility]) [address] [facility], [place], [address], 09/11/2020 06:40:52 09/11/1909/11/2020 TSH+T 4F+T3 FREE+ TPO thyroid peroxidase (tpo) Ab <9 IU/mL 0-34 Not Available [facility] ([facility]) [address] [place], [address], 09/11/2020 06:40:52 08/13/1908/12/2020 US, thyro id No observ ation record ed. [email or web address] [facility] [address], [place], [address], 08/30/2020 10:02:16 09/28/19 21 09/26/2020 MAMMO , scree shana, bilat eral No observ ation record ed. [facility] [address], [place], [address], 10/06/2020 16:46:46 10/14/19 21 10/13/2020 CT, head, w/o contr ast No observ ation record ed. [address], [place], [address], 10/25/2020 16:36:17 10/14/19 21 10/13/2020 CT, neck, soft tissu e, w/ contr ast No observ ation record ed. [address], [place], [address], 10/25/2020 16:36:18 10/14/19 21 10/13/2020 XR, chest No observ ation record ed. [address], [place], [address], 11/29/2020 14:46:49 12/20/1912/19/2020 XR, chest No observ ation record ed. [address], [place], [address], 12/22/2020 12:48:28 12/20/1912/19/2020 XR, shoul curly No observ ation record ed. [address], [place], [address], 12/22/2020 12:49:03 Result Notes None recorded. Problems Name Problem SNOMED Code Status Onset Date Resolution Date Notes Provider Name and Address Organization Details Recorded Time Fibromyalgia 998549086 Active 2018 SKYE BARAJAS Attn: Martha g,[address] [facility], [place], [address], [facility] 9 16:17:41 Osteoarthritis 893837521 Active 2018 MOO BARAJASC Attn: Accountleo g,[address] [facility], [place], [address], [place] [facility] 9 16:17:51 Loss of hair 423241016 Active 2018 ALONDRA BARAJAS-C Attn: Martha g,[address] [facility], [place], [address], [place] [facility] 9 16:18:20 Bladder muscle dysfunction - overactive Active 2018 ALONDRA BARAJAS-C Attn: Accountleo g,[address] [facility], [place], [address], [place] [facility] 9 16:25:54 Headache 35493157 Active 2019 NAOMI Coker, [facility] 0 10:14:10 Problem Notes None recorded. Procedures Surgical History Date Name Laterality Status Provider Name and Address Organization Details Recorded Time 03/18/18 92 Total hysterectomy completed Shanell Black MA [facility] 06/12/2019 10:15:27 Back Surgery completed Lynn Cisse MA [facility] 04/03/2017 10:18:15 Knee Surgery completed Lynn Cisse MA [facility] 04/03/2017 10:18:20 Tonsillectomy completed Lynn Cisse MA [facility] 04/03/2017 10:18:26 procedure on urinary bladder completed Shanell Black MA [facility] 09/08/2019 16:01:33 Imaging Results None recorded. Procedure Notes None recorded. Medical Equipment None Reported. Allergies Allergen ID Allergen Name Allergen Category Reaction Reaction Severity Criticality Documentation Date Start Date Code Code System Note Provider Name and Address Organization Details Recorded Time 990143 Compazine medicatio n anaphylax is Not available Not available 04/03/201709756 6 RxNorm NAOMI Moore, [place] - [facility] 8 10:16:48 207952 Iodinated contrast media (substanc e) medicatio n rash Not available Not available 04/03/2017 96264 2004 SNOMED Lynn Cisse MA null, [place] - [facility] 8 10:17:18 571886 Dilaudid medicatio n rash Not available Not available 04/03/2017 77936 3 RxNorm Lynn Cisse [place], [place] - [facility] 8 10:17:45 449880 strawberr y allergeni c extract food Not available Not available Not available 02/12/2020 11767 4 RxNorm Jessica Verdin null, [place] - [facility] 0 14:20:07 Medications Name Sig Start Date [...] blood by Pulse oximetry Heart rate Systolic And Diastolic Provider Name and Address Organization Details Last Updated DateTime 0 172.72 cm 30.4 kg/m2 39196.1 7 g 98 % 98 % 79 /min 142/98 mm[Hg] Shanell Black MA [facility] 0 10:17:10 Date Recorded Body height Pain severity - 0-10 verbal numeric rating [Score] - Reported Respiratory rate Body temperature Body mass index (BMI) Body weight Heart rate Systolic And Diastolic Provider Name and Address Organization Details Last Updated DateTime 1 172.72 cm 4 18 /min 97.5 [degF] 34.5 kg/m2 438632. 39 g 85 /min 171/92 mm[Hg] Jessica Verdin [facility] 1 10:44:44 Date Recorded Body height Pain severity - 0-10 verbal numeric rating [Score] - Reported Body temperature Body mass index (BMI) Body weight Heart rate Systolic And Diastolic Provider Name and Address Organization Details Last Updated DateTime 0 172.72 cm 8 97.1 [degF] 32 kg/m2 89370.1 2 g 91 /min 135/78 mm[Hg] Jessica Verdin [facility] 0 14:21:30 Social History Question Answer Notes LastModified by Organizat ion Details LastModified Time Tobacco Smoking Status Never Smoker Lynn Cisse MA [facility], [facility] 04/03/2017 10:20:06 Are You Blind Or Do [...] 04/03/2017 Are you able to care for yourself independently? Yes Information not available 04/03/2017 Do you have difficulty dressing, bathing, grooming, or toileting? No Information not available 04/03/2017 Do you [...] Eating Disorder N Anemia N Heart Attack (VT) N Anxiety Disorder N Diabetes N Muscle, [...] Immunizations Vaccine Type Date Status Note Provider Mayank virgen and Address Organization Details Recorded Time influenza, unspecified formulation 0 completed NAOMI Coker, [place] - [facility] 01/11/2020 11:11:06 COVID-19, mRNA, LNP-S, PF, 30 [...] quadrivalent, preservative free 8 completed Not Available [facility] 04/18/2019 02:11:47 Past Encounters Encounter ID Performer Location Encounter Start Date Encounter Closed Date Diagnosis/Indication Diagnosis SNOMED-CT Code Diagnosis ICD10 Code Diagnosis IMO Codes Diagnosis Note [id number] Kalli Mak MD [facility] [address] [place] [address] 04/03/2017 09:59:43 04/03/2017 12:30:46 Tinea corporis 30062706 B35.4 Obesity 109551608 E66.9 Osteoarthr itis of knee 689655497 M17.11 has knee replacemen t scheduled for July by Dr. Ireland Screening for malignant neoplasm of colon 581290524 Z12.11 [id number] Kalli Mak MD [facility] [address] [place] [address] 04/30/2017 15:14:33 05/01/2017 11:00:30 Increased frequency of urination 458537567 R35.0 microscopi c hematuria but no signs of infection- -probably kidney stone. Increase fluid intake and follow up with urologist. Microscopic hematuria 19 7996315 R31.21 Pruritic rash 46950570 L 28.2 terbinafin e does not seem to be helping. Moderate r ecurrent major depression 46005073 F33.1 pt denies homicidal or suicidal ideation, but has job stress and worries about her ailing mother and her own health problems. Counseling 866737915 Z71 .9 pt wants help planning switch to a less stressful job and dealing with family health stress. [id number] Duane Mitchell MD [facility] ([address]) [address] [place] [address] 11/12/2017 09:09:37 11/12/2017 11:13:17 Non-scarring alopecia 137819623 L65.9 [id number] Kalli Mak MD [facility] [address] [place] [address] 01/09/2018 16:41:31 01/09/2018 17:51:11 Moderate recurrent major depression 41287330 F33.1 pt denies homicidal or suicidal ideation, but has job stress and worries about her ailing mother and her own health problems. Alopecia 71891835 L65.9 [id number] Kalli Mak MD [facility] [address] [place] [address] 05/23/2018 10:36:25 05/30/2018 08:13:57 Screening colonoscopy 160933944 Z12.11 Bladder mu scle dysfunction - overactive 422728551 N32.81 Herpes labialis 6013136 B00.1 Screening mammography 24 284500 Z12.31 Moderate r ecurrent major depression 62947355 F33.1 pt denies homicidal or suicidal ideation, but has job stress and worries about her ailing mother and her own health problems. Upper resp iratory infection 99084905 J06.9 Patient appears to have a resolving viral respirator y infection; increase rest and fluids, call if symptoms do not resolve over the next 3 days. [id number] Jodi Ramos MD [facility] [address] [place] [address] 07/10/2018 15:15:26 07/11/2018 08:07:57 Screening for malignant neoplasm of breast 773245378 Z12.31 -Pt requesting order as she had not completed previous Dizziness 150638998 R42 -Pt presents with dizziness (see HPI for detail)-Ne gative HallPike Maneuver-D izziness is constant and not connected to injury-His torical dizziness treated with meclizine, yet secondary to accident-R eports weakness of BLE at timesCT to rule out central lesions due to H/A, intermitte nt weakness and constant dizziness. Pt unable to tolerate work. Bladder mu scle dysfunction - overactive 553253556 N32.81 -Pt reports that her OAB has not improved. Continues with urge frequency- Reports that visit with PCP included discussion to increase Vesicare to BID at max dose of 10mg. Requests med goes to pharmacy on file with 340B participat ion. [id number] Kalli Mak MD [facility] [address] [place] [address] 08/21/2018 16:45:55 09/01/2018 09:00:52 Mixed urinary incontinence 006270163 N39.46 Memory impairment 586348 006 R41.3 Occipital headache 32441 7 R51 [id number] Kalli Mak MD [facility] [address] [place] [address] 12/26/2018 16:37:40 12/29/2018 12:15:58 Constipation 82831673 K59.00 Lung mass 554844757 R91. 8 X ray indicated patient had a single nodule in the right lower lobe; will check results of CT scan of chest, but radiologis t indicated it was probably a granuloma. [id number] Kalli Mak MD [facility] [address] [place] [address] 06/12/2019 09:58:57 06/15/2019 12:58:01 Influenza-like symptoms 949700825 R68.89 Chicken soup, orange juice, popsicles, snow cones, slurpees, ice cream, tea with honey and lemon, hot lemonade, gatorade, and yogurt may make you feel better. Use tylenol not ibuprofen for fever. Carpal lexis cristina syndrome 27843697 G56.01 [id number] Kalli Mak MD [facility] [address] [place] [address] 09/08/2019 10:03:11 09/09/2019 12:51:22 Cervical radiculopathy 84291138 M54.12 Patient will continue to do home exercises for her shoulder. Moderate r ecurrent major depression 13196378 F33.1 pt denies homicidal or suicidal ideation, but has job stress and worries about her ailing mother and her own health problems. She was advised that the alcohol is probably making her depression worse and was encouraged to slow down and stop. She also was prescribed thiamine for brain protection . [id number] Kalli Mak MD [facility] [address] [place] [address] 12/22/2019 13:00:16 12/28/2019 09:40:21 Migraine 67296481 G43.911 avoid dehydratio n and triggers for migraine Primary fi bromyalgia syndrome 36011048 M79.7 [id number] Jose Juan Richardson MD [facility] [address] [place] [address] 02/12/2020 14:10:04 02/12/2020 14:40:18 Urinary incontinence 739842166 R32 constant drip [id number] [facility] Bishop [facility] [address] [place] [address] 10/18/2020 10:31:09 10/18/2020 11:16:52 Chronic sinusitis 58226033 J32.9 Cervical lymphadenopathy 536020292 R59.0 Thyroid nodule 248620227 E04.1 repeat ultrasound a year Health Concerns Section Related Observation LastModified by Organization Detai ls LastModified Time None Recorded Concern Status LastModified by Organization Details LastModified Time None Recorded Advance Directives Directive None Recorded Payers Insurance Date Sequence Insurance Name Policy Number Policy Williamson Covered Member ID Williamson Member ID Guarantor Name 09/20/2020 1 [place] [id number] Bessie Snider [id number] Bessie Snider 09/20/2020 2 [employer] (POS) [id number] Bessie Snider [id number] Bessie Snider Notes Date Note Type Note Provider Name and Address Organization Details Recorded Time 0 text/html Peripheral NeuropathyReported by PatientHPIFor location, patient reportsnumbness,tingling, andweak limbs. For quality, patient reportscramping. For associated symptoms, patient reportsloss of muscle massanddrops items(right arm and hand have numbness, tingling and weakness going to the thumb, index, and middle fingers.). For hand dominance, patient reportsright. For severity, patient reportsmoderate. For onset/timing, patient reportsgradual onset. For context, patient reportsno change in moodandno change in sleep.ROS as noted in the [facility] Kalli Mak MD Attn: Accounting,[address] [place], [address], [facility] 06/13/2019 19:07:24 0 text/html Neck PainReported by PatientHPIFor neurological complaints, patient reportsnumbness of the arms,tingling of the arms, andpain in the arms. For pain, patient reportssharp,worse with movement, andworse with activity. For treatment, patient reportspt/ot(tylenol with codeine). For trauma, (pinched nerve in neck).ROS as noted in the [facility] Kalli Mak MD Attn: Accounting,[address] [place], [address], [facility] 09/08/2019 23:29:39 0 text/html HeadacheReported by PatientHPIFor quality, patient reportsthrobbing,tightnes s, andpainbut reportssimilar to previous headaches. For onset/timing, patient reportsworsebut reportsgradual(happen several times a month.). For associated symptoms, patient reportsnausea,rhinorrhea, photophobia,blind spots,tearing/watery eyes,confusion,slurred speech, andwith preceeding aura(hyperacusis). For location, patient reportsunilateralandinclu ding neck. For severity, patient reportsmoderate. For duration, patient reportsintermittent. For context, patient reportsoccurs with exertion,occurs in a cyclical pattern,occurs with menstrual cycle,triggered by life events,stress at work,poor sleep,food,positional,tri ggered by alcohol, andtriggered by caffeine. For aggravating factors, patient reportsloud noise(emotional stress, bright flashing lights). For alleviating factors, patient reportslaying in a dark room,sleep, andrest. FibromyalgiaReported by PatientHPIFor timing, patient reportsworse in the pm. For pain in joints or muscles, patient reportspain of joints or muscles. For aggravating factors, patient reportsemotional stressandexercise. For associated symptoms, patient reportsfatigue,irritable bowel syndrome (ibs),sleep disorders,chronic headaches,jaw pain,memory impairment,morning stiffness,muscle spasms,numbness/tingling in the extremities,dizziness,lig htheadedness, andabnormal skin sensitivity. For frequency, patient reportsintermittent. For duration, patient reports___ years. For location, patient reportsdiffuse. For severity, patient reportsmoderate. For alleviating factors, patient reportsrest,heat,cold,mus krystal relaxers,nsaids, andantidepressants.ROS as noted in the HPI Kalli Mak MD Attn: Accounting,[address] [place], [address], [facility] 12/27/2019 18:47:15 0 text/html ROS as noted in the HPI Bladder suspension with possible revision two years ago. was dry for very short time and has been wet since. 4-5 pads/dry change with iincontinence in bed (constant drip) refractory to oral meds. Does not smoke or drink. Jose Juan Richardson MD [address] [place], [address], [facility] 02/12/2020 14:40:16 1 text/html ROS as noted in the HPI patient is complaining of swelling and tenderness [...] on antihistamine And Flonase Sukhi Bishop MD [address] [place], [address], [facility] 10/18/2020 11:01:41 OBGyn Episode No OBEpisode recorded.
--- OUTSIDE RECORDS SUMMARY | 2024-12-10 15:51 | XMS_ITS | Clinical Summary ---
Author Organization [facility] Address [address] [place] [address] Phone Care Team Providers Care Veterinary Anatomist Name Role Phone Unavailable Primary Care Provider [...] of 3 - 19+ 3-dose series) 1984 Cologuard 2010 Colonoscopy 2010 Colorectal Cancer Screening 2010 Immunochemical Fecal Occult Blood 2010 Pneumococcal Immunization (50+ years) (1 of 1 - PCV) 2015 Zoster Immunization (1 of 2) 2015 SARS-COV-2 Immunization ( season) 2023 02/04/2021, 07/20/2020, 06/29/2020 Influenza Immunization (#1) 2024 09/0 09/2018, 12/01/2017, 04/01/2017, Additional history exists Respiratory Syncytial Virus (RSV) Immunization (Adult) (1 - 1-dose 75+ series) 2040 DTaP/Tdap/Td Immunization Discontinued 2015, 12/02/2013, 08/30/2012 TdaP Immunization Completed 07/29/2015, , 08/30/2012 Human Papillomavirus (HPV) Immunization Aged Out No longer eligible based on patient's age to complete this topic Meningococcal Immunization (ACWY) Aged Out No longer eligible based on patient's age to complete this topic Rotavirus Immunization Aged Out No lo nger eligible based on patient's age to complete this topic Insurance
--- OUTSIDE RECORDS SUMMARY | 2024-12-10 15:52 | XMS_ITS | Data Portability ---
Author Organization [place] - [employer], Main Office Address [address] [place] [address] Care Team Providers Care Napkin Machine Operator Name Role Phone ANDREA ANDINO Primary Care Provider [phone] ANDREA ANDINO Referring Provider [phone] Assessment Encounter Date Assessment Date Assessment LastModified [...] DO Not Attach Compendium, Do Not Delete/merge, [address] 16:17:20 Surgeries None recorded. Imaging XR, shoulder, 2 or more view 2023 024 [email or web address] [facility], [address] [facility] [address], [place], [address], 13:59:34 Medication Orders bupivacaine HCl 0.5 % (5 mg/mL) injection solution 2023 024 [email or web address] [facility] [address], [address] [place], [address], 17:15:03 Kenalog 10 mg/mL suspension for injection 2023 024 [email or web address] [facility] [address]25, [address] [facility], [place], [address], 17:15:03 Patient TargetsNo targets recorded. Patient InstructionsNo [...] view No observ ation record ed. [email or web address] [facility] [place] [address], [place], [address], 06/28/2023 13:59:33 07/04/19 24 MRI, shoul curly, w/o contr ast No observ ation record ed. Not Available 2023 08:40:28 Result Notes None recorded. Problems Name Problem SNOMED Code Status Onset Date Resolution Date Notes Provider Name and Address Organization Details Recorded Time Hyperchole sterolemia 42590094 Active 2018 Not Available [facility] 3 20:58:59 Constipati on 71189715 Active 2018 Not Available [facility] 3 20:59:00 Asthma 304082862 Active 2018 Not Available [facility] 3 20:59:00 Depressive disorder 02262227 Active 2018 Not Available [facility] 3 20:59:00 Hypertensi ve disorder 87636154 Active 2018 Not Available [facility] 3 20:59:00 Diabetes mellitus 53815016 Active 2018 Not Available [facility] 3 20:59:00 Pain of right shoulder joint 3623307071335 9100 Active 2023 Huong Zuniga, RMA null, [employer] [facility] [employer] [facility] 4 09:11:08 Biceps tendinitis 910321304 Active 2023 Rakesh Duran MD [address] [place] [address], [place], [address] , [facility] [employer] [facility] [employer] [facility] 4 16:56:08 Problem Notes None recorded. Procedures Surgical History Date Name Laterality Status Provider Name and Address Organization Details Recorded Time 04/24/20 24 Ortho - Cortisone Injection completed Rakesh Duran MD [address] [facility], [place], [address], [facility] 07/10/2023 16:55:53 Laminectomy completed Huong Zuniga [facility] 06/28/2023 09:09:08 Microdiscectomy completed Huong Zuniga [facility] 06/28/2023 09:09:47 Knee Surgery completed Huong Zuniga [facility] 06/28/2023 09:10:26 Imaging Results None recorded. Procedure Notes None recorded. Medical Equipment None Reported. Allergies Allergen ID Allergen Name Allergen Category Reaction Reaction Severity Criticality Documentation Date Start Date Code Code System Note Provider Name and Address Organization Details Recorded Time 35389 Iodinated contrast media (substanc e) medicatio n rash Not available Not available 05/16/2022 82511 2004 SNOMED Not Available [facility] 3 20:59:40 78735 Dilaudid medicatio n rash Not available Not available 05/16/2022 22453 3 RxNorm Not Available [facility] 3 20:59:40 61892 Compazine medicatio n Not available Not available Not available 05/16/2022 92299 6 RxNorm Not Available [facility] 3 20:59:40 Medications Name Sig Start Date [...] suspension for injection in office 2023 active [facility]: 0003- [id number]- 20 Not Available Not [...] 0.5 ML SUBCUTANE OUSLY ONCE A WEEK 04/12 /2024 completed Not Available Not Available Not Available Vitals Date Recorded Body height Body mass index (BMI) Body weight Pain severity - 0-10 verbal numeric rating [Score] - Reported Provider Name and Address Organization Details Last Updated DateTime 06/28/2023 175.26 cm 31 kg/m2 21997.4 g 9 PEDRO Echevarria [facility] 06/28/2023 09:06:27 Date Recorded Body height Body mass index (BMI) Body weight Provider Name and Address Organization Details Last Updated DateTime 07/10/2023 175.26 cm 31 kg/m2 64650.4 g Saira Lazcano [facility] 07/10/2023 15:44:45 Date Recorded Body height Body mass index (BMI) Body weight Pain severity - 0-10 verbal numeric rating [Score] - Reported Provider Name and Address Organization Details Last Updated DateTime 08/21/2023 175.26 cm 32.5 kg/m2 34261.32 g 3 Huong Nadia [facility] 08/21/2023 15:50:09 Social History Question Answer Notes LastModified by Nvest Details LastModified Time Tobacco Smoking Status Unknown If Ever Smoked PEDRO Echevarria [facility] 06/28/2023 09:08:41 What Was The Date Of Your Most Recent Tobacco Screening? 06/28/2023 [email or web address] Information not available 06/28/2023 Sex: Unknown Functional Status Question Answer Note LastModified by [employer]vest Details LastModified Time What is your level of alcohol consumption? Occasional [email or web address] Information not available 06/28/2023 Mental Status None recorded. Family History Relationship Description Onset Age of this Age Resolved Age Notes LastModified by Organization Details LastModified Time Mother Heart disease Not available 2023 09:08:01 Mother Family history of malignant neoplasm Not available 2023 09:08:08 Mother Hypertensive disorder [email or web address] Not available 2023 09:08:18 Mother Diabetes mellitus Not available 2023 09:08:26 Medical History Condition Response URINARY/BLADDER/KIDNEY PROBLEMS Y Gynecological HistoryNo gynecological history recorded. Obstetrics History GPAL:G 0 P 0 0 0 0 Past Encounters Encounter ID Performer Location Encounter Start Date Encounter Closed Date Diagnosis/Indication Diagnosis SNOMED-CT Code Diagnosis ICD10 Code Diagnosis IMO Codes Diagnosis Note [id number] Rakesh Duran MD [facility] [address] [place] [address] 06/28/2023 08:50:33 06/28/2023 09:39:56 Pain of right shoulder joint 4477933683 9127183 M25.726 [id number] Rakesh Duran MD [facility] [address] [place] [address] 07/10/2023 15:36:26 07/10/2023 16:15:56 Pain of right shoulder joint 4263451643 7485410 M25.511 Biceps tendinitis 20270722 007 M75.21 [id number] [address] [facility] [address] [place] [address] 08/21/2023 15:43:43 08/21/2023 16:24:23 Pain of right shoulder joint 2802767413 7205747 M25.511 Health Concerns Section Related Observation LastModified by Organization Detai ls LastModified Time None Recorded Concern Status LastModified by Organization Details LastModified Time None Recorded Advance Directives Directive None Recorded Payers Insurance Date Sequence Insurance Name Policy Number Policy Williamson Covered Member ID Williamson Member ID Guarantor Name 08/27/2023 1 [place] [id number] Bessie Snider [id number] Bessie Snider OBGyn Episode No OBEpisode recorded.
--- NOTE | 2024-12-10 15:56 | PC.NURSE ---
called lab to add on BNP
--- NOTE | 2024-12-10 15:57 | PC.NURSE ---
called lab to add on D Dimer
[2024-12-10 16:15] LABS: NT Pro B Type Natriuretic Pept 20 pg/mL (19.9-100)
[2024-12-10] MEDS: KETOROLAC 30 MG/ML VIAL (*BKC) IV PUSH (16:58)
[2024-12-10] MEDS: ONDANSETRON INJ 4 MG/2 ML VIAL IV PUSH (16:58)
[2024-12-10] MEDS: LACTATED RINGERS 1,000 ML 999 ML IV CONT (16:59)
--- NOTE | 2024-12-10 17:15 | ECG_ITS ---
Test Date: 2024-12-10 17:24:33 Measurements Intervals [place] Rate: 81 P: 15 ND: 172 QRS: 10 QRSD: 80 T: 30 QT: 367 QTc: 427 Interpretive Statements SINUS RHYTHM WITH OCCASIONAL VENTRICULAR PREMATURE COMPLEXES MINIMAL VOLTAGE CRITERIA FOR LVH, CONSIDER NORMAL VARIANT [MEETS CRITERIA IN ONE OF: R(aVL), S(V1), R(V5), R(V5/V6)+S(V1)] Electronically Signed On 12-10-2024 19:07:41 CDT by Salome Ramirez M.D.
--- OUTSIDE RECORDS SUMMARY | 2024-12-10 17:19 | XMS_ITS | Clinical Summary ---
Author Organization [facility] Address [address] [place] [address] Care Team Providers Care Traveling Buyer Name Role Phone Ricci Soren WATKINS Primary Care Provider [phone] Source Comments [facility],non-owned Affiliates and Associated Physician Practices is amultiple site organization consisting of ambulatory clinics and hospital sitesin [place], [place], [place] and [place]. This disclosure is being madepursuant to the Care Everywhere program and may not contain all information available regarding this patient. 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
--- OUTSIDE RECORDS SUMMARY | 2024-12-10 17:19 | XMS_ITS | Clinical Summary ---
Author Organization [facility] Address [address] [place] [address] Care Team Providers Care Pantograph Machine Operator Name Role Phone Unavailable Primary Care [...] on file Legal Sex Female 11:41 AM EVENT EXECUTIVE Gender Identity Not on file Sexual Orientation Not on file Last Filed Vital Signs Vital Sign Reading Time Taken Comments Blood Pressure 138/91 05/07/2022 12:43 PM EVENT EXECUTIVE Pulse 93 05/07/2022 12:43 PM EVENT EXECUTIVE Temperature 36.3 C (97.3 F) 05/07/2022 12:43 PM EVENT EXECUTIVE Respiratory Rate 16 05/07/2022 12:43 PM EVENT EXECUTIVE Oxygen Saturation 98% 05/07/2022 12:43 PM EVENT EXECUTIVE Inhaled Oxygen Concentration - - Weight 99.8 kg (220 lb) 05/07/2022 12:43 PM EVENT EXECUTIVE Height 175.3 cm (5' 9) 05/07/2022 12:43 PM EVENT EXECUTIVE Body Mass Index 32.49 05/07/2022 12:43 PM EVENT EXECUTIVE Plan of Treatment Health Maintenance Due Date [...]
--- OUTSIDE RECORDS SUMMARY | 2024-12-10 17:19 | XMS_ITS | Clinical Summary ---
Author Organization [facility] Address [address] [place] [address] Phone Care Team Providers Care Pest Control Chemical Technician Name Role Phone Unavailable Primary Care Provider [...] CONTROL/GO-LESS PO) Take by mouth. Active Saw [place] 450 MG Capsule Take by mouth. Active [...]
[2024-12-10 17:49] LABS: Troponin I < 0.012 ng/mL (0.000-0.034)
[2024-12-10] MEDS: fentaNYL CITRATE INJ (*CRX) 100 MCG/2 ML VIAL 50 MCG IV PUSH (18:37)
[2024-12-10] MEDS: METOCLOPRAMIDE HCL INJ 10 MG/2 ML VIAL IV PUSH (18:38)
--- NOTE | 2024-12-10 19:59 | ADMGEN ---
This patient, Bessie Snider, was admitted to IMU Room 211-01 on 12/10/24 at 1919. Patient/family oriented to hospital policies and general routines including ID bracelet, bed and alarms, visiting hours, pain management, procedures, bathroom and other care routines, personal items, smoking policy, room service/diet, and visiting hours. Information on how to activate the Rapid Response Team has been discussed. Patient/Family are encouraged to report perceived risks to care and to ask questions if they do not understand what they are told or what they should do.
--- NOTE | 2024-12-10 20:21 | ECG_ITS ---
Test Date: 2024-12-10 21:08:01 Measurements Intervals [place] Rate: 83 P: 35 TN: 179 QRS: -2 QRSD: 82 T: 5 QT: 377 QTc: 444 Interpretive Statements REDUCED ECG QUALITY WITH BASELINE ARTIFACT SINUS RHYTHM WITH OCCASIONAL VENTRICULAR PREMATURE COMPLEXES LEFT VENTRICULAR HYPERTROPHY AND ST-T CHANGE [VOLTAGE CRITERIA PLUS ST/T ABNORMALITY] ABNORMAL ECG Compared to ECG 12/10/2024 17:24:33 NO SIGNIFICANT CHANGE Electronically Signed On 12-11-2024 07:38:05 CDT by Owen Monaco M.D.
--- NOTE | 2024-12-10 20:40 | P.HP_ITS ---
H&P: HPI History of Present Illness Date/Time: 12/10/24 20:40 Chief Complaint: Chest pain Narrative: This is a very pleasant 59-year-old female patient with history of COPD, hypertension, dyspnea on exertion, arthritis, depression, sleep apnea, fibromyalgia, DVT and migraines who presented to the the room today due to worsening chest pain. Patient reports that for months she has had increasing dyspnea on exertion with intermittent chest pain that is midsternal but multiple treatment changes throughout pulmonology as and do not seem to be pulmonary related. Patient states today at 11:00 a.m. at rest she developed a midsternal chest pressure that was followed by sharpness in the middle of her chest. There was no radiation, however she did have diaphoresis, nausea and dyspnea. Patient states the pain is constant and a varying degree with the worst being 8 or 9/10. She states when it occurred today she took some aspirin and laid down to see if the pain would go away but when it did not she presented to the emergency room. She is not able to identify any exacerbating or alleviating factors. She does give history of having a stress test that was abnormal 3 years ago and had a left heart catheterization performed by Dr. Garcia that was negative for any coronary artery stenosis requiring intervention. In the emergency room workup was performed with labs, imaging EKG. The EKG showing normal sinus rhythm 97 beats per minute without any ectopy or ischemia. Vital signs were normal. Patient's metabolic panel was unremarkable. Her coags were normal. CBC with WBCs of 14.1 nonspecific. Troponin negative x2, BNP of 20 and lipase of 120. Chest x-ray performed in the emergency room showed no active cardiopulmonary disease. As patient has allergy to contrast CTA could not be performed but new med study was performed that was negative for pulmonary embolism and was otherwise a normal ventilation/perfusion exam. Patient is being admitted in the current setting for observation even though her heart score is low at 2, she does have history of an abnormal stress test in the past and has not followed with cardiology in the past 3 years. She will be provided with pain control and telemetry monitoring while being in observation status here. Review of Systems Review of Systems: All systems reviewed & are unremarkable except as noted in HPI and below PMFSH Past Medical History Medical History (Updated 12/10/24 @ 20:55 by JACKIE OsborneN-Carey) Leukocytosis, unspecified Chronic tonsillitis Abnormal finding on imaging Acute recurrent maxillary sinusitis Allergic reaction to food Arthralgia of temporomandibular joint, unspecified side Chronic fatigue and malaise Chronic pain of right knee Complex tear of medial meniscus of left knee Moderate episode of recurrent major depressive disorder Occult blood in stools Other chronic pain Pes anserine bursitis Sleep apnea in adult Traumatic gamekeeper's thumb of right hand Unilateral primary osteoarthritis, right knee Left shoulder pain Pes anserinus bursitis of right knee Left knee pain Fibromyalgia DVT (deep vein thrombosis) in Migraine Surgical History Surgical History Presence of right artificial knee joint H/O neck surgery History of hysterectomy Plate from C3-C6 History of cholecystectomy History of appendectomy Family History Family History Father Family history of kidney disease Family history of heart disease in male family member before age 55 Mother Family history of chronic obstructive pulmonary disease Other Diabetes mellitus Family history of cardiovascular disease Family history of lung disease Family history of osteoarthritis Hypertension Social History Social History Social History: Caffeine-daily Smoking status: Never smoker Second hand tobacco smoke exposure: Yes Alcohol intake: current Drinks per week: 2 Alcohol use details: chaot Substance use: never Substance use type: does not use Do You Feel Safe in your Home?: Yes Lack of Transportation: No Lack of Food: Never True Current Housing: I Have Housing Concerned About Future Housing: No Difficulty Paying Gas/Electric Bills: No Difficulty Paying for Meds: No Currently Unemployed: No Education: Master's Degree or Higher Difficulty w/ Childcare or Family Care: No Living arrangements: with family Occupation/Education: occupation 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 Gender identity (if verbalized by the patient): Female Spiritual care concerns: No Agree to blood products: Yes Meds Home Medications and Allergies Home Medications ?Medication ?Instructions ?Recorded ?Confirmed ?Type cetirizine 10 mg tablet (Zyrtec) 10 mg PO DAILY #30 ta bs 03/27/22 12/10/24 Rx albuterol sulfate 90 mcg/actuation 2 puff inhalation Q 4H PRN 08/06/24 12/10/24 History aerosol inhaler (Ventolin HFA) shortness of breath or wheezing colestipol 1 gram tablet 1 g PO BID PRN constipation 09/10/24 12/10/24 History tirzepatide (weight loss) 7.5 12.5 mg subcut WEEKLY 12/10/24 History mg/0.5 mL subcutaneous pen injector (Zepbound) vibegron 75 mg tablet (Gemtesa) 75 mg PO QHS 09/10/24 12/10/24 History losartan 50 mg-hydrochlorothiazide See Rx Instructions .Route 10/01/24 12/10/24 Rx 12.5 mg tablet .COMPLEX #90 tabs atogepant 60 mg tablet (Qulipta) 60 mg PO DAILY #30 ta bs 10/12/24 12/10/24 Rx ondansetron 4 mg disintegrating See Rx Instructions .R oute 10/16/24 12/10/24 Rx tablet .COMPLEX PRN nausea and vomi ting #60 tabs omeprazole 20 mg capsule,delayed 20 mg PO DAILY #90 ca ps 11/03/24 12/10/24 Rx release meloxicam 15 mg tablet 15 mg PO DAILY #90 tabs 11/1712/10/24 Rx aripiprazole 2 mg tablet 2 mg PO QHS 12/10/24 5 History cyclobenzaprine 10 mg tablet 10 mg PO TID PRN muscle s pasm 12/10/24 12/10/24 History diphenhydramine HCl 25 mg capsule 50 mg PO HS 12/10/24 12/10/24 History (Allergy (diphenhydramine)) epinephrine 0.3 mg/0.3 mL 0.3 mg IM ONCE PRN allergic 12/10/24 12/10/24 History injection, auto-injector (EpiPen reaction 2-Barrera) fluoxetine 20 mg capsule 20 mg PO QHS 12/10/24 History fluticasone furoate 200 1 inh inhalation DAILY 12/1012/10/24 History mcg-vilanterol 25 mcg/dose inhalation powder (Breo Ellipta) spironolactone 100 mg tablet 100 mg PO DAILY 12/10/24 12/10/24 History tramadol 50 mg tablet 50 mg PO Q6H PRN pain 12/10/24 History Allergies Allergy/AdvReac Type Severity Reaction Status Date / Time hydromorphone Allergy Severe Hives,Red Verified 12/10/24 20:06 Face prochlorperazine Allergy Severe ANAPHALAXIS Verified 12/10/24 20:05 shellfish derived Allergy Intermediate Hives Verified 12/10/24 20:07 IVP dye Allergy Severe Hives Uncoded 12/10/24 20:07 strawberries Allergy Severe Anaphylaxis Uncoded 09/25/24 09:35 Contrast Media Allergy Intermediate RASH Uncoded 09/25/24 09:35 Vital Signs Vital Signs - 24 hr 12/10/24 13:16 12/10/24 14:50 12/10/24 14:51 Temperature 97.9 F Pulse Rate 97 82 82 Respiratory Rate 16 15 16 Blood Pressure 118/75 106/72 106/72 Pulse Oximetry 100 100 100 Oxygen Delivery Room Air Room Air 12/10/24 14:54 12/10/24 14:55 12/10/24 16:27 Temperature Pulse Rate 81 79 Respiratory Rate 17 Blood Pressure 113/81 Pulse Oximetry 100 100 Oxygen Delivery Room Air 12/10/24 17:01 12/10/24 19:11 12/10/24 20:00 Temperature 97.9 F Pulse Rate 91 80 83 Respiratory Rate 27 H 20 20 Blood Pressure 121/79 110/70 110/64 Pulse Oximetry 100 100 100 Oxygen Delivery Exam Const: General: comfortable and no acute distress HENMT: Mouth: Yes moist mucous membranes Eyes: General: appearance normal, both eyes and all related structures Neck: Neck: supple and no JVD Thyroid: thyroid normal Carotids: no bruits Lymphatic: lymphadenopathy not noted Chest: Other: Reproducible tenderness to palpation mid-sternal. Resp: Effort & Inspection: normal respiratory effort Auscultation: clear to auscultation bilaterally Cardio: Rate: regular rate Rhythm: regular rhythm Heart sounds: no gallops, no murmurs and no rubs GI: GI Palp: Yes Soft to palpation and No Tenderness to palpation present (GI) Auscultation: normal bowel sounds Skin: General skin exam: normal color and no rashes or lesions noted Wounds: no wounds Neuro: General: gait normal Speech: normal speech Motor exam (neuro): 5/5 motor strength present throughout and Normal motor muscle tone present throughout Sensory Exam: normal sensation Extrem: General: normal to inspection and no edema Psych: Mental Status: mental status grossly normal Affect: normal affect H&P: Results Labs Labs: Short CBC 12/10/24 Range/Units 14:18 WBC 14.1 H (4.5-10.0) K/mm3 Hgb 13.7 (12.0-15.0) g/dL Hct 42.0 (37.0-47.0) % Plt Count 215 (150-375) k/mm3 BMP 12/10/24 14:18 Sodium 132 L Potassium 3.9 Chloride 97 L Carbon Dioxide 25 BUN 14 Creatinine 0.90 Glucose 93 Calcium 9.6 Cardiac Enzymes 12/10/24 12/10/24 Range/Units 14:18 17:21 Troponin I < 0.012 < 0.012 (0.000-0.034) ng/mL Liver Function 12/10/24 Range/Units 14:18 Total Bilirubin 0.6 (0.2-1.3) mg/dL AST 24 (14-36) U/L ALT 23 (6-35) U/L Alkaline Phosphatase 68 (38-126) U/L Albumin 4.4 (3.5-5.1) g/dL Assessment and Plan Assessment and plan (1) Chest pain in adult: Code(s): R07.9 - Chest pain, unspecified Status: Acute Assessment and Plan: * Acute on Chronic * Trop negative x2 so far * Admit to IMU for monitoring * Morphine 4 mg IVP prn chest pain * Ondansetron 4 mg IVP prn nausea * Nitro 0.4 mg SL prn chest pain * Telemetry * Defer Cardiology consult at this time, to reconsider if pain is not improved. * Current Heart Score 3 * Left echocardiogram 06/08/2022 showing grade 1 diastolic dysfunction and ejection fraction of 57%. Consider repeating if necessary. * Patient appears to be euvolemic (2) SOB (shortness of breath) on exertion: Code(s): R06.02 - Shortness of breath Status: Acute Assessment and Plan: * Acute on chronic. Etiology COPD vs. ACS vs. Infection * Chest x-ray was negative for any acute cardiopulmonary abnormalities and was independently reviewed by this practitioner. * Nuclear med ventilation/perfusion study was performed and is not indicative of pulmonary embolism or other acute abnormalities * Left echocardiogram 06/08/2022 showing grade 1 diastolic dysfunction and ejection fraction of 57%. * Patient appears euvolemic on exam (3) Leukocytosis, unspecified: Code(s): D72.829 - Elevated white blood cell count, unspecified Status: Acute Assessment and Plan: * Uncertain etiology given patient's symptoms and negative chest x-ray * Will collect a urine sample that was not performed in ER * Obtain inflammatory markers CRP, sed rate and LDH * Obtain COVID/Flu/RSV panel * Consider echo if up trending * Trend and monitor * Holding off on any antibiotic initiation at this time as no definite infections have been identified. (4) Essential (primary) hypertension: Code(s): I10 - Essential (primary) hypertension Status: Chronic Assessment and Plan: * Continue home medication of spironolactone 100 mg daily * Monitor and trend vital signs (5) Anxiety: Code(s): F41.9 - Anxiety disorder, unspecified Status: Chronic Assessment and Plan: * Continue home medications of Abilify (6) Gastroesophageal reflux disease: Code(s): K21.9 - Gastro-esophageal reflux disease without esophagitis Status: Chronic Assessment and Plan: * Protonix 40 mg IVP daily Quality VTE Prophylaxis VTE prophylaxis: mechanical ordered Hospitalist MIPS Advance Care Plan I have confirmed that the patient's Advanced Care Plan is present, code status is documented, or surrogate decision maker is listed in patient medical record.: Yes Medication Reconciliation I have utilized all available resources to obtain, update and review the patients current medications (includes all prescriptions, OTC, herbals, cannabis, and nutritional supplements).: Yes
[2024-12-10 21:19] LABS: Troponin I < 0.012 ng/mL (0.000-0.034)
[2024-12-10 21:26] LABS: CRP 1.3 mg/dL (<1.0)
[2024-12-10] MEDS: MORPHINE SULFATE (*CRX) 4 MG/ML INJ IV PUSH (22:34)
[2024-12-10] MEDS: diphenhydrAMINE HCl CAP 25 MG CAPSULE 50 MG PO (23:22)
[2024-12-10] MEDS: CYCLOBENZAPRINE HCL 10 MG TABLET PO (23:25)
[2024-12-10] MEDS: traMADol HCL (*CRX) 50 MG TABLET PO (23:25)
[2024-12-11] VITALS (17 sets, daily range): BP systolic 102–121; BP diastolic 57–75; PULSE 73–114; RESP 14–20; TEMP 36.4–36.6; O2SAT 98–100
--- NOTE | 2024-12-11 | ECHO_ITS ---
Patient Info Name: Bessie Snider Age: 59 years : 1965 Gender: Female Ht: 69 in Wt: 195 lbs BSA: 2.10 m2 HR: 80 bpm BP: 106 / 71 mmHg Heart Rhythm: Sinus Rhythm Technical Quality: Good Exam Date: 12/11/2024 12:29 PM Patient Status: O Admit Date: 12/10/2024 Exam Type: CA echo doppler color flow Complete two-dimensional, color flow and Doppler transthoracic echocardiogram is performed. Staff Referring Physician: Cathy Del Cid [facility] Practitioner: Jayna De Dios Attending Provider: Govind Lemus MD Summary 1. Complete two-dimensional, color flow and Doppler transthoracic echocardiogram is performed. 2. Small amount of mitral and tricuspid valve regurgitation. 3. Otherwise unremarkable echocardiogram. 4. Compared with exam from May of 2022 the findings are unchanged. Left Ventricle Left ventricular chamber dimension is normal. Left ventricular systolic function is normal, estimated at 60-65. The left ventricular diastolic function is grade I diastolic dysfunction. Right Ventricle Right ventricular chamber dimension is normal. Left Atria Left atrial chamber dimension is normal. Right Atria Right atrial chamber dimension is normal. Aortic Valve The aortic valve is normal. Pulmonic Valve The pulmonic valve is normal. Mitral Valve The mitral valve has normal leaflets. There is mild mitral valve regurgitation. Tricuspid Valve The tricuspid valve leaflets are normal. There is mild tricuspid valve regurgitation. Pericardium/Pleural The pericardium appears normal. Aorta The aortic root size at the sinus of Valsalva is normal. Left Ventricular Outflow Tract Name Value Normal LVOT 2D LVOT Diameter 1.9 cm LVOT Doppler LVOT Peak Velocity 122 cm/s LVOT Peak Gradient 6 mmHg LVOT Mean Gradient 3 mmHg LVOT VTI 26 cm LVOT VTI/AV VTI Ratio 0.9 LVOT Stroke Volume 78 ml LVOT CO 14.7 l/min LVOT CI 7.0 l/min/m2 Pulmonic Valve Name Value Normal PV Doppler PV Peak Velocity 80 cm/s PV Peak Gradient 3 mmHg Mitral Valve Name Value Normal MV Diastolic Function MV E Peak Velocity 84 cm/s MV A Peak Velocity 85 cm/s MV E/A 1.0 MV Decel Time (PW) 156 ms MV Annular TDI MV E/e' (Septal) 10.7 MV E/e' (Lateral) 8.6 MV E/e' (Average) 9.7 Tricuspid Valve Name Value Normal TV Regurgitation Doppler TR Peak Velocity 215 cm/s TR Peak Gradient 19 mmHg Estimated PAP/RSVP RA Pressure 10 mmHg <=5 PA Systolic Pressure 29 mmHg <36 RV Systolic Pressure 29 mmHg <36 TV Annular TDI TV Lateral Daphney s' Velocity 14.3 cm/s >=9.5 Aorta Name Value Normal Ascending Aorta Ao Root Diameter (MM) 2.7 cm Ao Root Diam Index (MM) 1.3 cm/m2 Aortic Valve Name Value Normal AV Doppler AV Peak Velocity 154 cm/s AV Peak Gradient 9 mmHg AV Mean Gradient 5 mmHg AV VTI 28 cm AV Area (Cont Eq VTI) 2.7 cm2 >=3.0 AV Area (Cont Eq Yomi) 2.4 cm2 AV DI (Yomi) 0.79 AV Regurgitation 2D LVOT Area 3.0 cm2 Ventricles Name Value Normal LV Dimensions 2D/MM IVS Diastolic Thickness (2D) 0.8 cm 0.6-1.0 LVID Diastole (2D) 4.2 cm 3.8-5.2 LVIW Diastolic Thickness (2D) 0.8 cm 0.6-0.9 LVID Systole (2D) 2.7 cm 2.2-3.5 LVOT Diameter 1.9 cm LV Mass (2D Cubed) 101.61 g 67.00-162.00 LV Mass Index (2D Cubed) 48 g/m2 43-95 Relative Wall Thickness (2D) 0.37 <=0.42 LV Fractional Shortening/Ejection Fraction 2D/MM LV Fractional Shortening (2D) 37 % 27-45 LV EF (2D Teichholz) 67 % LV Diastolic Volume (4C MOD) 97 ml LV EF (4C MOD) 57 % LV Diastolic Volume (2C MOD) 93 ml LV EF (2C MOD) 62 % LV Diastolic Volume (BP MOD) 96 ml 46-106 LV Diastolic Volume Index (BP MOD) 46 ml/m2 29-61 LV Systolic Volume (BP MOD) 39 ml 14-42 LV Systolic Volume Index (BP MOD) 19 ml/m2 8-24 LV EF (BP MOD) 59 % 54-74 LV Diastolic Length (4C) 8.3 cm LV Systolic Length (4C) 6.8 cm LV Stroke Volume (4C MOD) 55 ml RV Dimensions 2D/MM RVID Diastole (2D) 3.8 cm 2.1-3.5 Atria Name Value Normal LA Dimensions LA Dimension (MM) 3.5 cm 2.7-3.8 LA Volume (4C A-L) 49 ml LA Volume (BP A-L) 46 ml RA Dimensions RA Systolic Major Butner Length (4C) 4.8 cm 2.2-2.8 RA Area (4C) 14.1 cm2 <=18.0 Report Signatures
[2024-12-11 00:46] LABS: Influenza A QL RT-PCR Negative (Negative); Influenza B QL RT-PCR Negative (Negative); RSV RNA, RT-PCR Negative (Negative); SARS-CoV-2 RNA PCR Negative (Negative)
[2024-12-11 01:36] LABS: Add Urine Microscopic? YES; Appearance Urine Cloudy (Clear); Glucose Urine UA Negative (Negative); Leukocyte Esterase Ur 2+ LEU/UL (Negative); Nitrate Urine Negative (Negative); Non Pathogenic Casts 0-2; Specific Grav Ur 1.018 (1.001-1.035)
[2024-12-11 03:57] LABS: Hematocrit 37.4 % (37.0-47.0); Hemoglobin 12.1 g/dL (12.0-15.0); Immature Granulocyte Percent A 0.3 % (0-0.5); Lymphocytes Absolute Auto 2.45 K/mm3 (0.9-3.2); Mean Corpuscular HGB Conc 32.4 g/dl (32-36); Mean Corpuscular Hemoglobin 30.0 pg (26-34); Mean Corpuscular Volume 92.8 fl (80-100); Nucleated Red Blood Cells Absolute Auto 0.000 K/mm3 (0.0-0.012); Nucleated Red Blood Cells Perc 0.0 % (0.0-0.2); Platelet Count Result 282 k/mm3 (150-375); Red Blood Count 4.03 M/mm3 (4.2-5.4); White Blood Count 7.5 K/mm3 (4.5-10.0)
[2024-12-11 04:13] LABS: INR 1.0; Prothrombin Time 13.3 Seconds (11.1-14.7)
[2024-12-11 04:14] LABS: Partial Thromboplastin Time 25.6 Seconds (22.3-36.8)
[2024-12-11 04:24] LABS: Alanine Aminotransferase 19 U/L (6-35); Albumin Level 3.7 g/dL (3.5-5.1); Alkaline Phosphatase 51 U/L (38-126); Anion Gap 6 mmol/L (4-12); Aspartate Amino Transferase 28 U/L (14-36); Bilirubin,Total 0.5 mg/dL (0.2-1.3); Blood Urea Nitrogen 17 mg/dL (7-17); Calcium 9.1 mg/dL (8.4-10.2); Carbon Dioxide 26 mmol/L (22-30); Chloride 101 mmol/L (98-107); Estimated CRCL calculation 66 ml/min; Estimated Glomerular Filt Rate 59; Glucose 95 mg/dL (65-110); Magnesium 2.1 mg/dL (1.6-2.3); Potassium 4.2 mmol/L (3.4-5.0); Sodium 133 mmol/L (137-145); Total Protein 6.5 g/dL (6.3-8.2)
[2024-12-11] MEDS: ONDANSETRON INJ 4 MG/2 ML VIAL IV PUSH (06:30)
[2024-12-11] MEDS: FLUTICASONE/SALMETEROL 230-21 MCG INHALER 1 PUFF 2 PUFF INHALATION ×2 (07:33→21:17)
[2024-12-11] MEDS: NITROGLYCERIN SL 0.4 MG TABLET SUBLINGUAL (07:37)
--- NOTE | 2024-12-11 08:05 | ECG_ITS ---
Test Date: 2024-12-11 08:10:26 Measurements Intervals [place] Rate: 76 P: 20 [place]: 182 QRS: -8 QRSD: 80 T: 6 QT: 371 QTc: 419 Interpretive Statements SINUS RHYTHM MODERATE VOLTAGE CRITERIA FOR LVH, CONSIDER NORMAL VARIANT [MEETS CRITERIA IN ONE OF: R(aVL), S(V1), R(V5), R(V5/V6)+S(V1)] WARNING: DATA QUALITY MAY AFFECT INTERPRETATION Compared to ECG 12/10/2024 21:08:01 Ventricular premature complex(es) no longer present ST (T wave) deviation no longer present Electronically Signed On 12-11-2024 20:09:59 CDT by Salome Ramirez M.D.
--- NOTE | 2024-12-11 08:56 | PM.IMPN ---
Progress Note: A&P Assessment and Plan (1) Chest pain in adult: Code(s): R07.9 - Chest pain, unspecified Status: Acute Assessment and Plan: Patient with BUTLER with intermittent midsternal CP for months. Pulm workup negative. Patient had non-obstructive coronary arteries by [facility] July 2022. Trop negative x3. EKG showing NSR, minimal voltage criteria for LVH and possibly old anteroseptal IL. Repeat EKG showing similar findings Echo 06/08/22 showing grade 1 diastolic dysfunction and ejection fraction of 57%. VQ scan here was normal. Repeat EKG reviewed personally and showing similar findings but no acute ST-T wave changes. Consider pleurisy or musculoskeletal or anxiety related. Cards consult (2) SOB (shortness of breath) on exertion: Code(s): R06.02 - Shortness of breath Status: Acute Assessment and Plan: Pulmonary evaluation prior to admission was unrevealing. VQ scan normal. CXR showing no acute cardiopulmonary abnormalities Etiology COPD vs. infection vs autoimmune vs psychogenic Check orthostatic VS (3) Leukocytosis, unspecified: Code(s): D72.829 - Elevated white blood cell count, unspecified Status: Acute Assessment and Plan: WBC was 14K on admission. UA mildly abnormal but did prompt UCx. CXR clear. CRP 1.3, LDH 144, ESR 20. Repeat WBC normal. Continue to hold off on any antibiotic initiation at this time (4) Essential (primary) hypertension: Code(s): I10 - Essential (primary) hypertension Status: Chronic Assessment and Plan: Patient's blood pressure was reviewed on 12/11 Blood pressure remains well controlled. Will continue to monitor (5) Anxiety: Code(s): F41.9 - Anxiety disorder, unspecified Status: Chronic Assessment and Plan: Stable. Continue home medications of Abilify (6) Gastroesophageal reflux disease: Code(s): K21.9 - Gastro-esophageal reflux disease without esophagitis Status: Chronic Assessment and Plan: Stable. Continue Protonix. Plan DVT Prophylaxis - SCDs Code status - full Subjective Date/time seen: 12/11/24 08:56 Interval history: 59yo female patient with history of COPD, hypertension, dyspnea on exertion, arthritis, depression, sleep apnea, fibromyalgia, DVT and migraines who presented to the the room due to worsening chest pain. Called to the room for continued chest pain. Symptoms for about 6 days with chronic 'heavy' feeling in the chest and associated 'sharp' fleeting pains. Associated with nausea and lightheadedness. No radiation to the pain. Sharp pain lasts a few seconds. Heavy pain is worse with deep breaths. No sick contacts. Chest is sore to ouch. Cough that is nonproductive. No fever or chills but feels cold at times. Pain is better sitting up. Feels the sharp pain related to PVCs. Pain was 7/10. RN placed analy on O2 with some benfit of her symptoms. NTG given without benefit. Exam Narrative: AF 97.6 106/71 76 14 98% ra Gen - NARD Chest - CTA bilaterally, nml RR CV - RRR S1/S2. No rub. Tele showing NSR Abd - Soft, NT/ND, Positive BS Ext - No pedal edema.2+ DP pulses bilaterally Neuro - Alert and oriented. Nonfocal exam. Psych - Nml mood and affect Skin - Warm and dry Objective Data Vital Signs Vital Signs: Vital Signs - 24 hr 12/10/24 13:16 12/10/24 14:50 12/10/24 14:51 Temperature 97.9 F Pulse Rate 97 82 82 Respiratory Rate 16 15 16 Blood Pressure 118/75 106/72 106/72 Pulse Oximetry 100 100 100 Oxygen Delivery Room Air Room Air 12/10/24 14:54 12/10/24 14:55 12/10/24 16:27 Temperature Pulse Rate 81 79 Respiratory Rate 17 Blood Pressure 113/81 Pulse Oximetry 100 100 Oxygen Delivery Room Air 12/10/24 17:01 12/10/24 19:11 12/10/24 19:29 Temperature Pulse Rate 91 80 84 Respiratory Rate 27 H 20 Blood Pressure 121/79 110/70 Pulse Oximetry 100 100 Oxygen Delivery 12/10/24 19:51 12/10/24 20:00 12/10/24 20:00 Temperature 97.9 F Pulse Rate 83 83 98 Respiratory Rate 20 20 Blood Pressure 110/64 Pulse Oximetry 100 100 Oxygen Delivery Room Air 12/10/24 22:00 12/10/24 23:48 12/10/24 23:51 Temperature 97.8 F Pulse Rate 86 76 76 Respiratory Rate 20 20 Blood Pressure 102/59 L Pulse Oximetry 96 96 Oxygen Delivery Room Air 12/11/24 00:00 12/11/24 02:00 12/11/24 04:00 Temperature 97.8 F Pulse Rate 74 73 73 Respiratory Rate 20 Blood Pressure 104/63 Pulse Oximetry 98 Oxygen Delivery 12/11/24 04:00 12/11/24 04:00 12/11/24 06:00 Temperature Pulse Rate 73 75 74 Respiratory Rate 20 Blood Pressure Pulse Oximetry 98 Oxygen Delivery Room Air 12/11/24 08:00 12/11/24 08:49 12/11/24 08:49 Temperature 97.6 F Pulse Rate 76 Respiratory Rate 14 Blood Pressure 103/63 110/57 L 121/75 Pulse Oximetry 98 Oxygen Delivery 12/11/24 08:49 Temperature Pulse Rate Respiratory Rate Blood Pressure 106/71 Pulse Oximetry Oxygen Delivery Intake/Output Intake/Output: Intake & Output 12/08/24 12/09/24 12/10/24 12/11/24 23:59 23:59 23:59 23:59 Intake Total 1000 Output Total 450 Balance 1000 -450 Meds/Results Medications: Active Medications Generic Name Dose Route Start Last Admin Trade Name Freq PRN Reason Stop Dose Admin Albuterol 2 puff 12/10/24 20:52 Albuterol Sulfate (*Sp) Aerosol 1 Puff INHALATION Q4H PRN Shortness Of Breath Or Wheezing Aripiprazole 2 mg 12/10/24 21:00 12/10/24 23:22 Aripiprazole 2 Mg Tablet PO 2 mg QHS GEMA Administration Colestipol HCl 1 gm 12/10/24 20:52 Colestipol Hcl 1 Gm Tablet PO BID PRN Constipation Cyclobenzaprine HCl 10 mg 12/10/24 20:52 12/10/24 23:25 Cyclobenzaprine Hcl 10 Mg Tablet PO 10 mg TID PRN Administration Muscle Spasm Diphenhydramine HCl 50 mg 12/10/24 21:00 12/10/24 23:22 Diphenhydramine Hcl Cap 25 Mg Capsule PO 50 mg HS GEMA Administration Fluoxetine HCl 20 mg 12/10/24 21:00 12/10/24 23:22 Fluoxetine Hcl 20 Mg Capsule PO 20 mg QHS GEMA Administration Hydrochlorothiazide 12.5 mg 12/11/24 09:00 Hydrochlorothiazide 12.5 Mg Capsule PO QAM GEMA Loratadine 10 mg 12/11/24 09:00 Loratadine 10 Mg Tablet PO DAILY GEMA Losartan Potassium 50 mg 12/11/24 09:00 Losartan Potassium 50 Mg Tablet PO QAM GEMA Meloxicam 15 mg 12/11/24 09:00 Meloxicam 7.5 Mg Tablet PO DAILY GEMA Miscellaneous Information 1 each 12/11/24 00:01 12/11/24 05:41 Qulipta--Nonform; Can Pt Use From Home? XX 01/10/25 00:00 Not Given CLARIFY GEMA Miscellaneous Information 1 each 12/11/24 00:01 12/11/24 05:42 Please Send Home Gemtesa To Pharmacy For Verification When Possible XX 01/10/25 00:00 Not Given CLARIFY GEMA Morphine Sulfate 4 mg 12/10/24 20:55 12/10/24 22:34 Morphine Sulfate (*Crx) 4 Mg/Ml Inj IV PUSH 4 mg Q4H PRN Administration Pain Rated 7-10 Nitroglycerin 0.4 mg 12/11/24 04:43 12/11/24 07:37 Nitroglycerin Sl 0.4 Mg Tablet SUBLINGUAL 0.4 mg Q5MIN PRN Administration Chest Pain Non-Formulary Medication 60 mg 12/11/24 09:00 Atogepant [Qulipta] PO 01/10/25 08:59 DAILY [facility] Non-Formulary Medication 75 mg 12/10/24 21:00 Vibegron [Gemtesa] PO 01/09/25 20:59 QHS GEMA Ondansetron HCl 4 mg 12/11/24 04:44 12/11/24 06:30 Ondansetron Inj 4 Mg/2 Ml Vial IV PUSH 4 mg Q6H PRN Administration Nausea And Vomiting Pantoprazole Sodium 40 mg 12/11/24 09:00 Pantoprazole Sodium Iv 40 Mg Vial IV PUSH QAM GEMA Fluticasone/Salmeterol 2 puff 12/10/24 21:05 12/11/24 07:33 Fluticasone/Salmeterol 230-21 Mcg Inhaler 1 Puff INHALATION 2 puff Q12HRT GEMA Administration Spironolactone 100 mg 12/11/24 09:00 Spironolactone 50 Mg Tablet PO DAILY GEMA Tramadol HCl 50 mg 12/10/24 20:52 12/10/24 23:25 Tramadol Hcl (*Crx) 50 Mg Tablet PO 50 mg Q6H PRN Administration PAIN RATED 4-6 Radiology Results: ITS Impressions Chest X-Ray 12/10/24 13:24 IMPRESSION: 1: NO ACUTE CARDIOPULMONARY DISEASE. Pulmonary Perfusion Imaging 12/10/24 17:32 IMPRESSION: 1: Normal ventilation and perfusion images. Labs Labs: Laboratory Results - last 24 hr 12/10/24 12/10/24 12/10/24 14:18 17:21 20:27 WBC 14.1 H RBC 4.58 Hgb 13.7 Hct 42.0 MCV 91.7 MCH 29.9 MCHC 32.6 RDW 13.6 Plt Count 215 MPV 11.4 H Immature Gran % (Auto) 0.4 Neut % (Auto) 75.3 H Lymph % (Auto) 17.2 L Patrick % (Auto) 6.4 Eos % (Auto) 0.4 Baso % (Auto) 0.3 Lymph # (Auto) 2.42 Patrick # (Auto) 0.9 H Eos # (Auto) 0.1 Baso # (Auto) 0.0 Abs Immat Gran (auto) 0.05 H Absolute Neuts (auto) 10.6 H Absolute Nucleated RBC 0.000 Nucleated RBC % 0.0 ESR 20 PT 13.1 INR 1.0 APTT 25.1 Sodium 132 L Potassium 3.9 Chloride 97 L Carbon Dioxide 25 Anion Gap 10 BUN 14 Creatinine 0.90 Estim Creat Clear Calc 72 Estimated GFR > 60 Glucose 93 Calcium 9.6 Magnesium Total Bilirubin 0.6 AST 24 ALT 23 Alkaline Phosphatase 68 Lactate Dehydrogenase Troponin I < 0.012 < 0.012 C-Reactive Protein NT-Pro-B Natriuret Pep 20 Total Protein 8.0 Albumin 4.4 Lipase 120 Urine Color Urine Appearance Urine pH Ur Specific [place] Urine Protein Urine Glucose (UA) Urine Ketones Ur Blood (Man) Urine Nitrate Urine Bilirubin Urine Urobilinogen Leukocyte Esterase Rfl Urine RBC Urine WBC Ur Squamous Epith Cells Urine Bacteria Urine Casts Influenza A (RT-PCR) Influenza B (RT-PCR) RSV (RT-PCR) SARS-CoV-2 RNA (RT-PCR) 12/10/24 12/10/24 12/10/24 20:37 20:40 23:55 WBC RBC Hgb Hct MCV MCH MCHC RDW Plt Count MPV Immature Gran % (Auto) Neut % (Auto) Lymph % (Auto) Patrick % (Auto) Eos % (Auto) Baso % (Auto) Lymph # (Auto) Patrick # (Auto) Eos # (Auto) Baso # (Auto) Abs Immat Gran (auto) Absolute Neuts (auto) Absolute Nucleated RBC Nucleated RBC % ESR PT INR APTT Sodium Potassium Chloride Carbon Dioxide Anion Gap BUN Creatinine Estim Creat Clear Calc Estimated GFR Glucose Calcium Magnesium Total Bilirubin AST ALT Alkaline Phosphatase Lactate Dehydrogenase 144 Troponin I < 0.012 C-Reactive Protein 1.3 H NT-Pro-B Natriuret Pep Total Protein Albumin Lipase Urine Color Urine Appearance Urine pH Ur Specific [place] Urine Protein Urine Glucose (UA) Urine Ketones Ur Blood (Man) Urine Nitrate Urine Bilirubin Urine Urobilinogen Leukocyte Esterase Rfl Urine RBC Urine WBC Ur Squamous Epith Cells Urine Bacteria Urine Casts Influenza A (RT-PCR) Negative Influenza B (RT-PCR) Negative RSV (RT-PCR) Negative SARS-CoV-2 RNA (RT-PCR) Negative 12/11/24 12/11/24 01:23 03:50 WBC 7.5 RBC 4.03 L Hgb 12.1 Hct 37.4 MCV 92.8 MCH 30.0 MCHC 32.4 RDW 13.7 Plt Count 282 MPV 10.1 Immature Gran % (Auto) 0.3 Neut % (Auto) 56.3 Lymph % (Auto) 32.7 Patrick % (Auto) 8.9 H Eos % (Auto) 1.3 Baso % (Auto) 0.5 Lymph # (Auto) 2.45 Patrick # (Auto) 0.7 H Eos # (Auto) 0.1 Baso # (Auto) 0.0 Abs Immat Gran (auto) 0.02 Absolute Neuts (auto) 4.2 Absolute Nucleated RBC 0.000 Nucleated RBC % 0.0 ESR PT 13.3 INR 1.0 APTT 25.6 Sodium 133 L Potassium 4.2 Chloride 101 Carbon Dioxide 26 Anion Gap 6 BUN 17 Creatinine 0.97 Estim Creat Clear Calc 66 Estimated GFR 59 Glucose 95 Calcium 9.1 Magnesium 2.1 Total Bilirubin 0.5 AST 28 ALT 19 Alkaline Phosphatase 51 Lactate Dehydrogenase Troponin I C-Reactive Protein NT-Pro-B Natriuret Pep Total Protein 6.5 Albumin 3.7 Lipase Urine Color Yellow Urine Appearance Cloudy H Urine pH 5.5 Ur Specific [place] 1.018 Urine Protein Negative Urine Glucose (UA) Negative Urine Ketones Trace H Ur Blood (Man) Negative Urine Nitrate Negative Urine Bilirubin Negative Urine Urobilinogen 0.2 Leukocyte Esterase Rfl 2+ H Urine RBC 0-2 Urine WBC 51-100 H Ur Squamous Epith Cells None seen Urine Bacteria None seen Urine Casts 0-2 Influenza A (RT-PCR) Influenza B (RT-PCR) RSV (RT-PCR) SARS-CoV-2 RNA (RT-PCR)
[2024-12-11] MEDS: SPIRONOLACTONE 50 MG TABLET 100 MG PO (09:04)
[2024-12-11] MEDS: MELOXICAM 7.5 MG TABLET 15 MG PO (09:04)
[2024-12-11] MEDS: traMADol HCL (*CRX) 50 MG TABLET PO ×3 (09:05→22:10)
[2024-12-11] MEDS: LORATADINE 10 MG TABLET PO (09:05)
[2024-12-11] MEDS: LOSARTAN POTASSIUM 50 MG TABLET PO (09:05)
[2024-12-11] MEDS: CYCLOBENZAPRINE HCL 10 MG TABLET PO ×2 (09:06→22:10)
[2024-12-11] MEDS: PANTOPRAZOLE SODIUM IV 40 MG VIAL IV PUSH (09:08)
[2024-12-11 10:03] LABS: Troponin I < 0.012 ng/mL (0.000-0.034)
--- NOTE | 2024-12-11 10:23 | PM.CNCAR ---
Assessment and Plan Assessment and plan (1) Chest pain in adult: Code(s): R07.9 - Chest pain, unspecified Status: Acute Assessment and Plan: -She is chest pain-free currently. Troponin X 3 negative. Last catheterization in 07/2022 was without any obstructive CAD. Given recent catheterization was negative and patient is currently chest pain free, troponin X 3 negative, no heart failure or electrical instability, recommend TTE to look for any new drop in LVEF or regional wall motion abnormalities. If any regional wall motion abnormalities noted on echo, then recommend cardiac catheterization to evaluate coronaries. -Evaluate for any noncardiac causes of chest pain. (2) Essential (primary) hypertension: Code(s): I10 - Essential (primary) hypertension Status: Chronic Assessment and Plan: Continue losartan, hydrochlorothiazide, spironolactone at home dose. History of Present Illness History of Present Illness Consult date/time: 12/11/24 10:23 Reason For Visit: Cardiac R/O Chest Pain Narrative: 59-year-old female with history of fibromyalgia, DVT during , obstructive sleep apnea, migraine presents with chief complaint of chest pain for the past 1 week. She states that over the past 1 week she has been having off and on sharp chest pains which also feels like an elephant sitting on her chest. On Saturday when she was shopping at [employer] she had chest pain of intensity 8/10 without radiation in her mid chest. She felt lightheaded and dizzy. She rested for the symptoms to past. She states that yesterday chest pain came back while she was working around 11:00 a.m.. She works from home and was at her computer when symptoms started. She did not have any stress at the time her symptoms started. Chest pain was sharp in nature, coming and going, without any radiation, and was associated with lightheadedness and nausea. She decided to stop working and take some rest but it did not improve and so she presented to the ER. Her troponin is negative. Of note she had a cardiac catheterization at [facility] in 07/2022 which showed only mild irregularities without any obstructive CAD. Cardiology is consulted for further management of chest pain. Patient is currently chest pain-free. No shortness of breath, dizziness, lightheadedness at this time. No recent weight gain or loss, leg swelling, palpitations, presyncope, syncope, orthopnea or PND. Workup: Troponin:< 0.012 X 3 NT proBNP: 20 EKG: Sinus rhythm, LVH, occasional PVCs, no ST elevations or depressions Chest x-ray: No acute cardiopulmonary pathology Ventilation perfusion scan: Normal ventilation perfusion images Review of Systems Review of Systems: A complete review of systems was performed and pertinent positives are reported in the HPI. [facility] Past Medical History Medical History (Updated 12/10/24 @ 20:55 by CHUCK Osborne) Leukocytosis, unspecified Chronic tonsillitis Abnormal finding on imaging Acute recurrent maxillary sinusitis Allergic reaction to food Arthralgia of temporomandibular joint, unspecified side Chronic fatigue and malaise Chronic pain of right knee Complex tear of medial meniscus of left knee Moderate episode of recurrent major depressive disorder Occult blood in stools Other chronic pain Pes anserine bursitis Sleep apnea in adult Traumatic gamekeeper's thumb of right hand Unilateral primary osteoarthritis, right knee Left shoulder pain Pes anserinus bursitis of right knee Left knee pain Fibromyalgia DVT (deep vein thrombosis) in Migraine Surgical History Surgical History Presence of right artificial knee joint H/O neck surgery History of hysterectomy Plate from C3-C6 History of cholecystectomy History of appendectomy Family History Family History Father Family history of heart disease in male family member before age 55 Family history of kidney disease Mother Family history of chronic obstructive pulmonary disease Family history of cardiovascular disease Family history of lung disease Hypertension Diabetes mellitus Family history of osteoarthritis Sibling Family history of osteoarthritis Hypertension Sibling Sarcoidosis Social History Social History Social History: Caffeine-daily Smoking status: Never smoker Second hand tobacco smoke exposure: Yes Alcohol intake: current Drinks per week: 2 Alcohol use details: chato Substance use: never Substance use type: does not use Do You Feel Safe in your Home?: Yes Lack of Transportation: No Lack of Food: Never True Current Housing: I Have Housing Concerned About Future Housing: No Difficulty Paying Gas/Electric Bills: No Difficulty Paying for Meds: No Currently Unemployed: No Education: Master's Degree or Higher Difficulty w/ Childcare or Family Care: No Living arrangements: with family Occupation/Education: occupation 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 Gender identity (if verbalized by the patient): Female Spiritual care concerns: No Agree to blood products: Yes Meds Home Medications and Allergies Home Medications ?Medication ?Instructions ?Recorded ?Confirmed ?Type cetirizine 10 mg tablet (Zyrtec) 10 mg PO DAILY #30 tabs 03/27/22 12/10/24 Rx albuterol sulfate 90 mcg/actuation 2 puff inhalation Q4H PRN 08/06/24 12/10/24 History aerosol inhaler (Ventolin HFA) shortness of breath or wheezing colestipol 1 gram tablet 1 g PO BID PRN constipation 09/10/24 12/10/24 History tirzepatide (weight loss) 7.5 12.5 mg subcut WEEKLY 09/10/24 12/10/24 History mg/0.5 mL subcutaneous pen injector (Zepbound) vibegron 75 mg tablet (Gemtesa) 75 mg PO QHS 09/10/24 12/10/24 History losartan 50 mg-hydrochlorothiazide See Rx Instructions .Route 10/01/24 12/10/24 Rx 12.5 mg tablet .COMPLEX #90 tabs atogepant 60 mg tablet (Qulipta) 60 mg PO DAILY #30 tabs 10/12/24 12/10/24 Rx ondansetron 4 mg disintegrating See Rx Instructions .Route 10/16/24 12/10/24 Rx tablet .COMPLEX PRN nausea and vomiting #60 tabs omeprazole 20 mg capsule,delayed 20 mg PO DAILY #90 caps 11/03/24 12/10/24 Rx release meloxicam 15 mg tablet 15 mg PO DAILY #90 tabs 12/09/24 12/10/24 Rx aripiprazole 2 mg tablet 2 mg PO QHS 12/10/24 12/10/24 History cyclobenzaprine 10 mg tablet 10 mg PO TID PRN muscle spasm 12/10/24 12/10/24 History diphenhydramine HCl 25 mg capsule 50 mg PO HS 12/10/24 12/10/24 History (Allergy (diphenhydramine)) epinephrine 0.3 mg/0.3 mL 0.3 mg IM ONCE PRN allergic 12/10/24 12/10/24 History injection, auto-injector (EpiPen reaction 2-Barrera) fluoxetine 20 mg capsule 20 mg PO QHS 12/10/24 12/10/24 History fluticasone furoate 200 1 inh inhalation DAILY 12/10/24 12/10/24 History mcg-vilanterol 25 mcg/dose inhalation powder (Breo Ellipta) spironolactone 100 mg tablet 100 mg PO DAILY 12/10/24 12/10/24 History tramadol 50 mg tablet 50 mg PO Q6H PRN pain 12/10/24 12/10/24 History Allergies Allergy/AdvReac Type Severity Reaction Status Date / Time hydromorphone Allergy Severe Hives,Red Verified 12/10/24 20:06 Face prochlorperazine Allergy Severe ANAPHALAXIS Verified 12/10/24 20:05 shellfish derived Allergy Intermediate Hives Verified 12/10/24 20:07 IVP dye Allergy Severe Hives Uncoded 12/10/24 20:07 strawberries Allergy Severe Anaphylaxis Uncoded 09/25/24 09:35 Contrast Media Allergy Intermediate RASH Uncoded 09/25/24 09:35 Vital Signs Vital Signs - 24 hr 12/10/24 13:16 12/10/24 14:50 12/10/24 14:51 Temperature 36.6 C Pulse Rate 97 82 82 Respiratory Rate 16 15 16 Blood Pressure 118/75 106/72 106/72 Pulse Oximetry 100 100 100 Oxygen Delivery Room Air Room Air 12/10/24 14:54 12/10/24 14:55 12/10/24 16:27 Temperature Pulse Rate 81 79 Respiratory Rate 17 Blood Pressure 113/81 Pulse Oximetry 100 100 Oxygen Delivery Room Air 12/10/24 17:01 12/10/24 19:11 12/10/24 19:29 Temperature Pulse Rate 91 80 84 Respiratory Rate 27 H 20 Blood Pressure 121/79 110/70 Pulse Oximetry 100 100 Oxygen Delivery 12/10/24 19:51 12/10/24 20:00 12/10/24 20:00 Temperature 36.6 C Pulse Rate 83 83 98 Respiratory Rate 20 20 Blood Pressure 110/64 Pulse Oximetry 100 100 Oxygen Delivery Room Air 12/10/24 22:00 12/10/24 23:48 12/10/24 23:51 Temperature 36.6 C Pulse Rate 86 76 76 Respiratory Rate 20 20 Blood Pressure 102/59 L Pulse Oximetry 96 96 Oxygen Delivery Room Air 12/11/24 00:00 12/11/24 02:00 12/11/24 04:00 Temperature 36.6 C Pulse Rate 74 73 73 Respiratory Rate 20 Blood Pressure 104/63 Pulse Oximetry 98 Oxygen Delivery 12/11/24 04:00 12/11/24 04:00 12/11/24 06:00 Temperature Pulse Rate 73 75 74 Respiratory Rate 20 Blood Pressure Pulse Oximetry 98 Oxygen Delivery Room Air 12/11/24 08:00 12/11/24 08:49 12/11/24 08:49 Temperature 36.4 C Pulse Rate 76 Respiratory Rate 14 Blood Pressure 103/63 110/57 L 121/75 Pulse Oximetry 98 Oxygen Delivery 12/11/24 08:49 Temperature Pulse Rate Respiratory Rate Blood Pressure 106/71 Pulse Oximetry Oxygen Delivery Exam Narrative: General: Alert oriented x3, no acute distress Neck: Supple, no JVD Chest: Bilaterally clear to auscultation, no rales or rhonchi Cardiac: S1, S2 +, regular rate, regular rhythm, no murmurs or rubs Extremities: No pedal edema, no skin rash Neurologic: Alert and oriented x3, no focal neurological deficits Results Labs and Meds 12/11/24 03:50 12/11/24 03:50 Lab results: Cardiac Enzymes 12/10/24 12/10/24 12/10/24 Range/Units 14:18 17:21 20:37 AST 24 (14-36) U/L Lactate Dehydrogenase 144 (120-246) U/L Troponin I < 0.012 < 0.012 (0.000-0.034) ng/mL 12/10/24 12/11/24 12/11/24 Range/Units 20:40 03:50 09:30 AST 28 (14-36) U/L Lactate Dehydrogenase (120-246) U/L Troponin I < 0.012 < 0.012 (0.000-0.034) ng/mL Coagulation 12/10/24 12/11/24 Range/Units 14:18 03:50 PT 13.1 13.3 (11.1-14.7) Seconds APTT 25.1 25.6 (22.3-36.8) Seconds CBC 12/10/24 12/11/24 Range/Units 14:18 03:50 WBC 14.1 H 7.5 (4.5-10.0) K/mm3 RBC 4.58 4.03 L (4.2-5.4) M/mm3 Hgb 13.7 12.1 (12.0-15.0) g/dL Hct 42.0 37.4 (37.0-47.0) % Plt Count 215 282 (150-375) k/mm3 Lymph # (Auto) 2.42 2.45 (0.9-3.2) K/mm3 Day # (Auto) 0.9 H 0.7 H (0.1-0.6) K/mm3 Eos # (Auto) 0.1 0.1 (0-0.3) K/mm3 Baso # (Auto) 0.0 0.0 (0.0-0.1) K/mm3 Comprehensive Metabolic Panel 12/10/24 12/11/24 Range/Units 14:18 03:50 Sodium 132 L 133 L (137-145) mmol/L Potassium 3.9 4.2 (3.4-5.0) mmol/L Chloride 97 L 101 (98-107) mmol/L Carbon Dioxide 25 26 (22-30) mmol/L BUN 14 17 (7-17) mg/dL Creatinine 0.90 0.97 (0.7-1.0) mg/dL Glucose 93 95 (65-110) mg/dL Calcium 9.6 9.1 (8.4-10.2) mg/dL AST 24 28 (14-36) U/L ALT 23 19 (6-35) U/L Alkaline Phosphatase 68 51 (38-126) U/L Total Protein 8.0 6.5 (6.3-8.2) g/dL Albumin 4.4 3.7 (3.5-5.1) g/dL Intake and Output 12/10/24 12/11/24 12/11/24 23:59 07:59 15:59 Intake Total 1000 Output Total 450 Balance 1000 -450 Intake: IV 1000 Lactated Ringers 1,000 ml @ 999 1000 mls/hr IV CONT .Q1H1M STA Rx#: [id number] Output: Urine 450 Other: Intake, Other Source NPO # Unmeasured Voids 1 Number of Bowel Movements Today 0 0 Patient Weight 12/11/24 23:59 Weight 88.5 kg
[2024-12-11 14:27] LABS: Cholesterol 147 mg/dL (0-200); HDL Direct 46 mg/dL; Triglycerides 120 mg/dL (<150)
[2024-12-11 16:54] LABS: Troponin I < 0.012 ng/mL (0.000-0.034)
[2024-12-11] MEDS: diphenhydrAMINE HCl CAP 25 MG CAPSULE 50 MG PO (21:58)
[2024-12-12] VITALS (13 sets, daily range): BP systolic 96–124; BP diastolic 53–66; PULSE 77–101; RESP 15–19; TEMP 36.1–36.6; O2SAT 96–100
[2024-12-12] MEDS: FLUTICASONE/SALMETEROL 230-21 MCG INHALER 1 PUFF 2 PUFF INHALATION (07:42)
[2024-12-12] MEDS: traMADol HCL (*CRX) 50 MG TABLET PO (08:01)
[2024-12-12] MEDS: CYCLOBENZAPRINE HCL 10 MG TABLET PO (08:02)
[2024-12-12] MEDS: LORATADINE 10 MG TABLET PO (08:02)
[2024-12-12] MEDS: LOSARTAN POTASSIUM 50 MG TABLET PO (08:02)
[2024-12-12] MEDS: SPIRONOLACTONE 50 MG TABLET 100 MG PO (08:02)
[2024-12-12] MEDS: MELOXICAM 7.5 MG TABLET 15 MG PO (08:02)
[2024-12-12] MEDS: PANTOPRAZOLE SODIUM IV 40 MG VIAL IV PUSH (08:03)
--- NOTE | 2024-12-12 11:08 | PM.DS ---
DS: Admitting Diagnosis Discharge Date 12/12/24 Admitting Diagnosis Chest pain DS: Discharge Diagnosis Discharge Diagnosis (1) Chest pain in adult: Code(s): R07.9 - Chest pain, unspecified Status: Acute (2) SOB (shortness of breath) on exertion: Code(s): R06.02 - Shortness of breath Status: Acute (3) Leukocytosis, unspecified: Code(s): D72.829 - Elevated white blood cell count, unspecified Status: Acute (4) Essential (primary) hypertension: Code(s): I10 - Essential (primary) hypertension Status: Chronic (5) Anxiety: Code(s): F41.9 - Anxiety disorder, unspecified Status: Chronic (6) Gastroesophageal reflux disease: Code(s): K21.9 - Gastro-esophageal reflux disease without esophagitis Status: Chronic DS: Summary Hospital Course Reason for hospitalization: 59yo female patient with history of COPD, hypertension, dyspnea on exertion, arthritis, depression, sleep apnea, fibromyalgia, DVT and migraines who presented to the the room due to worsening chest pain. Please see H&P for details. Hospital Course: Patient with BUTLER with intermittent midsternal CP for months. Pulmonary workup has been negative. Patient also had non-obstructive coronary arteries by [facility] July 2022. She presents with worsening symptoms accompanied with cough. Trop negative x3. EKG showing NSR, minimal voltage criteria for LVH and possibly old anteroseptal CA. Repeat EKG showing similar findings. Echo showing EF 60-65%, small MR/TR and grade I diastolic dysfunction. No change from prior Echo in 2022. VQ scan here was normal. Cardiology was consulted and did not feel this was cardiac in nature. The pain was pleuritic and palpable. Consider pleurisy or musculoskeletal related. WBC was 14K on admission. UA mildly abnormal but did prompt UCx. CXR clear. CRP 1.3, LDH 144, ESR 20. Repeat WBC normal. We held off on antibiotic initiation at this time. Suspected patient had a viral syndrome that made her underlying condition flare. She overall did well and was able to be discharged home on 12/12/24. Recommend that she take Ibuprofen scheduled for a few days for the inflammation. Side effects discussed. All questions answered. Status at Discharge Cognitive/behavioral status at discharge: Stable Time Spent with Patient Time attestation: Total time spent providing and/or coordinating discharge services: 34 minutes Time spent: Greater than 30 minutes Exam Narrative: AF 97.0 124/66 84 15 96% ra Gen - NARD Chest - CTA bilaterally, nml RR. Palpable parasternal tenderness. CV - RRR S1/S2. No rub. Tele showing no significant dysrhythmias Abd - Soft, NT/ND, Positive BS Ext - No pedal edema Psych - Nml mood and affect Skin - Warm and dry DS: Data Data Completed and Pending Labs on day of discharge: Labs from last 24 hours 12/11/24 12/11/24 12/10/24 16:27 03:50 14:18 Sodium 132 L Potassium 3.9 Chloride 97 L Carbon Dioxide 25 Anion Gap 10 BUN 14 Creatinine 0.90 Estim Creat Clear Calc 72 Estimated GFR > 60 Glucose 93 Calcium 9.6 Total Bilirubin 0.6 AST 24 ALT 23 Alkaline Phosphatase 68 Troponin I < 0.012 < 0.012 Total Protein 8.0 Albumin 4.4 Triglycerides 120 Cancelled Cholesterol 147 Cancelled LDL Cholesterol Direct 61 Cancelled HDL Direct 46 Cancelled Lipase 120 Discharge Plan Discharge Attending physician on discharge: Govind Lemus Consulting providers: Kim Talbert Discharging Clinician: Govind Lemus Anticipated Discharge Date/Time: 12/12/24 11:17 Patient Disposition: Home Activity: as tolerated Diet: heart healthy Discharge Instructions: Contact your doctor or call 911 and come to the Emergency Room if you have fevers or other worrisome symptoms. Recommend taking ibuprofen 400mg 3x/day with food for 4 days then stop. Follow-up with your primary care provider in 1-2 weeks. Please call for appointment. Thank you for using [facility] for your health care needs. Patient Instructions: Antibiotic Form, Chest Pain (GEN) Patient Language: Prydeinig Stand Alone Forms: General Discharge Information Follow-up/Referrals: Nasreen Bear DO [Primary Care Provider, Family Practice] - Call for Appointment Discharge Medications: Continued colestipol 1 gram tablet 1 g PO BID PRN (Reason: constipation) Zepbound 7.5 mg/0.5 mL pen injector 12.5 mg subcut WEEKLY Rx Instructions: Takes on Mondays. Gemtesa 75 mg tablet 75 mg PO QHS albuterol sulfate [Ventolin HFA] 90 mcg/actuation HFA aerosol inhaler 2 puff inhalation Q4H PRN (Reason: shortness of breath or wheezing) cetirizine [Zyrtec] 10 mg tablet 10 mg PO DAILY Qty: 30 0RF aripiprazole 2 mg tablet 2 mg PO QHS fluoxetine 20 mg capsule 20 mg PO QHS fluticasone furoate-vilanterol [Breo Ellipta] 200-25 mcg/dose blister with device 1 inh INHALATION DAILY spironolactone 100 mg tablet 100 mg PO DAILY epinephrine [EpiPen 2-Barrera] 0.3 mg/0.3 mL auto-injector 0.3 mg IM ONCE PRN (Reason: allergic reaction) Rx Instructions: as a single dose; may repeat once tramadol 50 mg tablet 50 mg PO Q6H PRN (Reason: pain) diphenhydramine HCl [Allergy (diphenhydramine)] 25 mg capsule 50 mg PO HS cyclobenzaprine 10 mg tablet 10 mg PO TID PRN (Reason: muscle spasm) losartan-hydrochlorothiazide 50-12.5 mg tablet See Rx Instructions .ROUTE .COMPLEX Qty: 90 1RF Dose Instruction: Take 1 tablet by mouth once daily Rx Instructions: Take 1 tablet by mouth once daily Qulipta 60 mg tablet 60 mg PO DAILY Qty: 30 1RF ondansetron 4 mg tablet,disintegrating See Rx Instructions .ROUTE .COMPLEX PRN (Reason: nausea and vomiting) Qty: 60 1RF Dose Instruction: DISSOLVE 1 TABLET IN MOUTH EVERY 6 HOURS NEEDED FOR NAUSEA AND VOMITING Rx Instructions: DISSOLVE 1 TABLET IN MOUTH EVERY 6 HOURS NEEDED FOR NAUSEA AND VOMITING PRN; omeprazole 20 mg capsule,delayed release(DR/EC) 20 mg PO DAILY Qty: 90 1RF meloxicam 15 mg tablet 15 mg PO DAILY Qty: 90 0RF Date of admission: 12/10/24 18:08 Primary Care Provider: Nasreen Bear Admitting Provider: Govind Lemus Attending physician on admission: Govind Lemus Condition: Stable Hospitalist MIPS Heart Failure (Exclusion) Patient has history of Heart Transplant or Left Ventricular Assistive Device?: No IF YES, STOP HERE Heart Failure (Qualifier) Patient has current or prior documentation of LVEF less than or equal to 40%, or mod/servere depressed LVSF?: No IF NO, STOP HERE
--- NOTE | 2024-12-14 07:42 | PC.NURSE ---
urine cx negative. Dr. Allan sewell.
== END 2024-12-12 12:12 | disposition home or self-care (01) ==
LOC: ANHED 14:51 → ANHIMU 18:57
PROVIDERS: Emergency Medicine; Internal Medicine Interventional Cardiology; Nurse Practitioner Adult Health; Admitting Provider Internal Medicine; Emergency Provider Nurse Practitioner Family; PCP Family Medicine; Visit Provider Internal Medicine
DX: R07.9 Chest pain, unspecified (principal); R06.02 Shortness of breath; D72.829 Elevated white blood cell count, unspecified; K21.9 Gastro-esophageal reflux disease without esophagitis; I10 Essential (primary) hypertension; I08.1 Rheumatic disorders of both mitral and tricuspid valves; Z20.822 Contact with and (suspected) exposure to COVID-19; G47.30 Sleep apnea, unspecified; F41.8 Other specified anxiety disorders; M17.11 Unilateral primary osteoarthritis, right knee; M25.561 Pain in right knee; Z96.651 Presence of right artificial knee joint; M79.7 Fibromyalgia; R53.82 Chronic fatigue, unspecified; G89.29 Other chronic pain; J35.01 Chronic tonsillitis; Z79.85 Long-term (current) use of injectable non-insulin antidiabetic drugs; Z86.718 Personal history of other venous thrombosis and embolism; Z98.890 Other specified postprocedural states; Z90.49 Acquired absence of other specified parts of digestive tract; Z79.1 Long term (current) use of non-steroidal anti-inflammatories (NSAID); Z79.51 Long term (current) use of inhaled steroids; Z79.891 Long term (current) use of opiate analgesic; Z82.49 Family history of ischemic heart disease and other diseases of the circulatory system; Z83.3 Family history of diabetes mellitus
CPT/HCPCS: 36415; 71046; 78582; 80053; 80061; 81001; 83615; 83690; 83735; 83880; 84484; 85025; 85610; 85652; 85730; 86140; 87086; 87637; 93005; 93306; 94640; 96361; 96374; 96375; 96376; 99285; A9270; A9540; A9558; G0378; J1885; J2270; J2405; J2470; J2765; J3010; J7120

== ENCOUNTER 2025-01-12 14:26 | Outpatient (CLI) | payer BC, SELFPAY ==
--- NOTE | 2025-01-13 10:07 | WPDPFTINT ---
PFT Procedure Performed PFT Procedure Performed Spirometry with Pre/Post Bronchodilator Plethysmography (Lung Vol) Diffusing Cap (DLCO) Flow Vol Loop PFT Interpretation This is a pulmonary function test with pre and post-bronchodilator spirometry, plethysmography and diffusing capacity. The test was performed and results interpreted in accordance with the 2019 and 2005 ATS/ERS Task Force guidelines respectively using the Global Lung Function Initiative-2012 reference equations. Patient demonstrated good effort and cooperation. Reproducibility criteria were met. The quality of the pre bronchodilator spirometry maneuver was Grade A and post bronchodilator spirometry maneuver was Grade A. Findings: Spirometry: The contour the inspiratory and expiratory flow tracing are normal. The pre bronchodilator FVC is 3.13 L, 83% predicted. The pre bronchodilator FEV1 is 2.65 L, 90% predicted. The pre bronchodilator FEV1: FVC ratio is 84%. The post bronchodilator FVC is 3.18 L, representing a 1% increase. The post bronchodilator FEV1 is 2.77 L, representing a 5% increase. The post bronchodilator FEV1: FVC ratio is 87%. Plethysmography: The total lung capacity is 5.21 L, 90% predicted. The functional residual capacity is 2.81 L, 85% predicted. The residual volume is 1.65 L, 75% predicted. Diffusing capacity: The diffusing capacity unadjusted for hemoglobin and carboxyhemoglobin is 18.0, 76% predicted. The diffusing capacity adjusted for alveolar volume is 4.32, 102% predicted. Impression: The spirometry is normal without evidence of an obstructive abnormality. There is no significant improvement after inhaling a single dose of albuterol. The lung volumes are normal. The diffusing capacity is normal. There are no prior studies for comparison
== END 2025-01-12 14:27 | disposition home or self-care (01) ==
LOC: ANHPFT 14:32
PROVIDERS: PCP Family Medicine; Visit Provider Nurse Practitioner Family
DX: R06.02 Shortness of breath (principal); R07.9 Chest pain, unspecified
CPT/HCPCS: 94060; 94726; 94729